=== PATIENT | female | born 1930 | race Caucasian/White ===

== ENCOUNTER 2016-07-01 08:52 | Outpatient (CLI) | payer OTHER ==
[2015-10-30 17:08] VITALS: BMI 30.6
[2016-07-01 09:06] LABS: BILIRUBIN,URINE Negative (NEGATIVE); KETONES,URINE Negative (NEGATIVE); LEUKOCYTE ESTERASE ,URINE Negative (NEGATIVE); NITRITE,URINE Negative (NEGATIVE); PH,URINE 5.5 (5-9); PROTEIN,URINE Negative (NEGATIVE); URINE, BLOOD Negative (NEGATIVE)
[2016-07-01 09:08] LABS: ADD URINE MICROSCOPIC NO
== END 2016-07-01 08:53 | disposition home or self-care (01) ==
LOC: NONPT 08:52
PROVIDERS: ATTEND Internal Medicine
DX: R41.0 Disorientation, unspecified (principal); R30.0 Dysuria
CPT/HCPCS: 81001

== ENCOUNTER 2017-01-21 14:09 | Outpatient (CLI) ==
[2015-10-30 17:08] VITALS: BMI 30.6
[2017-01-21 14:21] LABS: BILIRUBIN,URINE Negative (NEGATIVE); KETONES,URINE Negative (NEGATIVE); LEUKOCYTE ESTERASE ,URINE 3+ (NEGATIVE); NITRITE,URINE Negative (NEGATIVE); PH,URINE 5.5 (5-9); PROTEIN,URINE 1+ (NEGATIVE); URINE, BLOOD Trace-intact (NEGATIVE)
[2017-01-21 14:22] LABS: ADD URINE MICROSCOPIC YES
[2017-01-21 14:24] LABS: BACTERIA,URINE 3+ (NOT PRESENT)
== END 2017-01-21 14:10 | disposition home or self-care (01) ==
LOC: LAB 14:09 → NONPT 14:10
PROVIDERS: ATTEND Internal Medicine
DX: R41.0 Disorientation, unspecified (principal)
CPT/HCPCS: 81001; 87086

== ENCOUNTER 2017-01-31 09:13 | Outpatient (CLI) | payer OTHER ==
[2015-10-30 17:08] VITALS: BMI 30.6
[2017-01-31 09:49] LABS: BILIRUBIN,URINE Negative (NEGATIVE); KETONES,URINE Negative (NEGATIVE); LEUKOCYTE ESTERASE ,URINE 3+ (NEGATIVE); NITRITE,URINE Negative (NEGATIVE); PROTEIN,URINE Negative (NEGATIVE); URINE, BLOOD Trace-intact (NEGATIVE)
[2017-01-31 09:52] LABS: ADD URINE MICROSCOPIC YES
[2017-01-31 09:53] LABS: BACTERIA,URINE 3+ (NOT PRESENT)
== END 2017-01-31 09:14 | disposition home or self-care (01) ==
LOC: NONPT 09:13
PROVIDERS: ATTEND Internal Medicine
DX: R41.82 Altered mental status, unspecified (principal)
CPT/HCPCS: 81001; 87086

== ENCOUNTER 2017-02-14 16:16 | Inpatient (IN) | payer OTHER ==
--- NOTE | 2017-02-14 16:46 | ED.PDOC ---
General Stated Complaint: Patient told her daughter this AM she wasn't feeling well. Later in day, she became quite confused and slow to respond. Patient does respond appropriately if slowly to simple questions. Not oriented. Denies any pain. Denies SOB. Denies nausea, vomiting, or diarrhea. Denies fever or chills. Time Seen by Physician: 16:40 Mode of Arrival: Ambulance Information Source: Family, Assisted, EMT Exam Limitations: No limitations Nursing and Triage Documentation Reviewed and Agree: Yes <ERUM VINCENT - Last Filed: 02/14/17 19:01> <JANAK ORO - Last Filed: 02/14/17 20:19> ED Provider: Dr. JANAK ORO Chief Complaint: Shortness of Air Primary Care Provider: RANI WORTHY Respiratory Complaint Exam - Shortness of Air Complaint/Exam Onset/Duration: this AM Symptoms Are: Resolved Timing: Intermittent Initial Severity: Moderate Current Severity: None Character: Reports: Dyspnea at rest Aggravating: Reports: None Alleviating: Reports: None History of Healthcare-Acquired Pneumonia: Lives at half-way Pulmonary Embolism Risk Factors: Reports: None, Smoking Cardiac Risk Factors: Reports: Prior [place], CAD, Smoking, Hypertension Pseudomonas Risk Factors: Reports: None, Chronic Lung Disease Tuberculosis Risk Factors: Reports: None, Smoking Home Oxygen Use: No Recent Stress Test: No Recent Echo/LV Function: No Respiratory Distress: Mild Stridor Present: No Tracheal Deviation: No Subcutaneous Emphysema: No Accessory Muscle Use: No Retractions: Not Present Diminished Breath Sounds: No Prolonged Expiratory Phase: No Unable to Speak Full Sentences: No Fatigue: No Leg Swelling: No Ender's Sign Present: No Grunting Respirations: No Kussmaul Respirations: No Differential Diagnoses: CHF, COPD Exacerbation, Unstable Angina, Pneumonia, Bronchitis, Other (UTI, diverticulitis) Quality Indicators For Pneumonia/CAP: SpO2 assessed, Vital signs, Mental status assessed <ERUM VINCENT - Last Filed: 02/14/17 19:01> Review of Systems - Review Of Systems Constitutional: Reports: Malaise, Weakness Eyes: Reports: No symptoms Ears, Nose, Mouth, Throat: Reports: No symptoms Respiratory: Reports: No symptoms Cardiac: Reports: No symptoms GI: Reports: No symptoms : Reports: No symptoms Musculoskeletal: Reports: No symptoms Skin: Reports: No symptoms Neurological: Reports: Cognitive dysfunction, Weakness All Other Systems: Reviewed and Negative <MELISAERUM - Last Filed: 02/14/17 19:01> - Review Of Systems Constitutional: Reports: Weakness Eyes: Reports: No symptoms Ears, Nose, Mouth, Throat: Reports: No symptoms Respiratory: Reports: Cough Cardiac: Reports: No symptoms GI: Reports: No symptoms : Reports: No symptoms Musculoskeletal: Reports: No symptoms Skin: Reports: No symptoms Neurological: Reports: Cognitive dysfunction, Weakness Endocrine: Reports: No symptoms Hematologic/Lymphatic: Reports: No symptoms All Other Systems: Reviewed and Negative <SHORTYJANAK - Last Filed: 02/14/17 20:19> Past Medical History - Past Medical History Endocrine: Reports: DM 2, Dyslipidemia Cardiovascular: Reports: CAD, [place], Hypertension, A-Fib Respiratory: Reports: COPD Hematological: Reports: Anemia Gastrointestinal: Reports: GERD Genitourinary: Reports: CKD Neuro/Psych: Reports: Dementia Musculoskeletal: Reports: Arthritis Cancer: Reports: Other Last Menstrual Period: NONE - Surgical History General Surgical History: Reports: Cholecystectomy - Family History Family History: Reports: Unknown - Social History Smoking Status: Former smoker Hx Substance Use: No Alcohol Screening: None Lives: In Assisted - Immunizations Tetanus Shot up to Date: Yes Influenza Vaccine within 12 Months: Yes Pneumococcal Vaccine up to Date: Yes <VINCENTERUM - Last Filed: 02/14/17 19:01> - Past Medical History Previously Healthy: No Endocrine: Reports: Unknown Cardiovascular: Reports: Unknown Respiratory: Reports: Unknown Hematological: Reports: Unknown Gastrointestinal: Reports: Unknown Genitourinary: Reports: Unknown Neuro/Psych: Reports: Unknown Musculoskeletal: Reports: Unknown Cancer: Reports: Unknown - Surgical History General Surgical History: Reports: Unknown - Family History Family History: Reports: Unknown - Social History Lives: In Assisted <JANAK ORO - Last Filed: 02/14/17 20:19> Physical Exam - Physical Exam Appearance: Well-appearing (but sleepy and slow to respond to questions and commands), No pain distress, Well-nourished Ill-appearing: None Pain Distress: None Eyes: RICKEY, EOMI, Conjunctiva clear ENT: Nose normal, Oropharynx normal, TMs [place] (TMs martinez and dull) Neck: Supple Respiratory: Airway patent, Breath sounds clear, Breath sounds equal, Breath sounds diminished (in bases bilaterally) Cardiovascular: RRR, Pulses normal, No rub, No murmur GI/: Soft, Nontender (patient denies hematemesis but emesis on shirt is heme- positive), No masses, Bowel sounds normal, No Organomegaly Musculoskeletal: Normal strength, ROM intact, No edema, No calf tenderness Skin: Warm, Dry, Normal color Neurological: Sensation intact, Motor intact, Reflexes intact, Cranial nerves intact, Alert, Disoriented (doesn't answer questions), Alert to verbal Psychiatric: Affect appropriate (drowsy but arouses to voice), Mood appropriate <ERUM VINCENT - Last Filed: 02/14/17 19:01> - Physical Exam Appearance: Ill-appearing Eyes: RICKEY ENT: Ears normal, Nose normal, Oropharynx normal Neck: Supple Respiratory: Airway patent, Breath sounds clear, Breath sounds equal, Respirations nonlabored Cardiovascular: RRR, Pulses normal, No rub, No murmur GI/: Soft, Nontender, No masses, Bowel sounds normal, No Organomegaly Musculoskeletal: Normal strength, ROM intact, No edema, No calf tenderness Skin: Warm, Dry, Normal color Neurological: Disoriented Psychiatric: Affect appropriate, Mood appropriate <JANAK ORO - Last Filed: 02/14/17 20:19> Interpretation - Radiology Interpretation Radiology Interpretation By: ED Physician Radiology Results: No acute changes Exam Interpreted: Portable CXR - EKG Interpretation Time of EKG #1: 17:15 Rate: Pratik (HR 55) Rhythm: Other (undetermined regular bradycardia) Ectopy: None [place]: NL ST Segment: Normal Interpretation: Low voltage QRS, bradycardic supraventricular rhythm <ERUM VINCENT - Last Filed: 02/14/17 19:01> - Radiology Interpretation Radiology Interpretation By: Radiologist Exam Interpreted: CT Scan <JANAK ORO - Last Filed: 02/14/17 20:19> Physician Notification - Case Discussed Physician Notified: Dr. Kulkarni Time of Notification: 19:01 <ERUM VINCENT - Last Filed: 02/14/17 19:01> - Case Discussed Time of Notification: 20:18 <JANAK ORO - Last Filed: 02/14/17 20:19> Critical Care Note - Critical Care Note Total Time (mins): 0 <ERUM VINCENT - Last Filed: 02/14/17 19:01> Course - Course Hematology/Chemistry: 02/14/17 17:20 02/14/17 17:20 <ERUM VINCENT - Last Filed: 02/14/17 19:01> - Course Hematology/Chemistry: 02/14/17 17:20 02/14/17 17:20 <JANAK ORO - Last Filed: 02/14/17 20:19> - Course Orders, Labs, Meds: Lab Review 02/14/17 02/14/17 02/14/17 17:20 17:20 17:20 WBC 6.46 RBC 3.25 L Hgb 10.3 L Hct 31.2 L MCV 96.0 MCH 31.7 H MCHC 33.0 RDW Coeff of Zeeshan 14.2 Plt Count 152 Immature Gran % (Auto) 0.8 Neut % (Auto) 75.2 Lymph % (Auto) 11.5 [place] % (Auto) 11.5 H Eos % (Auto) 0.8 Baso % (Auto) 0.2 Immature Gran # (Auto) 0.1 Neut # 4.9 Lymph # 0.7 [place] # 0.7 Eos # 0.1 Baso # 0.0 Sodium 136 Potassium 4.8 Chloride 106 Carbon Dioxide 18 L Anion Gap 16.8 BUN 58 H Creatinine 2.16 H Estimated GFR (MDRD) 22.00 BUN/Creatinine Ratio 26.85 Glucose 185 H Calcium 9.3 Total Bilirubin 0.41 AST 20 ALT 15 Alkaline Phosphatase 74 Total Creatine Kinase 33 Troponin I 0.0300 B-Natriuretic Peptide 561 H Total Protein 6.5 Albumin 3.0 L Globulin 3.5 Albumin/Globulin Ratio 0.86 Urine Color Urine Clarity Urine pH Ur Specific [place] Urine Protein Urine Glucose (UA) Urine Ketones Urine Blood Urine Nitrite Urine Bilirubin Urine Urobilinogen Ur Leukocyte Esterase Urine Microscopic RBC Urine Microscopic WBC Ur Squamous Epith Cells Urine Bacteria Digoxin 02/14/17 02/14/17 17:20 19:39 WBC RBC Hgb Hct MCV MCH MCHC RDW Coeff of Zeeshan Plt Count Immature Gran % (Auto) Neut % (Auto) Lymph % (Auto) [place] % (Auto) Eos % (Auto) Baso % (Auto) Immature Gran # (Auto) Neut # Lymph # [place] # Eos # Baso # Sodium Potassium Chloride Carbon Dioxide Anion Gap BUN Creatinine Estimated GFR (MDRD) BUN/Creatinine Ratio Glucose Calcium Total Bilirubin AST ALT Alkaline Phosphatase Total Creatine Kinase Troponin I B-Natriuretic Peptide Total Protein Albumin Globulin Albumin/Globulin Ratio Urine Color Yellow Urine Clarity Hazy Urine pH 5.0 Ur Specific [place] 1.010 Urine Protein Negative Urine Glucose (UA) Negative Urine Ketones Negative Urine Blood 1+ Urine Nitrite Negative Urine Bilirubin Negative Urine Urobilinogen 0.2 Ur Leukocyte Esterase 2+ Urine Microscopic RBC 0-2 Urine Microscopic WBC 5-10 Ur Squamous Epith Cells Not present Urine Bacteria 1+ Digoxin 0.91 L Orders Category Date Time Status EKG-(ED ONLY) Stat CARDIO 02/14/17 16:49 Completed Catheter [ED CATHETER INSERTION AND CARE] .ONCE EMERGENCY 02/14/17 19:03 Active BNP [B-TYPE NATRIURETIC PEPTIDE] Stat LAB 02/14/17 17:20 Completed CBC W/ AUTO DIFF Stat LAB 02/14/17 17:20 Completed CK [CREATINE KINASE] Stat LAB 02/14/17 17:20 Completed COMPREHENSIVE METABOLIC PANEL Stat LAB 02/14/17 17:20 Completed DIGOXIN Stat LAB 02/14/17 17:20 Completed TROPONIN I Stat LAB 02/14/17 17:20 Completed URINALYSIS C & S IF INDICATED Stat LAB 02/14/17 19:39 Completed URINE CULTURE Stat LAB 02/14/17 19:45 Received Lidocaine HCl [Uro-Jet] MEDS 02/14/17 19:03 Discontinued 10 ml MUCOUSMEMB ONCE STA Sodium Chloride 0.9% [Sodium Chloride] 500 ml MEDS 02/14/17 18:33 Discontinued IV BOLUS CHEST, 1V AP ONLY Stat RADS 02/14/17 16:[address] HEAD W/O CONTRAST Stat RADS 02/14/17 19:38 Completed Medications Discontinued Medications Generic Name Dose Route Start Last Admin Trade Name Freq PRN Reason Stop Dose Admin Sodium Chloride 500 mls @ 500 mls/hr 02/14/17 18:33 02/14/17 19:41 Sodium Chloride IV 02/14/17 19:32 500 mls/hr BOLUS STA Administration Lidocaine HCl 10 ml 02/14/17 19:03 02/14/17 19:40 Uro-Jet MUCOUSMEMB 02/14/17 19:04 Not Given ONCE STA Vital Signs: Temp Pulse Resp BP Pulse Ox 02/14/17 16:17 99.4 F 52 L 20 144/99 H 100 Departure <TOMÁS VINCENTNATHAN - Last Filed: 02/14/17 19:01> - Departure Time of Disposition: 20:18 Pt referred to PMD for follow-up: Yes Disposition Discussed With: Patient, Family <JANAK ORO - Last Filed: 02/14/17 20:19> - Departure Disposition: ADMITTED INPATIENT Discharge Problem: Dehydration Mental status change Qualifiers: Altered mental status type: transient alteration of awareness Qualified Code(s) : R40.4 - Transient alteration of awareness Instructions: Altered Mental Status (ED) Condition: Stable Allergies/Adverse Reactions: Allergies Penicillins Adverse Reaction (Unknown, Verified 02/14/17 16:44) Rash adhesive tape Adverse Reaction (Verified 02/14/17 16:44) iodine Adverse Reaction (Verified 02/14/17 16:44) Iodine and Iodide Containing Produc Adverse Reaction (Verified 02/14/17 16:44) Home Medications: Ambulatory Orders Furosemide [Furosemide] 20 mg PO DAILY 07/22/13 Sucralfate [Carafate] 1 gm PO BID 07/22/13 Donepezil HCl 10 mg PO BEDTIME 10/26/14 Dabigatran Etexilate Mesylate [Pradaxa] 150 mg PO Q12HR 08/30/15 Digoxin [Lanoxin] 125 mcg PO DAILY 08/30/15 Linagliptin [Tradjenta] 5 mg PO DAILY 08/30/15 Losartan Potassium 50 mg PO DAILY 08/30/15 Pantoprazole Sodium 40 mg PO DAILY 08/30/15 Rosuvastatin Calcium [Crestor] 10 mg PO DAILY 08/30/15 Denosumab [Prolia] 60 mg SQ Q6M 10/30/15 Fenofibrate Nanocrystallized [Fenofibrate] 145 mg PO DAILY 10/30/15 Tramadol HCl [Ultram] 50 mg PO Q12H PRN 10/30/15 Allopurinol 100 mg PO DAILY #30 tablet 11/05/15 Calcium Carbonate/Vitamin D3 [Calcium 500 + D Tablet] 2 each PO DAILY #60 tablet 11/05/15 Acetaminophen [Tylenol] 325 mg PO Q6H PRN 02/14/17 Alprazolam 0.25 mg PO BID 02/14/17 Bisoprolol Fumarate [Zebeta] 2.5 mg PO DAILY 02/14/17 Colesevelam HCl [Welchol] 625 mg PO BID 02/14/17 Escitalopram Oxalate [Lexapro] 15 mg PO DAILY 02/14/17 Ferrous Sulfate [Iron] 325 mg PO BID 02/14/17 Magnesium Hydroxide [Milk of Magnesia] 30 ml PO BID PRN 02/14/17 Nystatin [Nystop Powder] 1 applic TP TID 02/14/17 Tolterodine Tartrate [Detrol LA] 4 mg PO DAILY 02/14/17
[2017-02-14 17:38] LABS: BASOPHILS % (AUTO) 0.2 % (0.0-3.0); EOSINOPHILS # (AUTO) 0.1 K/ul (0.0-0.7); EOSINOPHILS % (AUTO) 0.8 % (0.0-7.0); HEMATOCRIT 31.2 % (37.0-47.0); HEMOGLOBIN 10.3 g/dl (12.0-16.0); IMMATURE GRANULOCYTE % (AUTO) 0.8 % (0.0-5.0); LYMPHOCYTES # (AUTO) 0.7 K/uL (0.60-3.4); LYMPHOCYTES % (AUTO) 11.5 (10.0-50.0); MEAN CORPUSCULAR HEMOGLOBIN 31.7 pg (27.0-31.0); MONOCYTES # (AUTO) 0.7 K/uL (0.4-2.0); MONOCYTES % (AUTO) 11.5 (0-10); NEUTROPHILS # (AUTO) 4.9 K/ul (2.0-6.9); NEUTROPHILS % (AUTO) 75.2; PLATELET COUNT 152 10^3/uL (140-440); RED BLOOD COUNT 3.25 10^6/ul (4.20-5.40); WHITE BLOOD COUNT 6.46 K/ul (4.6-10.2)
[2017-02-14 18:06] LABS: ALBUMIN/GLOBULIN RATIO 0.86; ANION GAP 16.8; BILIRUBIN,TOTAL 0.41 mg/dL (0.00-1.20); BUN/CREATININE RATIO 26.85; CALCIUM 9.3 mg/dL (8.2-10.2); CREATININE 2.16 mg/dL (0.60-1.30); POTASSIUM 4.8 mmol/L (3.5-5.10); TOTAL PROTEIN 6.5 g/dL (5.8-8.1); TROPONIN I 0.03 ng/ml (0.0000-0.4000)
[2017-02-14] MEDS ORDERED: SODIUM CHLORIDE 1,000 ML IV STA (18:32)
[2017-02-14] MEDS ORDERED: SODIUM CHLORIDE 500 ML IV STA (18:33)
[2017-02-14] MEDS ORDERED: URO-JET MUCOUSMEMB STA (19:03)
[2017-02-14 19:43] LABS: BILIRUBIN,URINE Negative (NEGATIVE); KETONES,URINE Negative (NEGATIVE); LEUKOCYTE ESTERASE ,URINE 2+ (NEGATIVE); NITRITE,URINE Negative (NEGATIVE); PROTEIN,URINE Negative (NEGATIVE); URINE, BLOOD 1+ (NEGATIVE)
[2017-02-14 19:44] LABS: ADD URINE MICROSCOPIC YES
[2017-02-14 19:45] LABS: BACTERIA,URINE 1+ (NOT PRESENT)
--- NOTE | 2017-02-14 20:05 | CT ---
EXAM: CT scan brain without contrast HISTORY: Altered mental status COMPARISON: CT scan brain 08/30/2015 FINDINGS: Contiguous axial images obtained from skull base to the convexities without contrast utili zing 5-mm collimation. Sagittal and coronal reconstructions were imaged and reviewed. The ventricles and CSF spaces are prominent compatible with age appropriate atrophy. There is moderate periventric ular hypodensity noted compatible with chronic microvascular disease. Mineralization is seen within the bilateral basal ganglion. Atherosclerotic changes are seen involving the bilateral vertebral and cavernous internal carotid arteries. The visualized paranasal sinuses and mastoid air cells are sejal ar. IMPRESSION: Age appropriate atrophy with chronic microvascular disease. ASVD.
[2017-02-14] MEDS ORDERED: ULTRAM PO PRN (20:23)
[2017-02-14] MEDS ORDERED: MILK OF MAGNESIA PO PRN (20:23)
[2017-02-14] MEDS ORDERED: CARAFATE PO SCH (21:00)
[2017-02-14] MEDS ORDERED: XANAX PO SCH (21:00)
[2017-02-14] MEDS ORDERED: NON-FORMULARY MEDICATION (Ferrous Sulfate [Iron] 325 MG) PO SCH ×22 (21:00)
[2017-02-14] MEDS ORDERED: PRADAXA PO SCH (21:00)
[2017-02-14] MEDS ORDERED: ARICEPT PO SCH (21:00)
[2017-02-14] MEDS ORDERED: WELCHOL PO SCH (21:00)
[2017-02-14 21:08] LABS: ABG BASE EXCESS -2 (-2.0-2.0); ABG HCO3 23.6 (22.0-26.0); ABG PCO2 40.3 mmHg (35-45); ABG PH 7.375 (7.35-7.45); ABG TCO2 25 (22.0-28.0)
[2017-02-14 21:27] VITALS: BMI 29.5
[2017-02-14] MEDS: SODIUM CHLORIDE 1,000 ML IV SCH (22:48)
[2017-02-14] MEDS: NYSTOP POWDER TP SCH (22:49)
[2017-02-15 05:41] LABS: BASOPHILS % (AUTO) 0.2 % (0.0-3.0); HEMATOCRIT 28.7 % (37.0-47.0); HEMOGLOBIN 9.6 g/dl (12.0-16.0); IMMATURE GRANULOCYTE % (AUTO) 0.2 % (0.0-5.0); LYMPHOCYTES # (AUTO) 0.6 K/uL (0.60-3.4); LYMPHOCYTES % (AUTO) 13.7 (10.0-50.0); MEAN CORPUSCULAR HEMOGLOBIN 31.4 pg (27.0-31.0); MEAN CORPUSCULAR HGB CONC 33.4 (31.8-35.4); MEAN CORPUSCULAR VOLUME 93.8 fl (81.0-99.0); MONOCYTES # (AUTO) 0.6 K/uL (0.4-2.0); NEUTROPHILS # (AUTO) 2.9 K/ul (2.0-6.9); NEUTROPHILS % (AUTO) 70.9; PLATELET COUNT 134 10^3/uL (140-440); RED BLOOD COUNT 3.06 10^6/ul (4.20-5.40); WHITE BLOOD COUNT 4.15 K/ul (4.6-10.2)
[2017-02-15 05:57] LABS: ALBUMIN 2.7 g/dL (3.4-5.0); ALBUMIN/GLOBULIN RATIO 0.84; BILIRUBIN,TOTAL 0.38 mg/dL (0.00-1.20); BUN/CREATININE RATIO 28.72; CREATININE 1.81 mg/dL (0.60-1.30); TOTAL PROTEIN 5.9 g/dL (5.8-8.1)
[2017-02-15] MEDS ORDERED: PROTONIX PO SCH ×2 (06:30→09:00)
[2017-02-15] MEDS ORDERED: CARAFATE PO SCH (06:30)
[2017-02-15] MEDS ORDERED: LASIX TAB PO SCH ×2 (06:30→09:00)
--- NOTE | 2017-02-15 07:24 | DI ---
EXAM: CHEST FRONTAL VIEW HISTORY: Confusion, shortness of breath. COMPARISON: 10/29/2014 FINDINGS: Heart size upper limit normal, stable. There is mild to moderate aortic atherosclerosis s uggested. Chronic-appearing lung changes similar to that previously seen. No acute infiltrates are s een. No vascular congestion. There is no consolidation, visible pleural fluid or pneumothorax. Bone s reveal no acute fracture. IMPRESSION: No acute cardiopulmonary process.
[2017-02-15] MEDS ORDERED: LOVENOX SUBCUT SCH (09:00)
[2017-02-15] MEDS ORDERED: WELCHOL PO SCH (09:00)
[2017-02-15] MEDS ORDERED: LEXAPRO PO SCH ×2 (09:00→09:15)
[2017-02-15] MEDS ORDERED: ZYLOPRIM PO SCH ×2 (09:00)
[2017-02-15] MEDS ORDERED: CALCIUM CARBONATE PO SCH (09:00)
[2017-02-15] MEDS ORDERED: NON-FORMULARY MEDICATION (Tolterodine Tartrate 4 MG) PO SCH (09:00)
[2017-02-15] MEDS ORDERED: TRADJENTA PO SCH ×2 (09:00)
[2017-02-15] MEDS ORDERED: ULTRAM PO PRN ×2 (09:00→10:30)
[2017-02-15] MEDS ORDERED: LANOXIN PO SCH ×2 (09:00)
[2017-02-15] MEDS ORDERED: PRADAXA PO SCH ×2 (09:00)
[2017-02-15] MEDS ORDERED: COZAAR PO SCH ×4 (09:00→09:45)
[2017-02-15] MEDS ORDERED: VITAMIN D3 E PO SCH (09:00)
[2017-02-15] MEDS ORDERED: CALCIUM 500 + VIT D 200 MG TABLET PO SCH (09:00)
[2017-02-15] MEDS ORDERED: ZEBETA PO SCH ×2 (09:00)
[2017-02-15] MEDS ORDERED: NON-FORMULARY MEDICATION (Fenofibrate Nanocrystallized [Fenofibrate] 145 MG) PO SCH ×22 (09:00)
[2017-02-15] MEDS ORDERED: TRIGLIDE PO SCH (09:00)
[2017-02-15] MEDS ORDERED: CRESTOR PO SCH ×2 (09:00→09:15)
[2017-02-15] MEDS ORDERED: FERROUS SULFATE PO SCH (09:00)
[2017-02-15] MEDS ORDERED: [UNRECOGNIZED DRUG - OTHER] PO SCH (09:00)
[2017-02-15] MEDS ORDERED: NON-FORMULARY MEDICATION (Escitalopram Oxalate [Lexapro] 5 MG) PO SCH (09:15)
[2017-02-15] MEDS: LEVAQUIN 250 MG in PREMIX 50 ML D5W 1 BAG IV SCH (09:45)
[2017-02-15] MEDS: CALCIUM 500 + VIT D 200 MG TABLET PO SCH (09:45)
[2017-02-15] MEDS: FERROUS SULFATE PO SCH ×2 (09:46→21:04)
[2017-02-15] MEDS: NYSTOP POWDER TP SCH ×3 (09:46→21:07)
[2017-02-15] MEDS: XANAX PO SCH ×2 (09:58→21:05)
--- NOTE | 2017-02-15 10:53 | HP ---
DATE OF SERVICE: 02/15/17 HISTORY OF PRESENT ILLNESS: This 86 year old WHITE/ F was hospitalized 02/14/17. The patient is admitted with change in mental status. The patient was seen and examined by ER attending. The patient has abnormal creatinine and BUN raising the possibility of renal azotemia and dehydration. Oral intake has been poor lately. UA was abnormal. The patient is unable to give full history. PAST MEDICAL HISTORY: 1. Chronic kidney disease 2. Hypertension 3. Peripheral arterial disease followed by Dr. Lazo 4. Chronic lung disease 5. Gastroesophageal reflux disease 6. Hernia 7. Hyperlipidemia 8. Osteoarthritis 9. Anemia 10.Atrial fibrillation 11.Dementia 12.Diabetes mellitus 13.Obesity PAST SURGICAL HISTORY: None listed. REVIEW OF SYSTEMS: CONSTITUTIONAL: Drowsy. Confused. Weakness. No night sweats. No fever or chills. HEENT: Eyes: No visual changes. No eye pain. No eye discharge. ENT: No runny nose. No epistaxis. No sinus pain. No sore throat. No odynophagia. No ear pain. No congestion. RESPIRATORY: No cough, no congestion. No hemoptysis. No shortness of breath. CARDIOVASCULAR: No angina symptoms. No CHF symptoms. No atypical chest pain for CAD. No palpitations. No orthopnea. GASTROINTESTINAL: No abdominal pain. No nausea or vomiting. No diarrhea or constipation. No hematemesis. No hematochezia. GENITOURINARY: No urgency. No frequency. No dysuria. No hematuria. No obstructive symptoms. No discharge. No pain. No significant abnormal bleeding. MUSCULOSKELETAL: No musculoskeletal pain. No joint swelling. No arthritis. NEUROLOGICAL: No headache. No neck pain. No syncope. No seizures. No dizziness. PSYCHIATRIC: Not anxious. No depression. No suicidal thoughts. No homicidal thoughts. SKIN: No rash. No lesions. No wounds. ENDOCRINE: No unexplained weight loss. No weight gain. HEMATOLOGIC/LYMPHATIC: No anemia. No purpura. No petechiae. No prolonged or excessive bleeding. No palpable lymph nodes. PERSONAL/FAMILY/SOCIAL HISTORY: The patient is . Former smoker, quit several years ago. No alcohol use. The patient lives with daughter, Ellen. Family History: Father at unknown age; mother at unknown age. MEDICATIONS: (Home) 1. Carafate 1 gm p.o. b.i.d. 2. Furosemide 20 mg p.o. daily 3. Donepezil 10 mg p.o. bedtime 4. Pantoprazole 40 mg p.o. daily 5. Tradjenta 5 mg p.o. daily 6. Pradaxa 150 mg p.o. q.12hr 7. Digoxin 125 mcg p.o. daily 8. Crestor 10 mg p.o. daily 9. Losartan 50 mg p.o. daily 10. Ultram 50 mg p.o. q.12h p.r.n. 11. Fenofibrate 145 mg p.o. daily 12. Prolia 60 mg SQ q.6m 13. Allopurinol 100 mg p.o. daily 14. Calcium Carbonate/Vitamin D3 two each p.o. daily 15. Bisoprolol (Zebeta) 2.5 mg p.o. daily 16. Tylenol 325 mg p.o. q.6h p.r.n. 17. Nystatin 1 application TP t.i.d. p.r.n. 18. Milk of Magnesia 30 mL p.o. b.i.d p.r.n. 19. Ferrous Sulfate 325 mg p.o. b.i.d. 20. Lexapro 15 mg p.o. daily 21. Detrol [place] 4 mg p.o. daily 22. Welchol 625 mg p.o. b.i.d. 23. Alprazolam 0.25 mg p.o. b.i.d. 24. Lexapro 5 mg p.o. daily ALLERGIES: IODINE, PENICILLIN, ADHESIVE TAPE PHYSICAL EXAMINATION: GENERAL: The patient is drowsy, confused, lying in bed, doesn't seem in distress. VITAL SIGNS: Temperature 97.4 F, Pulse 51, Respiratory Rate 16, BP 106/62, Pulse Ox 99% HEENT: Head normocephalic, atraumatic. Eyes: Extraocular muscles are intact. Pupils are equal, round and reactive to light and accommodation. Ears: No lesions. Nose appeared normal. Throat: No exudate or erythema. NECK: Supple. No JVD, no carotid bruit. No lymphadenopathy or thyromegaly. LUNGS: Decreased breath sounds. Clear to auscultation. Percussion note normal. Chest symmetrical. HEART: S1, S2, no S3. No murmurs. No cyanosis or clubbing. No ascites. ABDOMEN: Soft. Nontender. Bowel sounds active. No CVA tenderness. No mass felt. EXTREMITIES: No edema. Pulses: Dorsalis pedis and posterior tibial pulses +1 bilaterally. Full range of motion of all extremities, equal. NEUROLOGIC: No focal deficit. Cranial nerves II through XII are grossly intact. No headache, no double vision or headache. SKIN: Not dry. Intact. Turgor - normal. LYMPHATIC: No palpable lymph nodes/no lymphedema. MUSCULOSKELETAL: Normal joints with no swelling. Muscle tone is normal. LAB REVIEW: 02/15/17 05:05: Sodium 140, Potassium 4.0, Chloride 109 H, Carbon Dioxide 22 L, Anion Gap 13.0, BUN 52 H, Creatinine 1.81 H, Estimated GFR (MDRD) 26.00, BUN/ Creatinine Ratio 28.72, Glucose 178 H, Calcium 9.0, Total Bilirubin 0.38, AST 16 , ALT 13, Alkaline Phosphatase 60, Total Protein 5.9, Albumin 2.7 L, Globulin 3.2, Albumin/Globulin Ratio 0.84 02/15/17 05:05: WBC 4.15 L, RBC 3.06 L, Hgb 9.6 L, Hct 28.7 L, MCV 93.8, MCH 31.4 H, MCHC 33.4, RDW Coeff of Zeeshan 14.4, Plt Count 134 L, Immature Gran % (Auto ) 0.2, Neut % (Auto) 70.9, Lymph % (Auto) 13.7, [place] % (Auto) 14.0 H, Eos % ( Auto) 1.0, Baso % (Auto) 0.2, Immature Gran # (Auto) 0.0, Neut # 2.9, Lymph # 0.6, [place] # 0.6, Eos # 0.0, Baso # 0.0 ASSESSMENT: 1. Renal azotemia 2. Dementia, worsening 3 Dehydration 4. Anemia 5. Depression 6. Atrial fibrillation 7. Hypertension PLAN: 1. Continue IV antibiotics 2. IV fluids 3. Daily CBC and CMP 4. Telemetry 5. Daughter is in the room with the patient; the patient is DNR 6. D/C Tradjenta 7. D/C Detrol LA 8. D/C Lanoxin Plan and coordination of the patient's care discussed in the presence of Special Needs Librarian and nurse. CONDITION: STABLE SCRIBED BY: LACEY VIVAR Filter Helper scribed while in presence of service performed by Dr. RANI WORTHY on 02/15/17 ([id number]) TIME SPENT: More than 70 minutes. WILLIAM
[2017-02-15] MEDS: CARAFATE PO SCH (17:28)
[2017-02-15] MEDS: SODIUM CHLORIDE 1,000 ML IV SCH (17:46)
[2017-02-15] MEDS: ARICEPT PO SCH (21:05)
[2017-02-15] MEDS: WELCHOL PO SCH (21:05)
[2017-02-15] MEDS: PRADAXA PO SCH (21:07)
[2017-02-16 05:15] LABS: EOSINOPHILS # (AUTO) 0.1 K/ul (0.0-0.7); EOSINOPHILS % (AUTO) 2.9 % (0.0-7.0); HEMATOCRIT 27.5 % (37.0-47.0); HEMOGLOBIN 9.2 g/dl (12.0-16.0); IMMATURE GRANULOCYTE % (AUTO) 0.8 % (0.0-5.0); LYMPHOCYTES # (AUTO) 0.8 K/uL (0.60-3.4); LYMPHOCYTES % (AUTO) 21.5 (10.0-50.0); MEAN CORPUSCULAR HEMOGLOBIN 31.1 pg (27.0-31.0); MEAN CORPUSCULAR HGB CONC 33.5 (31.8-35.4); MEAN CORPUSCULAR VOLUME 92.9 fl (81.0-99.0); MONOCYTES # (AUTO) 0.6 K/uL (0.4-2.0); MONOCYTES % (AUTO) 16.4 (0-10); NEUTROPHILS # (AUTO) 2.2 K/ul (2.0-6.9); NEUTROPHILS % (AUTO) 58.4; PLATELET COUNT 126 10^3/uL (140-440); RED BLOOD COUNT 2.96 10^6/ul (4.20-5.40); WHITE BLOOD COUNT 3.77 K/ul (4.6-10.2)
[2017-02-16] MEDS: LASIX TAB PO SCH (05:36)
[2017-02-16] MEDS: CARAFATE PO SCH ×2 (05:36→17:50)
[2017-02-16] MEDS: PROTONIX PO SCH (05:36)
[2017-02-16 05:46] LABS: ALBUMIN 2.4 g/dL (3.4-5.0); ALBUMIN/GLOBULIN RATIO 0.8; ANION GAP 10.6; BILIRUBIN,TOTAL 0.34 mg/dL (0.00-1.20); BUN/CREATININE RATIO 25.9; CALCIUM 8.9 mg/dL (8.2-10.2); CREATININE 1.66 mg/dL (0.60-1.30); POTASSIUM 3.6 mmol/L (3.5-5.10); TOTAL PROTEIN 5.4 g/dL (5.8-8.1)
[2017-02-16] MEDS: LEXAPRO PO SCH (08:35)
[2017-02-16] MEDS: TRIGLIDE PO SCH (08:36)
[2017-02-16] MEDS: CRESTOR PO SCH (08:37)
[2017-02-16] MEDS: CALCIUM 500 + VIT D 200 MG TABLET PO SCH (08:37)
[2017-02-16] MEDS: NYSTOP POWDER TP SCH ×3 (08:37→20:56)
[2017-02-16] MEDS: FERROUS SULFATE PO SCH ×2 (08:37→20:57)
[2017-02-16] MEDS: XANAX PO SCH ×2 (08:37→20:57)
[2017-02-16] MEDS: ZYLOPRIM PO SCH (08:37)
[2017-02-16] MEDS: LEVAQUIN 250 MG in PREMIX 50 ML D5W 1 BAG IV SCH (08:37)
[2017-02-16] MEDS: PRADAXA PO SCH ×2 (08:51→20:57)
[2017-02-16] MEDS: WELCHOL PO SCH ×2 (08:51→20:56)
[2017-02-16] MEDS ORDERED: ZEBETA PO SCH (09:00)
--- NOTE | 2017-02-16 10:50 | PCM.PROG ---
Attending Provider: ATTENDING PROVIDER: Dr. RANI WORTHY This patient is seen with Jovanna Pleitez, Nurse Practitioner. DATE OF SERVICE: 02/16/17 SUBJECTIVE: This 86 year old WHITE/ F was hospitalized 02/14/17. The patient is lying in bed resting comfortably. No fever. She is eating well. REVIEW OF SYSTEMS: CONSTITUTIONAL: Weakness. No night sweats. No fever or chills. HEENT: Eyes: No visual changes. No eye pain. No eye discharge. ENT: No runny nose. No epistaxis. No sinus pain. No odynophagia. No congestion. RESPIRATORY: No cough, no congestion. No hemoptysis. No shortness of breath. CARDIOVASCULAR: No angina symptoms. No CHF symptoms. No atypical chest pain for CAD. No palpitations. No orthopnea.. GASTROINTESTINAL: No abdominal pain. No nausea or vomiting. No diarrhea or constipation. No hematemesis. No hematochezia. GENITOURINARY: No urgency. No frequency. No dysuria. No hematuria. No obstructive symptoms. No discharge. No pain. No significant abnormal bleeding. MUSCULOSKELETAL: No musculoskeletal pain; no joint swelling. NEUROLOGICAL: Awake with bouts of confusion. No headache. No neck pain. No syncope. No seizures. No dizziness. PSYCHIATRIC: Not anxious. No depression. No suicidal thoughts. No homicidal thoughts. SKIN: No rash. No lesions. No wounds. ENDOCRINE: No unexplained weight loss. No weight gain. HEMATOLOGIC/LYMPHATIC: No anemia. No purpura. No petechiae. No prolonged or excessive bleeding. No palpable lymph nodes. PHYSICAL EXAMINATION: GENERAL: The patient is awake with bouts of confusion lying in bed in no distress. VITAL SIGNS: Temperature 97.6 F, Pulse 48, Respiratory Rate 16, BP 142/58, Pulse Ox 96% HEENT: Head normocephalic, atraumatic. Eyes: Extraocular muscles are intact. Pupils are equal, round and reactive to light and accommodation. Ears: No lesions. Nose appeared normal. Throat: No exudate or erythema. NECK: Supple. No JVD, no carotid bruit. No lymphadenopathy or thyromegaly. LUNGS: Diminished breath sounds bilaterally, equal and clear to auscultation. Percussion note normal. Chest symmetrical. HEART: Regular rate and rhythm. S1, S2, no S3. No murmurs. No cyanosis or clubbing. No ascites. Pulses: Dorsalis pedis and posterior tibial pulses +1 to +2 both sides. ABDOMEN: Soft. Non-tender. Bowel sounds active. No CVA tenderness. No mass felt. EXTREMITIES: No edema. Full range of motion of all extremities, equal. NEUROLOGIC: No focal deficit. Cranial nerves II through XII are grossly intact. No headache, no double vision or headache. SKIN: Not dry. Intact. Turgor-normal. LYMPHATIC: No palpable lymph nodes/no lymphedema. MUSCULOSKELETAL: Normal joints with no swelling. Muscle tone is normal. LAB REVIEW: 02/16/17 04:00 02/16/17 04:00 02/16/17 04:00: Sodium 137, Potassium 3.6, Chloride 109 H, Carbon Dioxide 21 L, Anion Gap 10.6, BUN 43 H, Creatinine 1.66 H, Estimated GFR (MDRD) 29.00, BUN/ Creatinine Ratio 25.90, Glucose 151 H, Calcium 8.9, Total Bilirubin 0.34, AST 18 , ALT 14, Alkaline Phosphatase 60, Total Protein 5.4 L, Albumin 2.4 L, Globulin 3.0, Albumin/Globulin Ratio 0.80 02/16/17 04:00: WBC 3.77 L, RBC 2.96 L, Hgb 9.2 L, Hct 27.5 L, MCV 92.9, MCH 31.1 H, MCHC 33.5, RDW Coeff of Zeeshan 14.3, Plt Count 126 L, Immature Gran % (Auto ) 0.8, Neut % (Auto) 58.4, Lymph % (Auto) 21.5, [place] % (Auto) 16.4 H, Eos % ( Auto) 2.9, Baso % (Auto) 0.0, Immature Gran # (Auto) 0.0, Neut # 2.2, Lymph # 0.8, [place] # 0.6, Eos # 0.1, Baso # 0.0 ASSESSMENT: 1. UTI, E. coli sensitive to Levaquin 2. Renal azotemia 3. Dementia, worsening 4. Dehydration 5. Anemia 6. Depression 7. Atrial fibrillation 8. Hypertension PLAN: 1. D/C Lovenox 2. Continue Pradaxa 3. Continue IV Levaquin Plan and coordination of the patient's care discussed in the presence of Rating Specialist and nurse. CONDITION: Stable SCRIBED BY: LACEY VIVAR, Molecular Biologist scribed while in presence of service performed by Dr. Worthy/Jovanna Pleitez APRN on 02/16/17 ([id number])
[2017-02-16] MEDS: COZAAR PO SCH (12:35)
[2017-02-16] MEDS: SODIUM CHLORIDE 1,000 ML IV SCH (14:46)
[2017-02-16] MEDS: ARICEPT PO SCH (20:56)
[2017-02-17 05:35] LABS: BASOPHILS % (AUTO) 0.2 % (0.0-3.0); EOSINOPHILS # (AUTO) 0.2 K/ul (0.0-0.7); EOSINOPHILS % (AUTO) 3.3 % (0.0-7.0); HEMOGLOBIN 9.7 g/dl (12.0-16.0); IMMATURE GRANULOCYTE % (AUTO) 0.4 % (0.0-5.0); LYMPHOCYTES # (AUTO) 0.8 K/uL (0.60-3.4); LYMPHOCYTES % (AUTO) 18.3 (10.0-50.0); MEAN CORPUSCULAR HEMOGLOBIN 31.3 pg (27.0-31.0); MEAN CORPUSCULAR HGB CONC 33.4 (31.8-35.4); MEAN CORPUSCULAR VOLUME 93.5 fl (81.0-99.0); MONOCYTES # (AUTO) 0.7 K/uL (0.4-2.0); MONOCYTES % (AUTO) 14.6 (0-10); NEUTROPHILS # (AUTO) 2.9 K/ul (2.0-6.9); NEUTROPHILS % (AUTO) 63.2; PLATELET COUNT 135 10^3/uL (140-440); WHITE BLOOD COUNT 4.59 K/ul (4.6-10.2)
[2017-02-17] MEDS: LASIX TAB PO SCH (05:45)
[2017-02-17] MEDS: CARAFATE PO SCH ×2 (05:45→16:44)
[2017-02-17] MEDS: PROTONIX PO SCH (05:46)
[2017-02-17 05:55] LABS: ALBUMIN 2.5 g/dL (3.4-5.0); ALBUMIN/GLOBULIN RATIO 0.83; ANION GAP 10.5; BILIRUBIN,TOTAL 0.31 mg/dL (0.00-1.20); BUN/CREATININE RATIO 23.31; CREATININE 1.63 mg/dL (0.60-1.30); POTASSIUM 3.5 mmol/L (3.5-5.10); TOTAL PROTEIN 5.5 g/dL (5.8-8.1)
[2017-02-17] MEDS: LEXAPRO PO SCH (08:57)
[2017-02-17] MEDS: ZYLOPRIM PO SCH (08:57)
[2017-02-17] MEDS: LEVAQUIN 250 MG in PREMIX 50 ML D5W 1 BAG IV SCH (08:57)
[2017-02-17] MEDS: COZAAR PO SCH (08:57)
[2017-02-17] MEDS: XANAX PO SCH ×2 (08:58→20:41)
[2017-02-17] MEDS: NYSTOP POWDER TP SCH ×3 (08:58→20:41)
[2017-02-17] MEDS: TRIGLIDE PO SCH (08:58)
[2017-02-17] MEDS: WELCHOL PO SCH ×2 (08:58→20:41)
[2017-02-17] MEDS: CALCIUM 500 + VIT D 200 MG TABLET PO SCH (08:58)
[2017-02-17] MEDS: FERROUS SULFATE PO SCH ×2 (08:58→20:41)
[2017-02-17] MEDS: CRESTOR PO SCH (08:58)
[2017-02-17] MEDS: PRADAXA PO SCH ×2 (08:58→20:41)
[2017-02-17] MEDS: SODIUM CHLORIDE 1,000 ML IV SCH (09:01)
--- NOTE | 2017-02-17 09:31 | PCM.PROG ---
Attending Provider: ATTENDING PROVIDER: Dr. RANI WORTHY This patient is seen with Jovanna Pleitez, Nurse Practitioner. DATE OF SERVICE: 02/17/17 SUBJECTIVE: This 86 year old WHITE/ F was hospitalized 02/14/17. The patient is alert and laying in bed, Bradycardia has improved from yesterday. REVIEW OF SYSTEMS: CONSTITUTIONAL: No night sweats. No fatigue, malaise, lethargy. No fever or chills. Weakness. HEENT: Eyes: No visual changes. No eye pain. No eye discharge. ENT: No runny nose. No epistaxis. No sinus pain. No odynophagia. No congestion. RESPIRATORY: No cough, no congestion. No hemoptysis. No shortness of breath. CARDIOVASCULAR: No angina symptoms. No CHF symptoms. No atypical chest pain for CAD. No palpitations. No orthopnea.. GASTROINTESTINAL: No abdominal pain. No nausea or vomiting. No diarrhea or constipation. No hematemesis. No hematochezia. GENITOURINARY: No urgency. No frequency. No dysuria. No hematuria. No obstructive symptoms. No discharge. No pain. No significant abnormal bleeding. MUSCULOSKELETAL: No musculoskeletal pain; no joint swelling. NEUROLOGICAL: Awake, alert, oriented person. No headache. No neck pain. No syncope. No seizures. No dizziness. Confusion, improved. PSYCHIATRIC: Not anxious. No depression. No suicidal thoughts. No homicidal thoughts. SKIN: No rash. No lesions. No wounds. ENDOCRINE: No unexplained weight loss. No weight gain. HEMATOLOGIC/LYMPHATIC: No anemia. No purpura. No petechiae. No prolonged or excessive bleeding. No palpable lymph nodes. PHYSICAL EXAMINATION: GENERAL: The patient is awake, alert and oriented to person. VITAL SIGNS: Temperature 96.9 F, Pulse 55, Respiratory Rate 20, BP 149/63, Pulse Ox 98% HEENT: Head normocephalic, atraumatic. Eyes: Extraocular muscles are intact. Pupils are equal, round and reactive to light and accommodation. Ears: No lesions. Nose appeared normal. Throat: No exudate or erythema. NECK: Supple. No JVD, no carotid bruit. No lymphadenopathy or thyromegaly. LUNGS: Diminished breath sounds, equal and clear to auscultation. Percussion note normal. Chest symmetrical. HEART: S1, S2, no S3. No murmurs. Heart rate is irregular consistent with atrial fibrillation. No cyanosis or clubbing. No ascites. Pulses: Dorsalis pedis and posterior tibial pulses +1 to +2 both sides. ABDOMEN: Soft. Non-tender. Bowel sounds active. No CVA tenderness. No mass felt. EXTREMITIES: No edema. Full range of motion of all extremities, equal. NEUROLOGIC: No focal deficit. Cranial nerves II through XII are grossly intact. No headache, no double vision or headache. SKIN: Not dry. Intact. Turgor-normal. LYMPHATIC: No palpable lymph nodes/no lymphedema. MUSCULOSKELETAL: Normal joints with no swelling. Muscle tone is normal. LAB REVIEW: 02/17/17 05:03 02/17/17 05:03 02/17/17 05:03: Sodium 138, Potassium 3.5, Chloride 108 H, Carbon Dioxide 23, Anion Gap 10.5, BUN 38 H, Creatinine 1.63 H, Estimated GFR (MDRD) 30.00, BUN/ Creatinine Ratio 23.31, Glucose 138 H, Calcium 9.0, Total Bilirubin 0.31, AST 21 , ALT 14, Alkaline Phosphatase 62, Total Protein 5.5 L, Albumin 2.5 L, Globulin 3.0, Albumin/Globulin Ratio 0.83 02/17/17 05:03: WBC 4.59 L, RBC 3.10 L, Hgb 9.7 L, Hct 29.0 L, MCV 93.5, MCH 31.3 H, MCHC 33.4, RDW Coeff of Zeeshan 14.3, Plt Count 135 L, Immature Gran % (Auto ) 0.4, Neut % (Auto) 63.2, Lymph % (Auto) 18.3, [place] % (Auto) 14.6 H, Eos % ( Auto) 3.3, Baso % (Auto) 0.2, Immature Gran # (Auto) 0.0, Neut # 2.9, Lymph # 0.8, [place] # 0.7, Eos # 0.2, Baso # 0.0 ASSESSMENT: Please see below. 1. Urinary tract infection 2. Dehydration, improved 3. Confusion improving 4. Bradycardia, improving PLAN: 1. Continue routine telemetry 2. Continue IV Levaquin 3. Continue IV fluids. Plan and coordination of the patient's care discussed in the presence of Aquatic Laborer and nurse. SCRIBED BY: GERARDO ADAN, Medicaid Service Coordinator scribed while in presence of service performed by Dr. Worthy/Jovanna Pleitez APRN on 02/17/17 ([id number])
[2017-02-17] MEDS ORDERED: TYLENOL PO STA (11:29)
[2017-02-17] MEDS: ARICEPT PO SCH (20:41)
[2017-02-17] MEDS: CALMOSEPTINE OINTMENT TP SCH (22:38)
[2017-02-18] MEDS: SODIUM CHLORIDE 1,000 ML IV SCH (05:11)
[2017-02-18] MEDS: CARAFATE PO SCH ×2 (05:40→16:38)
[2017-02-18] MEDS: PROTONIX PO SCH (05:40)
[2017-02-18] MEDS: LASIX TAB PO SCH (05:40)
[2017-02-18 06:20] LABS: BASOPHILS % (AUTO) 0.2 % (0.0-3.0); EOSINOPHILS # (AUTO) 0.1 K/ul (0.0-0.7); HEMATOCRIT 27.8 % (37.0-47.0); HEMOGLOBIN 9.3 g/dl (12.0-16.0); IMMATURE GRANULOCYTE % (AUTO) 0.9 % (0.0-5.0); LYMPHOCYTES # (AUTO) 0.9 K/uL (0.60-3.4); LYMPHOCYTES % (AUTO) 20.4 (10.0-50.0); MEAN CORPUSCULAR HGB CONC 33.5 (31.8-35.4); MEAN CORPUSCULAR VOLUME 92.7 fl (81.0-99.0); MONOCYTES # (AUTO) 0.5 K/uL (0.4-2.0); MONOCYTES % (AUTO) 11.2 (0-10); NEUTROPHILS # (AUTO) 2.8 K/ul (2.0-6.9); NEUTROPHILS % (AUTO) 64.3; PLATELET COUNT 131 10^3/uL (140-440); WHITE BLOOD COUNT 4.36 K/ul (4.6-10.2)
[2017-02-18 06:35] LABS: ALBUMIN 2.5 g/dL (3.4-5.0); ALBUMIN/GLOBULIN RATIO 0.83; ANION GAP 11.8; BILIRUBIN,TOTAL 0.29 mg/dL (0.00-1.20); BUN/CREATININE RATIO 21.73; CALCIUM 8.7 mg/dL (8.2-10.2); CREATININE 1.61 mg/dL (0.60-1.30); POTASSIUM 3.8 mmol/L (3.5-5.10); TOTAL PROTEIN 5.5 g/dL (5.8-8.1)
[2017-02-18] MEDS: TRIGLIDE PO SCH (08:56)
[2017-02-18] MEDS: WELCHOL PO SCH ×2 (08:56→21:30)
[2017-02-18] MEDS: FERROUS SULFATE PO SCH ×2 (08:57→21:31)
[2017-02-18] MEDS: CALCIUM 500 + VIT D 200 MG TABLET PO SCH (08:57)
[2017-02-18] MEDS: CRESTOR PO SCH (08:57)
[2017-02-18] MEDS: COZAAR PO SCH (08:58)
[2017-02-18] MEDS: PRADAXA PO SCH ×2 (08:58→21:30)
[2017-02-18] MEDS: XANAX PO SCH ×2 (09:02→21:30)
[2017-02-18] MEDS: CALMOSEPTINE OINTMENT TP SCH ×2 (09:03→21:32)
[2017-02-18] MEDS: ZYLOPRIM PO SCH (09:04)
[2017-02-18] MEDS: NYSTOP POWDER TP SCH ×3 (09:10→21:31)
[2017-02-18] MEDS: LEVAQUIN 250 MG in PREMIX 50 ML D5W 1 BAG IV SCH (09:12)
[2017-02-18] MEDS: LEXAPRO PO SCH (09:13)
[2017-02-18] MEDS: ARICEPT PO SCH (21:31)
[2017-02-19] MEDS: SODIUM CHLORIDE 1,000 ML IV SCH ×2 (00:40→19:47)
[2017-02-19 05:34] LABS: BASOPHILS % (AUTO) 0.2 % (0.0-3.0); EOSINOPHILS # (AUTO) 0.2 K/ul (0.0-0.7); EOSINOPHILS % (AUTO) 3.7 % (0.0-7.0); HEMATOCRIT 28.6 % (37.0-47.0); HEMOGLOBIN 9.6 g/dl (12.0-16.0); IMMATURE GRANULOCYTE % (AUTO) 1.3 % (0.0-5.0); LYMPHOCYTES % (AUTO) 21.8 (10.0-50.0); MEAN CORPUSCULAR HEMOGLOBIN 31.2 pg (27.0-31.0); MEAN CORPUSCULAR HGB CONC 33.6 (31.8-35.4); MEAN CORPUSCULAR VOLUME 92.9 fl (81.0-99.0); MONOCYTES # (AUTO) 0.6 K/uL (0.4-2.0); MONOCYTES % (AUTO) 11.9 (0-10); NEUTROPHILS # (AUTO) 2.8 K/ul (2.0-6.9); NEUTROPHILS % (AUTO) 61.1; PLATELET COUNT 140 10^3/uL (140-440); RED BLOOD COUNT 3.08 10^6/ul (4.20-5.40); WHITE BLOOD COUNT 4.64 K/ul (4.6-10.2)
[2017-02-19 05:53] LABS: ALBUMIN 2.5 g/dL (3.4-5.0); ALBUMIN/GLOBULIN RATIO 0.81; ANION GAP 11.8; BILIRUBIN,TOTAL 0.3 mg/dL (0.00-1.20); BUN/CREATININE RATIO 21.16; CALCIUM 8.8 mg/dL (8.2-10.2); CREATININE 1.37 mg/dL (0.60-1.30); POTASSIUM 3.8 mmol/L (3.5-5.10); TOTAL PROTEIN 5.6 g/dL (5.8-8.1)
[2017-02-19] MEDS: CARAFATE PO SCH ×2 (06:05→16:53)
[2017-02-19] MEDS: LASIX TAB PO SCH (06:06)
[2017-02-19] MEDS: PROTONIX PO SCH (06:06)
[2017-02-19] MEDS: CALCIUM 500 + VIT D 200 MG TABLET PO SCH (08:12)
[2017-02-19] MEDS: LEVAQUIN 250 MG in PREMIX 50 ML D5W 1 BAG IV SCH (08:12)
[2017-02-19] MEDS: PRADAXA PO SCH ×2 (08:12→20:14)
[2017-02-19] MEDS: FERROUS SULFATE PO SCH ×2 (08:12→20:14)
[2017-02-19] MEDS: WELCHOL PO SCH ×2 (08:12→20:14)
[2017-02-19] MEDS: XANAX PO SCH ×2 (08:13→20:14)
[2017-02-19] MEDS: COZAAR PO SCH (08:13)
[2017-02-19] MEDS: CRESTOR PO SCH (08:13)
[2017-02-19] MEDS: ZYLOPRIM PO SCH (08:13)
[2017-02-19] MEDS: NYSTOP POWDER TP SCH ×3 (08:13→20:14)
[2017-02-19] MEDS: LEXAPRO PO SCH (08:13)
[2017-02-19] MEDS: TRIGLIDE PO SCH (08:13)
[2017-02-19] MEDS: CALMOSEPTINE OINTMENT TP SCH ×2 (08:14→20:14)
[2017-02-19] MEDS: ARICEPT PO SCH (20:14)
[2017-02-20 05:30] LABS: BASOPHILS % (AUTO) 0.2 % (0.0-3.0); EOSINOPHILS # (AUTO) 0.2 K/ul (0.0-0.7); EOSINOPHILS % (AUTO) 3.1 % (0.0-7.0); HEMATOCRIT 28.8 % (37.0-47.0); HEMOGLOBIN 9.7 g/dl (12.0-16.0); IMMATURE GRANULOCYTE % (AUTO) 1.3 % (0.0-5.0); LYMPHOCYTES # (AUTO) 1.1 K/uL (0.60-3.4); LYMPHOCYTES % (AUTO) 19.5 (10.0-50.0); MEAN CORPUSCULAR HEMOGLOBIN 31.3 pg (27.0-31.0); MEAN CORPUSCULAR HGB CONC 33.7 (31.8-35.4); MEAN CORPUSCULAR VOLUME 92.9 fl (81.0-99.0); MONOCYTES # (AUTO) 0.5 K/uL (0.4-2.0); MONOCYTES % (AUTO) 9.1 (0-10); NEUTROPHILS # (AUTO) 3.7 K/ul (2.0-6.9); NEUTROPHILS % (AUTO) 66.8; PLATELET COUNT 153 10^3/uL (140-440); WHITE BLOOD COUNT 5.48 K/ul (4.6-10.2)
[2017-02-20 05:58] LABS: ALBUMIN 2.5 g/dL (3.4-5.0); ALBUMIN/GLOBULIN RATIO 0.78; ANION GAP 12.7; BILIRUBIN,TOTAL 0.27 mg/dL (0.00-1.20); BUN/CREATININE RATIO 20.94; CALCIUM 8.6 mg/dL (8.2-10.2); CREATININE 1.48 mg/dL (0.60-1.30); POTASSIUM 3.7 mmol/L (3.5-5.10); TOTAL PROTEIN 5.7 g/dL (5.8-8.1)
[2017-02-20] MEDS: PROTONIX PO SCH (06:23)
[2017-02-20] MEDS: LASIX TAB PO SCH (06:23)
[2017-02-20] MEDS: CARAFATE PO SCH (06:24)
[2017-02-20] MEDS ORDERED: LEVAQUIN PO SCH (06:30)
[2017-02-20] MEDS: CALCIUM 500 + VIT D 200 MG TABLET PO SCH (09:46)
[2017-02-20] MEDS: COZAAR PO SCH (09:47)
[2017-02-20] MEDS: CALMOSEPTINE OINTMENT TP SCH (09:47)
[2017-02-20] MEDS: FERROUS SULFATE PO SCH (09:48)
[2017-02-20] MEDS: CRESTOR PO SCH (09:48)
[2017-02-20] MEDS: LEXAPRO PO SCH (09:49)
[2017-02-20] MEDS: PRADAXA PO SCH (09:51)
[2017-02-20] MEDS: NYSTOP POWDER TP SCH (09:51)
[2017-02-20] MEDS: XANAX PO SCH (09:52)
[2017-02-20] MEDS: TRIGLIDE PO SCH (09:52)
[2017-02-20] MEDS: WELCHOL PO SCH (09:52)
[2017-02-20] MEDS: ZYLOPRIM PO SCH (09:53)
--- NOTE | 2017-02-20 11:42 | PCM.PROG ---
Attending Provider: ATTENDING PROVIDER: Dr. RANI WORTHY This patient is seen with Jovanna Pleitez, Nurse Practitioner. DATE OF SERVICE: 02/20/17 SUBJECTIVE: This 86 year old WHITE/ F was hospitalized 02/14/17. The patient is alert, lying in bed. She has been eating 75 to 100%. No fever. She is on 7th day of Levaquin. REVIEW OF SYSTEMS: CONSTITUTIONAL: No night sweats. No fatigue, malaise, lethargy. No fever or chills. HEENT: Eyes: No visual changes. No eye pain. No eye discharge. ENT: No runny nose. No epistaxis. No sinus pain. No odynophagia. No congestion. RESPIRATORY: No cough, no congestion. No hemoptysis. No shortness of breath. CARDIOVASCULAR: No angina symptoms. No CHF symptoms. No atypical chest pain for CAD. No palpitations. No orthopnea.. GASTROINTESTINAL: No abdominal pain. No nausea or vomiting. No diarrhea or constipation. No hematemesis. No hematochezia. GENITOURINARY: No urgency. No frequency. No dysuria. No hematuria. No obstructive symptoms. No discharge. No pain. No significant abnormal bleeding. MUSCULOSKELETAL: No musculoskeletal pain; no joint swelling. NEUROLOGICAL: Awake with confusion which is normal for her. No headache. No neck pain. No syncope. No seizures. No dizziness. PSYCHIATRIC: Not anxious. No depression. No suicidal thoughts. No homicidal thoughts. SKIN: No rash. No lesions. No wounds. ENDOCRINE: No unexplained weight loss. No weight gain. HEMATOLOGIC/LYMPHATIC: No anemia. No purpura. No petechiae. No prolonged or excessive bleeding. No palpable lymph nodes. PHYSICAL EXAMINATION: GENERAL: The patient is awake but confused lying in bed in no distress. VITAL SIGNS: Temperature 97.0 F, Pulse 58, Respiratory Rate 16, BP 145/65, Pulse Ox 98% HEENT: Head normocephalic, atraumatic. Eyes: Extraocular muscles are intact. Pupils are equal, round and reactive to light and accommodation. Ears: No lesions. Nose appeared normal. Throat: No exudate or erythema. NECK: Supple. No JVD, no carotid bruit. No lymphadenopathy or thyromegaly. LUNGS: Diminished breath sounds bilaterally. Clear to auscultation. Percussion note normal. Chest symmetrical. HEART: Irregular heart rate. S1, S2, no S3. No murmurs. No cyanosis or clubbing. No ascites. Pulses: Dorsalis pedis and posterior tibial pulses +1 to +2 both sides. ABDOMEN: Soft. Non-tender. Bowel sounds active. No CVA tenderness. No mass felt. EXTREMITIES: No edema. Full range of motion of all extremities, equal. NEUROLOGIC: No focal deficit. Cranial nerves II through XII are grossly intact. No headache, no double vision or headache. SKIN: Not dry. Intact. Turgor-normal. LYMPHATIC: No palpable lymph nodes/no lymphedema. MUSCULOSKELETAL: Normal joints with no swelling. Muscle tone is normal. LAB REVIEW: 02/20/17 05:13 02/20/17 05:13 02/20/17 05:13: Sodium 140, Potassium 3.7, Chloride 109 H, Carbon Dioxide 22 L, Anion Gap 12.7, BUN 31 H, Creatinine 1.48 H, Estimated GFR (MDRD) 33.00, BUN/ Creatinine Ratio 20.94, Glucose 159 H, Calcium 8.6, Total Bilirubin 0.27, AST 15 , ALT 12, Alkaline Phosphatase 60, Total Protein 5.7 L, Albumin 2.5 L, Globulin 3.2, Albumin/Globulin Ratio 0.78 02/20/17 05:13: WBC 5.48, RBC 3.10 L, Hgb 9.7 L, Hct 28.8 L, MCV 92.9, MCH 31.3 H, MCHC 33.7, RDW Coeff of Zeeshan 14.2, Plt Count 153, Immature Gran % (Auto) 1.3, Neut % (Auto) 66.8, Lymph % (Auto) 19.5, [place] % (Auto) 9.1, Eos % (Auto) 3.1, Baso % (Auto) 0.2, Immature Gran # (Auto) 0.1, Neut # 3.7, Lymph # 1.1, [place] # 0.5, Eos # 0.2, Baso # 0.0 ASSESSMENT: 1. Urinary tract infection 2. Dehydration, resolved 3. Confusion consistent with dementia PLAN: 1. D/C to [place] 2. Daily blood pressure 3. CBC, CMP in one week Plan and coordination of the patient's care discussed in the presence of Band Sawing Machine Operator and nurse. CONDITION: Stable SCRIBED BY: LACEY VIVAR, Pre School Teacher scribed while in presence of service performed by Dr. Worthy/Jovanna Pleitez APRN on 02/20/17 ([id number])
--- NOTE | 2017-02-20 11:55 | CM.DICTOOL ---
ADMISSION: 02/14/17 20:40 DISCHARGE: 02/20/17 DATE OF SERVICE: 02/20/17 FINAL DIAGNOSIS RENAL AZOTEMIA UTI, E-COLI DEHYDRATION MENTAL STATUS CHANGES CHRONIC KIDNEY DISEASE, STAGE 3B A-FIB (PRADAXA), (LANOXIN DISCONTINUED) DM, TYPE 2 PERIPHERAL ARTERIAL DISEASE (DR BUSTOS) CAD AND HISTORY OF MS, 1997 CHF HYPERTENSION DYSLIPIDEMIA ANEMIA CHRONIC LUNG DISEASE OBESITY (BMI 29) GERD HIATAL HERNIA DIVERTICULITIS PAST HISTORY OVERACTIVE BLADDER CONSTIPATION SCOLIOSIS MULTI-LEVEL DEGENERATIVE DISC DISEASE (BACK PAIN) OSTEOARTHRITIS GOUTY ARHTRITIS DEMENTIA/ANXIETY LAST VITALS Temp Pulse Resp BP Pulse Ox 97.0 F L 58 L 16 145/65 H 98 02/20/17 06:00 02/20/17 06:00 02/20/17 06:00 02/20/17 06:00 02/20/17 06:00 ACTIVE MEDICATIONS Acetaminophen (Tylenol) 325 mg PO Q6H PRN Allopurinol (Zyloprim) 100 mg PO DAILY [facility] Last Admin: 02/19/17 08:13 Dose: 100 mg Alprazolam (Xanax) 0.25 mg PO BID [facility] Last Admin: 02/19/17 20:14 Dose: 0.25 mg Calamine/Phenol (Calmoseptine Ointment) 1 applic TP BID [facility] ([facility]) Last Admin: 02/19/17 20:14 Dose: 1 applic Calcium/Vitamin D (Calcium 500 + Vit D 200 Mg Tablet) 2 each PO DAILY [facility] Last Admin: 02/19/17 08:12 Dose: 2 each Colesevelam HCl (Welchol) 625 mg PO BID [facility] Last Admin: 02/19/17 20:14 Dose: 625 mg Dabigatran (Pradaxa) 150 mg PO Q12HR [facility] Last Admin: 02/19/17 20:14 Dose: 150 mg Denosumab (Prolia) 60 mg SQ Q 6 MONTHS Donepezil HCl (Aricept) 10 mg PO BEDTIME [facility] Last Admin: 02/19/17 20:14 Dose: 10 mg Escitalopram Oxalate (Lexapro) 15 mg PO DAILY [facility] Last Admin: 02/19/17 08:13 Dose: 15 mg Escitalopram Oxalate (Lexapro) 5 mg PO DAILY [facility] Fenofibrate (Triglide) 160 mg PO DAILY [facility] Last Admin: 02/19/17 08:13 Dose: 160 mg Ferrous Sulfate (Ferrous Sulfate) 324 mg PO BID [facility] Last Admin: 02/19/17 20:14 Dose: 324 mg Furosemide (Lasix Tab) 20 mg PO QDAC [facility] Last Admin: 02/20/17 06:23 Dose: 20 mg Linagliptin (Tradjenta) 5 mg PO DAILY Losartan Potassium 50 mg PO DAILY [facility] Last Admin: 02/19/17 08:13 Dose: 50 mg Magnesium Hydroxide (Milk Of Magnesia) 30 ml PO BID PRN PRN Reason: Constipation Nystatin (Nystop Powder) 1 applic TP TID [facility] Last Admin: 02/19/17 20:14 Dose: 1 applic Pantoprazole Sodium (Protonix) 40 mg PO QDAC [facility] Last Admin: 02/20/17 06:23 Dose: 40 mg Rosuvastatin Calcium (Crestor) 10 mg PO DAILY [facility] Last Admin: 02/19/17 08:13 Dose: 10 mg Sucralfate (Carafate) 1 gm PO BIDAC [facility] Last Admin: 02/20/17 06:24 Dose: 1 gm Tolterodine Tartrate (Detrol LA) 4 mg PO DAILY Tramadol HCl (Ultram) 50 mg PO Q12H PRN PRN Reason: MODERATE PAIN ALLERGIES Penicillins Adverse Reaction (Unknown, Verified 02/14/17 16:44) Rash adhesive tape Adverse Reaction (Verified 02/14/17 16:44) iodine Adverse Reaction (Verified 02/14/17 16:44) Iodine and Iodide Containing Produc Adverse Reaction (Verified 02/14/17 16:44) NEW PRESCRIPTIONS: PLEASE NOTE THE LANOXIN AND ZEBETA HAVE BEEN DISCONTINUED CALAMINE/PHENOL (CALMOSEPTINE OINTMENT) 1 APPLICATION TOPICALLY TO BUTTOCKS Q8 HOURS AND PRN SMOKING: NONSMOKER LAB REVIEW: 02/20/17 05:13 02/20/17 05:13 02/20/17 05:13: Sodium 140, Potassium 3.7, Chloride 109 H, Carbon Dioxide 22 L, Anion Gap 12.7, BUN 31 H, Creatinine 1.48 H, Estimated GFR (MDRD) 33.00, BUN/ Creatinine Ratio 20.94, Glucose 159 H, Calcium 8.6, Total Bilirubin 0.27, AST 15 , ALT 12, Alkaline Phosphatase 60, Total Protein 5.7 L, Albumin 2.5 L, Globulin 3.2, Albumin/Globulin Ratio 0.78 02/20/17 05:13: WBC 5.48, RBC 3.10 L, Hgb 9.7 L, Hct 28.8 L, MCV 92.9, MCH 31.3 H, MCHC 33.7, RDW Coeff of Zeeshan 14.2, Plt Count 153, Immature Gran % (Auto) 1.3, Neut % (Auto) 66.8, Lymph % (Auto) 19.5, [place] % (Auto) 9.1, Eos % (Auto) 3.1, Baso % (Auto) 0.2, Immature Gran # (Auto) 0.1, Neut # 3.7, Lymph # 1.1, [place] # 0.5, Eos # 0.2, Baso # 0.0 PLAN: DISCHARGE BACK TO [facility] TODAY DR. WORTHY/DUONG BURGESS APRN, WILL FOLLOW THE PATIENT DURING CARE HOME ROUNDS IN APPROX ONE WEEK RESUME CARE HOME MEDICATIONS PLEASE NOTE THE LANOXIN AND ZEBETA HAVE BEEN DISCONTINUED NEW MEDICATIONS CALAMINE/PHENOL (CALMOSEPTINE OINTMENT) 1 APPLICATION TOPICALLY TO BUTTOCKS Q8 HOURS AND PRN LABS: CBC WITH DIFF AND CMP IN ONE WEEK, THEN Q 3 MONTHS LIPIDS Q 6 MONTHS ACCU-CHECKS Q AM, CALL MD IF GREATER THAN 400 V/S: DAILY (MEDICATION CHANGES) ACTIVITY: MAY PARTICIPATE IN CARE HOME ACTIVITY PROGRAM TOLERATED PT/OT PLEASE EVALUATE AND TREAT INDICATED DIET: CONSISTENT CARBS, ISAIAH, REGULAR TEXTURE AND REGULAR CONSISTENCY PATHOLOGIST PLEASE CONSULT TO PROVIDE FOR OPTIMAL NUTRITIONAL NEEDS OF THIS PATIENT SUMMARY: THE PATIENT IS CURRENTLY A RESIDENT AT [facility]. SHE WILL RETURN THERE AT DISCHARGE. SHE IS DEPENDENT FOR ADL'S AND DOES NOT WALK. HER SKIN IS INTERRUPTED BY A STAGE I DECUBITUS ULCER TO THE LEFT BUTTOCKS MEASURING 1 CM X1 CM PRESENT ON ADMISSION. WE WILL FOLLOW HER AT THE CARE HOME IN APPROXIMATELY ONE WEEK. CURRENT CODE STATUS: DO NOT RESUSCITATE DUONG BURGESS APRN RANI WORTHY M.D.
[2017-02-20 12:27] VITALS: BP 157/72; TEMP 98.1
--- NOTE | 2017-02-22 11:36 | PN ---
02/14/17: Level 5 02/15/17: Intermediate 02/16/17: Intermediate 02/17/17: Intermediate 02/18/17: Intermediate 02/19/17: Intermediate 02/20/17: D as in discharge MTDD
--- NOTE | 2017-02-22 11:43 | PN ---
DATE OF SERVICE: 02/20/17 SUBJECTIVE: 86 year old white female hospitalized with change in the mental status and dehydration. The patient had urinary tract infection and the patient also had renal azotemia. Her creatinine is 1.3, BUN 29. Kidney infection seems to be improving. Blood pressure today was 145/65. The patient's oral condition improved. She is more alert but confused. PHYSICAL EXAMINATION: HEENT: Head normocephalic, atraumatic. Eyes: Extraocular muscles are intact. Pupils are equal, round and reactive to light and accommodation. Ears: No lesions. Nose appeared normal. Throat: No exudate or erythema. NECK: Supple. No JVD, no carotid bruit. No lymphadenopathy or thyromegaly. LUNGS: Clear to auscultation. Percussion note normal. Chest symmetrical. HEART: S1, S2, no S3. No murmurs. No cyanosis or clubbing. No ascites. Pulses: Dorsalis pedis and posterior tibial pulses +1 to +2 both sides. ABDOMEN: Soft. Nontender. Bowel sounds active. No CVA tenderness. No mass felt. EXTREMITIES: No edema. Full range of motion of all extremities, equal. NEUROLOGIC: No focal deficit. Cranial nerves II through XII are grossly intact. No headache, no double vision or headache. SKIN: Not dry. Intact. Turgor - normal. LYMPHATIC: No palpable lymph nodes/no lymphedema. MUSCULOSKELETAL: Normal joints with no swelling. Muscle tone is normal. CONDITION: STABLE enough to be discharged The patient was seen and examined with Nurse Practitioner and Human Resources Department Supervisor. TIME SPENT: More than 30 minutes. Plan and coordination of the patient's care discussed in the presence of nurse. WILLIAM
--- NOTE | 2017-02-22 15:41 | PN ---
DATE OF SERVICE: 02/19/17 SUBJECTIVE: 86 year old white female hospitalized with change in the mental status, dehydration. The patient has renal azotemia and now the creatinine is 1.3, BUN 29. The patient has a UTI. Levaquin IV will be discontinued and we will put the patient on Levaquin PO 250mg PO daily. The patient has good appetite and she is alert today. She tried to remember my name but couldn't but I haven't seen her for a while. After I introduced myself she repeated my name and said "Yes" I have been her doctor for long time. REVIEW OF SYSTEMS: CONSTITUTIONAL: No night sweats. No fatigue, malaise, lethargy. No fever or chills. HEENT: Eyes: No visual changes. No eye pain. No eye discharge. ENT: No runny nose. No epistaxis. No sinus pain. No sore throat. No odynophagia. No congestion. RESPIRATORY: No cough, no congestion. No hemoptysis. No shortness of breath. CARDIOVASCULAR: No angina symptoms. No CHF symptoms. No atypical chest pain for CAD. No palpitations. No orthopnea. No PND. GASTROINTESTINAL: No abdominal pain. No nausea or vomiting. No diarrhea or constipation. No hematemesis. No hematochezia. Appetite has improved. GENITOURINARY: No urgency. No frequency. No dysuria. No hematuria. No obstructive symptoms. No discharge. No pain. No significant abnormal bleeding. MUSCULOSKELETAL: No musculoskeletal pain; no joint swelling. NEUROLOGICAL: No headache. No neck pain. No syncope. No seizures. No dizziness. PSYCHIATRIC: Not anxious. No depression. No suicidal thoughts. No homicidal thoughts. SKIN: No rash. No lesions. No wounds. ENDOCRINE: No unexplained weight loss. No weight gain. HEMATOLOGIC/LYMPHATIC: No anemia. No purpura. No petechiae. No prolonged or excessive bleeding. No palpable lymph nodes. PHYSICAL EXAMINATION: VITAL SIGNS: Temperature 97, pulse 60, respiratory rate 15, blood pressure 120/ 60 and pulse ox 97%. HEENT: Head normocephalic, atraumatic. Eyes: Extraocular muscles are intact. Pupils are equal, round and reactive to light and accommodation. Ears: No lesions. Nose appeared normal. Throat: No exudate or erythema. NECK: Supple. No JVD, no carotid bruit. No lymphadenopathy or thyromegaly. LUNGS: Decreased breath sounds but clear to auscultation. Percussion note normal. Chest symmetrical. HEART: S1, S2, no S3. No murmurs. No cyanosis or clubbing. No ascites. Pulses: Dorsalis pedis and posterior tibial pulses +1 to +2 both sides. ABDOMEN: Soft. Nontender. Bowel sounds active. No CVA tenderness. No mass felt. EXTREMITIES: No edema. Full range of motion of all extremities, equal. NEUROLOGIC: No focal deficit. Cranial nerves II through XII are grossly intact. No headache, no double vision or headache. SKIN: Not dry. Intact. Turgor - normal. LYMPHATIC: No palpable lymph nodes/no lymphedema. MUSCULOSKELETAL: Normal joints with no swelling. Muscle tone is normal. LABS: Hgb 9.6, hct 28, WBC 4,600 normal differential, creatinine 1.3, BUN 29, potassium 3.8, BNP 561. ASSESSMENT: 1. UTI 2. Dementia 3. Dehydration 4. Chronic kidney disease 5. Anemia, chronic PLAN: 1. As above continue Levaquin PO 2. Discontinue IV 3. Up and about 4. Blood pressure Normal. CONDITION: Stable TIME SPENT: More than 30 minutes. Plan and coordination of the patient's care discussed in the presence of nurse. WILLIAM
--- NOTE | 2017-02-22 15:51 | PN ---
DATE OF SERVICE: 02/17/17 SUBJECTIVE: The patient was seen and examined with Nurse Practitioner. 86 year old white female hospitalized with mental status changes and dehydration. The patient is diagnosed now to have UTI and that maybe the cause for her change in the mental status. The patient is still confused but more alert. She does know name of the person. Kidney functions having improved some. REVIEW OF SYSTEMS: CONSTITUTIONAL: No night sweats. No fatigue, malaise, lethargy. No fever or chills. HEENT: Eyes: No visual changes. No eye pain. No eye discharge. ENT: No runny nose. No epistaxis. No sinus pain. No sore throat. No odynophagia. No congestion. RESPIRATORY: No cough, no congestion. No hemoptysis. No shortness of breath. CARDIOVASCULAR: No angina symptoms. No CHF symptoms. No atypical chest pain for CAD. No palpitations. No orthopnea. GASTROINTESTINAL: No abdominal pain. No nausea or vomiting. No diarrhea or constipation. No hematemesis. No hematochezia. Appetite has improved. GENITOURINARY: No urgency. No frequency. No dysuria. No hematuria. No obstructive symptoms. No discharge. No pain. No significant abnormal bleeding. MUSCULOSKELETAL: No musculoskeletal pain; no joint swelling. NEUROLOGICAL: No headache. No neck pain. No syncope. No seizures. No dizziness. Confusion but more alert. PSYCHIATRIC: Not anxious. No depression. No suicidal thoughts. No homicidal thoughts. SKIN: No rash. No lesions. No wounds. ENDOCRINE: No unexplained weight loss. No weight gain. HEMATOLOGIC/LYMPHATIC: No anemia. No purpura. No petechiae. No prolonged or excessive bleeding. No palpable lymph nodes. PHYSICAL EXAMINATION: HEENT: Head normocephalic, atraumatic. Eyes: Extraocular muscles are intact. Pupils are equal, round and reactive to light and accommodation. Ears: No lesions. Nose appeared normal. Throat: No exudate or erythema. NECK: Supple. No JVD, no carotid bruit. No lymphadenopathy or thyromegaly. LUNGS: Clear to auscultation. Percussion note normal. Chest symmetrical. HEART: S1, S2, no S3. No murmurs. No cyanosis or clubbing. No ascites. Pulses: Dorsalis pedis and posterior tibial pulses +1 to +2 both sides. ABDOMEN: Soft. Nontender. Bowel sounds active. No CVA tenderness. No mass felt. EXTREMITIES: No edema. Full range of motion of all extremities, equal. NEUROLOGIC: No focal deficit. Cranial nerves II through XII are grossly intact. No headache, no double vision or headache. SKIN: Not dry. Intact. Turgor - normal. LYMPHATIC: No palpable lymph nodes/no lymphedema. MUSCULOSKELETAL: Normal joints with no swelling. Muscle tone is normal. ASSESSMENT: 1. Confusion and change in the mental status 2. Dehydration 3. UTI 4. Bradyarrhythmias PLAN: 1. The patients pulse has improved to 55 and she was put on Zebeta 2.5 and I will discontinue Zebeta. The blood pressure may go up and we may decided try some other group like Calcium Channel velasquez CONDITION: Stable. The patient was seen and examined with Nurse Practitioner. The patient has already been started on the Hydrochlorothiazide and placed on Zebeta. TIME SPENT: More than 30 minutes. Plan and coordination of the patient's care discussed in the presence of nurse. WILLIAM
--- NOTE | 2017-02-23 07:19 | PN ---
DATE OF SERVICE: 02/18/17 SUBJECTIVE: 86 year old white female hospitalized with change in the mental status, dehydration and the patient had renal azotemia which is improving. Her kidney functions are slowly getting better and her hydration status is better. She is still confused but alert. The appetite is improving. REVIEW OF SYSTEMS: CONSTITUTIONAL: No night sweats. No fatigue, malaise, lethargy. No fever or chills. HEENT: Eyes: No visual changes. No eye pain. No eye discharge. ENT: No runny nose. No epistaxis. No sinus pain. No sore throat. No odynophagia. No congestion. RESPIRATORY: No cough, no congestion. No hemoptysis. No shortness of breath. CARDIOVASCULAR: No angina symptoms. No CHF symptoms. No atypical chest pain for CAD. No palpitations. No orthopnea. No PND. GASTROINTESTINAL: No abdominal pain. No nausea or vomiting. No diarrhea or constipation. No hematemesis. No hematochezia. Appetite is getting better. GENITOURINARY: No urgency. No frequency. No dysuria. No hematuria. No obstructive symptoms. No discharge. No pain. No significant abnormal bleeding. MUSCULOSKELETAL: No musculoskeletal pain; no joint swelling. NEUROLOGICAL: No headache. No neck pain. No syncope. No seizures. No dizziness. Confused. PSYCHIATRIC: Not anxious. No depression. No suicidal thoughts. No homicidal thoughts. SKIN: No rash. No lesions. No wounds. ENDOCRINE: No unexplained weight loss. No weight gain. HEMATOLOGIC/LYMPHATIC: No anemia. No purpura. No petechiae. No prolonged or excessive bleeding. No palpable lymph nodes. PHYSICAL EXAMINATION: VITAL SIGNS: Temperature 98, pulse 63, respiratory rate 18, blood pressure 160/ 72 and pulse ox 96%. HEENT: Head normocephalic, atraumatic. Eyes: Extraocular muscles are intact. Pupils are equal, round and reactive to light and accommodation. Ears: No lesions. Nose appeared normal. Throat: No exudate or erythema. NECK: Supple. No JVD, no carotid bruit. No lymphadenopathy or thyromegaly. LUNGS: Decreased breath sounds but clear to auscultation. Percussion note normal. Chest symmetrical. HEART: S1, S2, no S3. No murmurs. No cyanosis or clubbing. No ascites. Pulses: Dorsalis pedis and posterior tibial pulses +1 to +2 both sides. ABDOMEN: Soft. Nontender. Bowel sounds active. No CVA tenderness. No mass felt. EXTREMITIES: Trace to 1+ pitting edema. Full range of motion of all extremities, equal. NEUROLOGIC: No focal deficit. Cranial nerves II through XII are grossly intact. No headache, no double vision or headache. SKIN: Not dry. Intact. Turgor - normal. LYMPHATIC: No palpable lymph nodes/no lymphedema. MUSCULOSKELETAL: Normal joints with no swelling. Muscle tone is normal. PLAN: 1. Elevate the legs 2. Continue antibiotics for UTI 3. Continue Cozaar 5. Nystatin powder 6. Protonix CONDITION: Stable. TIME SPENT: More than 30 minutes. Plan and coordination of the patient's care discussed in the presence of nurse. WILLIAM
--- NOTE | 2017-02-23 07:25 | PN ---
DATE OF SERVICE: 02/17/17 SUBJECTIVE: 86 year old white female hospitalized with change in the mental status, dehydration. The patient's creatinine and BUN has improved some. Hydration status has improved some. The patient has UTI and she is being treated with IV antibiotics. The patient is obviously better because of the pulse being 55. PHYSICAL EXAMINATION: HEENT: Head normocephalic, atraumatic. Eyes: Extraocular muscles are intact. Pupils are equal, round and reactive to light and accommodation. Ears: No lesions. Nose appeared normal. Throat: No exudate or erythema. NECK: Supple. No JVD, no carotid bruit. No lymphadenopathy or thyromegaly. LUNGS: Decreased breath sounds. Percussion note normal. Chest symmetrical. HEART: S1, S2, no S3. No murmurs. No cyanosis or clubbing. No ascites. Pulses: Dorsalis pedis and posterior tibial pulses +1 to +2 both sides. ABDOMEN: Soft. Nontender. Bowel sounds active. No CVA tenderness. No mass felt. EXTREMITIES: No edema. Full range of motion of all extremities, equal. NEUROLOGIC: No focal deficit. Cranial nerves II through XII are grossly intact. No headache, no double vision or headache. SKIN: Not dry. Intact. Turgor - better. LYMPHATIC: No palpable lymph nodes/no lymphedema. MUSCULOSKELETAL: Normal joints with no swelling. Muscle tone is normal. The patient was seen and examined with Nurse Practitioner and [employer]. TIME SPENT: More than 30 minutes. Plan and coordination of the patient's care discussed in the presence of nurse. WILLIAM
--- NOTE | 2017-03-03 13:39 | DS ---
DATE OF SERVICE: 02/20/17 FINAL DIAGNOSIS: 1. RENAL AZOTEMIA 2. UTI, E-COLI 3. DEHYDRATION 4. MENTAL STATUS CHANGES 5. CHRONIC KIDNEY DISEASE, STAGE 3B 6. ATRIAL FIBRILLATION (PRADAXA), (LANOXIN DISCONTINUED) 7. DIABETES MELLITUS TYPE 2 8. PERIPHERAL ARTERIAL DISEASE (DR. BUSTOS) 9. CAD AND HISTORY OF SD, 1997 10. CHF 11. HYPERTENSION 12. DYSLIPIDEMIA 13. ANEMIA 14. CHRONIC LUNG DISEASE 15. OBESITY (BMI 29) 16. GERD 17. HIATAL HERNIA 18. DIVERTICULITIS PAST HISTORY 19. OVERACTIVE BLADDER 20. CONSTIPATION 21. SCOLIOSIS 22. MULTI-LEVEL DEGENERATIVE DISC DISEASE (BACK PAIN) 23. OSTEOARTHRITIS 24. GOUTY ARTHRITIS 25. DEMENTIA/ANXIETY DISCHARGE INSTRUCTIONS: 1. Followup appointment: Dr. Dai/Doc Pleitez APRN, will follow the patient during alf rounds in approximately one week. 2. CBC with differential and CMP in one week, then q.3months 3. Lipids q.6months 4. Accu-Checks q.a.m. call M.D. if greater than 400. 5. V/S daily (Medication changes) MEDICATIONS AT DISCHARGE: Acetaminophen (Tylenol) 325 mg p.o. q.6h p.r.n. Allopurinol (Zyloprim) 100 mg p.o. daily ANNALISA Alprazolam (Xanax) 0.25 mg p.o. b.i.d. ANNALISA Calamine/Phenol (Calmoseptine Ointment) one application TP b.i.d. ANNALISA Calcium/Vitamin D (Calcium 500 + Vitamin D 200 mg two each p.o. daily ANNALISA Colesevelam (Welchol) 625 mg p.o. b.i.d. ANNALISA Dabigatran (Pradaxa) 150 mg p.o. q.12hr ANNALISA Denosumab (Prolia) 60 mg SQ q.6months Donepezil (Aricept) 10 mg p.o. bedtime ANNALISA Escitalopram (Lexapro) 15 mg p.o. daily ANNALISA Escitalopram (Lexapro) 5 mg p.o. daily ANNALISA Fenofibrate (Triglide) 160 mg p.o. daily [facility] Ferrous Sulfate 324 mg p.o. b.i.d. ANNALISA Furosemide (Lasix) 20 mg p.o. q.day Linagliptin (Tradjenta) 5 mg p.o. daily Losartan Potassium 50 mg p.o. daily ANNALISA Magnesium Hydroxide (MOM) 30 mL p.o. b.i.d. p.r.n. Nystatin one application TP t.i.d. ANNALISA Pantoprazole (Protonix) 40 mg p.o. q.d a.c. ANNALISA Rosuvastatin Calcium (Crestor) 10 mg p.o. daily ANNALISA Sucralfate (Carafate) 1 gm p.o. b.i.d. a.c. ANNALISA Tolterodine (Detrol LA) 4 mg p.o. daily Tramadol (Ultram) 50 mg p.o. q.12h p.r.n. NEW PRESCRIPTIONS: Please note the Lanoxin and Zebeta have been discontinued. Calamine/Phenol (Calmoseptine Ointment) one application topically to buttocks q.8hr and p.r.n. DIET INSTRUCTIONS: Consistent carbs, ISAIAH, regular texture and regular consistency. Client Services Director please evaluate and treat as indicated. ACTIVITY: May participate in alf activity program as tolerated. PT/OT please evaluate and treat as indicated. SMOKING: Nonsmoker HOSPITAL COURSE: This is an 86-year-old female who is a resident of [facility]. She was brought in with acute mental status change, decreased urine output and poor appetite She had low grade fever at the alf; however, none here. She was subsequently admitted and put on IV Levaquin 250 mg daily. Her UA was abnormal which later grew E. coli and was sensitive to the Levaquin. She has since been on IV Levaquin for 6 days. Today, she received 250 mg of p.o. Levaquin which will be her 7th day to complete a 7 day course. Upon admission her kidney function was slightly elevated due to some dehydration and she was acutely confused. She does have a long-term history of dementia with some bouts of confusion. After IV rehydration at 80 cc/hr, her acute confusion resolved within 24 hours after being admitted. She did not have any fever while she was admitted. She has been eating 75 to 100% of her meals for the past 2 days. Her labs have been steady. She does have chronic kidney disease and subsequently anemia. Today, on day of discharge, hemoglobin 9.7, hematocrit 28.8 and these are both normal values for her. Platelets 143, BUN 31, creatinine 1.48, sodium 140, potassium 3.7. Again, this is all pretty steady for her. Vital signs have been stable. She has been on telemetry since she has been admitted which has shown atrial fibrillation which is not a new finding for her. She currently takes Pradaxa. Because of this, her rate has been controlled. She did have some periods of bradycardia during her hospital stay with the lowest heart rate being down to 39. She had previously been on Zebeta 5 mg daily which we stopped and the bradycardia has since resolved; however, she was asymptomatic with this bradycardia but was up and about and had been lying in the bed. Again, since discontinuing the Zebeta after the second day from admission she has had a normal heart rate. We will discharge her back to the alf today, continue all of her medications with exception of Zebeta. She will not go to [facility] with any antibiotics so she has completed a 7 day course. Will repeat CBC and CMP in one week and we will followup with her closely at [facility]. TIME SPENT: More than 60 minutes. WILLIAM
== END 2017-02-20 13:25 | DRG 948 ==
LOC: ED 16:16 → MEDSURG B 20:37 → OBSVTOIN 20:40
PROVIDERS: ADMIT Internal Medicine; ATTEND Internal Medicine
DX: R79.89 Other specified abnormal findings of blood chemistry (principal); N39.0 Urinary tract infection, site not specified; R40.4 Transient alteration of awareness; R06.02 Shortness of breath; E86.0 Dehydration; F03.90 Unspecified dementia, unspecified severity, without behavioral disturbance, psychotic disturbance, mood disturbance, and anxiety; B96.20 Unspecified Escherichia coli [E. coli] as the cause of diseases classified elsewhere; I12.9 Hypertensive chronic kidney disease with stage 1 through stage 4 chronic kidney disease, or unspecified chronic kidney disease; E11.22 Type 2 diabetes mellitus with diabetic chronic kidney disease; N18.3 Chronic kidney disease, stage 3 (moderate); I48.91 Unspecified atrial fibrillation; I73.9 Peripheral vascular disease, unspecified; I25.10 Atherosclerotic heart disease of native coronary artery without angina pectoris; I25.2 Old myocardial infarction; I50.9 Heart failure, unspecified; I10 Essential (primary) hypertension; E78.5 Hyperlipidemia, unspecified; J44.9 Chronic obstructive pulmonary disease, unspecified; D50.0 Iron deficiency anemia secondary to blood loss (chronic); K21.9 Gastro-esophageal reflux disease without esophagitis; K44.9 Diaphragmatic hernia without obstruction or gangrene; K59.00 Constipation, unspecified; F41.9 Anxiety disorder, unspecified; R00.1 Bradycardia, unspecified; E66.9 Obesity, unspecified; R53.1 Weakness; Z79.01 Long term (current) use of anticoagulants; Z79.84 Long term (current) use of oral hypoglycemic drugs; Z16.11 Resistance to penicillins; Z68.29 Body mass index [BMI] 29.0-29.9, adult
CPT/HCPCS: 36415; 80053; 80162; 81001; 82550; 82803; 83880; 84484; 85025; 87081; 87086; 87186; 93005; 93010; 96360; 99284

== ENCOUNTER 2017-07-05 22:49 | Inpatient (IN) | payer OTHER ==
--- NOTE | 2017-07-05 23:44 | CT ---
EXAM: CT of the chest without contrast. HISTORY: Cough and fever. PROCEDURE: Contiguous axial CT images of the chest without contrast with coronal and sagittal reform ats. FINDINGS: The heart is within normal limits in size. The thoracic aorta is within normal limits in d iameter. There are calcified mediastinal and hilar lymph nodes and calcified granulomas in the lungs. There are bibasilar infiltrates and minimal consolidation consistent with pneumonia. There is right apical scarring. There are degenerative changes in the spine. There is a small hiatal hernia. Impression: Bibasilar infiltrates and consolidation consistent with pneumonia. Small hiatal hernia.
--- NOTE | 2017-07-06 01:29 | ED.PDOC ---
General ED Provider: Dr. JANAK LYNN-ER Chief Complaint: Fever Stated Complaint: she tested pos for flu but she is coughing up blood Time Seen by Physician: 22:55 Mode of Arrival: Ambulance Information Source: Patient, Family, Long Term, EMT Exam Limitations: No limitations Primary Care Provider: RANI NELSON Referred to ED by: PCP Nursing and Triage Documentation Reviewed and Agree: Yes Reviewed sepsis parameters & appropriate labs ordered?: Yes System Inflammatory Response Syndrome: Not Applicable Sepsis Protocol: For patient's 13 years and over: Temp is 96.8 and below OR 101 and greater Pulse >90 BPM Resp >20/minute Acutely Altered Mental Status Are patient's symptoms suggestive of a new infection, such as: -Pneumonia -Skin, Soft Tissue -Endocarditis -UTI -Bone, Joint Infection -Implantable Device -Acute Abdominal Infection -Wound Infection -Meningitis -Blood Stream Catheter Infection -Unknown Respiratory Complaint Exam - Respiratory Complaint/Exam Onset/Duration: 24 hrs Symptoms Are: Still present Timing: Constant Initial Severity: Mild Current Severity: Moderate Location: Chest Character: Reports: Productive cough Aggravating: Reports: URI Associated Signs and Symptoms: Reports: Fever, Hemoptysis, URI, Decreased oral intake. Denies: Rapid breathing, Dyspnea, Chills, Chest pain, Pleuritic chest pain, Wheezing, Dizziness, Calf pain, Calf swelling, Edema, Nasal congestion, Hoarseness, Sinus discomfort, Vomiting, Sore throat, Weight loss, Increased thirst, Increased appetite, Increased urination History of Healthcare-Acquired Pneumonia: No Related Surgical History: Reports: None Status Asthmaticus Risk Factors: Reports: None Home Oxygen Use: No Recent Stress Test: No Recent Echo/LV Function: No Current Antibiotic Use: No Current Asthma Medication Use: No Respiratory Distress: None Inadequate Respiratory Effort: No Dysphagia Present: No Stridor Present: No JVD Present: No Accessory Muscle Use: No Retractions: Not Present Diminished Breath Sounds: No Sinus Tenderness: None Grunting Respirations: No Kussmaul Respirations: No Differential Diagnoses: Pneumonia, Influenza Non-Traumatic Chest Pain Syncope: EKG Performed Review of Systems - Review Of Systems Constitutional: Reports: Chills, Fever, Weakness Eyes: Reports: No symptoms Ears, Nose, Mouth, Throat: Reports: No symptoms Respiratory: Reports: Cough, Short of air Cardiac: Reports: No symptoms GI: Reports: No symptoms : Reports: No symptoms Musculoskeletal: Reports: No symptoms Skin: Reports: No symptoms Neurological: Reports: No symptoms Endocrine: Reports: No symptoms Hematologic/Lymphatic: Reports: No symptoms All Other Systems: Reviewed and Negative Past Medical History - Past Medical History Previously Healthy: No Endocrine: Reports: Unknown Cardiovascular: Reports: Unknown Respiratory: Reports: Unknown Hematological: Reports: Unknown Gastrointestinal: Reports: Unknown Genitourinary: Reports: Unknown Neuro/Psych: Reports: Unknown Musculoskeletal: Reports: Unknown Cancer: Reports: Unknown Last Menstrual Period: UNKNOWN - Surgical History General Surgical History: Reports: Unknown - Family History Family History: Reports: Unknown - Social History Smoking Status: Former smoker Hx Substance Use: No Alcohol Screening: None - Immunizations Tetanus Shot up to Date: (UNKNOWN) Influenza Vaccine within 12 Months: Yes Pneumococcal Vaccine up to Date: Yes Physical Exam - Physical Exam Appearance: Well-appearing, No pain distress, Well-nourished Eyes: RICKEY, EOMI, Conjunctiva clear ENT: Ears normal, Nose normal, Oropharynx normal Neck: Supple Respiratory: Crackles, Rhonchi Cardiovascular: RRR GI/: Soft, Nontender, No masses, Bowel sounds normal, No Organomegaly Musculoskeletal: Normal strength, ROM intact, No edema, No calf tenderness Skin: Warm Neurological: Sensation intact, Motor intact, Reflexes intact, Cranial nerves intact, Alert, Oriented Psychiatric: Affect appropriate, Mood appropriate Interpretation - Radiology Interpretation Radiology Interpretation By: Radiologist Radiology Results: Positive - EKG Interpretation Time of EKG #1: 01:30 Rhythm: Other Ectopy: None [place]: NL ST Segment: Normal Interpretation: ?afib Physician Notification - Case Discussed Physician Notified: dr nelson Time of Notification: 01:30 Critical Care Note - Critical Care Note Total Time (mins): 0 Course - Course Hematology/Chemistry: 07/05/17 23:55 07/05/17 23:55 Orders, Labs, Meds: Lab Review 07/05/17 07/05/17 07/05/17 22:59 23:50 23:50 WBC RBC Hgb Hct MCV MCH MCHC RDW Coeff of Zeeshan Plt Count Immature Gran % (Auto) Neut % (Auto) Lymph % (Auto) [place] % (Auto) Eos % (Auto) Baso % (Auto) Immature Gran # (Auto) Neut # Lymph # [place] # Eos # Baso # Puncture Site Rr O2 Saturation 92.0 L ABG pH 7.481 H ABG pCO2 30.6 L ABG pO2 59.0 L* ABG HCO3 22.8 ABG Total CO2 24 ABG Base Excess -1 Trent Test + FiO2 % 21.0 Sodium Potassium Chloride Carbon Dioxide Anion Gap BUN Creatinine Estimated GFR (MDRD) BUN/Creatinine Ratio Glucose Lactic Acid Calcium Total Bilirubin AST ALT Alkaline Phosphatase Total Protein Albumin Globulin Albumin/Globulin Ratio Procalcitonin Urine Color Yellow Urine Clarity Clear Urine pH 5.5 Ur Specific [place] 1.010 Urine Protein 1+ Urine Glucose (UA) Negative Urine Ketones Negative Urine Blood Negative Urine Nitrite Negative Urine Bilirubin Negative Urine Urobilinogen 0.2 Ur Leukocyte Esterase Negative Urine Microscopic RBC 2-5 Ur Squamous Epith Cells 2-5 Urine Bacteria Trace Urine Mucus Trace Urine Yeast Trace Influenza A (Rapid) Negative by naat Influenza B (Rapid) Positive by naat H 07/05/17 07/05/17 07/05/17 23:55 23:55 23:55 WBC 5.84 RBC 3.50 L Hgb 11.2 L Hct 32.5 L MCV 92.9 MCH 32.0 H MCHC 34.5 RDW Coeff of Zeeshan 14.4 Plt Count 165 Immature Gran % (Auto) 0.5 Neut % (Auto) 71.9 Lymph % (Auto) 15.6 [place] % (Auto) 11.5 H Eos % (Auto) 0.5 Baso % (Auto) 0.0 Immature Gran # (Auto) 0.0 Neut # 4.2 Lymph # 0.9 [place] # 0.7 Eos # 0.0 Baso # 0.0 Puncture Site O2 Saturation ABG pH ABG pCO2 ABG pO2 ABG HCO3 ABG Total CO2 ABG Base Excess Trent Test FiO2 % Sodium 136 Potassium 3.7 Chloride 101 Carbon Dioxide 24 Anion Gap 14.7 BUN 59 H Creatinine 1.99 H Estimated GFR (MDRD) 24.00 BUN/Creatinine Ratio 29.64 Glucose 131 H Lactic Acid 7.8 Calcium 8.8 Total Bilirubin 0.4 AST 25 ALT 12 Alkaline Phosphatase 49 L Total Protein 6.7 Albumin 3.1 L Globulin 3.6 Albumin/Globulin Ratio 0.86 Procalcitonin Urine Color Urine Clarity Urine pH Ur Specific [place] Urine Protein Urine Glucose (UA) Urine Ketones Urine Blood Urine Nitrite Urine Bilirubin Urine Urobilinogen Ur Leukocyte Esterase Urine Microscopic RBC Ur Squamous Epith Cells Urine Bacteria Urine Mucus Urine Yeast Influenza A (Rapid) Influenza B (Rapid) 07/05/17 23:55 WBC RBC Hgb Hct MCV MCH MCHC RDW Coeff of Zeeshan Plt Count Immature Gran % (Auto) Neut % (Auto) Lymph % (Auto) [place] % (Auto) Eos % (Auto) Baso % (Auto) Immature Gran # (Auto) Neut # Lymph # [place] # Eos # Baso # Puncture Site O2 Saturation ABG pH ABG pCO2 ABG pO2 ABG HCO3 ABG Total CO2 ABG Base Excess Trent Test FiO2 % Sodium Potassium Chloride Carbon Dioxide Anion Gap BUN Creatinine Estimated GFR (MDRD) BUN/Creatinine Ratio Glucose Lactic Acid Calcium Total Bilirubin AST ALT Alkaline Phosphatase Total Protein Albumin Globulin Albumin/Globulin Ratio Procalcitonin 0.21 Urine Color Urine Clarity Urine pH Ur Specific [place] Urine Protein Urine Glucose (UA) Urine Ketones Urine Blood Urine Nitrite Urine Bilirubin Urine Urobilinogen Ur Leukocyte Esterase Urine Microscopic RBC Ur Squamous Epith Cells Urine Bacteria Urine Mucus Urine Yeast Influenza A (Rapid) Influenza B (Rapid) Orders Category Date Time Status ABG DRAW REQUEST Stat CARDIO 07/05/17 22:59 Completed EKG-(ED ONLY) Stat CARDIO 07/05/17 22:59 Completed ABG Stat LAB 07/05/17 22:59 Completed BLOOD CULTURE (ED ONLY) Stat LAB 07/05/17 23:55 Received CBC W/ AUTO DIFF Stat LAB 07/05/17 23:55 Completed COMPREHENSIVE METABOLIC PANEL Stat LAB 07/05/17 23:55 Completed FLU A/B MOLECULAR Stat LAB 07/05/17 23:50 Completed LACTIC ACID Stat LAB 07/05/17 23:55 Completed MOLECULAR GROUP A STREP Stat LAB 07/05/17 23:50 Completed PROCALCITONIN Stat LAB 07/05/17 23:55 Completed URINALYSIS C & S IF INDICATED Stat LAB 07/05/17 23:[address] CHEST W/O CONTRAST Stat RADS 07/05/17 23:00 Completed Vital Signs: Temp Pulse Resp BP Pulse Ox 07/05/17 22:50 98.1 F 75 24 114/60 96 Departure - Departure Time of Disposition: :31 Disposition: ADMITTED INPATIENT Discharge Problem: Influenza B Pneumonia Qualifiers: Pneumonia type: due to unspecified organism Laterality: bilateral Lung location : unspecified part of lung Qualified Code(s): J18.9 - Pneumonia, unspecified organism Instructions: Viral Pneumonia (ED) Condition: Stable Pt referred to PMD for follow-up: Yes IPMP verified?: No Allergies/Adverse Reactions: Allergies Penicillins Adverse Reaction (Unknown, Verified 07/05/17 23:17) Rash adhesive tape Adverse Reaction (Verified 07/05/17 23:17) iodine Adverse Reaction (Verified 07/05/17 23:17) Iodine and Iodide Containing Produc Adverse Reaction (Verified 07/05/17 23:17) Home Medications: Ambulatory Orders Furosemide [Furosemide] 20 mg PO DAILY 07/22/13 Dabigatran Etexilate Mesylate [Pradaxa] 75 mg PO Q12HR 08/30/15 Linagliptin [Tradjenta] 5 mg PO DAILY 08/30/15 Losartan Potassium 50 mg PO DAILY 08/30/15 Pantoprazole Sodium 40 mg PO DAILY 08/30/15 Tramadol HCl [Ultram] 50 mg PO Q12H PRN 10/30/15 Allopurinol 100 mg PO DAILY #30 tablet 11/05/15 Acetaminophen [Tylenol] 2 tab PO Q6H PRN 02/14/17 Alprazolam 0.25 mg PO BID 02/14/17 Escitalopram Oxalate [Lexapro] 10 mg PO DAILY 02/14/17 Ferrous Sulfate [Iron] 325 mg PO BID 02/14/17 Magnesium Hydroxide [Milk of Magnesia] 30 ml PO Q24H PRN 02/14/17 Tolterodine Tartrate [Detrol LA] 4 mg PO BEDTIME 02/14/17 Escitalopram Oxalate [Lexapro] 5 mg PO DAILY 02/15/17 Calcium Carbonate/Vitamin D3 [Calcium 500 + D Tablet] 1 each PO DAILY 07/05/17 Donepezil HCl [Aricept] 10 mg PO BEDTIME 07/05/17 Fenofibrate 160 mg PO BEDTIME 07/05/17 Lancets [Accu-Chek] 1 each MC DAILY 07/05/17 Whey Protein/Arginine/C/E/Zinc [Arginaid Extra Liquid] 237 ml PO BID 07/05/17 Disposition Discussed With: Patient, Family
[2017-07-06] MEDS ORDERED: TYLENOL PO PRN (01:32)
[2017-07-06] MEDS ORDERED: MILK OF MAGNESIA PO PRN (01:36)
[2017-07-06] MEDS ORDERED: VANCOMYCIN ONE (01:45)
[2017-07-06] MEDS ORDERED: LEVAQUIN 250 MG in PREMIX 50 ML D5W 1 BAG IV SCH (02:00)
[2017-07-06] MEDS ORDERED: VANCOMYCIN 1,000 MG in SODIUM CHLORIDE 200 ML IV SCH (02:00)
[2017-07-06] MEDS: SODIUM CHLORIDE 1,000 ML IV SCH ×2 (02:05→22:50)
[2017-07-06 02:49] VITALS: BMI 32.5
[2017-07-06] MEDS ORDERED: LEVAQUIN 50 ML IV ONE (05:01)
[2017-07-06] MEDS ORDERED: NON-FORMULARY MEDICATION (Escitalopram Oxalate [Lexapro] 5 MG) PO SCH (09:00)
[2017-07-06] MEDS ORDERED: NON-FORMULARY MEDICATION (Calcium Carbonate/Vitamin D3 [Calcium 500-Vit D3 400 Tablet] 1 E PO SCH (09:00)
[2017-07-06] MEDS ORDERED: K-DUR PO SCH (09:00)
[2017-07-06] MEDS ORDERED: LEXAPRO PO SCH (09:00)
[2017-07-06] MEDS ORDERED: XOPENEX 0.63 MG NEB SCH ×2 (09:00→14:00)
[2017-07-06] MEDS ORDERED: XANAX PO SCH (09:00)
[2017-07-06] MEDS ORDERED: NON-FORMULARY MEDICATION (Ferrous Sulfate [Iron] 325 MG) PO SCH (09:00)
[2017-07-06] MEDS ORDERED: COZAAR PO SCH (09:00)
--- NOTE | 2017-07-06 09:19 | PCM.PROG ---
Attending Provider: ATTENDING PROVIDER: Dr. RANI WORTHY This patient is seen with Jovanna Pleitez, Nurse Practitioner. DATE OF SERVICE: 07/06/17 SUBJECTIVE: This 86 year old WHITE/ F was hospitalized 07/06/17. The patient is sitting in the chair, alert. She is still coughing. REVIEW OF SYSTEMS: CONSTITUTIONAL: No fever since last night. No night sweats. No fatigue, malaise , lethargy. HEENT: Eyes: No visual changes. No eye pain. No eye discharge. ENT: No runny nose. No epistaxis. No sinus pain. No odynophagia. No congestion. RESPIRATORY: Positive for cough and shortness of breath. No congestion. No hemoptysis. No shortness of breath. CARDIOVASCULAR: No angina symptoms. No CHF symptoms. No atypical chest pain for CAD. No palpitations. No orthopnea.. GASTROINTESTINAL: No abdominal pain. No nausea or vomiting. No diarrhea or constipation. No hematemesis. No hematochezia. GENITOURINARY: No urgency. No frequency. No dysuria. No hematuria. No obstructive symptoms. No discharge. No pain. No significant abnormal bleeding. MUSCULOSKELETAL: No musculoskeletal pain; no joint swelling. NEUROLOGICAL: Awake, alert, bouts of confusion. No headache. No neck pain. No syncope. No seizures. No dizziness. PSYCHIATRIC: Not anxious. No depression. No suicidal thoughts. No homicidal thoughts. SKIN: No rash. No lesions. No wounds. ENDOCRINE: No unexplained weight loss. No weight gain. HEMATOLOGIC/LYMPHATIC: No anemia. No purpura. No petechiae. No prolonged or excessive bleeding. No palpable lymph nodes. PHYSICAL EXAMINATION: GENERAL: The patient is awake, alert and oriented, sitting in chair in no distress. VITAL SIGNS: Temperature 97.8 F, Pulse 77, Respiratory Rate 16, BP 126/68, Pulse Ox 96% HEENT: Head normocephalic, atraumatic. Eyes: Extraocular muscles are intact. Pupils are equal, round and reactive to light and accommodation. Ears: No lesions. Nose appeared normal. Throat: No exudate or erythema. NECK: Supple. No JVD, no carotid bruit. No lymphadenopathy or thyromegaly. LUNGS: Diminished breath sounds with rhonchi bilaterally. Percussion note normal. Chest symmetrical. HEART: S1, S2, no S3. Irregular heart rate. No cyanosis or clubbing. No ascites. Pulses: Dorsalis pedis and posterior tibial pulses +1 to +2 both sides. ABDOMEN: Soft. Non-tender. Bowel sounds active. No CVA tenderness. No mass felt. EXTREMITIES: No leg edema. Full range of motion of all extremities, equal. NEUROLOGIC: No focal deficit. Cranial nerves II through XII are grossly intact. No headache, no double vision or headache. SKIN: Not dry. Intact. Turgor-normal. LYMPHATIC: No palpable lymph nodes/no lymphedema. MUSCULOSKELETAL: Normal joints with no swelling. Muscle tone is normal. LAB REVIEW: 07/06/17 04:30 07/06/17 04:30 07/06/17 04:30: Sodium 137, Potassium 3.3 L, Chloride 104, Carbon Dioxide 23, Anion Gap 13.3, BUN 55 H, Creatinine 1.88 H, Estimated GFR (MDRD) 25.00, BUN/ Creatinine Ratio 29.25, Glucose 127 H, Calcium 8.6, Total Bilirubin 0.4, AST 24 , ALT 12, Alkaline Phosphatase 44 L, Total Protein 6.1, Albumin 2.8 L, Globulin 3.3, Albumin/Globulin Ratio 0.85 07/06/17 04:30: WBC 4.38 L, RBC 3.31 L, Hgb 10.5 L, Hct 30.8 L, MCV 93.1, MCH 31.7 H, MCHC 34.1, RDW Coeff of Zeeshan 14.4, Plt Count 145, Immature Gran % (Auto) 0.2, Neut % (Auto) 67.7, Lymph % (Auto) 18.9, [place] % (Auto) 11.9 H, Eos % (Auto ) 1.1, Baso % (Auto) 0.2, Immature Gran # (Auto) 0.0, Neut # 3.0, Lymph # 0.8, [place] # 0.5, Eos # 0.1, Baso # 0.0 ASSESSMENT: 1. Influenza B 2. Bibasilar pneumonia 3. Dehydration 4. Acute on chronic renal failure 5. COPD 6. Atrial fibrillation 7. Hypokalemia PLAN: 1. Vancomycin 500 mg q.12 - check with pharmacy 2. Tamiflu, check with pharmacy to dose 3. Solu-Cortef 100 mg q.8 IV 4. Stop Detrol LA 5. Xopenex q.6 ANNALISA 6. Potassium 20 mg daily 7. UA if not done Plan and coordination of the patient's care discussed in the presence of Optical Engineering Manager and nurse. CONDITION: Stable SCRIBED BY: LACEY VIVAR Dog Behaviorist scribed while in presence of service performed by Dr. Worthy/Jovanna Pleitez APRN on 07/06/17 ([id number])
[2017-07-06] MEDS: SOLU-CORTEF 100 MG IVP SCH ×3 (09:36→20:18)
[2017-07-06] MEDS: CALCIUM 500 + VIT D 200 MG TABLET PO SCH (09:54)
[2017-07-06] MEDS: FERROUS SULFATE PO SCH ×2 (09:55→20:19)
[2017-07-06] MEDS: COZAAR PO SCH (09:55)
[2017-07-06] MEDS: LASIX TAB PO SCH (09:56)
[2017-07-06] MEDS: LEXAPRO PO SCH (09:56)
[2017-07-06] MEDS: K-DUR PO SCH (09:56)
[2017-07-06] MEDS: PROTONIX PO SCH (09:58)
[2017-07-06] MEDS: TAMIFLU PO SCH (09:58)
[2017-07-06] MEDS: TRADJENTA PO SCH (09:59)
[2017-07-06] MEDS: ZYLOPRIM PO SCH (09:59)
[2017-07-06] MEDS: XANAX PO SCH ×2 (10:01→20:18)
[2017-07-06] MEDS: PRADAXA PO SCH ×2 (10:01→20:18)
[2017-07-06] MEDS: XOPENEX 0.63 MG NEB SCH ×3 (11:16→23:05)
[2017-07-06] MEDS: HUMULIN R SUBCUT PRN ×3 (11:21→20:19)
[2017-07-06] MEDS: ULTRAM PO PRN (14:34)
--- NOTE | 2017-07-06 15:51 | PN ---
DATE OF SERVICE: 07/06/17 SUBJECTIVE: The patient was hospitalized from the detention with Influenza B positive. REVIEW OF SYSTEMS: CONSTITUTIONAL: No night sweats. No fatigue, malaise, lethargy. No fever or chills. Weakness. HEENT: Eyes: No visual changes. No eye pain. No eye discharge. ENT: No runny nose. No epistaxis. No sinus pain. No sore throat. No odynophagia. No congestion. RESPIRATORY: Cough, Congestion. No hemoptysis. No shortness of breath. CARDIOVASCULAR: No angina symptoms. No CHF symptoms. No atypical chest pain for CAD. No palpitations. No orthopnea. GASTROINTESTINAL: No abdominal pain. No nausea or vomiting. No diarrhea or constipation. No hematemesis. No hematochezia. GENITOURINARY: No urgency. No frequency. No dysuria. No hematuria. No obstructive symptoms. No discharge. No pain. No significant abnormal bleeding. MUSCULOSKELETAL: No musculoskeletal pain; no joint swelling. NEUROLOGICAL: No headache. No neck pain. No syncope. No seizures. No dizziness. PSYCHIATRIC: Not anxious. No depression. No suicidal thoughts. No homicidal thoughts. SKIN: No rash. No lesions. No wounds. ENDOCRINE: No unexplained weight loss. No weight gain. HEMATOLOGIC/LYMPHATIC: No anemia. No purpura. No petechiae. No prolonged or excessive bleeding. No palpable lymph nodes. PHYSICAL EXAMINATION: GENERAL: The patient is alert and oriented to person. HEENT: Head normocephalic, atraumatic. Eyes: Extraocular muscles are intact. Pupils are equal, round and reactive to light and accommodation. Ears: No lesions. Nose appeared normal. Throat: No exudate or erythema. NECK: Supple. No JVD, no carotid bruit. No lymphadenopathy or thyromegaly. LUNGS: Decreased breath sounds with mild wheeze. Percussion note normal. Chest symmetrical. HEART: S1, S2, no S3. No murmurs. No cyanosis or clubbing. No ascites. Pulses: Dorsalis pedis and posterior tibial pulses +1 to +2 both sides. ABDOMEN: Soft. Nontender. Bowel sounds active. No CVA tenderness. No mass felt. EXTREMITIES: No edema. Full range of motion of all extremities, equal. NEUROLOGIC: No focal deficit. Cranial nerves II through XII are grossly intact. No headache, no double vision or headache. SKIN: Not dry. Intact. Turgor - normal. LYMPHATIC: No palpable lymph nodes/no lymphedema. MUSCULOSKELETAL: Normal joints with no swelling. Muscle tone is normal. ASSESSMENT: 1. Dehydration 2. Influenza B positive 3. CHF controlled CONDITION: Stable The patient was seen and examined with Nurse Practitioner. TIME SPENT: More than 30 minutes. Plan and coordination of the patient's care discussed in the presence of nurse. WILLIAM
[2017-07-06] MEDS: ARICEPT PO SCH (20:19)
[2017-07-06] MEDS ORDERED: TRIGLIDE PO SCH (21:00)
[2017-07-06] MEDS ORDERED: DETROL LA PO SCH (21:00)
[2017-07-06] MEDS ORDERED: NON-FORMULARY MEDICATION (Tolterodine Tartrate 4 MG) PO SCH (21:00)
[2017-07-07] MEDS: XOPENEX 0.63 MG NEB SCH ×4 (05:30→23:06)
[2017-07-07] MEDS: HUMULIN R SUBCUT PRN ×4 (05:42→20:29)
[2017-07-07] MEDS: SOLU-CORTEF 100 MG IVP SCH ×2 (05:42→18:05)
[2017-07-07] MEDS: LASIX TAB PO SCH (05:42)
[2017-07-07] MEDS: PROTONIX PO SCH (05:43)
[2017-07-07] MEDS: LEVAQUIN 250 MG in PREMIX 50 ML D5W 1 BAG IV SCH (08:58)
[2017-07-07] MEDS: FERROUS SULFATE PO SCH ×2 (09:00→20:30)
[2017-07-07] MEDS: TAMIFLU PO SCH (09:00)
[2017-07-07] MEDS: LEXAPRO PO SCH (09:01)
[2017-07-07] MEDS: ZYLOPRIM PO SCH (09:03)
[2017-07-07] MEDS: PRADAXA PO SCH ×2 (09:03→20:30)
[2017-07-07] MEDS: K-DUR PO SCH (09:03)
[2017-07-07] MEDS: TRADJENTA PO SCH (09:04)
[2017-07-07] MEDS: COZAAR PO SCH (09:04)
[2017-07-07] MEDS: CALCIUM 500 + VIT D 200 MG TABLET PO SCH (09:05)
[2017-07-07] MEDS: XANAX PO SCH ×2 (09:13→20:30)
--- NOTE | 2017-07-07 09:18 | PCM.PROG ---
Attending Provider: ATTENDING PROVIDER: Dr. RANI WORTHY This patient is seen with Jovanna Pleitez, Nurse Practitioner. DATE OF SERVICE: 07/07/17 SUBJECTIVE: This 86 year old WHITE/ F was hospitalized 07/06/17. The patient is sitting up in bed, is alert. Cough and wheeze much better than yesterday. Labs improved. She ate 75 to 100% of her meals yesterday. REVIEW OF SYSTEMS: CONSTITUTIONAL: Weakness. No night sweats. No malaise, lethargy. No fever or chills. HEENT: Eyes: No visual changes. No eye pain. No eye discharge. ENT: No runny nose. No epistaxis. No sinus pain. No odynophagia. No congestion. RESPIRATORY: Cough. No congestion. No hemoptysis. No shortness of breath. CARDIOVASCULAR: No angina symptoms. No CHF symptoms. No atypical chest pain for CAD. No palpitations. No orthopnea.. GASTROINTESTINAL: No abdominal pain. No nausea or vomiting. No diarrhea or constipation. No hematemesis. No hematochezia. GENITOURINARY: No urgency. No frequency. No dysuria. No hematuria. No obstructive symptoms. No discharge. No pain. No significant abnormal bleeding. MUSCULOSKELETAL: No musculoskeletal pain; no joint swelling. NEUROLOGICAL: Awake, alert, bouts of confusion. No headache. No neck pain. No syncope. No seizures. No dizziness. PSYCHIATRIC: Not anxious. No depression. No suicidal thoughts. No homicidal thoughts. SKIN: No rash. No lesions. No wounds. ENDOCRINE: No unexplained weight loss. No weight gain. HEMATOLOGIC/LYMPHATIC: No anemia. No purpura. No petechiae. No prolonged or excessive bleeding. No palpable lymph nodes. PHYSICAL EXAMINATION: GENERAL: The patient is awake, alert with bouts of contusion, lying in bed in no distress. VITAL SIGNS: Temperature 97.5 F, Pulse 62, Respiratory Rate 16, BP 125/72, Pulse Ox 97% HEENT: Head normocephalic, atraumatic. Eyes: Extraocular muscles are intact. Pupils are equal, round and reactive to light and accommodation. Ears: No lesions. Nose appeared normal. Throat: No exudate or erythema. NECK: Supple. No JVD, no carotid bruit. No lymphadenopathy or thyromegaly. LUNGS: Diminished breath sounds bilaterally. Clear to auscultation. Percussion note normal. Chest symmetrical. HEART: Irregular heart rate. S1, S2, no S3. No murmurs. No cyanosis or clubbing. No ascites. Pulses: Dorsalis pedis and posterior tibial pulses +1 to +2 both sides. ABDOMEN: Soft. Non-tender. Bowel sounds active. No CVA tenderness. No mass felt. EXTREMITIES: No edema. Full range of motion of all extremities, equal. NEUROLOGIC: No focal deficit. Cranial nerves II through XII are grossly intact. No headache, no double vision or headache. SKIN: Not dry. Intact. Turgor-normal. LYMPHATIC: No palpable lymph nodes/no lymphedema. MUSCULOSKELETAL: Normal joints with no swelling. Muscle tone is normal. LAB REVIEW: 07/07/17 04:30 07/07/17 04:30 07/07/17 04:30: Sodium 136, Potassium 3.7, Chloride 104, Carbon Dioxide 21 L, Anion Gap 14.7, BUN 48 H, Creatinine 1.82 H, Estimated GFR (MDRD) 26.00, BUN/ Creatinine Ratio 26.37, Glucose 265 H D, Calcium 8.8, Total Bilirubin < 0.3, AST 20, ALT 13, Alkaline Phosphatase 49 L, Total Protein 6.2, Albumin 2.8 L, Globulin 3.4, Albumin/Globulin Ratio 0.82 07/07/17 04:30: WBC 2.68 L, RBC 3.24 L, Hgb 10.3 L, Hct 29.8 L, MCV 92.0, MCH 31.8 H, MCHC 34.6, RDW Coeff of Zeeshan 14.0, Plt Count 138 L, Immature Gran % (Auto ) 0.7, Neut % (Auto) 80.3, Lymph % (Auto) 10.4, [place] % (Auto) 8.6, Eos % (Auto) 0.0, Baso % (Auto) 0.0, Immature Gran # (Auto) 0.0, Neut # 2.2, Lymph # 0.3 L, [place] # 0.2 L, Eos # 0.0, Baso # 0.0 ASSESSMENT: 1. Influenza B 2. Bibasilar pneumonia 3. Dehydration 4. Acute on chronic renal failure 5. COPD 6. Atrial fibrillation 7. Hypokalemia PLAN: 1. D/C fluids after this bag 2. Decrease Solu-Cortef q.12hr Plan and coordination of the patient's care discussed in the presence of Senior Premium Auditor and nurse. CONDITION: Stable SCRIBED BY: Desiree ESPINAList scribed while in presence of service performed by Dr. Worthy/Jovanna Pleitez APRN on 07/07/17 ([id number])
[2017-07-07] MEDS: VANCOMYCIN 500 MG in SODIUM CHLORIDE 100 ML IV SCH (10:06)
[2017-07-07] MEDS: ULTRAM PO PRN (14:03)
[2017-07-07] MEDS: ARICEPT PO SCH (20:30)
[2017-07-07] MEDS: SODIUM CHLORIDE 1,000 ML IV SCH (20:30)
[2017-07-08] MEDS: XOPENEX 0.63 MG NEB SCH ×4 (05:13→23:43)
[2017-07-08] MEDS: LASIX TAB PO SCH (05:34)
[2017-07-08] MEDS: PROTONIX PO SCH (05:34)
[2017-07-08] MEDS: HUMULIN R SUBCUT PRN ×4 (06:04→21:00)
[2017-07-08] MEDS: K-DUR PO SCH (08:10)
[2017-07-08] MEDS: TRADJENTA PO SCH (09:55)
[2017-07-08] MEDS: LEXAPRO PO SCH (09:55)
[2017-07-08] MEDS: TAMIFLU PO SCH (09:55)
[2017-07-08] MEDS: COZAAR PO SCH (09:57)
[2017-07-08] MEDS: CALCIUM 500 + VIT D 200 MG TABLET PO SCH (09:57)
[2017-07-08] MEDS: FERROUS SULFATE PO SCH ×2 (09:57→21:01)
[2017-07-08] MEDS: ZYLOPRIM PO SCH (09:58)
[2017-07-08] MEDS: LEVAQUIN 250 MG in PREMIX 50 ML D5W 1 BAG IV SCH (09:59)
[2017-07-08] MEDS: PRADAXA PO SCH ×2 (10:00→20:59)
[2017-07-08] MEDS: XANAX PO SCH ×2 (10:00→21:00)
[2017-07-08] MEDS: SOLU-CORTEF 100 MG IVP SCH ×2 (10:25→20:59)
[2017-07-08] MEDS: VANCOMYCIN 500 MG in SODIUM CHLORIDE 100 ML IV SCH (11:01)
[2017-07-08] MEDS: ARICEPT PO SCH (21:00)
[2017-07-09] MEDS: XOPENEX 0.63 MG NEB SCH ×4 (04:53→22:24)
[2017-07-09] MEDS: LASIX TAB PO SCH (05:49)
[2017-07-09] MEDS: HUMULIN R SUBCUT PRN ×4 (05:49→20:47)
[2017-07-09] MEDS: PROTONIX PO SCH (05:49)
[2017-07-09] MEDS: VANCOMYCIN 500 MG in SODIUM CHLORIDE 100 ML IV SCH (09:58)
[2017-07-09] MEDS: CALCIUM 500 + VIT D 200 MG TABLET PO SCH (10:09)
[2017-07-09] MEDS: TAMIFLU PO SCH (10:10)
[2017-07-09] MEDS: TRADJENTA PO SCH (10:10)
[2017-07-09] MEDS: FERROUS SULFATE PO SCH ×2 (10:10→20:46)
[2017-07-09] MEDS: ZYLOPRIM PO SCH (10:11)
[2017-07-09] MEDS: LEXAPRO PO SCH (10:11)
[2017-07-09] MEDS: K-DUR PO SCH (10:11)
[2017-07-09] MEDS: XANAX PO SCH ×2 (10:11→20:46)
[2017-07-09] MEDS: PRADAXA PO SCH ×2 (10:12→20:46)
[2017-07-09] MEDS: COZAAR PO SCH (10:12)
[2017-07-09] MEDS: SOLU-CORTEF 100 MG IVP SCH ×2 (10:16→20:46)
[2017-07-09] MEDS: LEVAQUIN 250 MG in PREMIX 50 ML D5W 1 BAG IV SCH (11:52)
[2017-07-09] MEDS: ARICEPT PO SCH (20:46)
[2017-07-10] MEDS: XOPENEX 0.63 MG NEB SCH ×2 (04:34→11:19)
[2017-07-10] MEDS: PROTONIX PO SCH (05:58)
[2017-07-10] MEDS: HUMULIN R SUBCUT PRN ×3 (05:58→17:44)
[2017-07-10] MEDS: LASIX TAB PO SCH (05:58)
[2017-07-10] MEDS: CALCIUM 500 + VIT D 200 MG TABLET PO SCH (08:55)
[2017-07-10] MEDS: FERROUS SULFATE PO SCH (08:56)
[2017-07-10] MEDS: COZAAR PO SCH (08:56)
[2017-07-10] MEDS: LEXAPRO PO SCH (08:57)
[2017-07-10] MEDS: K-DUR PO SCH (08:57)
[2017-07-10] MEDS: PRADAXA PO SCH (08:58)
[2017-07-10] MEDS: TRADJENTA PO SCH (08:59)
[2017-07-10] MEDS: TAMIFLU PO SCH (08:59)
[2017-07-10] MEDS: LEVAQUIN 250 MG in PREMIX 50 ML D5W 1 BAG IV SCH (09:00)
[2017-07-10] MEDS: XANAX PO SCH (09:00)
[2017-07-10] MEDS: ZYLOPRIM PO SCH (09:00)
--- NOTE | 2017-07-10 10:29 | PCM.PROG ---
Attending Provider: ATTENDING PROVIDER: Dr. RANI WORTHY This patient is seen with Jovanna Pleitez, Nurse Practitioner. DATE OF SERVICE: 07/10/17 SUBJECTIVE: This 86 year old WHITE/ F was hospitalized 07/06/17. The patient is lying in bed, alert. She has been getting up in the chair. eating well REVIEW OF SYSTEMS: CONSTITUTIONAL: Weakness. No night sweats. No fever or chills. HEENT: Eyes: No visual changes. No eye pain. No eye discharge. ENT: No runny nose. No epistaxis. No sinus pain. No odynophagia. No congestion. RESPIRATORY: No cough, no congestion. No hemoptysis. No shortness of breath. CARDIOVASCULAR: No angina symptoms. No CHF symptoms. No atypical chest pain for CAD. No palpitations. No orthopnea.. GASTROINTESTINAL: No abdominal pain. No nausea or vomiting. No diarrhea or constipation. No hematemesis. No hematochezia. GENITOURINARY: No urgency. No frequency. No dysuria. No hematuria. No obstructive symptoms. No discharge. No pain. No significant abnormal bleeding. MUSCULOSKELETAL: No musculoskeletal pain; no joint swelling. NEUROLOGICAL: Awake, alert, confused. No headache. No neck pain. No syncope. No seizures. No dizziness. PSYCHIATRIC: Not anxious. No depression. No suicidal thoughts. No homicidal thoughts. SKIN: No rash. No lesions. No wounds. ENDOCRINE: No unexplained weight loss. No weight gain. HEMATOLOGIC/LYMPHATIC: No anemia. No purpura. No petechiae. No prolonged or excessive bleeding. No palpable lymph nodes. PHYSICAL EXAMINATION: GENERAL: The patient is awake, alert with some confusion lying in bed in no distress. VITAL SIGNS: Temperature 96.5 F, Pulse 104, Respiratory Rate 19, BP 129/85, Pulse Ox 99% HEENT: Head normocephalic, atraumatic. Eyes: Extraocular muscles are intact. Pupils are equal, round and reactive to light and accommodation. Ears: No lesions. Nose appeared normal. Throat: No exudate or erythema. NECK: Supple. No JVD, no carotid bruit. No lymphadenopathy or thyromegaly. LUNGS: Diminished breath sounds bilaterally. Clear to auscultation. Percussion note normal. Chest symmetrical. HEART: Irregular heart rate. S1, S2, no S3. No murmurs. No cyanosis or clubbing. No ascites. Pulses: Dorsalis pedis and posterior tibial pulses +1 to +2 both sides. ABDOMEN: Soft. Non-tender. Bowel sounds active. No CVA tenderness. No mass felt. EXTREMITIES: No edema. Full range of motion of all extremities, equal. NEUROLOGIC: No focal deficit. Cranial nerves II through XII are grossly intact. No headache, no double vision or headache. SKIN: Not dry. Intact. Turgor-normal. LYMPHATIC: No palpable lymph nodes/no lymphedema. MUSCULOSKELETAL: Normal joints with no swelling. Muscle tone is normal. LAB REVIEW: 07/10/17 04:15 07/10/17 04:15 07/10/17 04:15: Sodium 139, Potassium 3.9, Chloride 103, Carbon Dioxide 25, Anion Gap 14.9, BUN 44 H, Creatinine 1.47 H, Estimated GFR (MDRD) 34.00, BUN/ Creatinine Ratio 29.93, Glucose 207 H, Calcium 9.0, Total Bilirubin 0.4, AST 21 , ALT 18, Alkaline Phosphatase 55, Total Protein 6.3, Albumin 2.8 L, Globulin 3.5, Albumin/Globulin Ratio 0.80 07/10/17 04:15: WBC 5.46, RBC 3.33 L, Hgb 10.6 L, Hct 30.9 L, MCV 92.8, MCH 31.8 H, MCHC 34.3, RDW Coeff of Zeeshan 13.6, Plt Count 143, Immature Gran % (Auto) 2.4, Neut % (Auto) 80.2, Lymph % (Auto) 9.7 L, [place] % (Auto) 7.5, Eos % (Auto) 0.0, Baso % (Auto) 0.2, Immature Gran # (Auto) 0.1, Neut # 4.4, Lymph # 0.5 L, [place] # 0.4, Eos # 0.0, Baso # 0.0 ASSESSMENT: 1. Influenza B 2. Bibasilar pneumonia 3. Dehydration, resolved 4. Acute on chronic renal failure, improving 5. COPD 6. Atrial fibrillation 7. Hypokalemia, resolved PLAN: 1. D/C Vancomycin 2. Levaquin 250 times 5 more days 3. Prednisone 20 mg for 5 days 4. Repeat chest x-ray 5. Anticipate discharge if chest x-ray is okay Plan and coordination of the patient's care discussed in the presence of Bean Picker and nurse. CONDITION: Stable SCRIBED BY: LACEY VIVAR Paper Control Clerk scribed while in presence of service performed by Dr. Wotrhy/Jovanna Pleitez APRN on 07/10/17 ([id number])
[2017-07-10] MEDS: SOLU-CORTEF 100 MG IVP SCH (10:35)
--- NOTE | 2017-07-10 14:04 | HP ---
DATE OF SERVICE: 07/06/17 HISTORY OF PRESENT ILLNESS: This is an 86-year-old white female who is a current resident of [facility]. She presented to the emergency room by ambulance. She tested positive for flu. At the facility was experiencing fever, weakness and cough. PAST MEDICAL HISTORY: Atrial fibrillation Leg edema Diabetes mellitus Type 2 Hypertension GERD Osteoarthritis Recurrent urinary tract infections Dementia Anxiety Depression Anemia Dyslipidemia COPD PAST SURGICAL HISTORY: None listed REVIEW OF SYSTEMS: CONSTITUTIONAL: Positive for fever, fatigue, weakness. No night sweats. No malaise, lethargy. No chills. HEENT: Eyes: No visual changes. No eye pain. No eye discharge. ENT: No runny nose. No epistaxis. No sinus pain. No sore throat. No odynophagia. No ear pain. No congestion. RESPIRATORY: Positive for cough. Positive for shortness of breath. No congestion. No hemoptysis. CARDIOVASCULAR: No angina symptoms. No CHF symptoms. No atypical chest pain for CAD. No palpitations. No orthopnea. GASTROINTESTINAL: No abdominal pain. No nausea or vomiting. No diarrhea or constipation. No hematemesis. No hematochezia. GENITOURINARY: No urgency. No frequency. No dysuria. No hematuria. No obstructive symptoms. No discharge. No pain. No significant abnormal bleeding. MUSCULOSKELETAL: No musculoskeletal pain. No joint swelling. No arthritis. NEUROLOGICAL: No headache. No neck pain. No syncope. No seizures. No dizziness. PSYCHIATRIC: Not anxious. No depression. No suicidal thoughts. No homicidal thoughts. SKIN: No rash. No lesions. No wounds. ENDOCRINE: No unexplained weight loss. No weight gain. HEMATOLOGIC/LYMPHATIC: No anemia. No purpura. No petechiae. No prolonged or excessive bleeding. No palpable lymph nodes. PERSONAL/FAMILY/SOCIAL HISTORY: The patient is a former smoker. No alcohol or illicit drug use. Currently resides at [facility]. MEDICATIONS: (HOME) Furosemide 20 mg p.o. daily Pantoprazole 40 mg p.o. daily Tradjenta 5 mg p.o. daily Pradaxa 75 mg p.o. q.12hr Losartan 50 mg p.o. daily Ultram 50 mg p.o. q.12h p.r.n. Allopurinol 100 mg p.o. daily Tylenol 325 mg two tab p.o. q.6h p.r.n. Milk of Magnesia 30 mL p.o. q.24h p.r.n. Iron 325 mg p.o. b.i.d. Lexapro 10 mg p.o. daily Detrol LA 4 mg p.o. bedtime Alprazolam 0.25 mg p.o. b.i.d. Lexapro 5 mg p.o. daily Aricept 10 mg p.o. bedtime Whey Protein/Arginine/C/E/Zinc 237 mL p.o. b.i.d. Fenofibrate 160 mg p.o. bedtime Lancets (Accu-Chek) one each MC daily Calcium Carbonate/Vitamin D3 one each p.o. daily ALLERGIES: PENICILLINS, ADHESIVE, IODINE PHYSICAL EXAMINATION: VITAL SIGNS: Temperature 98.1, heart rate 75, respirations 24, BP 114/60, pulse ox 96%. HEENT: Head normocephalic, atraumatic. Eyes: Extraocular muscles are intact. Pupils are equal, round and reactive to light and accommodation. Ears: No lesions. Nose appeared normal. Throat: No exudate or erythema. NECK: Supple. No JVD, no carotid bruit. No lymphadenopathy or thyromegaly. LUNGS: Diminished breath sounds bilaterally with bilateral rhonchi. Clear to auscultation. Percussion note normal. Chest symmetrical. HEART: S1, S2, no S3. No murmurs. No cyanosis or clubbing. No ascites. Pulses: Dorsalis pedis and posterior tibial pulses +1 to +2 both sides. ABDOMEN: Soft. Nontender. Bowel sounds active. No CVA tenderness. No mass felt. EXTREMITIES: No edema. Full range of motion of all extremities, equal. NEUROLOGIC: The patient is alert and oriented to person however not place or time due to dementia. No focal deficit. Cranial nerves II through XII are grossly intact. No headache, no double vision or headache. SKIN: Cool and clammy. Intact. Turgor - normal. LYMPHATIC: No palpable lymph nodes/no lymphedema. MUSCULOSKELETAL: Normal joints with no swelling. Muscle tone is normal. LABS/X-RAYS: Chest x-ray reveals bibasilar infiltrates and consolidation consistent with pneumonia. ABGs on room air: pH 7.481, pc02 30.6, p02 59, base excess negative 1. Bicarb 22.8, TC02 24, 02 sat 92. Sodium 136, potassium 3.7, BUN 59, creatinine 1.99. AST 25, ALT 12, alkaline phosphatase 49, lactic acid 7.8, white count 5.84, hemoglobin 11.2, hematocrit 32.5, platelets 165. Rapid flu is positive for Flu B. Urine has +1 protein, negative leuks, negative nitrites, trace bacteria. ASSESSMENT: 1. INFLUENZA B 2. BILATERAL PNEUMONIA 3. ACUTE ON CHRONIC RENAL FAILURE 4. DEHYDRATION 5. ATRIAL FIBRILLATION PLAN: 1. Admit to the floor 2. Routine telemetry orders 3. CBC/CMP daily 4. Continue home medications including Pradaxa, start on Tamiflu at adjusted renal dose b.i.d., Vancomycin 500 mg IV q.12hr, Levaquin 250 mg IV daily, Solu- Cortef 100 mg IV q.8hr, Xopenex neb treatments q.6hr scheduled. 5. 02 as needed 6. IV fluids D5 1/2 NS at 75 cc/hr 7. Regular diet 8. Sliding scale for insulin 9. Will follow closely TIME SPENT: More than 70 minutes. MTDD
--- NOTE | 2017-07-10 15:01 | DI ---
EXAM: CHEST FRONTAL AND LATERAL VIEWS HISTORY: Basilar infiltrates. COMPARISON: 02/14/2017 FINDINGS: Prominent heart size is stable. There is at least mild aortic atherosclerosis. Low lung volumes and patient position limits image quality. No definite consolidated pneumonia is identified. There is no vascular congestion, pleural fluid or pneumothorax. Arthropathy of the right shoulder. IMPRESSION: No definite consolidated pneumonia. Limited exam.
[2017-07-10 15:29] VITALS: BP 119/76; TEMP 98.2
--- NOTE | 2017-07-11 10:25 | PN ---
DATE OF SERVICE: 07/08/17 SUBJECTIVE: 86 year old white female hospitalized with pneumonia and flu type of symptoms. The patient has improved a lot. For the first time she says that she is feeling a lot better. The daughter is in the room. REVIEW OF SYSTEMS: CONSTITUTIONAL: No night sweats. No fatigue, malaise, lethargy. No fever or chills. HEENT: Eyes: No visual changes. No eye pain. No eye discharge. ENT: No runny nose. No epistaxis. No sinus pain. No sore throat. No odynophagia. No congestion. RESPIRATORY: Mild cough, no congestion. No hemoptysis. No shortness of breath. CARDIOVASCULAR: No angina symptoms. No CHF symptoms. No atypical chest pain for CAD. No palpitations. No orthopnea. No PND. GASTROINTESTINAL: No abdominal pain. No nausea or vomiting. No diarrhea or constipation. No hematemesis. No hematochezia. Appetite improving. GENITOURINARY: No urgency. No frequency. No dysuria. No hematuria. No obstructive symptoms. No discharge. No pain. No significant abnormal bleeding. MUSCULOSKELETAL: No musculoskeletal pain; no joint swelling. NEUROLOGICAL: No headache. No neck pain. No syncope. No seizures. No dizziness. PSYCHIATRIC: Not anxious. No depression. No suicidal thoughts. No homicidal thoughts. SKIN: No rash. No lesions. No wounds. ENDOCRINE: No unexplained weight loss. No weight gain. HEMATOLOGIC/LYMPHATIC: No anemia. No purpura. No petechiae. No prolonged or excessive bleeding. No palpable lymph nodes. PHYSICAL EXAMINATION: GENERAL: The patient is oriented to time, place and person. VITAL SIGNS: Temperature 97, pulse 90, respiratory rate 16, blood pressure 125/ 70 and pulse ox 100%. HEENT: Head normocephalic, atraumatic. Eyes: Extraocular muscles are intact. Pupils are equal, round and reactive to light and accommodation. Ears: No lesions. Nose appeared normal. Throat: No exudate or erythema. NECK: Supple. No JVD, no carotid bruit. No lymphadenopathy or thyromegaly. LUNGS:Decreased breath sounds but clear to auscultation. Percussion note normal. Chest symmetrical. HEART: S1, S2, no S3. No murmurs. No cyanosis or clubbing. No ascites. Pulses: Dorsalis pedis and posterior tibial pulses +1 to +2 both sides. ABDOMEN: Soft. Nontender. Bowel sounds active. No CVA tenderness. No mass felt. EXTREMITIES: No edema. Full range of motion of all extremities, equal. NEUROLOGIC: No focal deficit. Cranial nerves II through XII are grossly intact. No headache, no double vision or headache. SKIN: Not dry. Intact. Turgor - normal. LYMPHATIC: No palpable lymph nodes/no lymphedema. MUSCULOSKELETAL: Normal joints with no swelling. Muscle tone is normal. LABS: Hgb 10.3, hct 29, WBC 4,200 normal differential, creatinine 1.8, BUN 48, potassium 3.7. ASSESSMENT: 1. Pneumonia 2. Flu symptoms 3. Atrial fibrillation 4. Hypertension 5. Depression 6. Dyslipidemia 7. Chronic kidney disease, stable. PLAN: 1. Continue Vancomycin, Levofloxacin, NEBS treatment and Steroids 2. The patient is already on Tamiflu, the patient has influenza positive 3. Will do echocardiogram to evaluate LV function CONDITION: Stabilizing. TIME SPENT: More than 30 minutes. Plan and coordination of the patient's care discussed in the presence of nurse. WILLIAM
--- NOTE | 2017-07-11 13:42 | PN ---
07/06/17: Level 5 07/07/17: Intermediate 07/08/17: Intermediate 07/09/17: Intermediate 07/10/17: D as in discharge MTDD
--- NOTE | 2017-07-12 14:51 | PN ---
DATE OF SERVICE: 07/10/17 SUBJECTIVE: The patient was admitted with acute bronchitis, chronic lung disease and pneumonia. The patient's condition has improved. PHYSICAL EXAMINATION: HEENT: Head normocephalic, atraumatic. Eyes: Extraocular muscles are intact. Pupils are equal, round and reactive to light and accommodation. Ears: No lesions. Nose appeared normal. Throat: No exudate or erythema. NECK: Supple. No JVD, no carotid bruit. No lymphadenopathy or thyromegaly. LUNGS: Decreased breath sounds but clear to auscultation. Percussion note normal. Chest symmetrical. Shortness of breath on exertion as usual. HEART: S1, S2, no S3. No murmurs. No cyanosis or clubbing. No ascites. Pulses: Dorsalis pedis and posterior tibial pulses +1 to +2 both sides. The patient has atrial fibrillation. ABDOMEN: Soft. Nontender. Bowel sounds active. No CVA tenderness. No mass felt. EXTREMITIES: No edema. Full range of motion of all extremities, equal. NEUROLOGIC: No focal deficit. Cranial nerves II through XII are grossly intact. No headache, no double vision or headache. SKIN: Not dry. Intact. Turgor - normal. LYMPHATIC: No palpable lymph nodes/no lymphedema. MUSCULOSKELETAL: Normal joints with no swelling. Muscle tone is normal. PLAN: 1. The patient's condition is stable. 2. To be discharged with antibiotics and steroids. 3. The patient didn't have echo done for past two years. We will check the echocardiogram to evaluate LV function before discharge. CONDITION: Stable. The patient was seen and examined with Nurse Practitioner. TIME SPENT: More than 30 minutes. Plan and coordination of the patient's care discussed in the presence of nurse. WILLIAM
--- NOTE | 2017-07-12 15:14 | PN ---
DATE OF SERVICE: 07/09/17 SUBJECTIVE: 86 year old white female hospitalized with pneumonia and influenza positive. The patient's condition has steadily improved. She is feeling better. Her appetite has improved. REVIEW OF SYSTEMS: CONSTITUTIONAL: No night sweats. No fatigue, malaise, lethargy. No fever or chills. Feeling better. HEENT: Eyes: No visual changes. No eye pain. No eye discharge. ENT: No runny nose. No epistaxis. No sinus pain. No sore throat. No odynophagia. No congestion. RESPIRATORY: No cough, no congestion. No hemoptysis. No shortness of breath. CARDIOVASCULAR: No angina symptoms. No CHF symptoms. No atypical chest pain for CAD. No palpitations. No orthopnea. GASTROINTESTINAL: No abdominal pain. No nausea or vomiting. No diarrhea or constipation. No hematemesis. No hematochezia. GENITOURINARY: No urgency. No frequency. No dysuria. No hematuria. No obstructive symptoms. No discharge. No pain. No significant abnormal bleeding. MUSCULOSKELETAL: No musculoskeletal pain; no joint swelling. NEUROLOGICAL: No headache. No neck pain. No syncope. No seizures. No dizziness. PSYCHIATRIC: Not anxious. No depression. No suicidal thoughts. No homicidal thoughts. SKIN: No rash. No lesions. No wounds. ENDOCRINE: No unexplained weight loss. No weight gain. HEMATOLOGIC/LYMPHATIC: No anemia. No purpura. No petechiae. No prolonged or excessive bleeding. No palpable lymph nodes. PHYSICAL EXAMINATION: GENERAL: The patient is oriented to time, place and person. VITAL SIGNS: Temperature 96.4, pulse 100, respiratory rate 16, blood pressure 138/87 and pulse ox 97%. HEENT: Head normocephalic, atraumatic. Eyes: Extraocular muscles are intact. Pupils are equal, round and reactive to light and accommodation. Ears: No lesions. Nose appeared normal. Throat: No exudate or erythema. NECK: Supple. No JVD, no carotid bruit. No lymphadenopathy or thyromegaly. LUNGS: Decreased breath sounds but clear to auscultation. Percussion note normal. Chest symmetrical. HEART: S1, S2, no S3. No murmurs. No cyanosis or clubbing. No ascites. Pulses: Dorsalis pedis and posterior tibial pulses +1 to +2 both sides. ABDOMEN: Soft. Nontender. Bowel sounds active. No CVA tenderness. No mass felt. EXTREMITIES: No edema. Full range of motion of all extremities, equal. NEUROLOGIC: No focal deficit. Cranial nerves II through XII are grossly intact. No headache, no double vision or headache. SKIN: Not dry. Intact. Turgor - normal. LYMPHATIC: No palpable lymph nodes/no lymphedema. MUSCULOSKELETAL: Normal joints with no swelling. Muscle tone is normal. LABS: Hgb 10.3, hct 30, WBC 4,900 normal differential, creatinine 1.4, BUN 45. ASSESSMENT: 1. Acute pneumonia, seems to be resolving 2. Influenza seems to be resolving 3. Chronic kidney disease 4. Atrial fibrillation 5. Hypertension 6. Depression 7. Dementia 8. Diabetes Mellitus PLAN: 1. Continue steroids and antibiotics 2. NEBS treatments CONDITION: Improving. TIME SPENT: More than 30 minutes. Plan and coordination of the patient's care discussed in the presence of nurse. WILLIAM
--- NOTE | 2017-07-13 10:48 | ECHO2D ---
Date of Exam: 07/10/2017 Ordering Physician: RANI WORTHY Room #: 122 Reason for Echo: SHORT OF BREATH M-Mode Normal Adult Results LV Dimensions Normal Adult Results AoV Opening excursions >1.6 >1.6 LVEDD-base- 3.5-5.8 5.2 Ao root dimensions 2.0-3.7 3.4 LVESD-base- 3.1-4.6 L. Atrium dimensions 1.9-3.8 5.7 Post. Wall thickness 0.8-1.1 1.3 IV septum (thickness) 0.7-1.2 1.3 Post. Wall excursion 0.72-1.3 NORMAL Septal motion NORMAL Systolic motion R. Ventricular cavity 1.5-2.0 NORMAL LVEF 60% 56% Paradoxical septal wall motion NORMAL 2-D : NORMAL LEFT VENTRICULAR CONTRACTILITY, NORMAL VALVES, NO EFFUSION, ENLARGED LEFT ATRIAL CAVITY, NO THROMBUS M-MODE: MV: NORMAL AV: NORMAL TV: NORMAL PV: CHAMBER SIZE: ENLARGED LEFT ATRIAL CAVITY WALL MOTION: NORMAL PERICARDIUM: NORMAL INTERPRETATION: 1. LEFT VENTRICULAR HYPERTROPHY WITH ENLARGED LEFT ATRIAL CAVITY 2. NORMAL LEFT VENTRICULAR HYPERTROPHY 3. NORMAL VALVES MTDD
--- NOTE | 2017-08-03 11:41 | DS ---
DATE OF SERVICE: 07/10/17 FINAL DIAGNOSIS: 1. Pneumonia 2. Influenza B 3. Acute on chronic renal failure 4. Hypokalemia 5. Dehydration 6. Chronic kidney disease, stage 3B 7. Atrial fibrillation(Pradaxa) 8. Diabetes Type 2 9. Peripheral arterial disease (Dr. Lazo) 10.Neuropathy 11.CVA, 1997 12.CAD and history of NE, 1997. 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 DISCHARGE INSTRUCTIONS: Discharge back to [facility] today. Dr. Dai/Jovanna Pleitez APRN will follow the patient during detention rounds in approximately one week. Resume the detention medications as per list provided by the nursing staff. Accu-checks QAM, phone physician for BS<40 or >400. MEDICATIONS AT DISCHARGE: Tylenol 650mg PO Q 4 hours PRN Zyloprim 100mg PO daily Xanax 0.25mg PO twice a day Calcium 500+Vitamin D200mg tablet one each PO daily Pradaxa 75mg PO Q 12 hours Aricept 10mg PO bedtime Lexapro 15mg PO daily Ferrous sulfate 324mg PO twice a day Lasix 20mg PO QDAC Solu-Cortef 100mg IVP Q 12hours (DC and NEW RX) Dextrose 50mls at 75mls/hr IV daily (DC and NEW RX) Humulin R 0 units SUBCUT PRN (DC) Xopenex 0.63 one vial NEB RT Q ^ HOURS (DC) Tradjenta 5mg PO daily Cozaar 50ng PO daily Milk of Magnesia 30ml PO Q 24 hours PRN Tamiflu 30mg PO daily (COMPLETED AND DC'D) Protonix 40mg PO QDAC K-Dur 20meq PO Daily (NEW AND RX) Saline flush IVF PRN (DC'D) Detrol LA 4mg PO bedtime Ultram 50mg PO Q 12 hours PRN Arginaid Extra Liquid 237ml PO twice a day ALLERGIES: Penicillins Adhesive tape Iodine Iodine and Iodide containing Product NEW PRESCRIPTIONS: Prednisone 20mg take one tablet by mouth with food daily for 5 days Levaquin 250mg take one tablet by mouth daily for 5 days K-Dur 20meq Take one tablet by mouth daily DIET INSTRUCTIONS: Consistent Carbohydrates, ISAIAH, Regular texture and regular consistency ACTIVITY: May participate in detention activity program as tolerated. PT/OT please evaluate and treat if needed. SMOKING: Former Smoker None now DISEASE SPECIFIC EDUCATION: New Medications PT/OT HOSPITAL COURSE: This is an 86 year old white female who is a resident of [facility]. She has a history of dementia. She is brought to the emergency room with low grade fever and increasing confusion with decreased appetite. She is found to be positive for Flu B. Chest x-ray revealed that she had bilateral bibasilar pneumonia. She was subsequently placed on Vancomycin and IV Levaquin. She was started on Xopenex NEB treatments Q 6 hours and also started on Solu- Cortef 100mg IV Q 8 hours. Over the course of several days her wheezing slowly improved and she doesn't have a history of underlining COPD. She also has atrial fibrillation for which she takes Pradaxa and chronic kidney disease. Initially her kidney function, BUN were more elevated from her base line then usual showing mild dehydration.She was started on IV fluids D5 1/2 normal saline at 75cc an hour. Her kidney function has slowly improved. Today at day of discharge BUN 44 and creatinine 1.47 which is normal for her. Her rate has been controlled with her atrial fibrillation. All of her home medications were continued. She was started on Tamiflu 30mg PO daily due to kidney function. After the first 24 hours she became afebrile. Over the course of past several day her appetite has improved. On Monday we decreased her steroids to 100mg IV Q 12 hours. Today on day of discharge her wheezing has resolved. She will be discharged back to the detention on Prednisone 20mg daily for the next 5 days along with Levaquin 250mg daily for the next 5 days. She has completed her course of Tamiflu. She has been sitting up in the chair over the weekend and eating her afternoon snack. She does not ambulate due to severe osteoarthritis or her feet so she ambulates by way of wheelchair. Repeat chest x-ray was done today which showed resolving pneumonia. Her condition has significantly improved since admission and we will discharge her back in stable condition to the detention. TIME SPENT: More than 60 minutes. WILLIAM
== END 2017-07-10 18:30 | DRG 194 ==
LOC: ED 22:49 → MEDSURG B 07-06 01:33
PROVIDERS: ADMIT Internal Medicine; ATTEND Internal Medicine
DX: J18.9 Pneumonia, unspecified organism (principal); R04.2 Hemoptysis; N17.9 Acute kidney failure, unspecified; J10.1 Influenza due to other identified influenza virus with other respiratory manifestations; R50.9 Fever, unspecified; R06.02 Shortness of breath; I48.91 Unspecified atrial fibrillation; I10 Essential (primary) hypertension; K21.9 Gastro-esophageal reflux disease without esophagitis; I51.7 Cardiomegaly; E87.6 Hypokalemia; E86.0 Dehydration; I12.9 Hypertensive chronic kidney disease with stage 1 through stage 4 chronic kidney disease, or unspecified chronic kidney disease; E11.22 Type 2 diabetes mellitus with diabetic chronic kidney disease; N18.3 Chronic kidney disease, stage 3 (moderate); J44.9 Chronic obstructive pulmonary disease, unspecified; I73.9 Peripheral vascular disease, unspecified; I25.10 Atherosclerotic heart disease of native coronary artery without angina pectoris; D64.9 Anemia, unspecified; F03.90 Unspecified dementia, unspecified severity, without behavioral disturbance, psychotic disturbance, mood disturbance, and anxiety; G62.9 Polyneuropathy, unspecified; E66.9 Obesity, unspecified; K44.9 Diaphragmatic hernia without obstruction or gangrene; N32.81 Overactive bladder; K59.00 Constipation, unspecified; M41.9 Scoliosis, unspecified; G89.29 Other chronic pain; M54.9 Dorsalgia, unspecified; M10.9 Gout, unspecified; F41.8 Other specified anxiety disorders; M19.072 Primary osteoarthritis, left ankle and foot; M19.071 Primary osteoarthritis, right ankle and foot; H54.3 Unqualified visual loss, both eyes; Z86.73 Personal history of transient ischemic attack (TIA), and cerebral infarction without residual deficits; I25.2 Old myocardial infarction; Z79.01 Long term (current) use of anticoagulants; Z79.84 Long term (current) use of oral hypoglycemic drugs; Z68.32 Body mass index [BMI] 32.0-32.9, adult; Z87.891 Personal history of nicotine dependence
CPT/HCPCS: 36415; 80053; 81001; 82803; 82962; 83605; 84145; 85007; 85025; 87040; 87081; 87502; 87651; 93005; 93010; 94640; 96365; 99223; 99232; 99239; 99284

== ENCOUNTER 2018-05-15 11:36 | Inpatient (IN) ==
--- NOTE | 2018-05-15 13:58 | DI ---
EXAM: CHEST FRONTAL VIEW HISTORY: Cough. COMPARISON: 07/10/2017 FINDINGS: Stable cardiomegaly. Moderate atherosclerotic disease. There is diffuse, chronic appeari ng interstitial accentuation. No acute infiltrates are seen. No vascular congestion. There is no c onsolidation, visible pleural fluid or pneumothorax. Bones reveal no acute fracture. IMPRESSION: Limited portable exam reveals no obvious consolidated pneumonia or acute infiltrate.
--- NOTE | 2018-05-15 14:13 | ED.PDOC ---
General ED Provider: Dr. ZANDRA LENTZ Chief Complaint: Extremity Pain/Injury Stated Complaint: RASH RIGHT FOOT Time Seen by Physician: 12:00 (SEEN WITH ENTIRE NURSING STAFF AND HARJIT) Mode of Arrival: Wheelchair Information Source: Patient, Family, Senior Living Exam Limitations: No limitations Primary Care Provider: RANI WORTHY Nursing and Triage Documentation Reviewed and Agree: Yes Does patient meet sepsis criteria?: No System Inflammatory Response Syndrome: Not Applicable Sepsis Protocol: For patient's 13 years and over: Temp is 96.8 and below OR 101 and greater Pulse >90 BPM Resp >20/minute Acutely Altered Mental Status Are patient's symptoms suggestive of a new infection, such as: -Pneumonia -Skin, Soft Tissue -Endocarditis -UTI -Bone, Joint Infection -Implantable Device -Acute Abdominal Infection -Wound Infection -Meningitis -Blood Stream Catheter Infection -Unknown Skin Complaint Exam - Skin Rash/Itching Complaint/Exam Onset/Duration: CHRONIC INTERMITTENT SEE PHOTOS Symptoms Are: Still present Initial Severity: Moderate Current Severity: Moderate Location: SEE PHOTO Potential Exposures: Reports: Unknown Aggravating: Reports: None Alleviating: Reports: None Associated Signs and Symptoms: Denies: Difficulty breathing, Fever, Chills Related History: Similar episode Skin Findings: Present: Maculae Differential Diagnoses: Other (CELLULITIS) Review of Systems - Review Of Systems Constitutional: Reports: Malaise, Weakness Eyes: Reports: No symptoms Ears, Nose, Mouth, Throat: Reports: No symptoms Respiratory: Reports: Cough Cardiac: Reports: No symptoms GI: Reports: No symptoms : Reports: No symptoms Musculoskeletal: Reports: No symptoms Skin: Reports: Rash (RIGHT FOOT SEE PHOTOS) Neurological: Reports: No symptoms Endocrine: Reports: No symptoms Hematologic/Lymphatic: Reports: No symptoms All Other Systems: Reviewed and Negative Past Medical History - Past Medical History Previously Healthy: No Endocrine: Reports: Unknown Cardiovascular: Reports: Unknown Respiratory: Reports: Unknown Hematological: Reports: Unknown Gastrointestinal: Reports: Unknown Genitourinary: Reports: Unknown Neuro/Psych: Reports: Unknown Musculoskeletal: Reports: Unknown Cancer: Reports: Unknown Last Menstrual Period: none - Surgical History General Surgical History: Reports: Unknown - Family History Family History: Reports: Unknown - Social History Smoking Status: Former smoker Hx Substance Use: No Alcohol Screening: None - Immunizations Influenza Vaccine within 12 Months: Yes Pneumococcal Vaccine up to Date: Yes Physical Exam - Physical Exam Appearance: Well-appearing, No pain distress, Well-nourished Eyes: RICKEY, EOMI, Conjunctiva clear ENT: Ears normal, Nose normal, Oropharynx normal Respiratory: Airway patent, Breath sounds clear, Breath sounds equal, Respirations nonlabored Cardiovascular: RRR, Pulses normal, No rub, No murmur GI/: Soft, Nontender, No masses, Bowel sounds normal, No Organomegaly Musculoskeletal: Normal strength, ROM intact, No edema, No calf tenderness Skin: Warm, Dry (RASH RIGHT FOOT SEE PHOTOS) Neurological: Sensation intact, Motor intact, Reflexes intact, Cranial nerves intact, Alert, Oriented Psychiatric: Affect appropriate, Mood appropriate Interpretation - Radiology Interpretation Radiology Interpretation By: Radiologist Radiology Results: No acute changes - Computer Science Professor Rhythm: Other (AFUB) Ectopy: PVCs - EKG Interpretation Rhythm: Other (AFIB WITH CONTROLLED RATE) Ectopy: PVCs [place]: NL ST Segment: Normal Procedures - IV/Art Line Insertion Location: LEFT NECK Type of Line: Peripheral IV Invasive Line/IV Catheter Gauge: 20 Number of Attempts: 1 Blood Return Positive: Yes Invasive Line/IV Flushes Without Difficulty: Yes (DONE UNDER ABSOLUTE STERILE TECHNIQUE ) Physician Notification - Case Discussed Physician Notified: PMD Time of Notification: 14:15 (SEEN PT IN THE ED STATED TO ADMITT) Critical Care Note - Critical Care Note Total Time (mins): 0 Course - Course Hematology/Chemistry: 05/15/18 12:32 05/15/18 12:32 Orders, Labs, Meds: Lab Review 05/15/18 05/15/18 05/15/18 12:32 12:32 12:32 WBC 5.98 RBC 3.60 L Hgb 11.2 L Hct 33.9 L MCV 94.2 MCH 31.1 H MCHC 33.0 RDW Coeff of Zeeshan 13.6 Plt Count 201 Immature Gran % (Auto) 0.5 Neut % (Auto) 68.0 Lymph % (Auto) 18.9 Millard % (Auto) 10.2 H Eos % (Auto) 2.2 Baso % (Auto) 0.2 Immature Gran # (Auto) 0.0 Neut # (Auto) 4.1 Lymph # (Auto) 1.1 Millard # (Auto) 0.6 Eos # (Auto) 0.1 Baso # (Auto) 0.0 PT 13.5 H INR 1.36 APTT 37.4 Puncture Site O2 Saturation ABG pH ABG pCO2 ABG pO2 ABG HCO3 ABG Total CO2 ABG Base Excess Trent Test FiO2 % Sodium 133.7 L Potassium 4.48 Chloride 101.7 Carbon Dioxide 24.0 Anion Gap 12.48 BUN 57.5 H Creatinine 2.19 H Estimated GFR (MDRD) 21.00 BUN/Creatinine Ratio 26.25 Glucose 204.1 H Lactic Acid Calcium 9.30 Total Bilirubin 0.30 AST 24.7 ALT 15.7 Alkaline Phosphatase 63.2 Total Creatine Kinase 65.7 Troponin I Total Protein 7.15 Albumin 3.97 Globulin 3.18 Albumin/Globulin Ratio 1.24 Procalcitonin 05/15/18 05/15/18 05/15/18 12:32 12:32 12:32 WBC RBC Hgb Hct MCV MCH MCHC RDW Coeff of Zeeshan Plt Count Immature Gran % (Auto) Neut % (Auto) Lymph % (Auto) Millard % (Auto) Eos % (Auto) Baso % (Auto) Immature Gran # (Auto) Neut # (Auto) Lymph # (Auto) Millard # (Auto) Eos # (Auto) Baso # (Auto) PT INR APTT Puncture Site O2 Saturation ABG pH ABG pCO2 ABG pO2 ABG HCO3 ABG Total CO2 ABG Base Excess Trent Test FiO2 % Sodium Potassium Chloride Carbon Dioxide Anion Gap BUN Creatinine Estimated GFR (MDRD) BUN/Creatinine Ratio Glucose Lactic Acid 0.83 Calcium Total Bilirubin AST ALT Alkaline Phosphatase Total Creatine Kinase Troponin I 0.012 Total Protein Albumin Globulin Albumin/Globulin Ratio Procalcitonin < 0.05 05/15/18 12:38 WBC RBC Hgb Hct MCV MCH MCHC RDW Coeff of Zeeshan Plt Count Immature Gran % (Auto) Neut % (Auto) Lymph % (Auto) Millard % (Auto) Eos % (Auto) Baso % (Auto) Immature Gran # (Auto) Neut # (Auto) Lymph # (Auto) Millard # (Auto) Eos # (Auto) Baso # (Auto) PT INR APTT Puncture Site R brachial O2 Saturation 98.0 ABG pH 7.452 H ABG pCO2 32.8 L ABG pO2 100.0 ABG HCO3 22.9 ABG Total CO2 24 ABG Base Excess -1 Trent Test + FiO2 % 21.0 Sodium Potassium Chloride Carbon Dioxide Anion Gap BUN Creatinine Estimated GFR (MDRD) BUN/Creatinine Ratio Glucose Lactic Acid Calcium Total Bilirubin AST ALT Alkaline Phosphatase Total Creatine Kinase Troponin I Total Protein Albumin Globulin Albumin/Globulin Ratio Procalcitonin Orders Category Date Time Status ABG DRAW REQUEST Stat CARDIO 05/15/18 12:38 Ordered EKG-(ED ONLY) Stat CARDIO 05/15/18 12:14 Ordered ABG Stat LAB 05/15/18 12:38 Completed BLOOD CULTURE (ED ONLY) Stat LAB 05/15/18 12:32 Received CBC W/ AUTO DIFF Stat LAB 05/15/18 12:32 Completed COMPREHENSIVE METABOLIC PANEL Stat LAB 05/15/18 12:32 Completed CREATINE KINASE Stat LAB 05/15/18 12:32 Completed LACTIC ACID Stat LAB 05/15/18 12:32 Completed PARTIAL THROMBOPLASTIN TIME Stat LAB 05/15/18 12:32 Completed PROCALCITONIN Stat LAB 05/15/18 12:32 Completed PT WITH INR Stat LAB 05/15/18 12:32 Completed TROPONIN I Stat LAB 05/15/18 12:32 Completed CHEST, 1V AP ONLY Stat RADS 05/15/18 12:15 Completed Vital Signs: Temp Pulse Resp BP Pulse Ox 05/15/18 11:36 98.7 F 77 20 146/89 H 92 L Departure - Departure Time of Disposition: 14:15 Disposition: HOME SELF-CARE Discharge Problem: Cellulitis of right foot Condition: Good Pt referred to PMD for follow-up: Yes IPMP verified?: No Allergies/Adverse Reactions: Allergies Penicillins Adverse Reaction (Unknown, Verified 05/15/18 11:41) Rash adhesive tape Adverse Reaction (Verified 05/15/18 11:41) iodine Adverse Reaction (Verified 05/15/18 11:41) Iodine and Iodide Containing Produc Adverse Reaction (Verified 05/15/18 11:41) Home Medications: Ambulatory Orders Furosemide 20 mg PO DAILY 07/22/13 Dabigatran Etexilate Mesylate [Pradaxa] 75 mg PO Q12HR 08/30/15 Losartan Potassium 50 mg PO DAILY 08/30/15 Pantoprazole Sodium 40 mg PO DAILY 08/30/15 Allopurinol 100 mg PO DAILY #30 tablet 11/05/15 Acetaminophen [Tylenol] 2 tab PO Q6H PRN 02/14/17 Alprazolam 0.25 mg PO DAILY 02/14/17 Escitalopram Oxalate [Lexapro] 10 mg PO DAILY 02/14/17 Ferrous Sulfate [Iron] 325 mg PO BID 02/14/17 Magnesium Hydroxide [Milk of Magnesia] 30 ml PO Q24H PRN 02/14/17 Escitalopram Oxalate [Lexapro] 5 mg PO DAILY 02/15/17 Donepezil HCl [Aricept] 10 mg PO BEDTIME 07/05/17 Fenofibrate 160 mg PO BEDTIME 07/05/17 Lancets [Accu-Chek] 1 each MC DAILY 07/05/17 Calcium Carbonate/Vitamin D3 [Calcium 600 + Vit D 400 Tablet] 1 each PO DAILY Hydrocortisone [Hydrocortisone 1% Cream] 1 applic TP Q8H PRN 05/15/18 Insulin Glargine,Hum.rec.anlog [Lantus] 15 unit SUBCUT BEDTIME 05/15/18 Insulin Regular, Human [Novolin R] See Protocol IJ ACHS 05/15/18 Loperamide HCl [Loperamide] 2 mg PO Q6H PRN 05/15/18 Nystatin [Nystatin Cream] 1 applic TP TID 05/15/18 Nystatin [Nystop Powder] 1 applic TP TID 05/15/18 Phenylephrine HCl/[place] Butter [Preparation H Suppository] 1 each RC Q6H PRN 06/02 Potassium Chloride [K-Dur] 10 meq PO DAILY 05/15/18
[2018-05-15] MEDS ORDERED: HUMULIN R SUBCUT STA ×2 (14:17→14:31)
[2018-05-15] MEDS ORDERED: MILK OF MAGNESIA PO PRN (14:27)
[2018-05-15] MEDS ORDERED: LASIX IVP STA (14:35)
[2018-05-15] MEDS ORDERED: ROCEPHIN 1 GM in SODIUM CHLORIDE 50 ML IV STA (14:36)
[2018-05-15] MEDS ORDERED: ROCEPHIN ONE (14:53)
[2018-05-15] MEDS ORDERED: NYSTOP POWDER TP SCH (15:00)
[2018-05-15 15:54] VITALS: BMI 35.3
[2018-05-15] MEDS: ROCEPHIN 1 GM in SODIUM CHLORIDE 50 ML IV SCH (15:56)
[2018-05-15] MEDS: SODIUM CHLORIDE 1,000 ML IV SCH (16:01)
[2018-05-15] MEDS ORDERED: NYSTOP POWDER TP PRN (16:29)
[2018-05-15] MEDS: NYSTATIN CREAM TP SCH (17:39)
[2018-05-15] MEDS ORDERED: FERROUS SULFATE ONE (20:21)
[2018-05-15] MEDS: PRADAXA PO SCH (20:26)
[2018-05-15] MEDS: ARICEPT PO SCH (20:26)
[2018-05-15] MEDS: TRIGLIDE PO SCH (20:26)
[2018-05-15] MEDS: TYLENOL PO PRN (20:36)
[2018-05-15] MEDS ORDERED: NON-FORMULARY MEDICATION (Ferrous Sulfate [Iron] 325 MG) PO SCH (21:00)
[2018-05-15] MEDS: LANTUS SUBCUT SCH (22:01)
[2018-05-16] MEDS: SODIUM CHLORIDE 1,000 ML IV SCH ×3 (03:56→23:19)
[2018-05-16] MEDS: HUMULIN R SUBCUT PRN ×3 (06:03→20:59)
[2018-05-16] MEDS ORDERED: LEXAPRO PO SCH (09:00)
[2018-05-16] MEDS ORDERED: COZAAR PO SCH (09:00)
[2018-05-16] MEDS ORDERED: NON-FORMULARY MEDICATION (Escitalopram Oxalate [Lexapro] 5 MG) PO SCH (09:00)
[2018-05-16] MEDS: ROCEPHIN 1 GM in SODIUM CHLORIDE 50 ML IV SCH (09:46)
[2018-05-16] MEDS: XANAX PO SCH ×2 (09:49)
[2018-05-16] MEDS: DIFLUCAN PO SCH (09:49)
[2018-05-16] MEDS: COZAAR PO SCH (09:49)
[2018-05-16] MEDS: PROTONIX PO SCH (09:50)
[2018-05-16] MEDS: LASIX TAB PO SCH (09:50)
[2018-05-16] MEDS: LEXAPRO PO SCH (09:50)
[2018-05-16] MEDS: PRADAXA PO SCH ×2 (09:51→20:55)
[2018-05-16] MEDS: K-DUR PO SCH (09:51)
[2018-05-16] MEDS: FERROUS SULFATE PO SCH ×2 (09:51→20:55)
[2018-05-16] MEDS: ZYLOPRIM PO SCH (09:51)
--- NOTE | 2018-05-16 09:55 | PCM.PROG ---
Attending Provider: ATTENDING PROVIDER: Dr. RANI WORTHY This patient is seen with Jovanna Pleitez, Nurse Practitioner. DATE OF SERVICE: 05/16/18 SUBJECTIVE: This 87 year old WHITE/ F was hospitalized 05/15/18. The patient is resting comfortably. The patient's foot redness has slightly improved from admission. She is scheduled for venous scan today. The patient has been treated for fugal infection of the foot for the past two weeks. REVIEW OF SYSTEMS: CONSTITUTIONAL: No night sweats. No fatigue, malaise, lethargy. No fever or chills. HEENT: Eyes: No visual changes. No eye pain. No eye discharge. ENT: No runny nose. No epistaxis. No sinus pain. No odynophagia. No congestion. RESPIRATORY: No cough, no congestion. No hemoptysis. No shortness of breath. CARDIOVASCULAR: No angina symptoms. No CHF symptoms. No atypical chest pain for CAD. No palpitations. No orthopnea.. GASTROINTESTINAL: No abdominal pain. No nausea or vomiting. No diarrhea or constipation. No hematemesis. No hematochezia. GENITOURINARY: No urgency. No frequency. No dysuria. No hematuria. No obstructive symptoms. No discharge. No pain. No significant abnormal bleeding. MUSCULOSKELETAL: No musculoskeletal pain; no joint swelling. NEUROLOGICAL: Awake, alert, oriented to time, place and person. No headache. No neck pain. No syncope. No seizures. No dizziness. PSYCHIATRIC: Not anxious. No depression. No suicidal thoughts. No homicidal thoughts. SKIN: No rash. No lesions. No wounds. Chronic leg edema, right foot redness. ENDOCRINE: No unexplained weight loss. No weight gain. HEMATOLOGIC/LYMPHATIC: No anemia. No purpura. No petechiae. No prolonged or excessive bleeding. No palpable lymph nodes. PHYSICAL EXAMINATION: GENERAL: The patient is awake, alert and oriented, lying/sitting in bed in no distress. VITAL SIGNS: Temperature 97.9 F, Pulse 74, Respiratory Rate 16, BP 122/68, Pulse Ox 95% HEENT: Head normocephalic, atraumatic. Eyes: Extraocular muscles are intact. Pupils are equal, round and reactive to light and accommodation. Ears: No lesions. Nose appeared normal. Throat: No exudate or erythema. NECK: Supple. No JVD, no carotid bruit. No lymphadenopathy or thyromegaly. LUNGS: Decreased breath sounds. Clear to auscultation. Percussion note normal. Chest symmetrical. HEART: Irregular heart rate. S1, S2, no S3. No murmurs. No cyanosis or clubbing. No ascites. Pulses: Dorsalis pedis and posterior tibial pulses +1 to +2 both sides. ABDOMEN: Soft. Non-tender. Bowel sounds active. No CVA tenderness. No mass felt. EXTREMITIES: Right foot +1 edema with superficial defined redness with white exudate and flaking. Full range of motion of all extremities, equal. NEUROLOGIC: No focal deficit. Cranial nerves II through XII are grossly intact. No headache, no double vision or headache. SKIN: Not dry. Intact. Turgor-normal. LYMPHATIC: No palpable lymph nodes/no lymphedema. MUSCULOSKELETAL: Normal joints with no swelling. Muscle tone is normal. LAB REVIEW: 05/16/18 04:00 05/16/18 04:00 05/16/18 04:00: WBC 4.74, RBC 3.37 L, Hgb 10.5 L, Hct 32.1 L, MCV 95.3, MCH 31.2 H, MCHC 32.7, RDW Coeff of Zeeshan 13.8, Plt Count 179, Immature Gran % (Auto) 0.2, Neut % (Auto) 62.3, Lymph % (Auto) 21.7, [place] % (Auto) 12.2 H, Eos % (Auto ) 3.4, Baso % (Auto) 0.2, Immature Gran # (Auto) 0.0, Neut # (Auto) 3.0, Lymph # (Auto) 1.0, [place] # (Auto) 0.6, Eos # (Auto) 0.2, Baso # (Auto) 0.0 05/16/18 04:00: Sodium 135.1, Potassium 4.22, Chloride 102.8, Carbon Dioxide 27.0, Anion Gap 9.52, BUN 53.7 H, Creatinine 2.01 H, Estimated GFR (MDRD) 23.00 , BUN/Creatinine Ratio 26.71, Glucose 151.5 H D, Calcium 9.05, Total Bilirubin 0.27, AST 22.7, ALT 15.2, Alkaline Phosphatase 59.6, Total Creatine Kinase 86.6 , Troponin I 0.016, Total Protein 6.64, Albumin 3.60, Globulin 3.04, Albumin/ Globulin Ratio 1.18 05/15/18 20:40: Total Creatine Kinase 73.2, Troponin I 0.015 05/15/18 12:38: Puncture Site R brachial, O2 Saturation 98.0, ABG pH 7.452 H, ABG pCO2 32.8 L, ABG pO2 100.0, ABG HCO3 22.9, ABG Total CO2 24, ABG Base Excess -1, Trent Test +, FiO2 % 21.0 05/15/18 12:32: Lactic Acid 0.83 05/15/18 12:32: Procalcitonin < 0.05 05/15/18 12:32: Troponin I 0.012 05/15/18 12:32: PT 13.5 H, INR 1.36, APTT 37.4 05/15/18 12:32: Sodium 133.7 L, Potassium 4.48, Chloride 101.7, Carbon Dioxide 24.0, Anion Gap 12.48, BUN 57.5 H, Creatinine 2.19 H, Estimated GFR (MDRD) 21.00 , BUN/Creatinine Ratio 26.25, Glucose 204.1 H, Calcium 9.30, Total Bilirubin 0.30, AST 24.7, ALT 15.7, Alkaline Phosphatase 63.2, Total Creatine Kinase 65.7 , Total Protein 7.15, Albumin 3.97, Globulin 3.18, Albumin/Globulin Ratio 1.24 05/15/18 12:32: WBC 5.98, RBC 3.60 L, Hgb 11.2 L, Hct 33.9 L, MCV 94.2, MCH 31.1 H, MCHC 33.0, RDW Coeff of Zeeshan 13.6, Plt Count 201, Immature Gran % (Auto) 0.5, Neut % (Auto) 68.0, Lymph % (Auto) 18.9, [place] % (Auto) 10.2 H, Eos % (Auto ) 2.2, Baso % (Auto) 0.2, Immature Gran # (Auto) 0.0, Neut # (Auto) 4.1, Lymph # (Auto) 1.1, [place] # (Auto) 0.6, Eos # (Auto) 0.1, Baso # (Auto) 0.0 ASSESSMENT: Please see below. 1. Right foot Cellulitis and argenis infection 2. Chronic leg edema 3. Acute on chronic renal failure 4. Atrial fibrillation on Pradaxa PLAN: 1. Decreased fluid to 50mcc an hour 2. Diflucan 150mg PO daily Plan and coordination of the patient's care discussed in the presence of Cyber Special Agent and nurse. SCRIBED BY: Radha POSADA scribed while in presence of service performed by Dr. Worthy/Jovanna Pleitez APRN on 05/16/18 ([id number])
--- NOTE | 2018-05-16 13:50 | US ---
EXAM: ULTRASOUND LOWER EXTREMITY VENOUS DOPPLER EXAM HISTORY: Red and swollen foot. FINDINGS: Right lower extremity venous Doppler exam. Real time capps-scale, Doppler spectral analysi s and color-flow Doppler imaging performed. The veins targeted for evaluation include the common fem oral, greater saphenous, profundus, femoral, popliteal, peroneal, anterior tibial and posterior tibia l. The peroneal veins were not seen. The evaluated veins demonstrated normal spontaneous flow and compr ession without evidence of thrombosis. IMPRESSION: Peroneal veins were not seen. No venous thrombosis identified within the areas evaluate d.
[2018-05-16] MEDS: NYSTATIN CREAM TP SCH ×2 (15:50→21:10)
[2018-05-16] MEDS: TRIGLIDE PO SCH (20:54)
[2018-05-16] MEDS: ARICEPT PO SCH (20:54)
[2018-05-16] MEDS: LANTUS SUBCUT SCH (21:01)
[2018-05-17] MEDS: LASIX TAB PO SCH (05:55)
[2018-05-17] MEDS: PROTONIX PO SCH (05:55)
[2018-05-17] MEDS ORDERED: DECADRON 4 MG/ML SDV IM STA (08:49)
[2018-05-17] MEDS: DIFLUCAN PO SCH (09:18)
[2018-05-17] MEDS: KENALOG 0.1% TP SCH ×2 (09:18→20:31)
[2018-05-17] MEDS: COZAAR PO SCH (09:19)
[2018-05-17] MEDS: FERROUS SULFATE PO SCH ×2 (09:19→20:22)
[2018-05-17] MEDS: ZYLOPRIM PO SCH (09:19)
[2018-05-17] MEDS: LEXAPRO PO SCH (09:19)
[2018-05-17] MEDS: PRADAXA PO SCH ×2 (09:19→20:22)
[2018-05-17] MEDS: XANAX PO SCH (09:19)
[2018-05-17] MEDS: K-DUR PO SCH (09:20)
[2018-05-17] MEDS: NYSTATIN CREAM TP SCH ×3 (09:27→20:31)
[2018-05-17] MEDS: ROCEPHIN 1 GM in SODIUM CHLORIDE 50 ML IV SCH (09:27)
--- NOTE | 2018-05-17 10:40 | PCM.PROG ---
Attending Provider: ATTENDING PROVIDER: Dr. RANI WORTHY This patient is seen with Jovanna Pleitez, Nurse Practitioner. DATE OF SERVICE: 05/17/18 SUBJECTIVE: This 87 year old WHITE/ F was hospitalized 05/15/18. The patient is resting comfortably. She is complaining of itchy rash that she has had for some time and has now scattered. Her foot looks significantly better. REVIEW OF SYSTEMS: CONSTITUTIONAL: No night sweats. No fatigue, malaise, lethargy. No fever or chills. HEENT: Eyes: No visual changes. No eye pain. No eye discharge. ENT: No runny nose. No epistaxis. No sinus pain. No odynophagia. No congestion. RESPIRATORY: No cough, no congestion. No hemoptysis. No shortness of breath. CARDIOVASCULAR: No angina symptoms. No CHF symptoms. No atypical chest pain for CAD. No palpitations. No orthopnea.. GASTROINTESTINAL: No abdominal pain. No nausea or vomiting. No diarrhea or constipation. No hematemesis. No hematochezia. GENITOURINARY: No urgency. No frequency. No dysuria. No hematuria. No obstructive symptoms. No discharge. No pain. No significant abnormal bleeding. MUSCULOSKELETAL: No musculoskeletal pain; no joint swelling. NEUROLOGICAL: Awake, alert, oriented to time, place and person. No headache. No neck pain. No syncope. No seizures. No dizziness. PSYCHIATRIC: Not anxious. No depression. No suicidal thoughts. No homicidal thoughts. SKIN: No rash. No lesions. No wounds. Rash right foot. ENDOCRINE: No unexplained weight loss. No weight gain. HEMATOLOGIC/LYMPHATIC: No anemia. No purpura. No petechiae. No prolonged or excessive bleeding. No palpable lymph nodes. PHYSICAL EXAMINATION: GENERAL: The patient is awake, alert and oriented, lying in bed in no distress. VITAL SIGNS: Temperature 98.1 F, Pulse 84, Respiratory Rate 18, BP 131/78, Pulse Ox 96% HEENT: Head normocephalic, atraumatic. Eyes: Extraocular muscles are intact. Pupils are equal, round and reactive to light and accommodation. Ears: No lesions. Nose appeared normal. Throat: No exudate or erythema. NECK: Supple. No JVD, no carotid bruit. No lymphadenopathy or thyromegaly. LUNGS: Clear to auscultation. Percussion note normal. Chest symmetrical. HEART: Irregular heart rate. S1, S2, no S3. No murmurs. No cyanosis or clubbing. No ascites. Pulses: Dorsalis pedis and posterior tibial pulses +1 to +2 both sides. ABDOMEN: Soft. Non-tender. Bowel sounds active. No CVA tenderness. No mass felt. EXTREMITIES: No edema. Full range of motion of all extremities, equal. Right foot improving redness and swelling. NEUROLOGIC: No focal deficit. Cranial nerves II through XII are grossly intact. No headache, no double vision or headache. SKIN: Not dry. Intact. Turgor-normal. Patches of dermatitis on arm, face and legs. LYMPHATIC: No palpable lymph nodes/no lymphedema. MUSCULOSKELETAL: Normal joints with no swelling. Muscle tone is normal. LAB REVIEW: 05/17/18 04:30 05/17/18 04:30 05/17/18 04:30: Sodium 137.3, Potassium 4.21, Chloride 104.5, Carbon Dioxide 26.5, Anion Gap 10.51, BUN 46.3 H, Creatinine 1.90 H, Estimated GFR (MDRD) 25.00 , BUN/Creatinine Ratio 24.36, Glucose 108.5 H, Calcium 8.96, Total Bilirubin 0.28, AST 23.0, ALT 14.4, Alkaline Phosphatase 59.3, Total Protein 6.44, Albumin 3.45 L, Globulin 2.99, Albumin/Globulin Ratio 1.15 05/17/18 04:30: WBC 5.63, RBC 3.28 L, Hgb 10.4 L, Hct 31.3 L, MCV 95.4, MCH 31.7 H, MCHC 33.2, RDW Coeff of Zeeshan 13.8, Plt Count 176, Immature Gran % (Auto) 0.4, Neut % (Auto) 67.8, Lymph % (Auto) 17.6, [place] % (Auto) 11.5 H, Eos % (Auto ) 2.5, Baso % (Auto) 0.2, Immature Gran # (Auto) 0.0, Neut # (Auto) 3.8, Lymph # (Auto) 1.0, [place] # (Auto) 0.7, Eos # (Auto) 0.1, Baso # (Auto) 0.0 ASSESSMENT: Please see below. 1. Right foot Cellulitis and argenis infection 2. Chronic leg edema 3. Acute on chronic renal failure 4. Atrial fibrillation on Pradaxa 5. Atopic dermatitis PLAN: 1. 1cc Decadron 2. Triamcinolone cream to areas of dermatitis Plan and coordination of the patient's care discussed in the presence of High Value Associate and nurse. SCRIBED BY: Radha POSADA scribed while in presence of service performed by Dr. Worthy/Jovanna Pleitez APRN on 05/17/18 ([id number])
--- NOTE | 2018-05-17 10:56 | HP ---
DATE OF SERVICE: 05/15/18 HISTORY OF PRESENT ILLNESS: This is an 87-year-old white female who is a resident of [facility] who was brought to the emergency room. She has been treated with Diflucan in the past. It seems that she has even more discoloration of her right foot. PAST MEDICAL HISTORY: Chronic leg edema Chronic kidney disease Atrial fibrillation on Pradaxa Hypertension GERD History of recurrent gout Anxiety Depression Dementia Anemia Diabetes mellitus type 2, insulin dependent History of hypokalemia PAST SURGICAL HISTORY: None listed REVIEW OF SYSTEMS: CONSTITUTIONAL: Positive for weakness. No night sweats. No fatigue, malaise, lethargy. No fever or chills. HEENT: Eyes: No visual changes. No eye pain. No eye discharge. ENT: No runny nose. No epistaxis. No sinus pain. No sore throat. No odynophagia. No ear pain. No congestion. RESPIRATORY: No cough, no congestion. No hemoptysis. No shortness of breath. CARDIOVASCULAR: No angina symptoms. No CHF symptoms. No atypical chest pain for CAD. No palpitations. No PND. No orthopnea. GASTROINTESTINAL: No abdominal pain. No nausea or vomiting. No diarrhea or constipation. No hematemesis. No hematochezia. GENITOURINARY: No urgency. No frequency. No dysuria. No hematuria. No obstructive symptoms. No discharge. No pain. No significant abnormal bleeding. MUSCULOSKELETAL: Positive for chronic leg edema. No musculoskeletal pain. No joint swelling. No arthritis. NEUROLOGICAL: No headache. No neck pain. No syncope. No seizures. No dizziness. PSYCHIATRIC: Not anxious. No depression. No suicidal thoughts. No homicidal thoughts. SKIN: Redness of the right foot. ENDOCRINE: No unexplained weight loss. No weight gain. HEMATOLOGIC/LYMPHATIC: No anemia. No purpura. No petechiae. No prolonged or excessive bleeding. No palpable lymph nodes. PERSONAL/FAMILY/SOCIAL HISTORY: She is a former smoker. . She is a current resident at [facility]. MEDICATIONS: Furosemide 20 mg p.o. daily Pantoprazole 40 mg p.o. daily Tradjenta 5 mg p.o. daily Pradaxa 75 mg p.o. q.12hr Losartan 50 mg p.o. daily Tramadol 50 mg p.o. q.12hr p.r.n. Allopurinol 100 mg p.o. daily Acetaminophen 325 mg two tab p.o. q.6h p.r.n. Milk of Magnesia 30 mL p.o. q.24h p.r.n. Iron 325 mg p.o. b.i.d. Lexapro 10 mg p.o. daily Tolterodine (Detrol LA) 4 mg p.o. bedtime Alprazolam 0.25 mg p.o. b.i.d. Lexapro 5 mg p.o. daily Donepezil (Aricept) 10 mg p.o. bedtime Arginaid Extra Liquid 237 mL p.o. b.i.d. Fenofibrate 160 mg p.o. bedtime Lancets one each MC daily Calcium Carbonate/Vitamin D3 one each p.o. daily ALLERGIES: PENICILLINS, ADHESIVE TAPE, IODINE AND IODIDE CONTAINING PRODUCTS PHYSICAL EXAMINATION: GENERAL: The patient is alert and oriented to person. VITAL SIGNS: Temperature 98.7, heart rate 77, respirations 20, BP 146/89, pulse ox 92%. HEENT: Head normocephalic, atraumatic. Eyes: Extraocular muscles are intact. Pupils are equal, round and reactive to light and accommodation. Ears: No lesions. Nose appeared normal. Throat: No exudate or erythema. NECK: Supple. No JVD, no carotid bruit. No lymphadenopathy or thyromegaly. LUNGS: Diminished breath sounds bilaterally. Clear to auscultation. Percussion note normal. Chest symmetrical. HEART: Irregular heart rate consistent with atrial fibrillation. S1, S2, no S3. No murmurs. No cyanosis or clubbing. No ascites. Pulses: Dorsalis pedis and posterior tibial pulses +1 to +2 bilaterally. ABDOMEN: Soft. Nontender. Bowel sounds active. No CVA tenderness. No mass felt. EXTREMITIES: No edema. Full range of motion of all extremities, equal. NEUROLOGIC: No focal deficit. Cranial nerves II through XII are grossly intact. No headache, no double vision or headache. SKIN: Redness with defined erythema on the right foot, flaking and white exudate. No red streaking. Turgor - normal. LYMPHATIC: No palpable lymph nodes/no lymphedema. MUSCULOSKELETAL: Normal joints with no swelling. Muscle tone is normal. White count 5.9, hemoglobin 11.2, hematocrit 33.9, platelets 201. Sodium 133.7, potassium 4.4, BUN 57, creatinine 2.19. EKG shows atrial fibrillation, rate controlled which is a normal finding. ABGs on room air: 02 sat 98, pH 7.452, pc02 38, p02 100, bicarb 22.9, total c02 24. Chest x-ray was normal. ASSESSMENT: 1. CELLULITIS OF THE RIGHT FOOT 2. CHRONIC LEG EDEMA 3. ACUTE ON CHRONIC RENAL FAILURE 4. ATRIAL FIBRILLATION ON PRADAXA 5. CORONARY ARTERY DISEASE 6. HYPERTENSION PLAN: 1. We will admit. 2. Bilateral venous scan for tomorrow. 3. Start on Rocephin 1 gm IV daily. 4. Keep legs elevated. 5. IV fluids at 75 cc/hr NS. 6. Low sodium diet. 7. Continue all other home medications. 8. CBC, CMP daily. 9. Will follow closely. TIME SPENT: More than 70 minutes. [facility]
[2018-05-17] MEDS: HUMULIN R SUBCUT PRN ×3 (11:26→20:23)
--- NOTE | 2018-05-17 14:53 | PN ---
DATE OF SERVICE: 05/15/18 SUBJECTIVE: The patient was seen and examined in in the emergency room. The patient was brought to the emergency room from the half-way because of leg swelling and having right foot redness. The patient has swelling of both lower extremity which is usually chronic but it is more than usual. She denies of any chest pain. The patient's daughter is in the room. REVIEW OF SYSTEMS: CONSTITUTIONAL: No night sweats. No fatigue, malaise, lethargy. No fever or chills. HEENT: Eyes: No visual changes. No eye pain. No eye discharge. ENT: No runny nose. No epistaxis. No sinus pain. No sore throat. No odynophagia. No congestion. RESPIRATORY: No cough, no congestion. No hemoptysis. No shortness of breath. CARDIOVASCULAR: No angina symptoms. No CHF symptoms. No atypical chest pain for CAD. No palpitations. No orthopnea. GASTROINTESTINAL: No abdominal pain. No nausea or vomiting. No diarrhea or constipation. No hematemesis. No hematochezia. GENITOURINARY: No urgency. No frequency. No dysuria. No hematuria. No obstructive symptoms. No discharge. No pain. No significant abnormal bleeding. MUSCULOSKELETAL: No musculoskeletal pain; no joint swelling. NEUROLOGICAL: No headache. No neck pain. No syncope. No seizures. No dizziness. PSYCHIATRIC: Not anxious. No depression. No suicidal thoughts. No homicidal thoughts. SKIN: No rash. No lesions. No wounds. ENDOCRINE: No unexplained weight loss. No weight gain. HEMATOLOGIC/LYMPHATIC: No anemia. No purpura. No petechiae. No prolonged or excessive bleeding. No palpable lymph nodes. PHYSICAL EXAMINATION: HEENT: Head normocephalic, atraumatic. Eyes: Extraocular muscles are intact. Pupils are equal, round and reactive to light and accommodation. Ears: No lesions. Nose appeared normal. Throat: No exudate or erythema. NECK: Supple. No JVD, no carotid bruit. No lymphadenopathy or thyromegaly. LUNGS: Decreased breath sounds but clear to auscultation. Percussion note normal. Chest symmetrical. HEART: S1, S2, no S3. No murmurs. No cyanosis or clubbing. No ascites. Pulses: Dorsalis pedis and posterior tibial pulses +1 to +2 both sides. ABDOMEN: Soft. Nontender. Bowel sounds active. No CVA tenderness. No mass felt. EXTREMITIES: No edema. Full range of motion of all extremities, equal. NEUROLOGIC: No focal deficit. Cranial nerves II through XII are grossly intact. No headache, no double vision or headache. SKIN: Not dry. Intact. Turgor - normal. LYMPHATIC: No palpable lymph nodes/no lymphedema. MUSCULOSKELETAL: Normal joints with no swelling. Muscle tone is normal. LABS: Blood gasses showed pO2 100, pCO2 32, pH 7.45 with 98% saturation. CARDIOVASCULAR STATUS: Stable. PLAN: 1. The patient is going to be in the hospital with IV antibiotics 2. Venous scan will be done in the morning CONDITION: Stable. TIME SPENT: More than 30 minutes. Plan and coordination of the patient's care discussed in the presence of nurse. WILLIAM
[2018-05-17] MEDS: ARICEPT PO SCH (20:22)
[2018-05-17] MEDS: TYLENOL PO PRN (20:22)
[2018-05-17] MEDS: SODIUM CHLORIDE 1,000 ML IV SCH (20:22)
[2018-05-17] MEDS: TRIGLIDE PO SCH (20:22)
[2018-05-17] MEDS: LANTUS SUBCUT SCH (20:23)
[2018-05-18 05:10] VITALS: BP 143/86; TEMP 97.8
[2018-05-18] MEDS: SODIUM CHLORIDE 1,000 ML IV SCH (05:13)
[2018-05-18] MEDS: PROTONIX PO SCH (06:09)
[2018-05-18] MEDS: LASIX TAB PO SCH (06:09)
[2018-05-18] MEDS: HUMULIN R SUBCUT PRN ×2 (06:10→11:53)
[2018-05-18] MEDS ORDERED: LASIX IVP STA (08:33)
[2018-05-18] MEDS ORDERED: LASIX TAB PO STA (08:45)
[2018-05-18] MEDS: DIFLUCAN PO SCH (09:08)
[2018-05-18] MEDS: LEXAPRO PO SCH (09:09)
[2018-05-18] MEDS: PRADAXA PO SCH (09:09)
[2018-05-18] MEDS: ZYLOPRIM PO SCH (09:11)
[2018-05-18] MEDS: FERROUS SULFATE PO SCH (09:11)
[2018-05-18] MEDS: COZAAR PO SCH (09:11)
[2018-05-18] MEDS: XANAX PO SCH (09:12)
[2018-05-18] MEDS: K-DUR PO SCH (09:12)
[2018-05-18] MEDS: NYSTATIN CREAM TP SCH (09:14)
[2018-05-18] MEDS: KENALOG 0.1% TP SCH (09:15)
[2018-05-18] MEDS: ROCEPHIN 1 GM in SODIUM CHLORIDE 50 ML IV SCH (09:24)
--- NOTE | 2018-05-18 10:30 | PCM.PROG ---
Attending Provider: ATTENDING PROVIDER: Dr. RANI WORTHY This patient is seen with Jovanna Pleitez, Nurse Practitioner. DATE OF SERVICE: 05/18/18 SUBJECTIVE: This 87 year old WHITE/ F was hospitalized 05/15/18. The patient is resting comfortably. Foot redness and swelling has significantly improved. The itching has improved. Labs are stable and eating has been improving. We will discharge the patient back to [place] today. REVIEW OF SYSTEMS: CONSTITUTIONAL: No night sweats. No fatigue, malaise, lethargy. No fever or chills. HEENT: Eyes: No visual changes. No eye pain. No eye discharge. ENT: No runny nose. No epistaxis. No sinus pain. No odynophagia. No congestion. RESPIRATORY: No cough, no congestion. No hemoptysis. No shortness of breath. CARDIOVASCULAR: No angina symptoms. No CHF symptoms. No atypical chest pain for CAD. No palpitations. No orthopnea.. GASTROINTESTINAL: No abdominal pain. No nausea or vomiting. No diarrhea or constipation. No hematemesis. No hematochezia. GENITOURINARY: No urgency. No frequency. No dysuria. No hematuria. No obstructive symptoms. No discharge. No pain. No significant abnormal bleeding. MUSCULOSKELETAL: No musculoskeletal pain; no joint swelling. NEUROLOGICAL: Awake, alert, oriented to time, place and person. No headache. No neck pain. No syncope. No seizures. No dizziness. PSYCHIATRIC: Not anxious. No depression. No suicidal thoughts. No homicidal thoughts. SKIN: No rash. No lesions. No wounds. Chronic leg edema. Right foot redness. ENDOCRINE: No unexplained weight loss. No weight gain. HEMATOLOGIC/LYMPHATIC: No anemia. No purpura. No petechiae. No prolonged or excessive bleeding. No palpable lymph nodes. PHYSICAL EXAMINATION: GENERAL: The patient is awake, alert and oriented, lying/sitting in bed in no distress. VITAL SIGNS: Temperature 97.8 F, Pulse 72, Respiratory Rate 18, BP 143/86, Pulse Ox 97% HEENT: Head normocephalic, atraumatic. Eyes: Extraocular muscles are intact. Pupils are equal, round and reactive to light and accommodation. Ears: No lesions. Nose appeared normal. Throat: No exudate or erythema. NECK: Supple. No JVD, no carotid bruit. No lymphadenopathy or thyromegaly. LUNGS: Diminished breath sounds. Clear to auscultation. Percussion note normal. Chest symmetrical. HEART: Irregular heart rate. S1, S2, no S3. No murmurs. No cyanosis or clubbing. No ascites. Pulses: Dorsalis pedis and posterior tibial pulses +1 to +2 both sides. ABDOMEN: Soft. Non-tender. Bowel sounds active. No CVA tenderness. No mass felt. EXTREMITIES: Trace bilateral edema. Full range of motion of all extremities, equal. NEUROLOGIC: No focal deficit. Cranial nerves II through XII are grossly intact. No headache, no double vision or headache. SKIN: Not dry. Intact. Turgor-normal. LYMPHATIC: No palpable lymph nodes/no lymphedema. MUSCULOSKELETAL: Normal joints with no swelling. Muscle tone is normal. LAB REVIEW: 05/18/18 05:00 05/18/18 05:00 05/18/18 05:00: Sodium 135.3, Potassium 4.30, Chloride 102.2, Carbon Dioxide 25.2, Anion Gap 12.20, BUN 46.8 H, Creatinine 1.69 H, Estimated GFR (MDRD) 29.00 , BUN/Creatinine Ratio 27.69, Glucose 224.9 H, Calcium 9.10, Total Bilirubin 0.48, AST 25.9, ALT 17.5, Alkaline Phosphatase 76.1, Total Protein 7.06, Albumin 3.89, Globulin 3.17, Albumin/Globulin Ratio 1.22 05/18/18 05:00: WBC 6.05, RBC 3.43 L, Hgb 10.7 L, Hct 32.7 L, MCV 95.3, MCH 31.2 H, MCHC 32.7, RDW Coeff of Zeeshan 13.6, Plt Count 190, Immature Gran % (Auto) 0.7, Neut % (Auto) 78.2, Lymph % (Auto) 11.6, [place] % (Auto) 9.1, Eos % (Auto) 0.2, Baso % (Auto) 0.2, Immature Gran # (Auto) 0.0, Neut # (Auto) 4.7, Lymph # ( Auto) 0.7, [place] # (Auto) 0.6, Eos # (Auto) 0.0, Baso # (Auto) 0.0 ASSESSMENT: Please see below. 1. Right foot Cellulitis and argenis infection 2. Chronic leg edema 3. Acute on chronic renal failure 4. Atrial fibrillation on Pradaxa 5. Atopic dermatitis PLAN: 1. Discharge to [place] 2. Diflucan 150mg daily for 3 day 3. Repeat CBC and CMP in one week 4. Lasix extra 20mg today Plan and coordination of the patient's care discussed in the presence of Pull Worker and nurse. SCRIBED BY: Radha POSADA scribed while in presence of service performed by Dr. Worthy/Jovanna Pleitez APRN on 05/18/18 ([id number])
--- NOTE | 2018-05-18 12:39 | US ---
EXAM: ULTRASOUND CAROTID DUPLEX, BILATERAL HISTORY: Hypertension, atrial fibrillation FINDINGS: Anderson-scale ultrasound, color Doppler and spectral analysis was performed. Velocities are in meters per second. By anderson scale and color Doppler imaging, there were regions of heterogeneous plaque formation identi fied within the carotid bulbs and internal carotid arteries. These regions of plaque appeared to rem ain less than 50% vessel diameter. RIGHT: External carotid artery peak systolic velocity: 2.2 Common carotid artery peak systolic velocity/end diastolic velocity: 0.4/0.1 Internal carotid artery peak systolic velocity: 1.4 ICA/CCA peak systolic velocity ratio: 3.4 ICA end diastolic velocity: 0.4 LEFT: External carotid artery peak systolic velocity: 1.0 Common carotid artery peak systolic velocity/end diastolic velocity: 0.4/0.0 Internal carotid artery peak systolic velocity: 1.4 ICA/CCA peak systolic velocity ratio: 3.5 ICA end diastolic velocity: 0.1 The right and left vertebral arteries were not seen. Exam was described as technically difficult sec ondary to the patient's inability to cooperate. IMPRESSION: 1. By anderson scale and color Doppler imaging, there were regions of heterogeneous plaque formation id entified within the carotid bulbs and internal carotid arteries. These regions of plaque appeared to remain less than 50% vessel diameter. 2. Both right and left internal carotid artery peak systolic velocities are equal at 1.4 meters per second. This velocity indicates moderate stenosis. Moderate indicates 50 - 69% vessel diameter. Th e bilateral ICA/CCA peak systolic velocity ratios correlate with this. 3. Vertebral arteries were not seen. 4. Correlation with CTA can be considered if indicated clinically.
--- NOTE | 2018-05-18 13:14 | CM.DICTOOL ---
ADMISSION: 05/15/18 12:46 DISCHARGE: MAY 18, 2018 DATE OF SERVICE: 05/18/18 FINAL DIAGNOSIS CELLULITIS, RIGHT FOOT OZIEL INFECTION, RIGHT FOOT CHRONIC LEG EDEMA ACUTE ON CHRONIC RENAL FAILURE ATRIAL FIBRILLATION (ON PRADAXA) CAD HYPERTENSION COPD OVERACTIVE BLADDER DIABETES MELLITUS, TYPE 2 OBESITY HYPERLIPIDEMIA PERIPHERAL VASCULAR DISEASE GERD GOUT LAST VITALS Temp Pulse Resp BP Pulse Ox 97.8 F 72 18 143/86 H 97 05/18/18 05:10 05/18/18 05:10 05/18/18 05:10 05/18/18 05:10 05/18/18 05:10 TAKE THESE MEDICATIONS AT HOME Acetaminophen (Tylenol) 650 mg PO Q6H PRN PRN Reason: Fever >101 Last Admin: 05/17/18 20:22 Dose: 650 mg Allopurinol (Zyloprim) 100 mg PO DAILY [facility] Last Admin: 05/18/18 09:11 Dose: 100 mg Alprazolam (Xanax) 0.25 mg PO DAILY [facility] Last Admin: 05/18/18 09:12 Dose: 0.25 mg Dabigatran (Pradaxa) 75 mg PO Q12HR [facility] Last Admin: 05/18/18 09:09 Dose: 75 mg Donepezil HCl (Aricept) 10 mg PO BEDTIME [facility] Last Admin: 05/17/18 20:22 Dose: 10 mg Escitalopram Oxalate (Lexapro) 15 mg PO DAILY [facility] Last Admin: 05/18/18 09:09 Dose: 15 mg Fenofibrate (Triglide) 160 mg PO BEDTIME [facility] Last Admin: 05/17/18 20:22 Dose: 160 mg Ferrous Sulfate (Ferrous Sulfate) 324 mg PO BID [facility] Last Admin: 05/18/18 09:11 Dose: 324 mg Fluconazole (Diflucan) 150 mg PO DAILY [facility] Last Admin: 05/18/18 09:08 Dose: 150 mg Furosemide (Lasix Tab) 20 mg PO QDAC [facility] Last Admin: 05/18/18 06:09 Dose: 20 mg Insulin Glargine (Lantus) 15 unit SUBCUT BEDTIME [facility] Last Admin: 05/17/18 20:23 Dose: 15 unit Insulin Human Regular (Humulin R) 0 unit SUBCUT PRN PRN; Protocol PRN Reason: hyperglycemia Last Admin: 05/18/18 11:53 Dose: 4 unit Losartan Potassium (Cozaar) 50 mg PO DAILY [facility] Last Admin: 05/18/18 09:11 Dose: 50 mg Magnesium Hydroxide (Milk Of Magnesia) 30 ml PO Q24H PRN PRN Reason: Constipation Nystatin (Nystatin Cream) 1 applic TP TID [facility] Last Admin: 05/18/18 09:14 Dose: 1 applic TO RIGHT FOOT Nystatin (Nystop Powder) 1 applic TP TID PRN PRN Reason: excoriation Pantoprazole Sodium (Protonix) 40 mg PO QDAC [facility] Last Admin: 05/18/18 06:09 Dose: 40 mg Potassium Chloride (K-Dur) 10 meq PO DAILYWM [facility] Last Admin: 05/18/18 09:12 Dose: 10 meq Triamcinolone Acetonide (Kenalog 0.1%) 1 applic TP BID [facility] Last Admin: 05/18/18 09:15 Dose: 1 applic TO RASH AREAS LEFT THIGH, LEFT AXILLA Loperamide 2mg PO Q 6H prn Diarrhea Last Admin: Calcium 600+ Vitamin D 400 1 each daily Last Admin: ALLERGIES Penicillins Adverse Reaction (Unknown, Verified 05/15/18 11:41) Rash adhesive tape Adverse Reaction (Verified 05/15/18 11:41) iodine Adverse Reaction (Verified 05/15/18 11:41) Iodine and Iodide Containing Produc Adverse Reaction (Verified 05/15/18 11:41) DISCONTINUED MEDICATIONS NEW PRESCRIPTIONS: DIFLUCAN 150 MG PO DAILY FOR 3 DAYS TRIAMCINOLONE ACETONIDE 0.1% APPLY BID TO RED AREAS TO LEFT OUTER THIGH, LEFT CHEEK AND LEFT AXILLA NYSTATIN CREAM TO RIGHT FOOT TID SMOKING: NOT APPLICABLE DISEASE SPECIFIC EDUCATION: ELEVATE LEGS MUCH POSSIBLE LAB REVIEW: 05/18/18 05:00 05/18/18 05:00 05/18/18 05:00: Sodium 135.3, Potassium 4.30, Chloride 102.2, Carbon Dioxide 25.2, Anion Gap 12.20, BUN 46.8 H, Creatinine 1.69 H, Estimated GFR (MDRD) 29.00 , BUN/Creatinine Ratio 27.69, Glucose 224.9 H, Calcium 9.10, Total Bilirubin 0.48, AST 25.9, ALT 17.5, Alkaline Phosphatase 76.1, Total Protein 7.06, Albumin 3.89, Globulin 3.17, Albumin/Globulin Ratio 1.22 05/18/18 05:00: WBC 6.05, RBC 3.43 L, Hgb 10.7 L, Hct 32.7 L, MCV 95.3, MCH 31.2 H, MCHC 32.7, RDW Coeff of Zeeshan 13.6, Plt Count 190, Immature Gran % (Auto) 0.7, Neut % (Auto) 78.2, Lymph % (Auto) 11.6, Travis % (Auto) 9.1, Eos % (Auto) 0.2, Baso % (Auto) 0.2, Immature Gran # (Auto) 0.0, Neut # (Auto) 4.7, Lymph # ( Auto) 0.7, [place] # (Auto) 0.6, Eos # (Auto) 0.0, Baso # (Auto) 0.0 PLAN: DISCHARGE TO [facility] DIET: CONSISTENT CARBOHYDRATES ACTIVITY: UP TO CHAIR TOLERATED ELEVATE LOWER EXTREMITIES WHEN IN BED AND PRN INCONTINENT CARE PRN DECUBITUS PRECAUTIONS PRN VITAL SIGNS DAILY AND PRN ACCU-CHECKS AC AND HS CBC, CMP IN ONE WEEK AND THEN EVERY 3 MONTHS A1C EVERY 3 MONTHS TSH, LIPIDS EVERY 6 MONTHS CODE STATUS: DNR MS. HENSLEY IS ALERT TO PERSON AND PLACE. SHE IS COOPERATIVE WITH CARE AND PLEASANT. SHE IS INDEPENDENT WITH FEEDING AND HAS A GOOD APPETITE AT 100%. SHE TRANSFERS TO THE BEDSIDE CHAIR WITH ASSISTANCE OF 2 STAFF MEMBERS. SHE IS NOT AMBULATORY. SHE IS INCONTINENT OF BOWEL AND BLADDER. A BOWEL MOVEMENT WAS NOTED THIS MORNING. SKIN IS WARM/DRY WITH GOOD SKIN TURGOR. A SMALL PATCHY RED AREA IS NOTED TO THE LEFT CHEEK, OUTER LEFT THIGH AND LEFT AXILLA. PATIENT REPORTED ITCHING TO THE AREAS YESTERDAY, BUT REPORTS THE ITCHING IS LESS TODAY. THE RIGHT FOOT REMAINS SLIGHTLY PINK TO THE TOP OF THE FOOT AND OUTER RIGHT ANKLE. THE SKIN IS DRY AND FLAKY. NO DRAINAGE OR OPEN WOUNDS NOTED TO THE RIGHT FOOT. NO REDNESS NOTED TO THE RIGHT SCHUMACHER. RANI WORTHY MD DUONG BURGESS APRN
--- NOTE | 2018-05-21 09:16 | ECHO2D ---
Date of Exam: 05/18/18 Ordering Physician: DR. RANI WORTHY Room #: 109 Reason for Echo: ATRIAL FIBRILLATION, HYPERTENSION M-Mode Normal Adult Results LV Dimensions Normal Adult Results AoV Opening excursions >1.6 >1.6 LVEDD-base- 3.5-5.8 5.4 Ao root dimensions 2.0-3.7 3.4 LVESD-base- 3.1-4.6 L. Atrium dimensions 1.9-3.8 5.9 Post. Wall thickness 0.8-1.1 1.1 IV septum (thickness) 0.7-1.2 1.1 Post. Wall excursion 0.72-1.3 NORMAL Septal motion NORMAL Systolic motion R. Ventricular cavity 1.5-2.0 NORMAL LVEF 60% 46% Paradoxical septal wall motion NORMAL 2-D : ENLARGED LEFT ATRIAL CAVITY, HYPOKINETIC INFERIOR POST WALL, NORMAL VALVES , NORMAL LEFT VENTRICLE CAVITY SIZE, NO EFFUSION, NO THROMBUS M-MODE: MV: NORMAL AV: NORMAL TV: NORMAL PV: CHAMBER SIZE: ENLARGED LEFT ATRIAL CAVITY WALL MOTION: HYPOKINETIC INFERIOR POST WALL PERICARDIUM: NORMAL INTERPRETATION: 1. BORDERLINE LEFT VENTRICULAR HYPERTROPHY 2. MARKEDLY ENLARGED LEFT ATRIAL CAVITY 3. HYPOKINETIC INFERIOR POST WALL 4. NORMAL VALVES MTDD
--- NOTE | 2018-05-21 13:46 | PN ---
DATE OF SERVICE: 05/17/18 SUBJECTIVE: Ms. Dillon is going well. The patient is seen and examined with Nurse Practitioner. The cellulitis seems to be resolving. Edema is much less than before. We will evaluate her LV function by doing an echocardiogram if not done lately. She has atrial fibrillation. CONDITION: Stable. TIME SPENT: More than 30 minutes. Plan and coordination of the patient's care discussed in the presence of nurse. WILLIAM
--- NOTE | 2018-05-23 07:58 | PN ---
DATE OF SERVICE: 05/18/18 SUBJECTIVE: The patient was seen and examined with Nurse Practitioner. The patient's fungal infection of the right foot is a lot better. Both of the legs are warm, feet are warm. She is feeling alot better. Echo showed practically normal LV contractility, maybe mild inferior wall hypokinesia, heavy calcification of mitral valve anulus noted. Left atrial cavity is enlarged. Reason for echo was atrial fibrillation, leg edema and to evaluate LV function which seems to be acceptable. The patient has evidence of poor circulation of the legs with no impending gangrene or any resting ischemic changes of both lower extremities. The daughter is in the room. The patient seems to be oriented to place and person. They both declined to have further evaluation in a way of atrial study of both lower extremities. Port care discussed. The patient's condition is otherwise stable. TIME SPENT: More than 30 minutes. Plan and coordination of the patient's care discussed in the presence of nurse. WILLIAM
--- NOTE | 2018-05-23 08:00 | PN ---
05/15/18: Level 5 05/16/18: Intermediate 05/17/18: Brief 05/18/18: D as in discharge MTDD
--- NOTE | 2018-05-29 11:04 | DS ---
DATE OF SERVICE: 05/18/18 FINAL DIAGNOSIS: 1. Cellulitis, right foot 2. Silvia infection, right foot 3. Chronic leg edema 4. Acute on chronic renal failure 5. Atrial fibrillation (on Pradaxa) 6. CAD 7. Hypertension 8. COPD 9. Overactive bladder 10.Diabetes Mellitus type 2 11.Obesity 12.Hyperlipidemia 13.Peripheral vascular disease 14.GERD 14.GOUT LAST VITALS: Temperature 97.8, pulse 72, respiratory rate 18, blood pressure 143/86 and pulse ox 97%. DISCHARGE INSTRUCTIONS: [facility]charge to [facility]. CBC, CMP in one week and then every 3 months. A1c every 3 months. TSH, Lipids every 6 months. CODE STATUS: DNR. MEDICATIONS AT DISCHARGE: Tylenol 650mg PO Q 6 hours PRN Zyloprim 100mg PO daily Xanax 0.25mg PO daily Pradaxa 75mg Po Q 12 hours Aricept 10mg PO bedtime Lexapro 15mg PO daily Triglide 160mg PO bedtime Ferrous Sulfate 324mg PO twice a day Diflucan 150mg PO daily Lasix 20mg PO QDAC Lantus 15unit SUBCUT bedtime Humulin R 0 unit SUBCUT PRN Cozaar 50mg Po daily Milk of Magnesia 30ml PO Q 24 hours PRN Nystatin one application TP three times a day Nystop Powder 1 application TP three times a day PRN Protonix 40mg PO QDAC K-Dur 10meq PO Daily Kenalog 0.1% one application TP twice a day Loperamide 2mg PO Q 6 hours PRN Calcium 600+Vitamin D 400 one each daily ALLERGIES: Penicillin Adhesive tape Iodine Iodine and Iodide containing product NEW PRESCRIPTIONS: Diflucan 150mg PO daily for 3 days Triamcinolone Acetonide 0.1% apply twice a day to red areas to left outer thigh , left cheek and left axilla Nystatin cream to right foot three times a day DIET INSTRUCTIONS: Consistent Carbohydrates ACTIVITY: Up to chair as tolerated Elevate lower extremities when in bed and PRN Incontinent care PRN Decubitus precautions PRN Vital signs daily and PRN Accu-checks AC and HS SMOKING: N/A DISEASE SPECIFIC EDUCATION: Elevate legs as much as possible HOSPITAL COURSE: 87 year old white female who is a resident of [facility]. She was noted to have increased redness of the dorsal aspect of the right foot. She has chronic leg edema along with chronic kidney disease. She had acute on chronic renal failure with significant elevation and BUN/ creatinine on admission with BUN in the 60's and Creatinine over 2. She was admitted and placed on IV fluids at 75cc an hour by the emergency room, she has a history of atrial fibrillation and decreased these 50cc an hour with slow IV rehydration. Her kidney has improved, BUN is 46 today and creatinine is 1.69 after stopping her fluids yesterday. Venous scan of both legs was negative. On examination after the first day she has clear definition of the erythema on her foot which appeared to be more fungal in nature rather than infectious like cellulitis so she was started on Diflucan 150mg PO daily and Nystatin was applied three times a day to her foot. She was given an extra Lasix initially 20mg IV to help with the leg swelling. Over the course of the next several days the swelling and redness has significantly improved this morning. On assessment it is just a faint pink and it appears that the antifungal is helping so she will be discharged on Diflucan 150mg PO daily for next 3 days and instructed to keep her legs elevated. I will not continue her on any antibiotics as again I do not believe that this is infectious. She has remained in stable condition while she has been her. Her kidney functions have improved. All of her other labs have been stable and vital signs have been stable. She has been afebrile so we will followup with her in the senior care next week. She is instructed to have a CBC and CMP in one week. She will continue to use the Nystatin cream to her foot. We will follow her closely. TIME SPENT: More than 60 minutes. WILLIAM
== END 2018-05-18 14:37 | DRG 603 ==
LOC: ED 11:36 → MEDSURG A 12:46
PROVIDERS: ADMIT Internal Medicine; ATTEND Internal Medicine
DX: L03.115 Cellulitis of right lower limb (principal); N17.9 Acute kidney failure, unspecified; N18.9 Chronic kidney disease, unspecified; B37.2 Candidiasis of skin and nail; I48.91 Unspecified atrial fibrillation; I25.10 Atherosclerotic heart disease of native coronary artery without angina pectoris; I10 Essential (primary) hypertension; I73.9 Peripheral vascular disease, unspecified; J44.9 Chronic obstructive pulmonary disease, unspecified; E11.9 Type 2 diabetes mellitus without complications; E66.9 Obesity, unspecified; E78.5 Hyperlipidemia, unspecified; K21.9 Gastro-esophageal reflux disease without esophagitis; N32.81 Overactive bladder; M10.9 Gout, unspecified; L20.9 Atopic dermatitis, unspecified; R21 Rash and other nonspecific skin eruption; R53.1 Weakness; R60.0 Localized edema; Z79.01 Long term (current) use of anticoagulants
CPT/HCPCS: 36415; 80053; 82550; 82803; 82962; 83605; 84145; 84484; 85025; 85610; 85730; 87040; 87081; 87493; 93005; 93010; 96365; 96375; 99223; 99231; 99232; 99239; 99284

== ENCOUNTER 2018-06-18 11:08 | Emergency (ER) | payer OTHER ==
[2018-06-18 11:15] VITALS: BP 127/77; TEMP 96.9; BMI 47.2
--- NOTE | 2018-06-18 14:03 | US ---
EXAM: Bilateral lower extremity venous Doppler History: Bilateral lower extremity pain and edema. Technique: Multiple sonographic images through the bilateral lower extremities were obtained. Color duplex Doppler was used to interrogate vascular flow. Findings: The bilateral common femoral, greater saphenous, profunda, superficial femoral, popliteal, peroneal, posterior tibial and anterior tibial veins demonstrate spontaneous flow with normal compre ssion and normal augmentation. Bilateral lower extremity subcutaneous edema. Impression: No sonographic evidence for deep venous thrombosis. Bilateral lower extremity subcutane ous edema
--- NOTE | 2018-06-18 14:04 | DI ---
EXAM: Right hand three views HISTORY: Hand pain. FINDINGS: Bones are demineralized. There is diffuse arthropathy likely representing osteoarthritis although rheumatoid nature is not excluded, correlate clinically. This is severe at the first carpal -metacarpal joint, radiocarpal articulations and the distal interphalangeal joints. There is chondro calcinosis along the triangular fibrocartilage. No acute fracture or swati joint dislocation. IMPRESSION: 1. Severe diffuse arthropathy.
--- NOTE | 2018-06-18 15:10 | ED.PDOC ---
General ED Provider: Dr. ZANDRA LENTZ Chief Complaint: Extremity Swelling/Pain Stated Complaint: IN THE ER FOR EVALUATION OF THE RIGHT HAND EDEMA AND LEG EDEMA NO OTHER ISSUES OFFERED Time Seen by Physician: 11:11 Mode of Arrival: Wheelchair Information Source: Patient Exam Limitations: No limitations Primary Care Provider: RANI WORTHY Nursing and Triage Documentation Reviewed and Agree: Yes Does patient meet sepsis criteria?: No System Inflammatory Response Syndrome: Not Applicable Sepsis Protocol: For patient's 13 years and over: Temp is 96.8 and below OR 101 and greater Pulse >90 BPM Resp >20/minute Acutely Altered Mental Status Are patient's symptoms suggestive of a new infection, such as: -Pneumonia -Skin, Soft Tissue -Endocarditis -UTI -Bone, Joint Infection -Implantable Device -Acute Abdominal Infection -Wound Infection -Meningitis -Blood Stream Catheter Infection -Unknown Miscellaneous Complaint Exam - Complex/Multi-System Complaint/Exam Onset/Duration: WEEKS Symptoms Are: Still present Episodes Lasting: Weeks Initial Severity: Mild Current Severity: Mild Associated Signs and Symptoms: Denies: Decreased responsiveness, Confusion, Agitation, Dizziness, Weakness, Syncope, Headache, Short of air, Cough, Wheezing , Hemoptysis, Chest pain, Palpitations, Edema, Nausea, Vomiting, Diarrhea, Abdominal pain, Back pain, Dysuria, Hematemesis, Melena, Decreased oral intake, Fever, Diaphoresis, Immunocompromised, Anticoagulation Therapy, Recent medication changes, Indwelling medical corps officer, Prior MRSA, Prior VRE, Recent trauma, Remote trauma Recent Echo/LV Function: No Respiratory Distress: None JVD Present: No Abdominal Findings: Present: Normal findings Glascow Coma Scale (see protocol): 15 Meningeal Signs Positive: No Focal Weakness: Present: None Focal Sensory Loss: Present: None Gait: Unable Gag Reflex Present: Yes Babinski Sign: Negative Right, Negative Left Skin Findings: Present: Normal findings Joint Swelling Present: No Differential Diagnosis: Metabolic Abnormality, Other (HAND INJURY, DVT) Quality Indicators for Cardiac Chest Pain: EKG in 10min. Quality Indicators for AMI: EKG in 10min. Quality Indicator For Non-Traumatic Chest Pain/Syncope: EKG Performed Review of Systems - Review Of Systems Constitutional: Reports: No symptoms Eyes: Reports: No symptoms Ears, Nose, Mouth, Throat: Reports: No symptoms Respiratory: Reports: No symptoms Cardiac: Reports: No symptoms GI: Reports: No symptoms : Reports: No symptoms Musculoskeletal: Reports: Joint pain (RIGHT HAND EDEMA LEGS ) Skin: Reports: No symptoms Neurological: Reports: No symptoms Endocrine: Reports: No symptoms Hematologic/Lymphatic: Reports: No symptoms All Other Systems: Reviewed and Negative Past Medical History - Past Medical History Previously Healthy: No Endocrine: Reports: Unknown Cardiovascular: Reports: Unknown Respiratory: Reports: Unknown Hematological: Reports: Unknown Gastrointestinal: Reports: Unknown Genitourinary: Reports: Unknown Neuro/Psych: Reports: Unknown Musculoskeletal: Reports: Unknown Cancer: Reports: Unknown Last Menstrual Period: n/a - Surgical History General Surgical History: Reports: Unknown - Family History Family History: Reports: Unknown - Social History Smoking Status: Former smoker Hx Substance Use: No Alcohol Screening: None - Immunizations Influenza Vaccine within 12 Months: Yes Pneumococcal Vaccine up to Date: Yes Physical Exam - Physical Exam Appearance: Well-appearing, No pain distress, Well-nourished Eyes: RICKEY, EOMI, Conjunctiva clear ENT: Ears normal, Nose normal, Oropharynx normal Respiratory: Airway patent, Breath sounds clear, Breath sounds equal, Respirations nonlabored Cardiovascular: RRR, Pulses normal, No rub, No murmur GI/: Soft, Nontender, No masses, Bowel sounds normal, No Organomegaly Musculoskeletal: Normal strength, ROM intact, No edema, No calf tenderness Skin: Warm, Dry, Normal color Neurological: Sensation intact, Motor intact, Reflexes intact, Cranial nerves intact, Alert, Oriented Psychiatric: Affect appropriate, Mood appropriate Critical Care Note - Critical Care Note Total Time (mins): 0 Course - Course Hematology/Chemistry: 06/18/18 13:12 06/18/18 13:12 Orders, Labs, Meds: Lab Review 06/18/18 06/18/18 06/18/18 12:46 13:12 13:12 WBC 5.77 RBC 3.80 L Hgb 12.0 Hct 36.6 L MCV 96.3 MCH 31.6 H MCHC 32.8 RDW Coeff of Zeeshan 14.6 Plt Count 155 Immature Gran % (Auto) 0.2 Neut % (Auto) 60.2 Lymph % (Auto) 26.2 [place] % (Auto) 11.3 H Eos % (Auto) 1.9 Baso % (Auto) 0.2 Immature Gran # (Auto) 0.0 Neut # (Auto) 3.5 Lymph # (Auto) 1.5 [place] # (Auto) 0.7 Eos # (Auto) 0.1 Baso # (Auto) 0.0 Puncture Site L rad O2 Saturation 95.0 ABG pH 7.438 ABG pCO2 33.0 L ABG pO2 74.0 L ABG HCO3 22.4 ABG Total CO2 23 ABG Base Excess -2 Trent Test + O2 Delivery Device Ra FiO2 % 21.0 Sodium 141.5 Potassium 4.71 Chloride 103.7 Carbon Dioxide 28.1 Anion Gap 14.41 BUN 37.8 H Creatinine 1.55 H Estimated GFR (MDRD) 32.00 BUN/Creatinine Ratio 24.38 Glucose 139.8 H Lactic Acid Calcium 9.19 Total Bilirubin 0.31 AST 20.6 ALT 15.6 Alkaline Phosphatase 93.8 Total Creatine Kinase 42.9 Troponin I < 0.012 Total Protein 7.16 Albumin 3.93 Globulin 3.23 Albumin/Globulin Ratio 1.21 Procalcitonin 06/18/18 06/18/18 13:12 13:12 WBC RBC Hgb Hct MCV MCH MCHC RDW Coeff of Zeeshan Plt Count Immature Gran % (Auto) Neut % (Auto) Lymph % (Auto) [place] % (Auto) Eos % (Auto) Baso % (Auto) Immature Gran # (Auto) Neut # (Auto) Lymph # (Auto) [place] # (Auto) Eos # (Auto) Baso # (Auto) Puncture Site O2 Saturation ABG pH ABG pCO2 ABG pO2 ABG HCO3 ABG Total CO2 ABG Base Excess Trent Test O2 Delivery Device FiO2 % Sodium Potassium Chloride Carbon Dioxide Anion Gap BUN Creatinine Estimated GFR (MDRD) BUN/Creatinine Ratio Glucose Lactic Acid 0.99 Calcium Total Bilirubin AST ALT Alkaline Phosphatase Total Creatine Kinase Troponin I Total Protein Albumin Globulin Albumin/Globulin Ratio Procalcitonin < 0.05 Orders Category Date Time Status ABG DRAW REQUEST Stat CARDIO 06/18/18 12:46 Completed EKG-(ED ONLY) Stat CARDIO 06/18/18 12:45 Completed ABG Stat LAB 06/18/18 12:46 Completed BLOOD CULTURE Stat LAB 06/18/18 14:30 Received CBC W/ AUTO DIFF Stat LAB 06/18/18 13:12 Completed COMPREHENSIVE METABOLIC PANEL Stat LAB 06/18/18 13:12 Completed CREATINE KINASE Stat LAB 06/18/18 13:12 Completed LACTIC ACID Stat LAB 06/18/18 13:12 Completed PROCALCITONIN Stat LAB 06/18/18 13:12 Completed TROPONIN I Stat LAB 06/18/18 13:12 Completed HAND, RIGHT 3 VIEWS Stat RADS 06/18/18 12:53 Completed U/S VENOUS SCAN ROSY LEGS Stat RADS 06/18/18 12:53 Completed Vital Signs: Temp Pulse Resp BP Pulse Ox 06/18/18 11:10 96.9 F L 99 H 16 127/77 97 Departure - Departure Time of Disposition: 15:10 Disposition: HOME SELF-CARE Discharge Problem: Leg edema, Edema of lower extremity, Renal insufficiency Instructions: Leg Edema (ED), Chronic Kidney Disease (ED) Condition: Good Pt referred to PMD for follow-up: Yes IPMP verified?: No Additional Instructions: Please call your Family Physician as soon as possible to schedule a follow-up appointment. Allergies/Adverse Reactions: Allergies Penicillins Adverse Reaction (Unknown, Verified 06/18/18 11:10) Rash adhesive tape Adverse Reaction (Verified 06/18/18 11:10) iodine Adverse Reaction (Verified 06/18/18 11:10) Iodine and Iodide Containing Produc Adverse Reaction (Verified 06/18/18 11:10) Home Medications: Ambulatory Orders Furosemide 20 mg PO DAILY 07/22/13 Dabigatran Etexilate Mesylate [Pradaxa] 75 mg PO Q12HR 08/30/15 Losartan Potassium 50 mg PO DAILY 08/30/15 Pantoprazole Sodium 40 mg PO DAILY 08/30/15 Allopurinol 100 mg PO DAILY #30 tablet 11/05/15 Acetaminophen [Tylenol] 2 tab PO Q6H PRN 02/14/17 Alprazolam 0.25 mg PO BEDTIME 02/14/17 Escitalopram Oxalate [Lexapro] 10 mg PO DAILY 02/14/17 Ferrous Sulfate [Iron] 325 mg PO BID 02/14/17 Magnesium Hydroxide [Milk of Magnesia] 30 ml PO Q24H PRN 02/14/17 Escitalopram Oxalate [Lexapro] 5 mg PO DAILY 02/15/17 Calcium Carbonate/Vitamin D3 [Calcium 600 + Vit D 400 Tablet] 1 each PO DAILY Insulin Glargine,Hum.rec.anlog [Lantus] 15 unit SUBCUT BEDTIME 05/15/18 Insulin Regular, Human [Novolin R] See Protocol IJ ACHS 05/15/18 Loperamide HCl [Loperamide] 2 mg PO Q6H PRN 05/15/18 Potassium Chloride [K-Dur] 10 meq PO DAILY 05/15/18
== END 2018-06-18 16:00 | disposition home or self-care (01) ==
LOC: ED 11:08
DX: R60.0 Localized edema (principal); N28.9 Disorder of kidney and ureter, unspecified; M79.641 Pain in right hand; Z79.899 Other long term (current) drug therapy
CPT/HCPCS: 36415; 80053; 82550; 82803; 83605; 84145; 84484; 85025; 87040; 93005; 93010; 99283

== ENCOUNTER 2018-07-10 09:22 | Outpatient (CLI) | END 2018-07-10 09:23 | disposition home or self-care (01) | LOC: NONPT 09:22 | PROVIDERS: ATTEND Internal Medicine | DX: R41.0 Disorientation, unspecified (principal) | CPT/HCPCS: 81001; 87086 ==

== ENCOUNTER 2018-07-12 21:12 | Emergency (ER) ==
[2018-07-12 21:25] VITALS: BP 134/89; TEMP 97.9; BMI 38.5
--- NOTE | 2018-07-12 22:32 | CT ---
EXAM: CT head without contrast. HISTORY: Change in mental status. PROCEDURE: Contiguous axial CT images of the head without contrast with coronal and sagittal reforma ts. FINDINGS: There is diffuse cerebral atrophy. The ventricles and basal cisterns are normal in size an d configuration. No evidence of mass or midline shift. No intracranial hemorrhage or evidence of la rge vessel infarct. No extra-axial fluid collection. There are chronic small vessel ischemic change s in the white matter. There are atherosclerotic calcifications in the intracranial arteries. There is minimal mucosal thickening in the right maxillary sinus. The mastoid air cells are normal in marjorie earance. Impression: No intracranial hemorrhage or evidence of large vessel infarct. Chronic small vessel ischemic changes. Diffuse cerebral atrophy. Atherosclerotic vascular disease. Right maxillary sinusitis.
--- NOTE | 2018-07-12 23:29 | ED.PDOC ---
General ED Provider: Dr. JANAK LYNN-ER Chief Complaint: Altered Mental Status Stated Complaint: sent here for evaluation as she was reported to be combatative with staff Time Seen by Physician: 21:25 Mode of Arrival: Walk-In Information Source: Patient Exam Limitations: No limitations Primary Care Provider: RANI NELSON Nursing and Triage Documentation Reviewed and Agree: Yes Does patient meet sepsis criteria?: No System Inflammatory Response Syndrome: Not Applicable Sepsis Protocol: For patient's 13 years and over: Temp is 96.8 and below OR 101 and greater Pulse >90 BPM Resp >20/minute Acutely Altered Mental Status Are patient's symptoms suggestive of a new infection, such as: -Pneumonia -Skin, Soft Tissue -Endocarditis -UTI -Bone, Joint Infection -Implantable Device -Acute Abdominal Infection -Wound Infection -Meningitis -Blood Stream Catheter Infection -Unknown Psychological Complaint Exam - Psychiatric Complaint/Exam Patient Complains Of: Present: Other Onset/Duration: 2 days Symptoms Are: Still present Timing: Constant Initial Severity: Mild Current Severity: Mild Aggravating: Reports: None Associated Signs And Symptoms: Reports: Hostile Patient In Custody Of Police: No Social Withdrawal Present: No Social Isolation Present: No Prior Suicide Attempt: No Injury From Prior Suicide Attempt: No Related Surgical History: Reports: None Patient Uncooperative For Exam: No Appearance: Present: Clean Memory: Impaired Judgement: Impaired Danger To Others: No Patient Medically Stable For: Psych evaluation Review of Systems - Review Of Systems Constitutional: Reports: No symptoms Eyes: Reports: No symptoms Ears, Nose, Mouth, Throat: Reports: No symptoms Respiratory: Reports: No symptoms Cardiac: Reports: No symptoms GI: Reports: No symptoms : Reports: No symptoms Musculoskeletal: Reports: No symptoms Skin: Reports: No symptoms Neurological: Reports: Cognitive dysfunction Endocrine: Reports: No symptoms Hematologic/Lymphatic: Reports: No symptoms All Other Systems: Reviewed and Negative Past Medical History - Past Medical History Previously Healthy: No Endocrine: Reports: Unknown Cardiovascular: Reports: Unknown Respiratory: Reports: Unknown Hematological: Reports: Unknown Gastrointestinal: Reports: Unknown Genitourinary: Reports: Unknown Neuro/Psych: Reports: Unknown Musculoskeletal: Reports: Unknown Cancer: Reports: Unknown Last Menstrual Period: N/A - Surgical History General Surgical History: Reports: Unknown - Family History Family History: Reports: Unknown - Social History Smoking Status: Former smoker Hx Substance Use: No Alcohol Screening: None - Immunizations Tetanus Shot up to Date: Yes Influenza Vaccine within 12 Months: Yes Pneumococcal Vaccine up to Date: Yes Physical Exam - Physical Exam Appearance: Well-appearing, No pain distress, Well-nourished Eyes: RICKEY, EOMI, Conjunctiva clear ENT: Ears normal, Nose normal, Oropharynx normal Neck: Supple Respiratory: Airway patent, Breath sounds clear, Breath sounds equal, Respirations nonlabored Cardiovascular: RRR, Pulses normal, No rub, No murmur GI/: Soft, Nontender, No masses, Bowel sounds normal, No Organomegaly Musculoskeletal: Normal strength, ROM intact, No edema, No calf tenderness Skin: Warm Neurological: Sensation intact Psychiatric: Affect appropriate, Mood appropriate Interpretation - Radiology Interpretation Radiology Interpretation By: Radiologist Radiology Results: Negative Exam Interpreted: CT Scan - EKG Interpretation Time of EKG #1: 23:30 Rate: Tachy Rhythm: Other Ectopy: None [place]: NL ST Segment: Normal Interpretation: afib Physician Notification - Case Discussed Physician Notified: dr nelson Time of Notification: 23:30 Critical Care Note - Critical Care Note Total Time (mins): 0 Course - Course Hematology/Chemistry: 07/12/18 21:32 07/12/18 21:32 Orders, Labs, Meds: Lab Review 07/12/18 07/12/18 07/12/18 21:13 21:32 21:32 WBC 6.82 RBC 3.96 L Hgb 12.5 Hct 37.6 MCV 94.9 MCH 31.6 H MCHC 33.2 RDW Coeff of Zeeshan 14.3 Plt Count 166 Immature Gran % (Auto) 0.4 Neut % (Auto) 67.6 Lymph % (Auto) 20.4 [place] % (Auto) 8.8 Eos % (Auto) 2.5 Baso % (Auto) 0.3 Immature Gran # (Auto) 0.0 Neut # (Auto) 4.6 Lymph # (Auto) 1.4 [place] # (Auto) 0.6 Eos # (Auto) 0.2 Baso # (Auto) 0.0 Puncture Site [place] O2 Saturation 95.0 ABG pH 7.360 ABG pCO2 39.6 ABG pO2 76.0 L ABG HCO3 22.4 ABG Total CO2 24 ABG Base Excess -3 L Trent Test + FiO2 % 21.0 Sodium 141.3 Potassium 4.14 Chloride 104.4 Carbon Dioxide 25.2 Anion Gap 15.84 BUN 40.3 H Creatinine 1.81 H Estimated GFR (MDRD) 26.00 BUN/Creatinine Ratio 22.26 Glucose 170.0 H Calcium 8.81 Total Bilirubin 0.33 AST 23.8 ALT 17.7 Alkaline Phosphatase 102.1 Total Protein 6.93 Albumin 3.88 Globulin 3.05 Albumin/Globulin Ratio 1.27 Urine Color Urine Clarity Urine pH Ur Specific [place] Urine Protein Urine Glucose (UA) Urine Ketones Urine Blood Urine Nitrite Urine Bilirubin Urine Urobilinogen Ur Leukocyte Esterase Urine Microscopic RBC Urine Microscopic WBC Ur Squamous Epith Cells Urine Bacteria Hyaline Casts Urine Mucus 07/12/18 23:00 WBC RBC Hgb Hct MCV MCH MCHC RDW Coeff of Zeeshan Plt Count Immature Gran % (Auto) Neut % (Auto) Lymph % (Auto) [place] % (Auto) Eos % (Auto) Baso % (Auto) Immature Gran # (Auto) Neut # (Auto) Lymph # (Auto) [place] # (Auto) Eos # (Auto) Baso # (Auto) Puncture Site O2 Saturation ABG pH ABG pCO2 ABG pO2 ABG HCO3 ABG Total CO2 ABG Base Excess Trent Test FiO2 % Sodium Potassium Chloride Carbon Dioxide Anion Gap BUN Creatinine Estimated GFR (MDRD) BUN/Creatinine Ratio Glucose Calcium Total Bilirubin AST ALT Alkaline Phosphatase Total Protein Albumin Globulin Albumin/Globulin Ratio Urine Color Yellow Urine Clarity Clear Urine pH 5.5 Ur Specific [place] 1.015 Urine Protein 1+ Urine Glucose (UA) Negative Urine Ketones Negative Urine Blood Negative Urine Nitrite Negative Urine Bilirubin Negative Urine Urobilinogen 0.2 Ur Leukocyte Esterase Negative Urine Microscopic RBC 0-2 Urine Microscopic WBC 2-5 Ur Squamous Epith Cells 2-5 Urine Bacteria Trace Hyaline Casts 0-2 Urine Mucus Trace Orders Category Date Time Status ABG DRAW REQUEST Stat CARDIO 07/12/18 21:13 Completed EKG-(ED ONLY) Stat CARDIO 07/12/18 21:13 Completed ED PLATE AND FRAME FILTER OPERATOR APPLIED .ONCE EMERGENCY 07/12/18 21:13 Active ABG Stat LAB 07/12/18 21:13 Completed CBC W/ AUTO DIFF Stat LAB 07/12/18 21:32 Completed COMPREHENSIVE METABOLIC PANEL Stat LAB 07/12/18 21:32 Completed URINALYSIS C & S IF INDICATED Stat LAB 07/12/18 23:[address] HEAD W/O CONTRAST Stat RADS 07/12/18 21:13 Completed Vital Signs: Temp Pulse Resp BP Pulse Ox 07/12/18 21:22 97.9 F 97 H 21 134/89 95 Departure - Departure Time of Disposition: 23:30 Disposition: TRANSFER SNF Discharge Problem: Dementia Instructions: Dementia (ED) Condition: Good Pt referred to PMD for follow-up: Yes IPMP verified?: No Additional Instructions: suggest referrral to neuro psych unit if any more violent behaviors Allergies/Adverse Reactions: Allergies Penicillins Adverse Reaction (Unknown, Verified 07/12/18 21:13) Rash adhesive tape Adverse Reaction (Verified 07/12/18 21:13) iodine Adverse Reaction (Verified 07/12/18 21:13) Iodine and Iodide Containing Produc Adverse Reaction (Verified 07/12/18 21:13) Home Medications: Ambulatory Orders Furosemide 20 mg PO DAILY 07/22/13 Dabigatran Etexilate Mesylate [Pradaxa] 75 mg PO Q12HR 08/30/15 Losartan Potassium 50 mg PO DAILY 08/30/15 Pantoprazole Sodium 40 mg PO DAILY 08/30/15 Allopurinol 100 mg PO DAILY #30 tablet 11/05/15 Acetaminophen [Tylenol] 2 tab PO Q6H PRN 02/14/17 Alprazolam 0.25 mg PO BEDTIME 02/14/17 Escitalopram Oxalate [Lexapro] 10 mg PO DAILY 02/14/17 Ferrous Sulfate [Iron] 325 mg PO BID 02/14/17 Magnesium Hydroxide [Milk of Magnesia] 30 ml PO Q24H PRN 02/14/17 Escitalopram Oxalate [Lexapro] 5 mg PO DAILY 02/15/17 Calcium Carbonate/Vitamin D3 [Calcium 600 + Vit D 400 Tablet] 1 each PO DAILY Insulin Glargine,Hum.rec.anlog [Lantus] 15 unit SUBCUT BEDTIME 05/15/18 Insulin Regular, Human [Novolin R] See Protocol IJ ACHS 05/15/18 Loperamide HCl [Loperamide] 2 mg PO Q6H PRN 05/15/18 Disposition Discussed With: Patient, Family Discharge Problem: Dementia Qualifiers: Dementia type: unspecified type Dementia behavioral disturbance: with behavioral disturbance Qualified Code(s): F03.91 - Unspecified dementia with behavioral disturbance
== END 2018-07-13 00:17 ==
LOC: ED 21:12
DX: F03.91 Unspecified dementia, unspecified severity, with behavioral disturbance (principal); Z79.899 Other long term (current) drug therapy
CPT/HCPCS: 36415; 80053; 81001; 82803; 85025; 93005; 93010; 99284

== ENCOUNTER 2018-08-09 14:33 | Inpatient (IN) | payer OTHER ==
[2018-08-09] MEDS ORDERED: SODIUM CHLORIDE 1,000 ML IV STA (14:37)
--- NOTE | 2018-08-09 15:04 | ED.PDOC ---
General ED Provider: Dr. ADILSON GARNICA Chief Complaint: Cough Stated Complaint: Short of air; [facility] Time Seen by Physician: 14:35 Mode of Arrival: Ambulance Information Source: Patient, Senior Living, EMT Exam Limitations: Clinical condition Primary Care Provider: RANI WORTHY Nursing and Triage Documentation Reviewed and Agree: Yes Does patient meet sepsis criteria?: Yes If yes, has appropriate treatment been initiated?: Yes System Inflammatory Response Syndrome: Pulse >90 BPM, Resp >20/Minute Sepsis Protocol: For patient's 13 years and over: Temp is 96.8 and below OR 101 and greater Pulse >90 BPM Resp >20/minute Acutely Altered Mental Status Are patient's symptoms suggestive of a new infection, such as: -Pneumonia -Skin, Soft Tissue -Endocarditis -UTI -Bone, Joint Infection -Implantable Device -Acute Abdominal Infection -Wound Infection -Meningitis -Blood Stream Catheter Infection -Unknown Respiratory Complaint Exam - Shortness of Air Complaint/Exam Onset/Duration: Progressively since family member last saw on Monday - short of air Symptoms Are: Worse (over two day period) Timing: Constant Initial Severity: Mild Current Severity: Moderate Character: Reports: Dyspnea at rest Aggravating: Reports: Movement Alleviating: Reports: EMS treatment, Oxygen Cardiac Risk Factors: Reports: Prior NE, CAD, Diabetes Differential Diagnoses: CHF, Pulmonary Edema, COPD Exacerbation, NE, Pneumonia, Bronchitis, URI Review of Systems - Review Of Systems Constitutional: Reports: Weakness Respiratory: Reports: Short of air, Wheezing Cardiac: Reports: No symptoms GI: Reports: No symptoms Musculoskeletal: Reports: Joint swelling All Other Systems: Reviewed and Negative Past Medical History - Past Medical History Previously Healthy: No Endocrine: Reports: Unknown Cardiovascular: Reports: Unknown Respiratory: Reports: Unknown Hematological: Reports: Unknown Gastrointestinal: Reports: Unknown Genitourinary: Reports: Unknown Neuro/Psych: Reports: Unknown Musculoskeletal: Reports: Unknown Cancer: Reports: Unknown Last Menstrual Period: n/a - Surgical History General Surgical History: Reports: Unknown - Family History Family History: Reports: Unknown - Social History Smoking Status: Former smoker Hx Substance Use: No Alcohol Screening: None - Immunizations Influenza Vaccine within 12 Months: Yes Pneumococcal Vaccine up to Date: Yes Physical Exam - Physical Exam Appearance: Ill-appearing Ill-appearing: Moderate Pain Distress: None Eyes: RICKEY, EOMI Neck: Supple Respiratory: Breath sounds diminished Cardiovascular: RRR (sinus tach at 105) GI/: Soft Musculoskeletal: Edema (mild) Skin: Warm, Dry, Pale Neurological: Sensation intact, Motor intact, Alert, Alert to verbal (Difficult to understand; RN listening understood and confirmed with patient what she was saying) Interpretation - Radiology Interpretation Radiology Interpretation By: Radiologist Radiology Results: Positive (Possible pulmonary vascular congestion; cardiomegaly) Exam Interpreted: Portable CXR - EKG Interpretation Time of EKG #1: 14:46 Rate: Tachy (A fib with regular rapid ventricular rate) Rhythm: Other (afib RVR 102) Ectopy: None [place]: NL ST Segment: Normal Interpretation: A fib; regular ventricular rate of 102 Physician Notification - Case Discussed Physician Notified: Dr. Worthy Time of Notification: 16:35 (Discussed admission, Code status; COPD, Sepsis) Critical Care Note - Critical Care Note Total Time (mins): 45 Comments: Sepsis, EKG/afib; COPD, CHF, lab review, Xray, discussion with family. Course - Course Hematology/Chemistry: 08/10/18 05:00 08/10/18 05:00 Orders, Labs, Meds: Lab Review 08/09/18 08/09/18 08/09/18 14:56 15:05 15:05 WBC 7.21 RBC 3.44 L Hgb 10.5 L Hct 32.8 L MCV 95.3 MCH 30.5 MCHC 32.0 RDW Coeff of Zeeshan 14.2 Plt Count 204 Immature Gran % (Auto) 0.6 Neut % (Auto) 85.3 Lymph % (Auto) 3.5 L [place] % (Auto) 10.4 H Eos % (Auto) 0.1 Baso % (Auto) 0.1 Immature Gran # (Auto) 0.0 Neut # (Auto) 6.2 Lymph # (Auto) 0.3 L [place] # (Auto) 0.8 Eos # (Auto) 0.0 Baso # (Auto) 0.0 Puncture Site Rr O2 Saturation 83.0 L ABG pH 7.435 ABG pCO2 37.1 ABG pO2 46.0 L* ABG HCO3 24.9 ABG Total CO2 26 ABG Base Excess 1 Trent Test + FiO2 % 21.0 Sodium 134.8 Potassium 4.04 Chloride 96.6 L Carbon Dioxide 27.3 Anion Gap 14.94 BUN 42.2 H Creatinine 1.82 H Estimated GFR (MDRD) 26.00 BUN/Creatinine Ratio 23.18 Glucose 145.4 H Lactic Acid Calcium 8.86 Total Bilirubin 0.42 AST 27.0 ALT 24.8 Alkaline Phosphatase 204.6 H Troponin I 0.032 NT-Pro-B Natriuret Pep Total Protein 6.78 Albumin 3.90 Globulin 2.88 Albumin/Globulin Ratio 1.35 Procalcitonin Urine Color Urine Clarity Urine pH Ur Specific [place] Urine Protein Urine Glucose (UA) Urine Ketones Urine Blood Urine Nitrite Urine Bilirubin Urine Urobilinogen Ur Leukocyte Esterase Urine Microscopic RBC Ur Squamous Epith Cells Urine Bacteria 08/09/18 08/09/18 08/09/18 15:05 15:05 15:20 WBC RBC Hgb Hct MCV MCH MCHC RDW Coeff of Zeeshan Plt Count Immature Gran % (Auto) Neut % (Auto) Lymph % (Auto) [place] % (Auto) Eos % (Auto) Baso % (Auto) Immature Gran # (Auto) Neut # (Auto) Lymph # (Auto) [place] # (Auto) Eos # (Auto) Baso # (Auto) Puncture Site O2 Saturation ABG pH ABG pCO2 ABG pO2 ABG HCO3 ABG Total CO2 ABG Base Excess Trent Test FiO2 % Sodium Potassium Chloride Carbon Dioxide Anion Gap BUN Creatinine Estimated GFR (MDRD) BUN/Creatinine Ratio Glucose Lactic Acid 1.71 Calcium Total Bilirubin AST ALT Alkaline Phosphatase Troponin I NT-Pro-B Natriuret Pep 6120.000 H Total Protein Albumin Globulin Albumin/Globulin Ratio Procalcitonin 0.17 Urine Color Urine Clarity Urine pH Ur Specific [place] Urine Protein Urine Glucose (UA) Urine Ketones Urine Blood Urine Nitrite Urine Bilirubin Urine Urobilinogen Ur Leukocyte Esterase Urine Microscopic RBC Ur Squamous Epith Cells Urine Bacteria 08/09/18 15:27 WBC RBC Hgb Hct MCV MCH MCHC RDW Coeff of Zeeshan Plt Count Immature Gran % (Auto) Neut % (Auto) Lymph % (Auto) [place] % (Auto) Eos % (Auto) Baso % (Auto) Immature Gran # (Auto) Neut # (Auto) Lymph # (Auto) [place] # (Auto) Eos # (Auto) Baso # (Auto) Puncture Site O2 Saturation ABG pH ABG pCO2 ABG pO2 ABG HCO3 ABG Total CO2 ABG Base Excess Trent Test FiO2 % Sodium Potassium Chloride Carbon Dioxide Anion Gap BUN Creatinine Estimated GFR (MDRD) BUN/Creatinine Ratio Glucose Lactic Acid Calcium Total Bilirubin AST ALT Alkaline Phosphatase Troponin I NT-Pro-B Natriuret Pep Total Protein Albumin Globulin Albumin/Globulin Ratio Procalcitonin Urine Color Yellow Urine Clarity Clear Urine pH 5.0 Ur Specific [place] 1.015 Urine Protein 2+ Urine Glucose (UA) Negative Urine Ketones Negative Urine Blood Trace-lysed Urine Nitrite Negative Urine Bilirubin Negative Urine Urobilinogen 0.2 Ur Leukocyte Esterase Negative Urine Microscopic RBC 0-2 Ur Squamous Epith Cells 10-20 Urine Bacteria 2+ Orders Category Date Time Status ABG DRAW REQUEST Stat CARDIO 08/09/18 14:56 Completed EKG-(ED ONLY) Stat CARDIO 08/09/18 15:29 Completed ED APPLY O2 .ONCE EMERGENCY 08/09/18 14:37 Active ED RECREATIONAL DIRECTOR APPLIED .ONCE EMERGENCY 08/09/18 14:37 Active ABG Stat LAB 08/09/18 14:56 Completed BLOOD CULTURE Stat LAB 08/09/18 15:05 Received CBC W/ AUTO DIFF Stat LAB 08/09/18 15:05 Completed COMPREHENSIVE METABOLIC PANEL Stat LAB 08/09/18 15:05 Completed LACTIC ACID Stat LAB 08/09/18 15:05 Completed PRO-BNP [NT-PROBNP] Stat LAB 08/09/18 15:20 Completed PROCALCITONIN Stat LAB 08/09/18 15:05 Completed TROPONIN I Stat LAB 08/09/18 15:05 Completed URINALYSIS C & S IF INDICATED Stat LAB 08/09/18 15:27 Completed URINE CULTURE Stat LAB 08/09/18 15:27 Results Sodium Chloride 0.9% [Sodium Chloride] 1,000 ml MEDS 08/09/18 14:37 Discontinued IV 100 mls/hr CHEST, 1V AP ONLY Stat RADS 08/09/18 14:37 Completed Medications Generic Name Dose Route Start Last Admin Trade Name Freq PRN Reason Stop Dose Admin Albuterol/Ipratropium vial 08/09/18 21:00 Duoneb NEB TID ANNALISA Allopurinol 100 mg 08/10/18 09:00 Zyloprim PO DAILY ANNALISA Alprazolam 0.25 mg 08/09/18 21:00 08/09/18 21:41 Xanax PO 0.25 mg BEDTIME ANNALISA Administration Apixaban 5 mg 08/09/18 21:00 08/09/18 20:25 Eliquis PO 5 mg BID ANNALISA Administration Clindamycin HCl 150 mg 08/09/18 21:00 08/09/18 20:24 Cleocin PO 08/12/18 20:59 150 mg TID ANNALISA Administration Diltiazem HCl 30 mg 08/09/18 21:00 08/10/18 05:39 Cardizem PO 30 mg Q8HR ANNALISA Administration Escitalopram Oxalate 10 mg 08/10/18 09:00 Lexapro PO DAILY ANNALISA Furosemide 20 mg 08/10/18 09:00 Lasix Tab PO DAILY ANNALISA Levofloxacin/Dextrose 500 mg/ 100 mls @ 100 mls/hr 08/09/18 19:00 Dextrose IV 08/12/18 18:59 DAILY [facility] Insulin Glargine 15 unit 08/09/18 21:00 08/09/18 20:53 Lantus SUBCUT Not Given BEDTIME [facility] Insulin Human Regular 0 unit 08/09/18 21:00 08/10/18 05:40 Humulin R SUBCUT 3 unit ACHS ANNALISA Administration Protocol Levalbuterol HCl 1 vial 08/10/18 06:00 08/10/18 04:50 Xopenex 1.25 Mg NEB 1 vial RTQ6H ANNALISA Administration Linagliptin 5 mg 08/10/18 09:00 Tradjenta PO DAILY [facility] Losartan Potassium 50 mg 08/10/18 09:00 Cozaar PO DAILY [facility] Non-Formulary Medication 1 each 08/10/18 09:00 Calcium Carbonate/Vitamin D3 [Calcium 600 + Vit D 400 Tablet] PO DAILY [facility] Non-Formulary Medication 5 mg 08/10/18 09:00 Escitalopram Oxalate [Lexapro] PO DAILY [facility] Non-Formulary Medication 325 mg 08/09/18 21:00 08/09/18 21:35 Ferrous Sulfate [Iron] PO 325 mg BID ANNALISA Administration Omeprazole 40 mg 08/10/18 09:00 Prilosec PO DAILY [facility] Discontinued Medications Generic Name Dose Route Start Last Admin Trade Name Freq PRN Reason Stop Dose Admin Furosemide 20 mg 08/09/18 18:37 08/09/18 18:38 Lasix IVP 08/09/18 18:38 Not Given ONCE STA Sodium Chloride 1,000 mls @ 100 mls/hr 08/09/18 14:37 08/09/18 15:51 Sodium Chloride IV 08/10/18 00:36 100 mls/hr .Q10H STA Administration Levofloxacin/Dextrose 500 mg/ 100 mls @ 100 mls/hr 08/09/18 19:06 08/09/18 21 :39 Dextrose IV 08/09/18 20:05 100 mls/hr ONCE STA Administration Vital Signs: Temp Pulse Resp BP Pulse Ox 08/09/18 14:35 100.9 F H 96 H 24 124/91 H 86 L Departure - Departure Time of Disposition: 18:15 Disposition: ADMITTED INPATIENT Discharge Problem: COPD (chronic obstructive pulmonary disease) Qualifiers: COPD type: COPD with acute exacerbation Qualified Code(s): J44.1 - Chronic obstructive pulmonary disease with (acute) exacerbation Condition: Stable Pt referred to PMD for follow-up: Yes (Follow up with primary care after release from Hospital) IPMP verified?: No (N/A) Allergies/Adverse Reactions: Allergies Penicillins Adverse Reaction (Unknown, Verified 08/09/18 14:39) Rash adhesive tape Adverse Reaction (Verified 08/09/18 14:39) iodine Adverse Reaction (Verified 08/09/18 14:39) Iodine and Iodide Containing Produc Adverse Reaction (Verified 08/09/18 14:39) Home Medications: Ambulatory Orders Furosemide 20 mg PO DAILY 07/22/13 Losartan Potassium 50 mg PO DAILY 08/30/15 Allopurinol 100 mg PO DAILY #30 tablet 11/05/15 Alprazolam 0.25 mg PO BEDTIME 02/14/17 Escitalopram Oxalate [Lexapro] 10 mg PO DAILY 02/14/17 Ferrous Sulfate [Iron] 325 mg PO BID 02/14/17 Escitalopram Oxalate [Lexapro] 5 mg PO DAILY 02/15/17 Calcium Carbonate/Vitamin D3 [Calcium 600 + Vit D 400 Tablet] 1 each PO DAILY Insulin Glargine,Hum.rec.anlog [Lantus] 15 unit SUBCUT BEDTIME 05/15/18 Insulin Regular, Human [Novolin R] See Protocol IJ ACHS 05/15/18 Apixaban [Eliquis] 5 mg PO BID 08/09/18 Clindamycin HCl 150 mg PO TID 08/09/18 Diltiazem HCl [Cardizem] 30 mg PO Q8HR 08/09/18 Ipratropium/Albuterol Sulfate [Iprat-Albut 0.5-3(2.5) mg/3 ml] 3 ml INH TID Linagliptin [Tradjenta] 5 mg PO DAILY 08/09/18 Omeprazole 40 mg PO DAILY 08/09/18
--- NOTE | 2018-08-09 15:16 | DI ---
EXAM: Chest one view HISTORY: Short of air COMPARISON: 05/15/2018 TECHNIQUE: Single view of the chest was performed FINDINGS: Possible pulmonary vascular congestion. There is no pleural effusion or pneumothorax. Th e heart is enlarged, unchanged in size. The mediastinal contour is unchanged, noting atherosclerosis . There are no acute abnormalities of the bones. IMPRESSION: Cardiomegaly with possible pulmonary vascular congestion.
[2018-08-09] MEDS ORDERED: LASIX ONE (18:15)
[2018-08-09] MEDS ORDERED: LASIX IVP STA (18:37)
[2018-08-09] MEDS ORDERED: LEVAQUIN 500 MG in PREMIX 100 ML D5W 1 BAG IV SCH (19:00)
[2018-08-09] MEDS ORDERED: LEVAQUIN 500 MG in PREMIX 100 ML D5W 1 BAG IV STA (19:06)
[2018-08-09] MEDS ORDERED: LEVAQUIN 100 ML IV ONE (20:13)
[2018-08-09] MEDS ORDERED: XANAX ONE (20:14)
[2018-08-09] MEDS ORDERED: FERROUS SULFATE ONE (20:14)
[2018-08-09 20:23] VITALS: BMI 39.2
[2018-08-09] MEDS: CLEOCIN PO SCH (20:24)
[2018-08-09] MEDS: CARDIZEM PO SCH (20:24)
[2018-08-09] MEDS: ELIQUIS PO SCH (20:25)
[2018-08-09] MEDS: HUMULIN R SUBCUT SCH (20:45)
[2018-08-09] MEDS: LANTUS SUBCUT SCH (20:53)
[2018-08-09] MEDS ORDERED: NON-FORMULARY MEDICATION (Ferrous Sulfate [Iron] 325 MG) PO SCH (21:00)
[2018-08-09] MEDS ORDERED: DUONEB NEB SCH (21:00)
[2018-08-09] MEDS ORDERED: XANAX PO SCH (21:00)
[2018-08-10] MEDS: CARDIZEM PO SCH ×3 (05:39→20:59)
[2018-08-10] MEDS: HUMULIN R SUBCUT SCH ×4 (05:40→21:38)
[2018-08-10] MEDS ORDERED: XOPENEX 1.25 MG NEB SCH (06:00)
[2018-08-10] MEDS ORDERED: NON-FORMULARY MEDICATION (Escitalopram Oxalate [Lexapro] 5 MG) PO SCH (09:00)
[2018-08-10] MEDS ORDERED: LEXAPRO PO SCH (09:00)
[2018-08-10] MEDS ORDERED: COZAAR PO SCH (09:00)
--- NOTE | 2018-08-10 09:03 | PCM.PROG ---
Attending Provider: ATTENDING PROVIDER: Dr. RANI WORTHY DATE OF SERVICE: 08/10/18 SUBJECTIVE: This 88 year old WHITE/ F was hospitalized 08/09/18 with acute bronchitis and wheezing. There was evidence of possible pulmonary congestion on chest x-ray. REVIEW OF SYSTEMS: CONSTITUTIONAL: No night sweats. No fatigue, malaise, lethargy. No fever or chills. HEENT: Eyes: No visual changes. No eye pain. No eye discharge. ENT: No runny nose. No epistaxis. No sinus pain. No odynophagia. No congestion. RESPIRATORY: Mild cough, no congestion. No hemoptysis. No shortness of breath. Wheezing. CARDIOVASCULAR: No angina symptoms. No CHF symptoms. No atypical chest pain for CAD. No palpitations. No orthopnea.. GASTROINTESTINAL: No abdominal pain. No nausea or vomiting. No diarrhea or constipation. No hematemesis. No hematochezia. GENITOURINARY: No urgency. No frequency. No dysuria. No hematuria. No obstructive symptoms. No discharge. No pain. No significant abnormal bleeding. MUSCULOSKELETAL: No musculoskeletal pain; no joint swelling. NEUROLOGICAL: Awake, alert and confused. No headache. No neck pain. No syncope. No seizures. No dizziness. PSYCHIATRIC: Not anxious. No depression. No suicidal thoughts. No homicidal thoughts. SKIN: No rash. No lesions. No wounds. ENDOCRINE: No unexplained weight loss. No weight gain. HEMATOLOGIC/LYMPHATIC: No anemia. No purpura. No petechiae. No prolonged or excessive bleeding. No palpable lymph nodes. PHYSICAL EXAMINATION: GENERAL: The patient is awake, alert but confused lying flat in bed in no distress. VITAL SIGNS: Temperature 98.3 F, Pulse 85, Respiratory Rate 24, BP 127/64, Pulse Ox 95%. BMI of almost 40. HEENT: Head normocephalic, atraumatic. Eyes: Extraocular muscles are intact. Pupils are equal, round and reactive to light and accommodation. Ears: No lesions. Nose appeared normal. Throat: No exudate or erythema. NECK: Supple. No JVD, no carotid bruit. No lymphadenopathy or thyromegaly. LUNGS: Bilateral expiratory wheezing. Clear to auscultation. Percussion note normal. Chest symmetrical. HEART: S1, S2, no S3. No murmurs. No cyanosis or clubbing. No ascites. Pulses: Dorsalis pedis and posterior tibial pulses +1 to +2 both sides. ABDOMEN: Soft. Non-tender. Bowel sounds active. No CVA tenderness. No mass felt. EXTREMITIES: Trace to +1 pitting edema. Full range of motion of all extremities, equal. NEUROLOGIC: No focal deficit. Cranial nerves II through XII are grossly intact. No headache, no double vision or headache. SKIN: Warm and dry. Intact. Turgor-normal. LYMPHATIC: No palpable lymph nodes/no lymphedema. MUSCULOSKELETAL: Normal joints with no swelling. Muscle tone is normal. LAB REVIEW: 08/10/18 05:00 08/10/18 05:00 08/10/18 05:00: Sodium 134.2 L, Potassium 3.96, Chloride 98.6, Carbon Dioxide 25.4, Anion Gap 14.16, BUN 43.1 H, Creatinine 1.56 H, Estimated GFR (MDRD) 31.00 , BUN/Creatinine Ratio 27.62, Glucose 119.1 H, Calcium 8.44, Total Bilirubin 0.45, AST 28.5, ALT 20.6, Alkaline Phosphatase 172.6 H D, Total Protein 6.00 L, Albumin 3.49 L, Globulin 2.51, Albumin/Globulin Ratio 1.39 08/10/18 05:00: WBC 6.07, RBC 3.19 L, Hgb 9.7 L, Hct 30.2 L, MCV 94.7, MCH 30.4 , MCHC 32.1, RDW Coeff of Zeeshan 14.0, Plt Count 193, Immature Gran % (Auto) 0.5, Neut % (Auto) 70.9, Lymph % (Auto) 14.0, [place] % (Auto) 13.2 H, Eos % (Auto) 1.2 , Baso % (Auto) 0.2, Immature Gran # (Auto) 0.0, Neut # (Auto) 4.3, Lymph # ( Auto) 0.9, [place] # (Auto) 0.8, Eos # (Auto) 0.1, Baso # (Auto) 0.0 08/09/18 15:27: Urine Color Yellow, Urine Clarity Clear, Urine pH 5.0, Ur Specific [place] 1.015, Urine Protein 2+, Urine Glucose (UA) Negative, Urine Ketones Negative, Urine Blood Trace-lysed, Urine Nitrite Negative, Urine Bilirubin Negative, Urine Urobilinogen 0.2, Ur Leukocyte Esterase Negative, Urine Microscopic RBC 0-2, Ur Squamous Epith Cells 10-20, Urine Bacteria 2+ 08/09/18 15:20: NT-Pro-B Natriuret Pep 6120.000 H 08/09/18 15:05: Lactic Acid 1.71 08/09/18 15:05: Procalcitonin 0.17 08/09/18 15:05: Sodium 134.8, Potassium 4.04, Chloride 96.6 L, Carbon Dioxide 27.3, Anion Gap 14.94, BUN 42.2 H, Creatinine 1.82 H, Estimated GFR (MDRD) 26.00 , BUN/Creatinine Ratio 23.18, Glucose 145.4 H, Calcium 8.86, Total Bilirubin 0.42, AST 27.0, ALT 24.8, Alkaline Phosphatase 204.6 H, Troponin I 0.032, Total Protein 6.78, Albumin 3.90, Globulin 2.88, Albumin/Globulin Ratio 1.35 08/09/18 15:05: WBC 7.21, RBC 3.44 L, Hgb 10.5 L, Hct 32.8 L, MCV 95.3, MCH 30.5 , MCHC 32.0, RDW Coeff of [place]ees[place] 14.2, Plt Count 204, Immature Gran % (Auto) 0.6, Neut % (Auto) 85.3, Lymph % (Auto) 3.5 L, [place] % (Auto) 10.4 H, Eos % (Auto) 0.1 , Baso % (Auto) 0.1, Immature Gran # (Auto) 0.0, Neut # (Auto) 6.2, Lymph # ( Auto) 0.3 L, [place] # (Auto) 0.8, Eos # (Auto) 0.0, Baso # (Auto) 0.0 08/09/18 14:56: Puncture Site Rr, O2 Saturation 83.0 L, ABG pH 7.435, ABG pCO2 37.1, ABG pO2 46.0 L*, ABG HCO3 24.9, ABG Total CO2 26, ABG Base Excess 1, Trent Test +, FiO2 % 21.0 ASSESSMENT: Please see below. 1. Acute bronchitis/Pneumonia 2. Possibly CHF 3. Dementia 4. Anemia 5. Chronic kidney disease. PLAN: 1. Given IV antibiotics 2. Steroids to be started 3. Continue DUO NEBS 4. Discontinue Xopenex 5. Patient is DNR, comfort measures. Plan and coordination of the patient's care discussed in the presence of Agile Business Analyst and nurse. SCRIBED BY: Desiree POSADAist scribed while in presence of service performed by Dr. RANI WORTHY on 08/10/18 ([id number])
[2018-08-10] MEDS: CALCIUM 500 + VIT D 200 MG TABLET PO SCH (09:38)
[2018-08-10] MEDS: PRILOSEC PO SCH (09:38)
[2018-08-10] MEDS: LASIX TAB PO SCH (09:45)
[2018-08-10] MEDS: FERROUS SULFATE PO SCH ×2 (09:45→16:28)
[2018-08-10] MEDS: CLEOCIN PO SCH ×3 (09:46→20:58)
[2018-08-10] MEDS: TRADJENTA PO SCH (09:46)
[2018-08-10] MEDS: COZAAR PO SCH (09:46)
[2018-08-10] MEDS: LEXAPRO PO SCH (09:47)
[2018-08-10] MEDS: ZYLOPRIM PO SCH (09:47)
[2018-08-10] MEDS: ELIQUIS PO SCH ×2 (09:52→20:57)
[2018-08-10] MEDS: SOLU-CORTEF 250 MG IVP SCH ×3 (09:53→20:56)
[2018-08-10] MEDS: DUONEB NEB SCH ×3 (11:01→23:45)
[2018-08-10] MEDS: XANAX PO SCH (20:57)
[2018-08-10] MEDS: LANTUS SUBCUT SCH (20:58)
[2018-08-10] MEDS: D5W IV SCH (20:59)
[2018-08-10] MEDS: LEVAQUIN IV SCH (20:59)
[2018-08-11] MEDS: DUONEB NEB SCH ×4 (04:30→23:20)
[2018-08-11] MEDS: SOLU-CORTEF 250 MG IVP SCH ×3 (05:15→21:12)
[2018-08-11] MEDS: CARDIZEM PO SCH ×3 (05:16→21:14)
[2018-08-11] MEDS: HUMULIN R SUBCUT SCH ×4 (05:47→21:13)
[2018-08-11] MEDS: PRILOSEC PO SCH (05:47)
[2018-08-11] MEDS: FERROUS SULFATE PO SCH ×2 (05:47→16:31)
[2018-08-11] MEDS: LASIX TAB PO SCH (05:47)
[2018-08-11] MEDS: TRADJENTA PO SCH (08:31)
[2018-08-11] MEDS: LEXAPRO PO SCH (08:31)
[2018-08-11] MEDS: COZAAR PO SCH (08:31)
[2018-08-11] MEDS: CLEOCIN PO SCH ×3 (08:32→21:14)
[2018-08-11] MEDS: ZYLOPRIM PO SCH (08:32)
[2018-08-11] MEDS: ELIQUIS PO SCH ×2 (08:32→21:14)
[2018-08-11] MEDS: CALCIUM 500 + VIT D 200 MG TABLET PO SCH (08:32)
[2018-08-11] MEDS: LANTUS SUBCUT SCH (21:12)
[2018-08-11] MEDS: XANAX PO SCH (21:13)
[2018-08-11] MEDS: D5W IV SCH (21:14)
[2018-08-11] MEDS: LEVAQUIN IV SCH (21:14)
[2018-08-12] MEDS: DUONEB NEB SCH ×4 (04:30→23:20)
[2018-08-12] MEDS: SOLU-CORTEF 250 MG IVP SCH ×3 (05:04→20:45)
[2018-08-12] MEDS: CARDIZEM PO SCH ×3 (05:05→20:46)
[2018-08-12] MEDS: LASIX TAB PO SCH (05:45)
[2018-08-12] MEDS: PRILOSEC PO SCH (05:45)
[2018-08-12] MEDS: FERROUS SULFATE PO SCH ×2 (05:45→16:46)
[2018-08-12] MEDS: HUMULIN R SUBCUT SCH ×4 (06:17→21:00)
[2018-08-12] MEDS: COZAAR PO SCH (08:34)
[2018-08-12] MEDS: TRADJENTA PO SCH (08:34)
[2018-08-12] MEDS: ZYLOPRIM PO SCH (08:34)
[2018-08-12] MEDS: LEXAPRO PO SCH (08:34)
[2018-08-12] MEDS: CLEOCIN PO SCH ×2 (08:34→14:25)
[2018-08-12] MEDS: CALCIUM 500 + VIT D 200 MG TABLET PO SCH (08:34)
[2018-08-12] MEDS: ELIQUIS PO SCH ×2 (08:35→20:53)
[2018-08-12] MEDS ORDERED: MORPHINE 2 MG/ML SYRINGE IVP STA (09:22)
[2018-08-12] MEDS ORDERED: LASIX IVP STA (09:22)
[2018-08-12] MEDS ORDERED: MORPHINE 2 MG/ML SYRINGE ONE (09:24)
[2018-08-12] MEDS ORDERED: LASIX ONE (09:24)
[2018-08-12] MEDS: XANAX PO SCH (20:45)
[2018-08-12] MEDS: D5W IV SCH (20:46)
[2018-08-12] MEDS: LEVAQUIN IV SCH (20:46)
[2018-08-12] MEDS: LANTUS SUBCUT SCH (20:59)
[2018-08-13] MEDS: DUONEB NEB SCH ×4 (04:20→23:05)
[2018-08-13] MEDS: SOLU-CORTEF 250 MG IVP SCH (05:06)
[2018-08-13] MEDS: CARDIZEM PO SCH ×2 (05:06→21:05)
[2018-08-13] MEDS: HUMULIN R SUBCUT SCH ×4 (05:42→21:06)
[2018-08-13] MEDS: PRILOSEC PO SCH (05:42)
[2018-08-13] MEDS: LASIX TAB PO SCH (05:42)
[2018-08-13] MEDS: FERROUS SULFATE PO SCH ×2 (05:42→17:42)
[2018-08-13] MEDS ORDERED: LANOXIN PO STA (09:11)
[2018-08-13] MEDS ORDERED: LANOXIN IVP ONE (09:24)
--- NOTE | 2018-08-13 09:44 | PCM.PROG ---
Attending Provider: ATTENDING PROVIDER: Dr. RANI WORTHY DATE OF SERVICE: 08/13/18 SUBJECTIVE: This 88-year-old White/ female was hospitalized 08/09/18 with acute bronchitis, COPD and possibility of CHF. The patient had aspirated yesterday in a..m. We are treating clinically. She has improved with good air entry, mild wheeze. Kidney functions are more or less stable giving IV Lasix 40 mg. REVIEW OF SYSTEMS: CONSTITUTIONAL: No night sweats. No fatigue, malaise, lethargy. No fever or chills. HEENT: Eyes: No visual changes. No eye pain. No eye discharge. ENT: No runny nose. No epistaxis. No sinus pain. No odynophagia. No congestion. RESPIRATORY: Decreased breath sounds. No cough, no congestion. No hemoptysis. No shortness of breath. CARDIOVASCULAR: No angina symptoms. No CHF symptoms. No atypical chest pain for CAD. No palpitations. No orthopnea.. GASTROINTESTINAL: No abdominal pain. No nausea or vomiting. No diarrhea or constipation. No hematemesis. No hematochezia. GENITOURINARY: No urgency. No frequency. No dysuria. No hematuria. No obstructive symptoms. No discharge. No pain. No significant abnormal bleeding. MUSCULOSKELETAL: No musculoskeletal pain; no joint swelling. NEUROLOGICAL: Awake, alert, oriented to time, place and person. No headache. No neck pain. No syncope. No seizures. No dizziness. PSYCHIATRIC: Not anxious. No depression. No suicidal thoughts. No homicidal thoughts. SKIN: No rash. No lesions. No wounds. ENDOCRINE: No unexplained weight loss. No weight gain. HEMATOLOGIC/LYMPHATIC: No anemia. No purpura. No petechiae. No prolonged or excessive bleeding. No palpable lymph nodes. PHYSICAL EXAMINATION: GENERAL: The patient is awake, alert and oriented, lying in bed in no distress. VITAL SIGNS: Temperature 97.9 F, Pulse 148, Respiratory Rate 18, BP 138/70, Pulse Ox 97% HEENT: Head normocephalic, atraumatic. Eyes: Extraocular muscles are intact. Pupils are equal, round and reactive to light and accommodation. Ears: No lesions. Nose appeared normal. Throat: No exudate or erythema. NECK: Supple. No JVD, no carotid bruit. No lymphadenopathy or thyromegaly. LUNGS: Mild wheeze with good air entry. Percussion note normal. Chest symmetrical. HEART: Positive for irregular heart rate, approximately 100 to 110/min. She is on oxygen, more than 90 on 2L. S1, S2, no S3. No murmurs. No cyanosis or clubbing. No ascites. Pulses: Dorsalis pedis and posterior tibial pulses +1 to +2 both sides. ABDOMEN: Soft. Non-tender. Bowel sounds active. No CVA tenderness. No mass felt. EXTREMITIES: No edema. Full range of motion of all extremities, equal. NEUROLOGIC: No focal deficit. Cranial nerves II through XII are grossly intact. No headache, no double vision or headache. SKIN: Warm and dry. Intact. Turgor-normal. LYMPHATIC: No palpable lymph nodes/no lymphedema. MUSCULOSKELETAL: Normal joints with no swelling. Muscle tone is normal. LAB REVIEW: 08/13/18 04:20 08/13/18 04:20 08/13/18 04:20: Sodium 135.2, Potassium 3.78, Chloride 97.4 L, Carbon Dioxide 26.4, Anion Gap 15.18, BUN 62.5 H*, Creatinine 1.74 H, Estimated GFR (MDRD) 28.00, BUN/Creatinine Ratio 35.91, Glucose 212.7 H, Calcium 8.93, Total Bilirubin 0.31, AST 28.7, ALT 26.5, Alkaline Phosphatase 173.1 H D, Total Protein 6.53, Albumin 3.77, Globulin 2.76, Albumin/Globulin Ratio 1.36 08/13/18 04:20: WBC 10.15, RBC 3.64 L, Hgb 11.1 L, Hct 33.2 L, MCV 91.2, MCH 30.5, MCHC 33.4, RDW Coeff of [place]eeshan 13.5, Plt Count 219, Immature Gran % (Auto) 0.6, Neut % (Auto) 89.5, Lymph % (Auto) 3.4 L, [place] % (Auto) 6.4, Eos % (Auto) 0.0, Baso % (Auto) 0.1, Immature Gran # (Auto) 0.1, Neut # (Auto) 9.1 H, Lymph # (Auto) 0.4 L, [place] # (Auto) 0.7, Eos # (Auto) 0.0, Baso # (Auto) 0.0 ASSESSMENT: 1. Acute bronchitis/Pneumonia. 2. Aspiration episode yesterday. 3. Morbidly obese - eats alot. 4. History of CHF. 5. History of chronic kidney disease. 6. History of atrial fibrillation. PLAN: 1. Lanoxin 0.25 mg now and 0.25 mg at 10 o'clock (two hours apart) to slow atrial fibrillation rate down. 2. Additional Cardizem 30 mg now for systolic blood pressure more than 130. No clinical evidence of CHF. 3. Continue Levaquin 250 mg IV. 4. Decrease Solu-Cortef 100 mg q.12hr. Plan and coordination of the patient's care discussed in the presence of Senior Research Manager and nurse. CONDITION: Stable SCRIBED BY: Radha ESPINAL scribed while in presence of service performed by Dr. RANI WORTHY on 08/13/18 ([id number])
[2018-08-13] MEDS: LEVAQUIN 250 MG in PREMIX 50 ML D5W 1 BAG IV SCH (09:55)
[2018-08-13] MEDS: ELIQUIS PO SCH ×2 (10:00→21:06)
[2018-08-13] MEDS: SOLU-CORTEF 100 MG IVP SCH ×2 (10:00→21:05)
[2018-08-13] MEDS: COZAAR PO SCH (10:01)
[2018-08-13] MEDS: LEXAPRO PO SCH (10:03)
[2018-08-13] MEDS: ZYLOPRIM PO SCH (10:03)
[2018-08-13] MEDS: TRADJENTA PO SCH (10:05)
[2018-08-13] MEDS: CALCIUM 500 + VIT D 200 MG TABLET PO SCH (10:05)
--- NOTE | 2018-08-13 11:28 | HP ---
DATE OF SERVICE: 08/09/18 REASON FOR HOSPITALIZATION: Shortness of breath, cough and congestion. HISTORY OF PRESENT ILLNESS: 88-year-old white female who is a resident of the custodial was noted to have cough, congestion, shortness of breath for the past couple of days. The patient was brought to the emergency room by EMS. The patient was seen and examined in the emergency room by Dr. Pat. The patient's blood gases had oxygen saturation of 83% on room air with pH of 7.43 with p02 of 46, pc02 of 37 and was in acute respiratory distress with acute bronchitis. The chest x-ray showed possibility of pulmonary congestion. The patient has history of chronic lung disease, chronic bronchitis and CHF. PAST MEDICAL HISTORY: Chronic lung disease Chronic kidney disease Atrial fibrillation Hypertension Reflux disease Recurrent gout Anxiety/depression Dementia Anemia Diabetes mellitus Obesity, morbid PAST SURGICAL HISTORY: None listed REVIEW OF SYSTEMS: CONSTITUTIONAL: Weakness and fatigue. No night sweats. No malaise, lethargy. No fever or chills. HEENT: Eyes: No visual changes. No eye pain. No eye discharge. ENT: No runny nose. No epistaxis. No sinus pain. No sore throat. No odynophagia. No ear pain. No congestion. RESPIRATORY: Cough and congestion. Yellowish sputum production. No hemoptysis. Shortness of breath. CARDIOVASCULAR: No angina symptoms. No CHF symptoms. No atypical chest pain for CAD. No palpitations. No PND. Maybe orthopnea. GASTROINTESTINAL: Appetite is good. No abdominal pain. No nausea or vomiting. No diarrhea or constipation. No hematemesis. No hematochezia. GENITOURINARY: No urgency. No frequency. No dysuria. No hematuria. No obstructive symptoms. No discharge. No pain. No significant abnormal bleeding. MUSCULOSKELETAL: No musculoskeletal pain. No joint swelling. No arthritis. NEUROLOGICAL: The patient is alert. No headache. No neck pain. No syncope. No seizures. No dizziness. PSYCHIATRIC: Not anxious. No depression. No suicidal thoughts. No homicidal thoughts. SKIN: No rash. No lesions. No wounds. ENDOCRINE: No unexplained weight loss. No weight gain. HEMATOLOGIC/LYMPHATIC: No anemia. No purpura. No petechiae. No prolonged or excessive bleeding. No palpable lymph nodes. PERSONAL/FAMILY/SOCIAL HISTORY: The patient is . She is a resident of the custodial. Nonsmoker. No alcohol abuse. The daughter takes care of her. MEDICATIONS: Lasix Pantoprazole Tradjenta Eliquis 5 mg twice a day Losartan Tramadol Allopurinol Lexapro Detrol LA Xanax Lexapro Aricept Clindamycin ALLERGIES: PENICILLINS, ADHESIVE TAPE, IODINE AND IODIDE CONTAINING PRODUCTS PHYSICAL EXAMINATION: VITAL SIGNS: Temperature 98.3, pulse 80, respiratory rate 24, BP 127/64, pulse ox 95%. HEENT: Head normocephalic, atraumatic. Eyes: Extraocular muscles are intact. Pupils are equal, round and reactive to light and accommodation. Ears: No lesions. Nose appeared normal. Throat: No exudate or erythema. NECK: Supple. No JVD, no carotid bruit. No lymphadenopathy or thyromegaly. LUNGS: Clear to auscultation with decreased breath sounds and bilateral wheeze. Percussion note normal. Chest symmetrical. HEART: S1, S2, no S3. Irregularly, irregular. No cyanosis or clubbing. No ascites. Pulses: Dorsalis pedis and posterior tibial pulses +1 to +2 bilaterally. ABDOMEN: Soft. Nontender. Bowel sounds active. No CVA tenderness. No mass felt. EXTREMITIES: Trace to +1 pitting edema. Full range of motion of all extremities , equal. NEUROLOGIC: No focal deficit. Cranial nerves II through XII are grossly intact. No headache, no double vision or headache. SKIN: Not dry. Intact. Turgor - normal. LYMPHATIC: No palpable lymph nodes/no lymphedema. MUSCULOSKELETAL: Normal joints with no swelling. Muscle tone is normal. Chest x-ray bilateral pulmonary vascular congestion. Labs: Creatinine 1.8, BUN 42. Hemoglobin 10.5, hematocrit 32, WBC 7,000, normal differential. AST, ALT normal. Alkaline phosphatase elevated mildly. Troponin normal. Lactic Acid 1.7, calcitonin 0.17. BNP 6,120 which is normal for this patient. ASSESSMENT: 1. ACUTE BRONCHITIS/PNEUMONITIS 2. CONGESTIVE HEART FAILURE 3. ATRIAL FIBRILLATION 4. MORBID OBESITY 5. CHRONIC KIDNEY DISEASE 6. HYPERTENSION 7. DYSLIPIDEMIA 8. DEPRESSION 9. DEMENTIA 10. ANEMIA 11. DIABETES MELLITUS PLAN: 1. IV Lasix to be given 2. Nebs 3. IV Solu-Cortef 4. IV antibiotics. 5. Continue the rest of the medications. 6. Daily CBC, CMP. 7. Telemetry. 8. The patient is DNR. 9. Monitor daily CBC, CMP. CONDITION: Stable. EDUCATION: Education about CHF carried out. TIME SPENT: More than 70 minutes. MTDD
--- NOTE | 2018-08-13 11:57 | DI ---
EXAM: CHEST FRONTAL VIEW HISTORY: Aspiration pneumonia. COMPARISON: 08/09/2018 FINDINGS: Stable prominent heart size and aortic atherosclerosis. There is no vascular congestion. Mild increased density in the lower portion of the right upper lobe could represent early pneumonia and is new. There is no pneumothorax or pleural fluid. IMPRESSION: 1. Cannot exclude early development of pneumonia in the lower aspect of the right upper lobe.
--- NOTE | 2018-08-13 12:58 | RS.BEDDYS ---
Subjective Number of treatment sessions: 1 Date of Evaluation: 08/13/18 Diagnosis: SOB, CHF, aspiration Current Level of Function: This 88 year old female was admitted with multiple conditions including CHF, COPD, and SOB. She has a hx with pneumonia wiht no diet or liquid restrictions. Currently, she has increased SOB and edema, with productive cough. Yesterday this date, aspiration was reported and observed from RN with suction required. She is at risk for aspiration/penetration with PO intake. Current Diet: Regular, downgraded to puree and nectar thick liquids via phone consult to [employer] MAINFRAME SYSTEMS PROGRAMMER. Current Subjective/complaints:: The patient reports difficulty with breath support and swelling in hands. She also stated she eats too fast and gets out of breath with eating. The patient verbalized a good appetite and no concerns for safety with PO intake. The RN reported no difficulty with medication administration. Medical History Comments:: COPD, CHF, pneumonia, edema, mental status change. Patient's Goals: To improve breath support and eat least restrictive diet. General Information - General Denture Type: Full- Upper Oral Expression Ability: Moderate Impairment - Voice Voice Quality: Breathy, Hoarse Oral-Facial Assessment - Face Facial Symmetry: Symmetrical Facial Movement: Controlled - Dental/Labial Mouth Occlusion: Normal Teeth Characteristics: Missing (Molars missing on bottom) Lip Protrusion: Reduced ROM Lip Retraction: Reduced ROM Puff Cheeks: Reduced Strength - Lingual Protrusion: Normal Retraction: Normal Tip Lateralization: Reduced ROM Comments: Lingual surface dry. Pt reported difficulty with tongue movements d/t dryness and dentures. Food Presentation - Solids Food Presented: Mechanical Soft (one bite size trial with finger foods.) Behaviors/Comments: Prolonged mastication and mouth breathing with gulps of air. Pt at risk for aspiration d/t breath support and management with PO intake. Food Presented: Pureed (Spoon-fed and self fed 1 tsp bites.) Behaviors/Comments: Pt demonstrated mild SOB with puree texture. As duration of meal increased, SOB increased. The [employer] MAINFRAME SYSTEMS PROGRAMMER used pacing techniques to allow for breath support to decrease risk for aspiration. - Liquids Liquid Presented: Thin (Via tsp, straw and open cup) Behaviors/Comments: Via tsp and open cup pt had no overt s/s of aspiration. With straw presentation, pt had multiple delayed coughs. Pt at risk for aspiration with thin liquids via straw. Liquid Presented: [place] (open cup) Behaviors/Comments: Pt had no overt s/s of aspiration with open cup. - Recommendations: Dysphagia Evaluation Dietary Recommendations: Dysphagia Pureed, [place]-thick liquids Comments:: Pureed with 1 tsp bite size, use pacing techniques. [place] thick via open cup. Danny free-water protocol between meals with oral care with open cup or ice chips. Dysphagia Swallow Precautions/Strategies: Sitting Upright (90 deg), No Straw, Liquids from Cup Comments:: Safe swallow precautions, Use pacing techniques, increase to intermediate supervision with meal set-up and assistance. Keep head elevated. Keep oxygen on during meal. Watch for SOB with PO intake. Encourage small, short meals. - Summary Dysphagia Evaluation Summary: Pt demonstrates risk for aspiration due to COPD and SOB. She demonstrates air gulping and prolonged mastication when presented solid food textures, increasing risk for food inhalation. The [employer] MAINFRAME SYSTEMS PROGRAMMER recommends puree diet texture with nectar thick liquids. With use of pacing techniques and supervision pt's risk for aspiration decreases. The [employer] MAINFRAME SYSTEMS PROGRAMMER also recommends danny free-water protocol with strict oral care allowing, spoonfuls of water and ice chips. Further Therapy Indicated?: Yes Comments: Re-assess diet texture at next visit. Rehab Potential: Good Functional Reporting G Codes: n/a Severity Impairment Rationale: n/a Short Term Goals Problem: Breath support Goal #1: Pt will pace PO intake to decrease risk for aspiration. Goal to be met by: 08/20/18 Problem: Aspiration Goal #2: Pt will consume mechanical soft diet texture w/o overt s/s of asp. Goal to be met by: 08/20/18 [facility] Goals Problem: Aspiration Goal #1: Pt to consume safest and least restrictive diet texture w/o asp. Plan Duration of Treatment: 1 Week Frequency of Treatment: 2x/week Anticipated Discharge Destination: [facility] Comments: At next visit, [employer] MAINFRAME SYSTEMS PROGRAMMER to re-assess breath support and medical symptoms to determine readiness for diet upgrade. - Treatment Code (1) Dysphagia Code(s): R13.10 - DYSPHAGIA, UNSPECIFIED
--- NOTE | 2018-08-13 13:41 | PN ---
DATE OF SERVICE: 08/09/18 SUBJECTIVE: Ms. Dillon was admitted from the group home. She was brought to the emergency room with acute respiratory failure with oxygen saturation of 83%. The patient has evidence of bilateral wheezing, possibility of pulmonary congestion by chest x-ray and possibility of pneumonia. The patient will be treated with IV Lasix, steroids, antibiotics and nebs treatment. Condition is stable. TIME SPENT: More than 30 minutes. Plan and coordination of the patient's care discussed in the presence of nurse. WILLIAM
--- NOTE | 2018-08-13 13:50 | PN ---
DATE OF SERVICE: 08/11/18 SUBJECTIVE: The patient was seen and examined this morning. The daughter is present. The patient is DNR. Comfort measures. The patient's respiratory status seems to be improved some. She is oriented to place and person. Her appetite is very good. PHYSICAL EXAMINATION: VITAL SIGNS: Stable. HEENT: Head normocephalic, atraumatic. Eyes: Extraocular muscles are intact. Pupils are equal, round and reactive to light and accommodation. Ears: No lesions. Nose appeared normal. Throat: No exudate or erythema. NECK: Supple. No JVD, no carotid bruit. No lymphadenopathy or thyromegaly. LUNGS: Decreased breath sounds but clear to auscultation. Percussion note normal. Chest symmetrical. HEART: S1, S2, no S3. No murmurs. No cyanosis or clubbing. No ascites. Pulses: Dorsalis pedis and posterior tibial pulses +1 to +2 bilaterally. ABDOMEN: Morbidly obese. Soft. Nontender. Bowel sounds active. No CVA tenderness. No mass felt. EXTREMITIES: No edema. Full range of motion of all extremities, equal. NEUROLOGIC: No focal deficit. Cranial nerves II through XII are grossly intact. No headache, no double vision or headache. SKIN: Not dry. Intact. Turgor - normal. LYMPHATIC: No palpable lymph nodes/no lymphedema. MUSCULOSKELETAL: Normal joints with no swelling. Muscle tone is normal. ASSESSMENT: 1. Acute bronchitis/pneumonitis. 2. Mild CHF. PLAN: 1. Continue antibiotics, steroids, nebs. 2. Comfort measures. TIME SPENT: More than 30 minutes. Plan and coordination of the patient's care discussed in the presence of nurse. WILLIAM
--- NOTE | 2018-08-13 14:20 | PN ---
DATE OF SERVICE: 08/12/18 SUBJECTIVE: This morning the patient aspirated on the morning breakfast and got into respiratory distress. The patient had to be suctioned of a lot of food particles and food material came out. She was still wheezing when I checked around 11 a.m. but according to the nursing staff, the patient was much less wheezing than before. The patient's saturation was already 94% on 2L. The patient was talking, sitting up. The patient was given Lasix 40 mg IV and 1 mg of Morphine Sulfate. She will have Tran catheter. PHYSICAL EXAMINATION: VITAL SIGNS: Temperature 97.7, pulse 118, irregular, respiratory rate 20, BP 146/87, pulse ox 97%. HEENT: Head normocephalic, atraumatic. Eyes: Extraocular muscles are intact. Pupils are equal, round and reactive to light and accommodation. Ears: No lesions. Nose appeared normal. Throat: No exudate or erythema. NECK: Supple. No JVD, no carotid bruit. No lymphadenopathy or thyromegaly. LUNGS: Decreased breath sounds with mild wheeze. Percussion note normal. Chest symmetrical. HEART: S1, S2, no S3. No murmurs. No cyanosis or clubbing. No ascites. Pulses: Dorsalis pedis and posterior tibial pulses +1 to +2 bilaterally. ABDOMEN: Soft. Nontender. Bowel sounds active. No CVA tenderness. No mass felt. EXTREMITIES: No edema. Full range of motion of all extremities, equal. NEUROLOGIC: No focal deficit. Cranial nerves II through XII are grossly intact. No headache, no double vision or headache. SKIN: Not dry. Intact. Turgor - normal. LYMPHATIC: No palpable lymph nodes/no lymphedema. MUSCULOSKELETAL: Normal joints with no swelling. Muscle tone is normal. ASSESSMENT: 1. ACUTE ASPIRATION PNEUMONITIS. THE PATIENT IS ALREADY ON ANTIBIOTICS FOR INFLUENZA A WITH BRONCHITIS. THE PATIENT IS ALREADY ON STEROIDS. PLAN: 1. Continue the same with NEBS treatment with respiratory therapist and will be suctioned frequently. TIME SPENT: More than 30 minutes. Plan and coordination of the patient's care discussed in the presence of nurse. WILLIAM
[2018-08-13] MEDS: XANAX PO SCH (21:06)
[2018-08-13] MEDS: LANTUS SUBCUT SCH (21:07)
[2018-08-14] MEDS ORDERED: NYSTOP POWDER TP PRN (00:59)
[2018-08-14] MEDS: DUONEB NEB SCH ×4 (04:20→22:10)
[2018-08-14] MEDS: PRILOSEC PO SCH (05:56)
[2018-08-14] MEDS: LASIX TAB PO SCH (05:57)
[2018-08-14] MEDS: FERROUS SULFATE PO SCH ×2 (05:57→16:10)
[2018-08-14] MEDS: HUMULIN R SUBCUT SCH ×4 (06:04→21:13)
[2018-08-14] MEDS: COZAAR PO SCH (09:16)
[2018-08-14] MEDS: CALCIUM 500 + VIT D 200 MG TABLET PO SCH (09:16)
[2018-08-14] MEDS: LEXAPRO PO SCH (09:16)
[2018-08-14] MEDS: TRADJENTA PO SCH (09:16)
[2018-08-14] MEDS: LEVAQUIN 250 MG in PREMIX 50 ML D5W 1 BAG IV SCH (09:17)
[2018-08-14] MEDS: CARDIZEM PO SCH ×2 (09:17→20:41)
[2018-08-14] MEDS: ELIQUIS PO SCH ×2 (09:17→20:41)
[2018-08-14] MEDS: ZYLOPRIM PO SCH (09:17)
[2018-08-14] MEDS: SOLU-CORTEF 100 MG IVP SCH ×2 (09:17→21:42)
[2018-08-14] MEDS ORDERED: LEXAPRO ONE (09:20)
[2018-08-14] MEDS: XANAX PO SCH (20:41)
[2018-08-14] MEDS: LANTUS SUBCUT SCH (21:16)
[2018-08-15] MEDS: DUONEB NEB SCH ×4 (04:54→23:15)
[2018-08-15] MEDS: FERROUS SULFATE PO SCH ×2 (05:37→16:38)
[2018-08-15] MEDS: PRILOSEC PO SCH (05:37)
[2018-08-15] MEDS: LASIX TAB PO SCH (05:37)
[2018-08-15] MEDS: HUMULIN R SUBCUT SCH ×4 (06:24→20:49)
[2018-08-15] MEDS: SOLU-CORTEF 100 MG IVP SCH ×2 (08:37→20:48)
[2018-08-15] MEDS: LEVAQUIN 250 MG in PREMIX 50 ML D5W 1 BAG IV SCH (08:37)
[2018-08-15] MEDS: LEXAPRO PO SCH (08:38)
[2018-08-15] MEDS: CALCIUM 500 + VIT D 200 MG TABLET PO SCH (08:38)
[2018-08-15] MEDS: TRADJENTA PO SCH (08:38)
[2018-08-15] MEDS: ELIQUIS PO SCH ×2 (08:39→20:49)
[2018-08-15] MEDS: ZYLOPRIM PO SCH (08:39)
[2018-08-15] MEDS: CARDIZEM PO SCH ×2 (08:39→20:49)
[2018-08-15] MEDS: COZAAR PO SCH (08:39)
[2018-08-15] MEDS: K-DUR PO SCH ×3 (09:35→20:49)
--- NOTE | 2018-08-15 09:36 | RS.DYSPHTX ---
Dysphagia Treatment Note Date of Note: 08/15/18 Visit #: 2 Time of Treatment: 08:30 Subjective: Pt asleep when AIR PUMPER arrived. She was easily aroused with verbal and tactile cues. The RN INTERVENTIONAL was present and completed medication administration. No difficulty with swallowing pills with nectar thick liquids. The patient reported right arm pain at the level of the IV, and SOB. The patient also reported feeling tired and closed her eyes intermittently with the AIR PUMPER present. She verbalized and answered simple y/n questions upon request. No audible wheezing was noted. O2 sats maintained at 98-99 during PO intake. Total treatment time: 40 - Short Term Goals Goal #1: Pt will pace PO intake to decrease risk for aspiration. Activity/Accuracy: The AIR PUMPER assisted with feeding to increase awareness with pacing techniques. During the session the AIR PUMPER educated the patient on breathing and pacing. Goal #2: Pt will consume mechanical soft diet texture w/o overt s/s of asp. Activity/Accuracy: Not trialed this date due to pt SOB. - Jail Goals Goal #1: Pt to consume safest and least restrictive diet texture w/o asp. Assessment: The AIR PUMPER assessed the patient with current diet texture, nectar and thin liquids. ten trials of thin lqiuid were presented and pt had overt delayed cough 1x on last trial. The pt recovered immediately and o2 sats maintained at 97. The pt is still at risk for aspiration with thin lqiuids with PO intake. However, the AIR PUMPER recommends Danny free-water protocol post strict oral care between meals. The patient had no overt s/s of aspiration with puree texture. At the end of the meal pt had consuemd 50% and demonstrated overt signs of SOB. - Units Charged Swallowing Therapy: 3 - Plan Comments: Continue assessment with PO intake and breath support.
--- NOTE | 2018-08-15 10:33 | PCM.PROG ---
Attending Provider: ATTENDING PROVIDER: Dr. RANI WORTHY DATE OF SERVICE: 08/15/18 SUBJECTIVE: This 88 year old WHITE/ F was hospitalized 08/09/18 with acute bronchitis/COPD with possibility of CHF. The patient had an episode of aspiration pneumonitis. The patient's cardiovascular and respiratory status seems to have settled down and oxygen saturation more than 90 on 2L. She is in no obvious distress today but sleepy. REVIEW OF SYSTEMS: CONSTITUTIONAL: No night sweats. No fatigue, malaise, lethargy. No fever or chills. HEENT: Eyes: No visual changes. No eye pain. No eye discharge. ENT: No runny nose. No epistaxis. No sinus pain. No odynophagia. No congestion. RESPIRATORY: Mild cough and expiratory wheeze. No hemoptysis. No shortness of breath. CARDIOVASCULAR: No angina symptoms. No CHF symptoms. No atypical chest pain for CAD. No palpitations. No PND, no orthopnea.. GASTROINTESTINAL: No abdominal pain. No nausea or vomiting. No diarrhea or constipation. No hematemesis. No hematochezia. GENITOURINARY: No urgency. No frequency. No dysuria. No hematuria. No obstructive symptoms. No discharge. No pain. No significant abnormal bleeding. MUSCULOSKELETAL: No musculoskeletal pain; no joint swelling. NEUROLOGICAL: Awake, alert, oriented to time, place and person. No headache. No neck pain. No syncope. No seizures. No dizziness. PSYCHIATRIC: Not anxious. No depression. No suicidal thoughts. No homicidal thoughts. SKIN: No rash. No lesions. No wounds. ENDOCRINE: No unexplained weight loss. No weight gain. HEMATOLOGIC/LYMPHATIC: No anemia. No purpura. No petechiae. No prolonged or excessive bleeding. No palpable lymph nodes. PHYSICAL EXAMINATION: GENERAL: The patient is awake, alert and oriented, lying in bed in no obvious distress. VITAL SIGNS: Temperature 97.5 F, Pulse 119, Respiratory Rate 20, BP 143/91, Pulse Ox 96% HEENT: Head normocephalic, atraumatic. Eyes: Extraocular muscles are intact. Pupils are equal, round and reactive to light and accommodation. Ears: No lesions. Nose appeared normal. Throat: No exudate or erythema. NECK: Supple. No JVD, no carotid bruit. No lymphadenopathy or thyromegaly. LUNGS: Mild expiratory wheeze with increased diameter of the chest. Percussion note normal. Chest symmetrical. HEART: Irregular rate. S1, S2, no S3. No murmurs. No cyanosis or clubbing. No ascites. Pulses: Dorsalis pedis and posterior tibial pulses +1 to +2 both sides. ABDOMEN: Soft. Non-tender. Bowel sounds active. No CVA tenderness. No mass felt. EXTREMITIES: Trace edema. Full range of motion of all extremities, equal. NEUROLOGIC: No focal deficit. Cranial nerves II through XII are grossly intact. No headache, no double vision or headache. SKIN: Warm and dry. Intact. Turgor-normal. LYMPHATIC: No palpable lymph nodes/no lymphedema. MUSCULOSKELETAL: Normal joints with no swelling. Muscle tone is normal. LAB REVIEW: 08/15/18 05:00 08/15/18 05:00 08/15/18 05:00: WBC 7.41, RBC 3.64 L, Hgb 10.9 L, Hct 33.1 L, MCV 90.9, MCH 29.9 , MCHC 32.9, RDW Coeff of Zeeshan 13.4, Plt Count 221, Immature Gran % (Auto) 3.1, Neut % (Auto) 81.6, Lymph % (Auto) 7.7 L, [place] % (Auto) 7.2, Eos % (Auto) 0.0, Baso % (Auto) 0.4, Immature Gran # (Auto) 0.2, Neut # (Auto) 6.1, Lymph # (Auto ) 0.6, [place] # (Auto) 0.5, Eos # (Auto) 0.0, Baso # (Auto) 0.0 08/15/18 05:00: Sodium 137.7, Potassium 3.25 L, Chloride 98.7, Carbon Dioxide 31.2 H, Anion Gap 11.05, BUN 50.9 H, Creatinine 1.28, Estimated GFR (MDRD) 39.00 , BUN/Creatinine Ratio 39.76, Glucose 188.4 H, Calcium 8.86, Total Bilirubin 0.28, AST 23.1, ALT 22.6, Alkaline Phosphatase 145.1 H, Total Protein 6.06 L, Albumin 3.41 L, Globulin 2.65, Albumin/Globulin Ratio 1.28 ASSESSMENT: 1. Bronchitis/COPD seems to be under control. 2. CHF, no symptoms. 3. Renal azotemia seems to be resolving. 4. Hypokalemia - will continue potassium supplement. PLAN: 1. K-Tab 20 mEq t.i.d. 2. D/C Tran. 3. Continue Levaquin. Plan and coordination of the patient's care discussed in the presence of Confidential Investigator and nurse. CONDITION: Stable PROGNOSIS: Guarded. SCRIBED BY: LACEY VIVAR Ribbon Cleaner scribed while in presence of service performed by Dr. RANI WORTHY on 08/15/18 ([id number])
[2018-08-15] MEDS: XANAX PO SCH (20:48)
[2018-08-15] MEDS: LANTUS SUBCUT SCH (20:50)
[2018-08-16] MEDS: DUONEB NEB SCH ×2 (04:30→11:10)
[2018-08-16] MEDS: LASIX TAB PO SCH (05:44)
[2018-08-16] MEDS: FERROUS SULFATE PO SCH (05:45)
[2018-08-16] MEDS: PRILOSEC PO SCH (05:45)
[2018-08-16] MEDS: HUMULIN R SUBCUT SCH ×2 (05:48→10:44)
[2018-08-16 06:05] VITALS: BP 117/73; TEMP 97.5
[2018-08-16] MEDS: TRADJENTA PO SCH (08:33)
[2018-08-16] MEDS: ZYLOPRIM PO SCH (08:33)
[2018-08-16] MEDS: LEXAPRO PO SCH (08:33)
[2018-08-16] MEDS: ELIQUIS PO SCH (08:34)
[2018-08-16] MEDS: COZAAR PO SCH (08:34)
[2018-08-16] MEDS: CARDIZEM PO SCH (08:34)
[2018-08-16] MEDS: K-DUR PO SCH (08:34)
[2018-08-16] MEDS: CALCIUM 500 + VIT D 200 MG TABLET PO SCH (08:34)
[2018-08-16] MEDS: SOLU-CORTEF 100 MG IVP SCH (08:35)
[2018-08-16] MEDS ORDERED: LEVAQUIN PO ONE (08:42)
--- NOTE | 2018-08-16 09:36 | PCM.PROG ---
Attending Provider: ATTENDING PROVIDER: Dr. RANI WORTHY DATE OF SERVICE: 08/16/18 SUBJECTIVE: This 88 year old WHITE/ F was hospitalized 08/09/18 with sepsis from COPD/bronchitis. She also had some evidence of CHF. During the stay in the hospital, the patient had aspiration pneumonitis. She is feeling better, voice is normal now. She has no fever, no chills no PND or orthopnea. REVIEW OF SYSTEMS: CONSTITUTIONAL: No night sweats. No fatigue, malaise, lethargy. No fever or chills. HEENT: Eyes: No visual changes. No eye pain. No eye discharge. ENT: No runny nose. No epistaxis. No sinus pain. No odynophagia. No congestion. RESPIRATORY: No cough, no congestion. No hemoptysis. No shortness of breath. CARDIOVASCULAR: No angina symptoms. No CHF symptoms. No atypical chest pain for CAD. No palpitations. No orthopnea.. GASTROINTESTINAL: No abdominal pain. No nausea or vomiting. No diarrhea or constipation. No hematemesis. No hematochezia. GENITOURINARY: No urgency. No frequency. No dysuria. No hematuria. No obstructive symptoms. No discharge. No pain. No significant abnormal bleeding. MUSCULOSKELETAL: No musculoskeletal pain; no joint swelling. NEUROLOGICAL: Awake, alert, oriented to time, place and person. No headache. No neck pain. No syncope. No seizures. No dizziness. PSYCHIATRIC: Not anxious. No depression. No suicidal thoughts. No homicidal thoughts. SKIN: No rash. No lesions. No wounds. ENDOCRINE: No unexplained weight loss. No weight gain. HEMATOLOGIC/LYMPHATIC: No anemia. No purpura. No petechiae. No prolonged or excessive bleeding. No palpable lymph nodes. PHYSICAL EXAMINATION: GENERAL: The patient is awake, alert and oriented, lying/sitting in bed in no distress. VITAL SIGNS: Temperature 97.5 F, Pulse 70, Respiratory Rate 18, BP 117/73, Pulse Ox 94% HEENT: Head normocephalic, atraumatic. Eyes: Extraocular muscles are intact. Pupils are equal, round and reactive to light and accommodation. Ears: No lesions. Nose appeared normal. Throat: No exudate or erythema. NECK: Supple. No JVD, no carotid bruit. No lymphadenopathy or thyromegaly. LUNGS: Clear to auscultation. Percussion note normal. Chest symmetrical. HEART: Rate is 100/minute. S1, S2, no S3. No murmurs. No cyanosis or clubbing. No ascites. Pulses: Dorsalis pedis and posterior tibial pulses +1 to +2 both sides. ABDOMEN: Soft. Non-tender. Bowel sounds active. No CVA tenderness. No mass felt. EXTREMITIES: No edema. Full range of motion of all extremities, equal. NEUROLOGIC: No focal deficit. Cranial nerves II through XII are grossly intact. No headache, no double vision or headache. SKIN: Warm and dry. Intact. Turgor-normal. LYMPHATIC: No palpable lymph nodes/no lymphedema. MUSCULOSKELETAL: Normal joints with no swelling. Muscle tone is normal. LAB REVIEW: 08/16/18 05:00 08/16/18 05:00 08/16/18 05:00: Sodium 136.8, Potassium 4.23, Chloride 99.5, Carbon Dioxide 28.3 , Anion Gap 13.23, BUN 50.0 H, Creatinine 1.09, Estimated GFR (MDRD) 47.00, BUN/ Creatinine Ratio 45.87, Glucose 246.8 H D, Calcium 9.00, Total Bilirubin 0.32, AST 20.8, ALT 20.2, Alkaline Phosphatase 144.2 H, Total Protein 6.09 L, Albumin 3.51, Globulin 2.58, Albumin/Globulin Ratio 1.36 08/16/18 05:00: WBC 6.98, RBC 3.76 L, Hgb 11.2 L, Hct 34.7 L, MCV 92.3, MCH 29.8 , MCHC 32.3, RDW Coeff of Zeeshan 13.5, Plt Count 210, Immature Gran % (Auto) 4.0, Neut % (Auto) 80.0, Lymph % (Auto) 8.9 L, [place] % (Auto) 6.7, Eos % (Auto) 0.0, Baso % (Auto) 0.4, Immature Gran # (Auto) 0.3, Neut # (Auto) 5.6, Lymph # (Auto ) 0.6, [place] # (Auto) 0.5, Eos # (Auto) 0.0, Baso # (Auto) 0.0 ASSESSMENT: 1. Bronchitis seems to have resolved. 2. CHF controlled. 3. Atrial fibrillation with rat varying from 80 to 120/min. PLAN: 1. Discharge back to [place]. 2. She has been on 60 mg of Cardizem twice a day which should help the rate. 3. Will have Levaquin 250 mg daily for three more days p.o. 4. Prednisone 20 mg daily in the morning for 5 days. 5. Resume all medications. 6. CBC, CMP in one week. Plan and coordination of the patient's care discussed in the presence of Pump And Still Operator and nurse. CONDITION: Stable SCRIBED BY: LACEY VIVAR Bore Mill Operator For [employer] scribed while in presence of service performed by Dr. RANI WORTHY on 08/16/18 ([id number])
--- NOTE | 2018-08-16 10:52 | CM.DICTOOL ---
ADMISSION: 08/09/18 17:01 DISCHARGE: AUGUST 16, 2018 DATE OF SERVICE: 08/16/18 FINAL DIAGNOSIS ACUTE BRONCHITIS/PNEUMONIA POSSIBLE CHF HYPERTENSION RENAL AZOTEMIA COPD HYPOKALEMIA, RESOLVED ATRIAL FIB (ELIQUIS) CKD DEMENTIA ANEMIA DIABETES, TYPE 2 PVD GERD GOUT ECHOCARDIOGRAM: (MAY 2018) BORDERLINE LVH WITH LVEF 46% HYPOKINETIC INFERIOR WALL LAST VITALS Temp Pulse Resp BP Pulse Ox 97.5 F L 70 18 117/73 94 L 08/16/18 06:00 08/16/18 06:00 08/16/18 06:00 08/16/18 06:00 08/16/18 06:00 TAKE THESE MEDICATIONS AT HOME Albuterol/Ipratropium (Duoneb) 1 vial NEB RT TID [facility] Last Admin: 08/16/18 04:30 Dose: 1 vial Allopurinol (Zyloprim) 100 mg PO DAILY [facility] Last Admin: 08/16/18 08:33 Dose: 100 mg Alprazolam (Xanax) 0.25 mg PO BEDTIME [facility] Last Admin: 08/15/18 20:48 Dose: 0.25 mg Apixaban (Eliquis) 5 mg PO BID [facility] Last Admin: 08/16/18 08:34 Dose: 5 mg Calcium/Vitamin D (Calcium 500 + Vit D 200 Mg Tablet) 1 each PO DAILY [facility] Last Admin: 08/16/18 08:34 Dose: 1 each Diltiazem HCl (Cardizem) 60 mg PO Q12HR [facility] Last Admin: 08/16/18 08:34 Dose: 60 mg Escitalopram Oxalate (Lexapro) 15 mg PO DAILY [facility] Last Admin: 08/16/18 08:33 Dose: 15 mg Ferrous Sulfate (Ferrous Sulfate) 324 mg PO BIDAC [facility] Last Admin: 08/16/18 05:45 Dose: 324 mg Furosemide (Lasix Tab) 20 mg PO QDAC [facility] Last Admin: 08/16/18 05:44 Dose: 20 mg Insulin Glargine (Lantus) 15 unit SUBCUT BEDTIME [facility] Last Admin: 08/15/18 20:50 Dose: 15 unit Insulin Human Regular (Humulin R) 0 unit SUBCUT ACHS [facility]; Protocol Last Admin: 08/16/18 05:48 Dose: 4 unit Linagliptin (Tradjenta) 5 mg PO DAILY [facility] Last Admin: 08/16/18 08:33 Dose: 5 mg Losartan Potassium (Cozaar) 50 mg PO DAILY [facility] Last Admin: 08/16/18 08:34 Dose: 50 mg Nystatin (Nystop Powder) 1 applic TP TID PRN PRN Reason: skin irritation/breakdown Last Admin: 08/14/18 02:09 Dose: 1 applic Omeprazole (Prilosec) 40 mg PO QDAC [facility] Last Admin: 08/16/18 05:45 Dose: 40 mg Potassium Chloride (K-Dur) 20 meq PO DAILY [facility] Stop: 08/20/18 23:59 Last Admin: 08/16/18 08:34 Dose: 20 meq Levaquin 250 mg PO ANNALISA Daily for 3 days Last Dose is 08-19-2018 Prednisone 20 mg PO ANNALISA Daily with Meals for 5 days Last Dose is 08-21-2018 ALLERGIES Penicillins Adverse Reaction (Unknown, Verified 08/09/18 14:39) Rash adhesive tape Adverse Reaction (Verified 08/09/18 14:39) iodine Adverse Reaction (Verified 08/09/18 14:39) Iodine and Iodide Containing Produc Adverse Reaction (Verified 08/09/18 14:39) DISCONTINUED MEDICATIONS NONE MEDICATION CHANGES CHANGE CARDIZEM TO 60 MG BID NEW PRESCRIPTIONS: CARDIZEM TO 60 MG BID SMOKING: NOT APPLICABLE DISEASE SPECIFIC EDUCATION: PATIENT ALERT TO PERSON, PLACE LAB REVIEW: 08/16/18 05:00 08/16/18 05:00 08/16/18 05:00: Sodium 136.8, Potassium 4.23, Chloride 99.5, Carbon Dioxide 28.3 , Anion Gap 13.23, BUN 50.0 H, Creatinine 1.09, Estimated GFR (MDRD) 47.00, BUN/ Creatinine Ratio 45.87, Glucose 246.8 H D, Calcium 9.00, Total Bilirubin 0.32, AST 20.8, ALT 20.2, Alkaline Phosphatase 144.2 H, Total Protein 6.09 L, Albumin 3.51, Globulin 2.58, Albumin/Globulin Ratio 1.36 08/16/18 05:00: WBC 6.98, RBC 3.76 L, Hgb 11.2 L, Hct 34.7 L, MCV 92.3, MCH 29.8 , MCHC 32.3, RDW Coeff of Zeeshan 13.5, Plt Count 210, Immature Gran % (Auto) 4.0, Neut % (Auto) 80.0, Lymph % (Auto) 8.9 L, [place] % (Auto) 6.7, Eos % (Auto) 0.0, Baso % (Auto) 0.4, Immature Gran # (Auto) 0.3, Neut # (Auto) 5.6, Lymph # (Auto ) 0.6, [place] # (Auto) 0.5, Eos # (Auto) 0.0, Baso # (Auto) 0.0 PLAN: DISCHARGE TO [facility] DIET: PUREED WITH NECTAR THICK LIQUIDS RON FREE-WATER PROTOCOL WITH STRICT ORAL CARE BETWEEN MEALS SPEECH THERAPY TO EVAUATE FOR TRANSITION TO PREVIOUS DIET AND LIQUID CONSISTENCY PHYSICAL THERAPY TO EVALUATE OXYGEN PER NASAL CANNULA AT 2 LITERS CONTINUE NEB TREATMENTS INCONTINENT CARE DECUBITUS PRECAUTIONS, TURN EVERY 2 HOURS MAY BE UP TO CHAIR/DINING ROOM FOR MEALS MAY PARTICIPATE IN ACTIVITY PROGRAM VITAL SIGNS DAILY FOR 1 WEEK, THEN WEEKLY CBC, CMP IN ONE WEEK THEN EVERY 3 MONTHS A1C EVERY 3 MONTHS LIPIDS, TSH AND URIC ACID EVERY 6 MONTHS CODE STATUS: DNR PATIENT TO BE SEEN ON [facility] ROUNDS IN 7-10 DAYS BY DUONG BURGESS APRN MS. HENSLEY IS ALERT TO PERSON, PLACE. SHE IS DEPENDENT ON NURSING STAFF FOR PERSONAL CARE, TURNING AND TRANSFERS. SHE IS NOT AMBULATORY, BUT CAN TRANSFER TO THE CHAIR WITH ASSISTANCE OF 2-3 STAFF MEMBERS. SHE IS INDEPENDENT WITH FEEDING, BUT REQUIRES ASSISTANCE FOR MEAL PREPARATION. SHE IS INCONTINENT OF BOWEL AND BLADDER. MINIMAL LOWER EXTREMITY PRESENT, BILATERAL UPPER EXTREMITY DEPENDENT EDEMA NOTED. NO REDNESS NOTED TO THE LOWER EXTREMITIES. AREAS OF ECCHYMOSIS NOTED TO THE UPPER EXTREMITIES. SKIN IS INTACT EXCEPT FOR A SMALL SCABBED AREA TO THE TOP OF THE RIGHT FOOT, NO EVIDENCE OF CELLULITIS. LEN AREA AND BUTTOCKS ARE PINK DUE TO INCONTINENCE. RANI WORTHY MD
--- NOTE | 2018-08-17 12:42 | DS ---
DATE OF SERVICE: 08/16/18 FINAL DIAGNOSIS: 1. ACUTE BRONCHITIS/PNEUMONIA 2. POSSIBLE CHF 3. HYPERTENSION 4. RENAL AZOTEMIA 5. COPD 6. HYPOKALEMIA, RESOLVED 7. ATRIAL FIB (ELIQUIS) 8. CKD 9. DEMENTIA 10. ANEMIA 11. DIABETES, TYPE 2 12. PVD 13. GERD 14, GOUT ECHOCARDIOGRAM: (MAY 2018) BORDERLINE LVH WITH LVEF 46% HYPOKINETIC INFERIOR WALL LAST VITAL SIGNS: Temperature 97.5, Pulse 70, Respiratory rate 18, BP 117/73, Pulse Ox 94 DISCHARGE INSTRUCTIONS: 1. DISCHARGE TO [facility] 2. PATIENT TO BE SEEN ON LONG TERM ROUNDS IN 7-10 DAYS BY DUONG BURGESS APRN 4. SPEECH THERAPY TO EVAUATE FOR TRANSITION TO PREVIOUS DIET AND LIQUID CONSISTENCY 5. PHYSICAL THERAPY TO EVALUATE 6. OXYGEN PER NASAL CANNULA AT 2 LITERS 7. CONTINUE NEB TREATMENTS 8. INCONTINENT CARE 9. DECUBITUS PRECAUTIONS, TURN EVERY 2 HOURS 10. MAY BE UP TO CHAIR/DINING ROOM FOR MEALS 11. MAY PARTICIPATE IN ACTIVITY PROGRAM 12. VITAL SIGNS DAILY FOR 1 WEEK, THEN WEEKLY 13. CBC, CMP IN ONE WEEK THEN EVERY 3 MONTHS 14. A1C EVERY 3 MONTHS 13. LIPIDS, TSH AND URIC ACID EVERY 6 MONTHS MEDICATIONS AT DISCHARGE: Albuterol/Ipratropium (Duoneb) 1 vial NEB RT TID [facility]CLUDE 234 BEDS AT [facility] Last Admin: 08/16/18 04:30 Dose: 1 vial Allopurinol (Zyloprim) 100 mg PO DAILY [facility]CLUDE 234 BEDS AT THE [facility] Last Admin: 08/16/18 08:33 Dose: 100 mg Alprazolam (Xanax) 0.25 mg PO BEDTIME [facility]CLUDE 234 BEDS AT THE [facility] Last Admin: 08/15/18 20:48 Dose: 0.25 mg Apixaban (Eliquis) 5 mg PO BID [facility] 234 BEDS AT THE [facility] Last Admin: 08/16/18 08:34 Dose: 5 mg Calcium/Vitamin D (Calcium 500 + Vit D 200 Mg Tablet) 1 each PO DAILY [facility] 234 BEDS AT [facility] Last Admin: 08/16/18 08:34 Dose: 1 each Diltiazem HCl (Cardizem) 60 mg PO Q12HR [facility] 234 BEDS AT THE [facility] Last Admin: 08/16/18 08:34 Dose: 60 mg Escitalopram Oxalate (Lexapro) 15 mg PO DAILY [facility] 234 BEDS AT [facility] Last Admin: 08/16/18 08:33 Dose: 15 mg Ferrous Sulfate (Ferrous Sulfate) 324 mg PO BIDAC [facility]CLUDE 234 BEDS AT THE [facility] Last Admin: 08/16/18 05:45 Dose: 324 mg Furosemide (Lasix Tab) 20 mg PO QDAC [facility] 234 BEDS AT [facility] Last Admin: 08/16/18 05:44 Dose: 20 mg Insulin Glargine (Lantus) 15 unit SUBCUT BEDTIME [facility] 234 BEDS AT [facility] Last Admin: 08/15/18 20:50 Dose: 15 unit Insulin Human Regular (Humulin R) 0 unit SUBCUT ACHS [facility]CLUDE 234 BEDS AT THE [facility]; Protocol Last Admin: 08/16/18 05:48 Dose: 4 unit Linagliptin (Tradjenta) 5 mg PO DAILY [facility] 234 BEDS AT [facility] Last Admin: 08/16/18 08:33 Dose: 5 mg Losartan Potassium (Cozaar) 50 mg PO DAILY [facility] 234 BEDS AT [facility] Last Admin: 08/16/18 08:34 Dose: 50 mg Nystatin (Nystop Powder) 1 applic TP TID PRN PRN Reason: skin irritation/breakdown Last Admin: 08/14/18 02:09 Dose: 1 applic Omeprazole (Prilosec) 40 mg PO QDAC [facility] 234 BEDS AT [facility] Last Admin: 08/16/18 05:45 Dose: 40 mg Potassium Chloride (K-Dur) 20 meq PO DAILY [facility] 234 BEDS AT THE [facility] Stop: 08/20/18 23:59 Last Admin: 08/16/18 08:34 Dose: 20 meq Levaquin 250 mg PO [facility]S [facility]CLUDE 234 BEDS AT THE [facility] Daily for 3 days Last Dose is 08-19-2018 Prednisone 20 mg PO ANNALISA Daily with Meals for 5 days Last Dose is 08-21-2018 NEW PRESCRIPTIONS: CARDIZEM TO 60 MG BID K-DUR 20 MEQ DAILY [facility] 250 MG DAILY FOR 3 DAYS PREDNISONE 20 MG DAILY WITH MEALS FOR 5 DAYS MEDICATION CHANGES: CHANGE CARDIZEM TO 60 MG BID DISCONTINUED MEDICATIONS: NONE DIET INSTRUCTIONS: PUREED WITH NECTAR THICK LIQUIDS RON FREE-WATER PROTOCOL WITH STRICT ORAL CARE BETWEEN MEALS ACTIVITY: As patient tolerates. SMOKING: N/A DISEASE SPECIFIC EDUCATION: THE PATIENT IS ALERT TO PERSON AND PLACE. HOSPITAL COURSE: 88-year-old white female hospitalized with acute bronchitis, COPD and possibility of mild CHF. The patient's condition improved with antibiotics, steroids, IV Lasix. During the stay in the hospital she aspirated, became decompensated for a few hours and then she recovered again without much problem at time of discharge. The patient's appetite has improved. She doesn't like to be on pureed diet. Until she has speech therapy evaluation, she will be on pureed diet. She usually doesn't have any problem swallowing. Appetite is really good. At time of discharge, the patient is feeling a lot better with no fever, no chills, no PND, no orthopnea. No symptoms of coronary insufficiency. Her blood pressure was well-controlled. Her heart rate with atrial fibrillation is close to 80 to 100 per minute. Cardizem dose has been increased. Condition at time of discharge is stable. Prognosis guarded to poor. TIME SPENT: More than 60 minutes. MTDD
--- NOTE | 2018-08-17 12:44 | PN ---
BILLING 08/09/18 ADMISSION DAY LEVEL 5 08/10/18 INTERMEDIATE 08/11/18 INTERMEDIATE 08/12/18 INTERMEDIATE 08/13/18 INTERMEDIATE 08/14/18 INTERMEDIATE 08/15/18 INTERMEDIATE 08/16/18 DISCHARGE MTDD
== END 2018-08-16 12:40 | DRG 202 ==
LOC: ED 14:33 → MEDSURG B 17:01
PROVIDERS: ADMIT Internal Medicine; ATTEND Internal Medicine
DX: J20.9 Acute bronchitis, unspecified (principal); J18.9 Pneumonia, unspecified organism; J44.1 Chronic obstructive pulmonary disease with (acute) exacerbation; I50.9 Heart failure, unspecified; I10 Essential (primary) hypertension; I48.91 Unspecified atrial fibrillation; I73.9 Peripheral vascular disease, unspecified; E87.6 Hypokalemia; E11.9 Type 2 diabetes mellitus without complications; E66.01 Morbid (severe) obesity due to excess calories; N18.9 Chronic kidney disease, unspecified; F03.90 Unspecified dementia, unspecified severity, without behavioral disturbance, psychotic disturbance, mood disturbance, and anxiety; D64.9 Anemia, unspecified; K21.9 Gastro-esophageal reflux disease without esophagitis; M25.40 Effusion, unspecified joint; M10.9 Gout, unspecified; R79.89 Other specified abnormal findings of blood chemistry; R06.02 Shortness of breath; R06.00 Dyspnea, unspecified; R53.1 Weakness; R06.2 Wheezing; Z79.01 Long term (current) use of anticoagulants
CPT/HCPCS: 36415; 80053; 81001; 82803; 82962; 83605; 83880; 84145; 84484; 85025; 87040; 87081; 87086; 93005; 93010; 94640; 96374; 99284

== ENCOUNTER 2018-08-22 15:28 | Outpatient (CLI) | END 2018-08-22 15:29 | disposition home or self-care (01) | LOC: NONPT 15:28 | PROVIDERS: ATTEND Internal Medicine | DX: M10.9 Gout, unspecified (principal) | CPT/HCPCS: 84550 ==

== ENCOUNTER 2018-09-04 19:18 | Outpatient (CLI) ==
[2018-09-04 19:36] VITALS: BMI 38.6
== END 2018-09-04 19:24 | disposition critical access hospital (66) ==
LOC: AMBL 19:18
PROVIDERS: ATTEND Family Medicine
DX: M25.511 Pain in right shoulder (principal); W06.XXXA Fall from bed, initial encounter; Y92.122 Bedroom in nursing home as the place of occurrence of the external cause; Z99.81 Dependence on supplemental oxygen

== ENCOUNTER 2018-09-04 19:24 | Emergency (ER) ==
[2018-09-04 19:36] VITALS: BP 164/81; TEMP 97.9; BMI 38.6
--- NOTE | 2018-09-04 20:52 | CT ---
CT cervical spine without contrast HISTORY: Fall TECHNIQUE: CT of the cervical spine with multiplanar reformations. FINDINGS: Vertebral body height is maintained. Degenerative anterior listhesis of C3 measuring 3 mm . Normal alignment otherwise. Multilevel bone on bone disc space narrowing with endplate spondylosi s. Moderate central canal narrowing at C3-4 from posterior disc endplate changes. There is a underl cam large canal. Multilevel foraminal stenosis of varying severity. No fracture seen on the axial or reformatted images. No acute surrounding soft tissue abnormalitites. Right pleural fluid incident ally noted. IMPRESSION: No acute findings in the cervical spine.
--- NOTE | 2018-09-04 20:52 | CT ---
EXAM: CT scan of the chest without contrast HISTORY: Fall TECHNIQUE: Helical imaging of the chest was performed without contrast. 5 mm thin axial images and coronal and sagittal reconstructions were provided for interpretation. FINDINGS: The heart is normal size. There is a small right pleural effusion. No mediastinal abnorm alities are seen. There is atherosclerotic calcification of the thoracic aorta. There is severe art hritis of the right shoulder. The osseous structures appear within normal limits. IMPRESSION: No acute traumatic abnormalities are seen within the thorax. Small right pleural effusion.
--- NOTE | 2018-09-04 20:55 | CT ---
Exam: CT of the right shoulder without contrast History: Trauma and pain Technique: [address] of the right shoulder with multiplanar reformations FINDINGS: Advanced osteoarthritic change of the glenohumeral joint with bone on bone and joint surfa ce expansion with cystic changes. Osteoarthritic enlargement of the acromioclavicular joint is sever e. No fracture lines are seen. No large joint effusion. The scapula is intact. The adjacent chest wall appears intact. Incidental right pleural fluid. Impression: 1. 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 No acute bony or articular abnormalities are seen.
--- NOTE | 2018-09-04 20:56 | CT ---
Exam: CT of the brain without intravenous contrast. Comparison: 07/12/2018. Reason for exam: Fall. FINDINGS: No acute intracranial hemorrhage, mass effect, or territorial infarction. The quadrigemin al and ambient cisterns appear patent. There is no extraaxial fluid collection seen on the exam. Pa renchymal changes seen consistent with chronic microvascular disease and age related atrophy. Irregu larly marginated calcifications are seen adjacent to the C2 vertebral body on the left. Please see C T examination of the cervical spine for further characterization. No depressed calvarial fracture is seen. Impression: 1. No acute intracranial findings. 2. Parenchymal change consistent with chronic microvascular disease and age related atrophy. 3. Calcifications adjacent to the C2 vertebral body. Please see CT cervical spine for further brianda cterization
--- NOTE | 2018-09-04 21:11 | ED.PDOC ---
General ED Provider: Dr. JANAK LYNN-ER Chief Complaint: Fall Stated Complaint: she fell out of chair Time Seen by Physician: 19:30 Mode of Arrival: Ambulance Information Source: Patient, Family, Fdc, EMT Exam Limitations: Dementia Primary Care Provider: RANI WORTHY Nursing and Triage Documentation Reviewed and Agree: Yes Does patient meet sepsis criteria?: No System Inflammatory Response Syndrome: Not Applicable Sepsis Protocol: For patient's 13 years and over: Temp is 96.8 and below OR 101 and greater Pulse >90 BPM Resp >20/minute Acutely Altered Mental Status Are patient's symptoms suggestive of a new infection, such as: -Pneumonia -Skin, Soft Tissue -Endocarditis -UTI -Bone, Joint Infection -Implantable Device -Acute Abdominal Infection -Wound Infection -Meningitis -Blood Stream Catheter Infection -Unknown Trauma/Injury Complaint Exam - Head Injury Complaint/Exam Location of Pain: Reports: Scalp Mechanism of Injury: Reports: Trauma Onset/Duration: one hour Symptoms Are: Still present Initial Severity: Moderate Character: Reports: Dull Aggravating: Reports: None Alleviating: Reports: None Associated Signs and Symptoms: Denies: Confusion, Memory loss, Seizure, Epistaxis, Dental malocclusion, Neck pain, Nausea, Vomiting Loss of Consciousness: None Cervical Spine Injury Risk Factors: Present: None C-Collar in Place: yes Immobilization Removed Post Exam: No Head Injury Findings: Present: Normal findings Focal Weakness: Present: None Focal Sensory Loss: Present: None Gag Reflex Present: Yes Finger to Nose: Normal Rhomberg Test Positive: No Babinski Sign: Negative Right, Negative Left Differential Diagnoses: Cervical Fracture, Trauma Review of Systems - Review Of Systems Constitutional: Reports: No symptoms Eyes: Reports: No symptoms Ears, Nose, Mouth, Throat: Reports: No symptoms Respiratory: Reports: No symptoms Cardiac: Reports: No symptoms GI: Reports: No symptoms : Reports: No symptoms Musculoskeletal: Reports: No symptoms Skin: Reports: No symptoms Neurological: Reports: No symptoms Endocrine: Reports: No symptoms Hematologic/Lymphatic: Reports: No symptoms All Other Systems: Reviewed and Negative Past Medical History - Past Medical History Previously Healthy: No Endocrine: Reports: Unknown Cardiovascular: Reports: Unknown Respiratory: Reports: Unknown Hematological: Reports: Unknown Gastrointestinal: Reports: Unknown Genitourinary: Reports: Unknown Neuro/Psych: Reports: Unknown Musculoskeletal: Reports: Unknown Cancer: Reports: Unknown Last Menstrual Period: none - Surgical History General Surgical History: Reports: Unknown - Family History Family History: Reports: Unknown - Social History Smoking Status: Former smoker Hx Substance Use: No Alcohol Screening: None - Immunizations Influenza Vaccine within 12 Months: Yes Pneumococcal Vaccine up to Date: Yes Physical Exam - Physical Exam Appearance: Well-appearing, No pain distress, Well-nourished Eyes: RICKEY, EOMI, Conjunctiva clear ENT: Ears normal, Nose normal, Oropharynx normal Neck: Supple Respiratory: Airway patent Cardiovascular: RRR, Pulses normal, No rub, No murmur GI/: Soft, Nontender, No masses, Bowel sounds normal, No Organomegaly Musculoskeletal: Normal strength, ROM intact, No edema, No calf tenderness Skin: Warm Neurological: Sensation intact, Motor intact, Reflexes intact, Cranial nerves intact, Alert, Oriented Psychiatric: Affect appropriate, Mood appropriate Interpretation - Radiology Interpretation Radiology Interpretation By: ED Physician Radiology Results: Negative Exam Interpreted: CT Scan Critical Care Note - Critical Care Note Total Time (mins): 0 Course - Course Orders, Labs, Meds: Orders Category Date Time Status CT CERVICAL SPINE W/O CONTRAST Stat RADS 09/04/18 19:[address] CHEST W/O CONTRAST Stat RADS 09/04/18 19:[address] HEAD W/O CONTRAST Stat RADS 09/04/18 19:[address] SHOULDER RIGHT W/O CONTRAST Stat RADS 09/04/18 19:26 Completed Vital Signs: Temp Pulse Resp BP Pulse Ox 09/04/18 19:25 97.9 F 79 20 164/81 H 93 L Departure - Departure Time of Disposition: 21:11 Disposition: HOME SELF-CARE Discharge Problem: Falls Instructions: Fall Prevention for Older Adults (ED), Fall Prevention (ED) Condition: Stable Pt referred to PMD for follow-up: Yes IPMP verified?: No Additional Instructions: fall precautions Allergies/Adverse Reactions: Allergies Penicillins Adverse Reaction (Unknown, Verified 08/09/18 14:39) Rash adhesive tape Adverse Reaction (Verified 08/09/18 14:39) iodine Adverse Reaction (Verified 08/09/18 14:39) Iodine and Iodide Containing Produc Adverse Reaction (Verified 08/09/18 14:39) Home Medications: Ambulatory Orders Furosemide 20 mg PO DAILY 07/22/13 Losartan Potassium 50 mg PO DAILY 08/30/15 Allopurinol 100 mg PO DAILY #30 tablet 11/05/15 Alprazolam 0.25 mg PO BEDTIME 02/14/17 Escitalopram Oxalate [Lexapro] 10 mg PO DAILY 02/14/17 Ferrous Sulfate [Iron] 325 mg PO BID 02/14/17 Escitalopram Oxalate [Lexapro] 5 mg PO DAILY 02/15/17 Calcium Carbonate/Vitamin D3 [Calcium 600 + Vit D 400 Tablet] 1 each PO DAILY Insulin Glargine,Hum.rec.anlog [Lantus] 15 unit SUBCUT BEDTIME 05/15/18 Insulin Regular, Human [Novolin R] See Protocol IJ ACHS 05/15/18 Apixaban [Eliquis] 5 mg PO BID 08/09/18 Ipratropium/Albuterol Sulfate [Iprat-Albut 0.5-3(2.5) mg/3 ml] 3 ml INH TID Linagliptin [Tradjenta] 5 mg PO DAILY 08/09/18 Omeprazole 40 mg PO DAILY 08/09/18 Diltiazem HCl [Cardizem] 60 mg PO Q12HR #60 tablet 08/16/18 Potassium Chloride [K-Dur] 20 meq PO DAILY 30 Days tab 08/16/18 Acetaminophen [Tylenol] 650 mg PO Q4H PRN 09/04/18 Disposition Discussed With: Family
== END 2018-09-04 22:11 | disposition home or self-care (01) ==
LOC: ED 19:24
DX: S09.90XA Unspecified injury of head, initial encounter (principal); R29.6 Repeated falls; W07.XXXA Fall from chair, initial encounter
CPT/HCPCS: 99282; 99283

== ENCOUNTER 2018-10-06 15:30 | Outpatient (CLI) | END 2018-10-06 15:31 | disposition home or self-care (01) | LOC: LAB 15:30 | PROVIDERS: ATTEND Nurse Practitioner Family | DX: R30.0 Dysuria (principal); R41.0 Disorientation, unspecified; R82.90 Unspecified abnormal findings in urine | CPT/HCPCS: 36415; 80053; 81001; 85025; 87086; 87186 ==

== ENCOUNTER 2018-11-19 04:03 | Inpatient (IN) ==
[2018-11-19] MEDS ORDERED: URO-JET MUCOUSMEMB STA (04:16)
--- NOTE | 2018-11-19 04:38 | ED.PDOC ---
General ED Provider: Dr. JANAK LYNN-ER Chief Complaint: Weakness Stated Complaint: sent from ct for weakness, shaking all over and low oxygen sat Time Seen by Physician: 04:10 Mode of Arrival: Ambulance Information Source: EMT Exam Limitations: Dementia Primary Care Provider: RANI WORTHY Nursing and Triage Documentation Reviewed and Agree: Yes Does patient meet sepsis criteria?: No System Inflammatory Response Syndrome: Not Applicable Sepsis Protocol: For patient's 13 years and over: Temp is 96.8 and below OR 101 and greater Pulse >90 BPM Resp >20/minute Acutely Altered Mental Status Are patient's symptoms suggestive of a new infection, such as: -Pneumonia -Skin, Soft Tissue -Endocarditis -UTI -Bone, Joint Infection -Implantable Device -Acute Abdominal Infection -Wound Infection -Meningitis -Blood Stream Catheter Infection -Unknown Respiratory Complaint Exam - Respiratory Complaint/Exam Onset/Duration: several minutes Symptoms Are: Resolved Initial Severity: Mild Current Severity: None Alleviating: Reports: Spontaneous resolution Associated Signs and Symptoms: Denies: Rapid breathing, Dyspnea, Fever, Chills, Chest pain, Pleuritic chest pain, Wheezing, Hemoptysis, Dizziness, Calf pain, Calf swelling, Edema, URI, Nasal congestion, Hoarseness, Sinus discomfort, Vomiting, Sore throat, Weight loss, Decreased oral intake, Increased thirst, Increased appetite, Increased urination Home Oxygen Use: No Recent Stress Test: No Recent Echo/LV Function: No Current Antibiotic Use: No Current Asthma Medication Use: No Respiratory Distress: None Inadequate Respiratory Effort: No Dysphagia Present: No Stridor Present: No Retractions: Not Present Diminished Breath Sounds: No Sinus Tenderness: None Grunting Respirations: No Kussmaul Respirations: No Differential Diagnoses: CHF, Pulmonary Edema, Pneumonia Non-Traumatic Chest Pain Syncope: EKG Performed Review of Systems - Review Of Systems Constitutional: Reports: No symptoms Eyes: Reports: No symptoms Ears, Nose, Mouth, Throat: Reports: No symptoms Respiratory: Reports: No symptoms Cardiac: Reports: No symptoms GI: Reports: No symptoms : Reports: No symptoms Musculoskeletal: Reports: No symptoms Skin: Reports: No symptoms Neurological: Reports: No symptoms Endocrine: Reports: No symptoms Hematologic/Lymphatic: Reports: No symptoms All Other Systems: Reviewed and Negative Past Medical History - Past Medical History Previously Healthy: No Endocrine: Reports: Unknown Cardiovascular: Reports: Unknown Respiratory: Reports: Unknown Hematological: Reports: Unknown Gastrointestinal: Reports: Unknown Genitourinary: Reports: Unknown Neuro/Psych: Reports: Unknown Musculoskeletal: Reports: Unknown Cancer: Reports: Unknown Last Menstrual Period: MENOPAUSAL/HYSTERECTOMY - Surgical History General Surgical History: Reports: Unknown - Family History Family History: Reports: Unknown - Social History Smoking Status: Former smoker Hx Substance Use: No Alcohol Screening: None - Immunizations Tetanus Shot up to Date: (UNKNOWN) Influenza Vaccine within 12 Months: Yes Pneumococcal Vaccine up to Date: Yes Physical Exam - Physical Exam Appearance: Well-appearing, No pain distress, Well-nourished Eyes: RICKEY, EOMI, Conjunctiva clear ENT: Ears normal, Nose normal, Oropharynx normal Neck: Supple Respiratory: Airway patent, Breath sounds clear, Breath sounds equal, Respirations nonlabored Cardiovascular: RRR, Pulses normal, No rub, No murmur GI/: Soft, Nontender, No masses, Bowel sounds normal, No Organomegaly Musculoskeletal: Normal strength, ROM intact, No edema, No calf tenderness Skin: Warm, Dry, Normal color Neurological: Sensation intact, Motor intact, Reflexes intact, Cranial nerves intact, Alert, Oriented Psychiatric: Affect appropriate, Mood appropriate Interpretation - Radiology Interpretation Radiology Interpretation By: Radiologist Radiology Results: Positive Exam Interpreted: CT Scan - EKG Interpretation Time of EKG #1: 04:38 Rate: Tachy Rhythm: Other Ectopy: None [place]: NL ST Segment: Normal Interpretation: afib Re-Evaluation - Re-Evaluation Time of Re-Evaluation: 05:37 Status: Improved Vital Signs Stable: Yes Pain Level: 0 Appearance: NAD Lungs: Clear Skin: Warm and Dry Neuro: Alert and Oriented X3 CV: RRR Critical Care Note - Critical Care Note Total Time (mins): 30 Course - Course Hematology/Chemistry: 11/19/18 04:25 11/19/18 04:25 Orders, Labs, Meds: Lab Review 11/19/18 11/19/18 11/19/18 04:11 04:25 04:25 WBC 8.27 RBC 3.71 L Hgb 11.1 L Hct 34.6 L MCV 93.3 MCH 29.9 MCHC 32.1 RDW Coeff of Zeeshan 14.8 Plt Count 148 Immature Gran % (Auto) 0.2 Neut % (Auto) 89.4 Lymph % (Auto) 4.2 L [place] % (Auto) 5.2 Eos % (Auto) 1.0 Baso % (Auto) 0.0 Immature Gran # (Auto) 0.0 Neut # (Auto) 7.4 H Lymph # (Auto) 0.4 L [place] # (Auto) 0.4 Eos # (Auto) 0.1 Baso # (Auto) 0.0 Puncture Site Rbrach O2 Saturation 84.0 L ABG pH 7.403 ABG pCO2 34.7 L ABG pO2 48.0 L* ABG HCO3 21.7 L ABG Total CO2 23 ABG Base Excess -3 L Trent Test + FiO2 % 21.0 Sodium 143.3 Potassium 4.46 Chloride 105.7 Carbon Dioxide 24.2 Anion Gap 17.86 BUN 28.5 H Creatinine 1.55 H Estimated GFR (MDRD) 31.00 BUN/Creatinine Ratio 18.38 Glucose 92.2 Calcium 8.88 Total Bilirubin 0.45 AST 20.2 ALT 11.7 Alkaline Phosphatase 113.3 NT-Pro-B Natriuret Pep Total Protein 6.63 Albumin 3.77 Globulin 2.86 Albumin/Globulin Ratio 1.31 Urine Color Urine Clarity Urine pH Ur Specific Mio Urine Protein Urine Glucose (UA) Urine Ketones Urine Blood Urine Nitrite Urine Bilirubin Urine Urobilinogen Ur Leukocyte Esterase Urine Microscopic RBC Urine Microscopic WBC Ur Squamous Epith Cells Urine Bacteria Urine Mucus 11/19/18 11/19/18 04:25 05:15 WBC RBC Hgb Hct MCV MCH MCHC RDW Coeff of Zeeshan Plt Count Immature Gran % (Auto) Neut % (Auto) Lymph % (Auto) [place] % (Auto) Eos % (Auto) Baso % (Auto) Immature Gran # (Auto) Neut # (Auto) Lymph # (Auto) [place] # (Auto) Eos # (Auto) Baso # (Auto) Puncture Site O2 Saturation ABG pH ABG pCO2 ABG pO2 ABG HCO3 ABG Total CO2 ABG Base Excess Trent Test FiO2 % Sodium Potassium Chloride Carbon Dioxide Anion Gap BUN Creatinine Estimated GFR (MDRD) BUN/Creatinine Ratio Glucose Calcium Total Bilirubin AST ALT Alkaline Phosphatase NT-Pro-B Natriuret Pep 4360.000 H Total Protein Albumin Globulin Albumin/Globulin Ratio Urine Color Yellow Urine Clarity Clear Urine pH 5.5 Ur Specific Mio 1.010 Urine Protein Trace Urine Glucose (UA) Negative Urine Ketones Negative Urine Blood Trace-intact Urine Nitrite Positive Urine Bilirubin Negative Urine Urobilinogen 0.2 Ur Leukocyte Esterase Trace Urine Microscopic RBC 10-20 Urine Microscopic WBC 5-10 Ur Squamous Epith Cells Not present Urine Bacteria 3+ Urine Mucus 2+ Orders Category Date Time Status ABG DRAW REQUEST Stat CARDIO 11/19/18 04:12 Completed EKG-(ED ONLY) Stat CARDIO 11/19/18 04:12 Completed Catheter [ED CATHETER INSERTION AND CARE] .ONCE EMERGENCY 11/19/18 04:16 Active ED FRENCH BINDER APPLIED .ONCE EMERGENCY 11/19/18 04:12 Active ED IV/MEDIPORT/POWERPORT .ONCE EMERGENCY 11/19/18 04:12 Active ABG Stat LAB 11/19/18 04:11 Completed BLOOD CULTURE (ED ONLY) Stat LAB 11/19/18 04:25 Received CBC W/ AUTO DIFF Stat LAB 11/19/18 04:25 Completed COMPREHENSIVE METABOLIC PANEL Stat LAB 11/19/18 04:25 Completed PRO-BNP [NT-PROBNP] Stat LAB 11/19/18 04:25 Completed URINALYSIS C & S IF INDICATED Stat LAB 11/19/18 05:15 Completed URINE CULTURE Stat LAB 11/19/18 05:15 Received 0.9 % Sodium Chloride [Saline Flush] MEDS 11/19/18 04:11 Ordered 1 syr IVF PRN PRN Bumetanide [Bumex] MEDS 11/19/18 05:15 Discontinued 1 mg IVP ONCE STA Lidocaine HCl [Uro-Jet] MEDS 11/19/18 04:16 Discontinued 10 ml [id number] ONCE STA CT CHEST W/O CONTRAST Stat RADS 11/19/18 04:13 Completed Medications Generic Name Dose Route Start Last Admin Trade Name Freq PRN Reason Stop Dose Admin Sodium Chloride 1 syr 11/19/18 04:11 Saline Flush IVF PRN PRN To flush IV Discontinued Medications Generic Name Dose Route Start Last Admin Trade Name Freq PRN Reason Stop Dose Admin Bumetanide 1 mg 11/19/18 05:15 Bumex IVP 11/19/18 05:16 ONCE STA Lidocaine HCl 10 ml 11/19/18 04:16 Uro-Jet [id number] 11/19/18 04:17 ONCE STA Vital Signs: Temp Pulse Resp BP Pulse Ox 11/19/18 04:04 98 F 101 H 24 122/63 96 Departure - Departure Time of Disposition: 05:38 Disposition: ADMITTED INPATIENT Discharge Problem: Acute respiratory failure Qualifiers: Respiratory failure complication: hypoxia Qualified Code(s): J96.01 - Acute respiratory failure with hypoxia UTI (urinary tract infection) Qualifiers: Urinary tract infection type: site unspecified Hematuria presence: without hematuria Qualified Code(s): N39.0 - Urinary tract infection, site not specified Instructions: Acute Respiratory Failure (ED) Condition: Stable Pt referred to PMD for follow-up: Yes IPMP verified?: No Allergies/Adverse Reactions: Allergies Penicillins Adverse Reaction (Unknown, Verified 11/19/18 04:14) Rash adhesive tape Adverse Reaction (Verified 11/19/18 04:14) iodine Adverse Reaction (Verified 11/19/18 04:14) Iodine and Iodide Containing Produc Adverse Reaction (Verified 11/19/18 04:14) Home Medications: Ambulatory Orders Furosemide 20 mg PO DAILY 07/22/13 Losartan Potassium 50 mg PO DAILY 08/30/15 Allopurinol 100 mg PO DAILY #30 tablet 11/05/15 Escitalopram Oxalate [Lexapro] 10 mg PO DAILY 02/14/17 Ferrous Sulfate [Iron] 325 mg PO BID 02/14/17 Escitalopram Oxalate [Lexapro] 5 mg PO DAILY 02/15/17 Calcium Carbonate/Vitamin D3 [Calcium 600 + Vit D 400 Tablet] 1 each PO DAILY Insulin Glargine,Hum.rec.anlog [Lantus] 15 unit SUBCUT BEDTIME 05/15/18 Insulin Regular, Human [Novolin R] See Protocol IJ ACHS 05/15/18 Apixaban [Eliquis] 5 mg PO BID 08/09/18 Ipratropium/Albuterol Sulfate [Iprat-Albut 0.5-3(2.5) mg/3 ml] 3 ml INH TID Linagliptin [Tradjenta] 5 mg PO DAILY 08/09/18 Omeprazole 40 mg PO DAILY 08/09/18 Diltiazem HCl [Cardizem] 60 mg PO Q12HR #60 tablet 08/16/18 Potassium Chloride [K-Dur] 20 meq PO DAILY 30 Days tab 08/16/18 Acetaminophen [Tylenol] 650 mg PO Q4H PRN 09/04/18 Lorazepam [Ativan] 1 mg PO DAILY PRN 11/19/18 Quetiapine Fumarate [Seroquel] 0.5 mg PO BEDTIME 11/19/18 Disposition Discussed With: Patient, Family
--- NOTE | 2018-11-19 05:11 | CT ---
EXAM: CT chest without contrast. HISTORY: Dyspnea. PROCEDURE: Contiguous axial CT images of the chest without contrast with coronal and sagittal reform ats. FINDINGS: The heart is enlarged. The thoracic aorta is within normal limits in diameter. There are atherosclerotic calcifications in the thoracic aorta. There are coronary artery calcifications. The re are bilateral infiltrates and consolidation, consistent with pneumonia. There are small layering bilateral pleural effusions. There are degenerative changes in the spine. There is a small hiatal h ernia. Impression: Bilateral infiltrates and consolidation, consistent with pneumonia. Small bilateral pleural effusions. Cardiomegaly. Atherosclerotic vascular disease.
[2018-11-19] MEDS ORDERED: BUMEX IVP STA (05:15)
[2018-11-19] MEDS ORDERED: VANCOMYCIN 1 GM in SODIUM CHLORIDE 250 ML IV STA (05:43)
[2018-11-19] MEDS ORDERED: TYLENOL PO PRN (05:45)
[2018-11-19] MEDS ORDERED: ATIVAN PO PRN (05:45)
[2018-11-19] MEDS: PRILOSEC PO SCH (06:53)
[2018-11-19 07:45] VITALS: BMI 14.9
[2018-11-19] MEDS ORDERED: BUMEX IVP SCH (09:00)
[2018-11-19] MEDS ORDERED: COZAAR PO SCH (09:00)
[2018-11-19] MEDS ORDERED: ELIQUIS PO SCH (09:00)
[2018-11-19] MEDS ORDERED: NON-FORMULARY MEDICATION (Ferrous Sulfate [Iron] 325 MG) PO SCH (09:00)
[2018-11-19] MEDS ORDERED: NON-FORMULARY MEDICATION (Escitalopram Oxalate [Lexapro] 5 MG) PO SCH (09:00)
--- NOTE | 2018-11-19 09:05 | PCM.PROG ---
Attending Provider: ATTENDING PROVIDER: Dr. RANI WORTHY This patient is seen with Jovanna Pleitez, Nurse Practitioner. DATE OF SERVICE: 11/19/18 SUBJECTIVE: This 88 year old WHITE/ F was hospitalized 11/19/18. The patient is resting comfortably. She is sating at 96% with O2. She has a low grade temperature this morning. The patient is confused as usual. REVIEW OF SYSTEMS: CONSTITUTIONAL: No night sweats. No fatigue, malaise, lethargy. No fever or chills. HEENT: Eyes: No visual changes. No eye pain. No eye discharge. ENT: No runny nose. No epistaxis. No sinus pain. No odynophagia. No congestion. RESPIRATORY: Cough, no congestion. No hemoptysis. No shortness of breath. CARDIOVASCULAR: No angina symptoms. No CHF symptoms. No atypical chest pain for CAD. No palpitations. No orthopnea.. GASTROINTESTINAL: No abdominal pain. No nausea or vomiting. No diarrhea or constipation. No hematemesis. No hematochezia. GENITOURINARY: No urgency. No frequency. No dysuria. No hematuria. No obstructive symptoms. No discharge. No pain. No significant abnormal bleeding. MUSCULOSKELETAL: No musculoskeletal pain; no joint swelling. Weakness. NEUROLOGICAL: Awake and confused. No headache. No neck pain. No syncope. No seizures. No dizziness. PSYCHIATRIC: Not anxious. No depression. No suicidal thoughts. No homicidal thoughts. SKIN: No rash. No lesions. No wounds. ENDOCRINE: No unexplained weight loss. No weight gain. HEMATOLOGIC/LYMPHATIC: No anemia. No purpura. No petechiae. No prolonged or excessive bleeding. No palpable lymph nodes. PHYSICAL EXAMINATION: GENERAL: The patient is lying in bed in no distress. VITAL SIGNS: Temperature 97.7 F, Pulse 90, Respiratory Rate 24, BP 97/56, Pulse Ox 97% HEENT: Head normocephalic, atraumatic. Eyes: Extraocular muscles are intact. Pupils are equal, round and reactive to light and accommodation. Ears: No lesions. Nose appeared normal. Throat: No exudate or erythema. NECK: Supple. No JVD, no carotid bruit. No lymphadenopathy or thyromegaly. LUNGS: Decreased breath sounds. Clear to auscultation. Percussion note normal. Chest symmetrical. HEART: S1, S2, no S3. No murmurs. No cyanosis or clubbing. No ascites. Pulses: Dorsalis pedis and posterior tibial pulses +1 to +2 both sides. ABDOMEN: Soft. Non-tender. Bowel sounds active. No CVA tenderness. No mass felt. EXTREMITIES: Trace bilateral leg edema. Full range of motion of all extremities, equal. NEUROLOGIC: No focal deficit. Cranial nerves II through XII are grossly intact. No headache, no double vision or headache. SKIN: Not dry. Intact. Turgor-normal. LYMPHATIC: No palpable lymph nodes/no lymphedema. MUSCULOSKELETAL: Normal joints with no swelling. Muscle tone is normal. LAB REVIEW: 11/19/18 04:25 11/19/18 04:25 11/19/18 05:15: Urine Color Yellow, Urine Clarity Clear, Urine pH 5.5, Ur Specific [place] 1.010, Urine Protein Trace, Urine Glucose (UA) Negative, Urine Ketones Negative, Urine Blood Trace-intact, Urine Nitrite Positive, Urine Bilirubin Negative, Urine Urobilinogen 0.2, Ur Leukocyte Esterase Trace, Urine Microscopic RBC 10-20, Urine Microscopic WBC 5-10, Ur Squamous Epith Cells Not present, Urine Bacteria 3+, Urine Mucus 2+ 11/19/18 04:25: NT-Pro-B Natriuret Pep 4360.000 H 11/19/18 04:25: Sodium 143.3, Potassium 4.46, Chloride 105.7, Carbon Dioxide 24.2, Anion Gap 17.86, BUN 28.5 H, Creatinine 1.55 H, Estimated GFR (MDRD) 31.00 , BUN/Creatinine Ratio 18.38, Glucose 92.2, Calcium 8.88, Total Bilirubin 0.45, AST 20.2, ALT 11.7, Alkaline Phosphatase 113.3, Total Protein 6.63, Albumin 3.77 , Globulin 2.86, Albumin/Globulin Ratio 1.31 11/19/18 04:25: WBC 8.27, RBC 3.71 L, Hgb 11.1 L, Hct 34.6 L, MCV 93.3, MCH 29.9 , MCHC 32.1, RDW Coeff of Zeeshan 14.8, Plt Count 148, Immature Gran % (Auto) 0.2, Neut % (Auto) 89.4, Lymph % (Auto) 4.2 L, [place] % (Auto) 5.2, Eos % (Auto) 1.0, Baso % (Auto) 0.0, Immature Gran # (Auto) 0.0, Neut # (Auto) 7.4 H, Lymph # ( Auto) 0.4 L, [place] # (Auto) 0.4, Eos # (Auto) 0.1, Baso # (Auto) 0.0 11/19/18 04:11: Puncture Site Rbrach, O2 Saturation 84.0 L, ABG pH 7.403, ABG pCO2 34.7 L, ABG pO2 48.0 L*, ABG HCO3 21.7 L, ABG Total CO2 23, ABG Base Excess -3 L, Trent Test +, FiO2 % 21.0 ASSESSMENT: Please see below. 1. UTI, culture pending 2. Bilateral pneumonia 3. Shortness of breath 4. Chronic kidney disease 5. Atrial fibrillation 6. Dementia PLAN: 1. Add Rocephin 1 gram IV daily 2. Discontinue Bumex 3. Resume Lasix PO 4. Continue home medications 5. Decreased Eliquis 2.5mg twice a day add triston 1 gram Plan and coordination of the patient's care discussed in the presence of Machine Assistant and nurse. SCRIBED BY: GERARDO ADAN Assistant Sales Manager scribed while in presence of service performed by Dr. Worthy/Jovanna Pleitez APRN on 11/19/18 ([id number])
[2018-11-19] MEDS: AZACTAM 1 GM in SODIUM CHLORIDE 50 ML IV SCH ×2 (09:32→20:23)
[2018-11-19] MEDS: LEXAPRO PO SCH ×2 (09:33)
[2018-11-19] MEDS: COZAAR PO SCH (09:33)
[2018-11-19] MEDS: CALCIUM 500 + VIT D 200 MG TABLET PO SCH (09:34)
[2018-11-19] MEDS: ZYLOPRIM PO SCH (09:34)
[2018-11-19] MEDS: ELIQUIS PO SCH ×2 (09:34→20:25)
[2018-11-19] MEDS: K-DUR PO SCH (09:34)
[2018-11-19] MEDS: TRADJENTA PO SCH (09:34)
[2018-11-19] MEDS: FERROUS SULFATE PO SCH ×2 (09:35→20:31)
[2018-11-19] MEDS: CARDIZEM PO SCH ×2 (09:35→20:24)
[2018-11-19] MEDS: ROCEPHIN 1 GM/50 ML D5W 1 GM in PREMIX 50 ML D5W 1 BAG IV SCH (10:47)
[2018-11-19] MEDS: DUONEB NEB SCH ×2 (14:08→20:00)
[2018-11-19] MEDS: SEROQUEL PO SCH (20:24)
[2018-11-19] MEDS: LANTUS SUBCUT SCH (20:29)
[2018-11-19] MEDS ORDERED: SEROQUEL PO SCH (21:00)
[2018-11-20] MEDS ORDERED: DUONEB NEB STA (00:35)
[2018-11-20] MEDS ORDERED: LASIX IVP STA (02:08)
[2018-11-20] MEDS: DUONEB NEB SCH ×3 (04:55→21:12)
[2018-11-20] MEDS: PRILOSEC PO SCH (05:45)
[2018-11-20] MEDS: LASIX TAB PO SCH (05:46)
[2018-11-20] MEDS: HUMULIN R SUBCUT PRN ×2 (05:46→21:11)
[2018-11-20] MEDS ORDERED: ATIVAN PO PRN (08:34)
[2018-11-20] MEDS: AZACTAM 1 GM in SODIUM CHLORIDE 50 ML IV SCH ×2 (08:43→21:04)
--- NOTE | 2018-11-20 08:44 | PCM.PROG ---
Attending Provider: ATTENDING PROVIDER: Dr. RANI WORTHY This patient is seen with Jovanna Pleitez, Nurse Practitioner. DATE OF SERVICE: 11/20/18 SUBJECTIVE: This 88 year old WHITE/ F was hospitalized 11/19/18. The patient is resting comfortably. She had a spell of agitation yesterday evening which is typical for her. REVIEW OF SYSTEMS: CONSTITUTIONAL: No night sweats. No fatigue, malaise, lethargy. No fever or chills. Weakness. HEENT: Eyes: No visual changes. No eye pain. No eye discharge. ENT: No runny nose. No epistaxis. No sinus pain. No odynophagia. No congestion. RESPIRATORY: Cough, no congestion. No hemoptysis. No shortness of breath. CARDIOVASCULAR: No angina symptoms. No CHF symptoms. No atypical chest pain for CAD. No palpitations. No orthopnea.. GASTROINTESTINAL: No abdominal pain. No nausea or vomiting. No diarrhea or constipation. No hematemesis. No hematochezia. GENITOURINARY: No urgency. No frequency. No dysuria. No hematuria. No obstructive symptoms. No discharge. No pain. No significant abnormal bleeding. MUSCULOSKELETAL: No musculoskeletal pain; no joint swelling. NEUROLOGICAL: The patient has confusion. No headache. No neck pain. No syncope. No seizures. No dizziness. PSYCHIATRIC: Not anxious. No depression. No suicidal thoughts. No homicidal thoughts. SKIN: No rash. No lesions. No wounds. ENDOCRINE: No unexplained weight loss. No weight gain. HEMATOLOGIC/LYMPHATIC: No anemia. No purpura. No petechiae. No prolonged or excessive bleeding. No palpable lymph nodes. PHYSICAL EXAMINATION: GENERAL: The patient is awake, alert and oriented, lying in bed in no distress. VITAL SIGNS: Temperature 100.4 F, Pulse 87, Respiratory Rate 18, BP 109/58, Pulse Ox 99% HEENT: Head normocephalic, atraumatic. Eyes: Extraocular muscles are intact. Pupils are equal, round and reactive to light and accommodation. Ears: No lesions. Nose appeared normal. Throat: No exudate or erythema. NECK: Supple. No JVD, no carotid bruit. No lymphadenopathy or thyromegaly. LUNGS: Diminished breath sounds. Clear to auscultation. Percussion note normal. Chest symmetrical. HEART: S1, S2, no S3. No murmurs. Irregular heart rate. No cyanosis or clubbing. No ascites. Pulses: Dorsalis pedis and posterior tibial pulses +1 to +2 both sides. ABDOMEN: Soft. Non-tender. Bowel sounds active. No CVA tenderness. No mass felt. EXTREMITIES: No edema. Full range of motion of all extremities, equal. NEUROLOGIC: No focal deficit. Cranial nerves II through XII are grossly intact. No headache, no double vision or headache. SKIN: Not dry. Intact. Turgor-normal. LYMPHATIC: No palpable lymph nodes/no lymphedema. MUSCULOSKELETAL: Normal joints with no swelling. Muscle tone is normal. LAB REVIEW: 11/20/18 05:25 11/20/18 05:25 11/20/18 05:25: Sodium 136.3, Potassium 4.43, Chloride 101.7, Carbon Dioxide 22.7, Anion Gap 16.33, BUN 35.2 H, Creatinine 1.79 H, Estimated GFR (MDRD) 27.00 , BUN/Creatinine Ratio 19.66, Glucose 159.9 H, Calcium 8.34 L, Total Bilirubin 0.38, AST 31.6, ALT 20.8, Alkaline Phosphatase 109.8, Total Protein 6.14 L, Albumin 3.41 L, Globulin 2.73, Albumin/Globulin Ratio 1.24 11/20/18 05:25: WBC 9.73, RBC 3.40 L, Hgb 10.3 L, Hct 31.4 L, MCV 92.4, MCH 30.3 , MCHC 32.8, RDW Coeff of Zeeshan 14.7, Plt Count 122 L, Immature Gran % (Auto) 0.3 , Neut % (Auto) 78.2, Lymph % (Auto) 7.2 L, [place] % (Auto) 14.2 H, Eos % (Auto) 0.0, Baso % (Auto) 0.1, Immature Gran # (Auto) 0.0, Neut # (Auto) 7.6 H, Lymph # (Auto) 0.7, [place] # (Auto) 1.4, Eos # (Auto) 0.0, Baso # (Auto) 0.0 11/20/18 00:36: Puncture Site Rbrach, O2 Saturation 89.0 L, ABG pH 7.363, ABG pCO2 32.6 L, ABG pO2 57.0 L*, ABG HCO3 18.5 L, ABG Total CO2 20 L, ABG Base Excess -7 L, Trent Test +, O2 Delivery Device Nc, Oxygen Liter Flow 2.00, FiO2 % 28.0 ASSESSMENT: Please see below. 1. Bilateral pneumonia 2. UTI 3. Atrial fibrillation 4. Chronic kidney disease. PLAN: 1. Continue IV antibiotics Plan and coordination of the patient's care discussed in the presence of Industrial X Ray Operator and nurse. SCRIBED BY: Radha POSADA scribed while in presence of service performed by Dr. Worthy/Jovanna Pleitez APRN on 11/20/18 ([id number])
[2018-11-20] MEDS: FERROUS SULFATE PO SCH ×2 (08:47→21:05)
[2018-11-20] MEDS: CALCIUM 500 + VIT D 200 MG TABLET PO SCH (08:47)
[2018-11-20] MEDS: COZAAR PO SCH (08:47)
[2018-11-20] MEDS: CARDIZEM PO SCH ×2 (08:47→21:05)
[2018-11-20] MEDS: K-DUR PO SCH (08:48)
[2018-11-20] MEDS: LEXAPRO PO SCH ×2 (08:49→08:56)
[2018-11-20] MEDS: ZYLOPRIM PO SCH (08:50)
[2018-11-20] MEDS: TRADJENTA PO SCH (08:50)
[2018-11-20] MEDS: ELIQUIS PO SCH ×2 (08:57→21:06)
[2018-11-20] MEDS: ROCEPHIN 1 GM/50 ML D5W 1 GM in PREMIX 50 ML D5W 1 BAG IV SCH (09:52)
[2018-11-20] MEDS: SEROQUEL PO SCH (21:05)
[2018-11-20] MEDS: LANTUS SUBCUT SCH (21:10)
[2018-11-21] MEDS: DUONEB NEB SCH ×3 (04:38→20:00)
[2018-11-21] MEDS: PRILOSEC PO SCH (06:12)
[2018-11-21] MEDS: LASIX TAB PO SCH (06:12)
[2018-11-21] MEDS: AZACTAM 1 GM in SODIUM CHLORIDE 50 ML IV SCH (09:27)
[2018-11-21] MEDS: CALCIUM 500 + VIT D 200 MG TABLET PO SCH (09:28)
[2018-11-21] MEDS: ZYLOPRIM PO SCH (09:28)
[2018-11-21] MEDS: CARDIZEM PO SCH ×2 (09:28→20:48)
[2018-11-21] MEDS: COZAAR PO SCH (09:28)
[2018-11-21] MEDS: FERROUS SULFATE PO SCH ×2 (09:28→20:48)
[2018-11-21] MEDS: LEXAPRO PO SCH ×2 (09:28→09:30)
[2018-11-21] MEDS: K-DUR PO SCH (09:28)
[2018-11-21] MEDS: TRADJENTA PO SCH (09:29)
[2018-11-21] MEDS: ELIQUIS PO SCH ×2 (09:33→20:49)
--- NOTE | 2018-11-21 10:17 | PCM.PROG ---
Attending Provider: ATTENDING PROVIDER: Dr. RANI WORTHY DATE OF SERVICE: 11/21/18 SUBJECTIVE: This 88 year old WHITE/ F was hospitalized 11/19/18 with UTI and acute respiratory failure. The patient has E. coli in the urine and blood. She is on Rocephin and Azactam. She is looking better, is more alert. Oxygen saturation 100% on 2L. REVIEW OF SYSTEMS: CONSTITUTIONAL: No night sweats. No fatigue, malaise, lethargy. No fever or chills. HEENT: Eyes: No visual changes. No eye pain. No eye discharge. ENT: No runny nose. No epistaxis. No sinus pain. No odynophagia. No congestion. RESPIRATORY: No cough, no congestion. No hemoptysis. No shortness of breath. CARDIOVASCULAR: No angina symptoms. No CHF symptoms. No atypical chest pain for CAD. No palpitations. No orthopnea.. GASTROINTESTINAL: Appetite is good. No abdominal pain. No nausea or vomiting. No diarrhea or constipation. No hematemesis. No hematochezia. GENITOURINARY: No urgency. No frequency. No dysuria. No hematuria. No obstructive symptoms. No discharge. No pain. No significant abnormal bleeding. MUSCULOSKELETAL: No musculoskeletal pain; no joint swelling. NEUROLOGICAL: Awake, alert, oriented to time, place and person. No headache. No neck pain. No syncope. No seizures. No dizziness. PSYCHIATRIC: Not anxious. No depression. No suicidal thoughts. No homicidal thoughts. SKIN: No rash. No lesions. No wounds. ENDOCRINE: No unexplained weight loss. No weight gain. HEMATOLOGIC/LYMPHATIC: No anemia. No purpura. No petechiae. No prolonged or excessive bleeding. No palpable lymph nodes. PHYSICAL EXAMINATION: GENERAL: The patient is awake, alert and oriented, lying/sitting in bed in no distress. VITAL SIGNS: Temperature 97.4 F, Pulse 91, Respiratory Rate 20, BP 122/77, Pulse Ox 100% HEENT: Head normocephalic, atraumatic. Eyes: Extraocular muscles are intact. Pupils are equal, round and reactive to light and accommodation. Ears: No lesions. Nose appeared normal. Throat: No exudate or erythema. NECK: Supple. No JVD, no carotid bruit. No lymphadenopathy or thyromegaly. LUNGS: Clear to auscultation. Percussion note normal. Chest symmetrical. HEART: S1, S2, no S3. No murmurs. No cyanosis or clubbing. No ascites. Pulses: Dorsalis pedis and posterior tibial pulses +1 to +2 both sides. ABDOMEN: Soft. Non-tender. Bowel sounds active. No CVA tenderness. No mass felt. EXTREMITIES: No edema. Full range of motion of all extremities, equal. NEUROLOGIC: No focal deficit. Cranial nerves II through XII are grossly intact. No headache, no double vision or headache. SKIN: Warm and dry. Intact. Turgor-normal. LYMPHATIC: No palpable lymph nodes/no lymphedema. MUSCULOSKELETAL: Normal joints with no swelling. Muscle tone is normal. LAB REVIEW: 11/21/18 05:30 11/21/18 05:30 11/21/18 05:30: Sodium 133.9 L, Potassium 4.42, Chloride 99.5, Carbon Dioxide 21.6 L, Anion Gap 17.22, BUN 43.7 H, Creatinine 1.91 H, Estimated GFR (MDRD) 25.00, BUN/Creatinine Ratio 22.87, Glucose 123.1 H, Calcium 8.32 L, Total Bilirubin 0.30, AST 27.5, ALT 19.9, Alkaline Phosphatase 126.2, Total Protein 6.16 L, Albumin 3.35 L, Globulin 2.81, Albumin/Globulin Ratio 1.19 11/21/18 05:30: WBC 7.02, RBC 3.28 L, Hgb 10.0 L, Hct 30.5 L, MCV 93.0, MCH 30.5 , MCHC 32.8, RDW Coeff of Zeeshan 14.9 H, Plt Count 107 L, Immature Gran % (Auto) 0.3, Neut % (Auto) 57.1, Lymph % (Auto) 22.8, [place] % (Auto) 16.5 H, Eos % (Auto ) 3.0, Baso % (Auto) 0.3, Immature Gran # (Auto) 0.0, Neut # (Auto) 4.0, Lymph # (Auto) 1.6, [place] # (Auto) 1.2, Eos # (Auto) 0.2, Baso # (Auto) 0.0 ASSESSMENT: Please see below. 1. Acute UTI with E. coli and septicemia. 2. Respiratory failure with chronic lung disease. 3. CKD. PLAN: 1. Continue IV antibiotics and prescribed Rocephin and Azactam. Plan and coordination of the patient's care discussed in the presence of Rail Switchman and nurse. CONDITION: Stable SCRIBED BY: LACEY VIVAR Shoe Lining Fitter scribed while in presence of service performed by Dr. RANI WORTHY on 11/21/18 ([id number])
[2018-11-21] MEDS: ROCEPHIN 1 GM/50 ML D5W 1 GM in PREMIX 50 ML D5W 1 BAG IV SCH (10:33)
[2018-11-21] MEDS: NYSTOP POWDER TP PRN (10:37)
[2018-11-21] MEDS: HUMULIN R SUBCUT PRN ×2 (11:20→20:50)
--- NOTE | 2018-11-21 14:33 | HP ---
DATE OF SERVICE: 11/19/18 HISTORY OF PRESENT ILLNESS: 88-year-old white female who is a resident of [facility]. She was brought in by [facility] with shortness of breath and weakness. Her oxygen saturation in the group home was 84%. PAST MEDICAL HISTORY: Atrial fibrillation - she is on Eliquis Chronic kidney disease, Stage 3 to 4 Anemia Coronary artery disease Dementia with behavioral disturbances Chronic leg edema Hypertension Recurrent gout Anxiety/depression Anemia Diabetes mellitus type 2, insulin dependent COPD GERD Recurrent UTIs PAST SURGICAL HISTORY: Hysterectomy REVIEW OF SYSTEMS: CONSTITUTIONAL: No night sweats. No fatigue, malaise, lethargy. No fever or chills. HEENT: Eyes: No visual changes. No eye pain. No eye discharge. ENT: No runny nose. No epistaxis. No sinus pain. No sore throat. No odynophagia. No ear pain. No congestion. RESPIRATORY: Positive for cough, shortness of breath. No hemoptysis. CARDIOVASCULAR: No angina symptoms. No CHF symptoms. No atypical chest pain for CAD. No palpitations. No PND. No orthopnea. GASTROINTESTINAL: No abdominal pain. No nausea or vomiting. No diarrhea or constipation. No hematemesis. No hematochezia. GENITOURINARY: No urgency. No frequency. No dysuria. No hematuria. No obstructive symptoms. No discharge. No pain. No significant abnormal bleeding. MUSCULOSKELETAL: No musculoskeletal pain. No joint swelling. No arthritis. NEUROLOGICAL: Confusion. No headache. No neck pain. No syncope. No seizures. No dizziness. PSYCHIATRIC: Not anxious. No depression. No suicidal thoughts. No homicidal thoughts. SKIN: No rash. No lesions. No wounds. ENDOCRINE: No unexplained weight loss. No weight gain. HEMATOLOGIC/LYMPHATIC: No anemia. No purpura. No petechiae. No prolonged or excessive bleeding. No palpable lymph nodes. PERSONAL/FAMILY/SOCIAL HISTORY: She is a former smoker, quit for the past 20 years. No alcohol or ilicit drug use. She is . She lives at [facility]. MEDICATIONS: (HOME) Furosemide 20 mg p.o. daily Losartan 50 mg p.o. daily Allopurinol 100 mg p.o. daily Ferrous Sulfate 325 mg p.o. b.i.d. Lexapro 10 mg p.o. daily Lexapro 5 mg p.o. daily Calcium Carbonate/Vitamin D3 one each p.o. daily Insulin regular Human See protocol ACHS Insulin Glargine 15 unit subcut bedtime Omeprazole 40 mg p.o. daily Linagliptin 5 mg p.o. daily Ipratropium/Albuterol 3 mL INH t.i.d. Apixaban 5 mg p.o. b.i.d. Diltiazem 60 mg p.o. q.12hr Potassium Chloride (K-Dur) 20 mEq p.o. daily Acetaminophen 650 g p.o. q.4h p.r.n. Quetiapine Fumarate 0.5 mg p.o. bedtime Lorazepam 1 mg p.o. daily p.r.n. ALLERGIES: IODINE AND IODIDE CONTAINING PRODUCTS, PENICILLINS, IODINE, ADHESIVE TAPE PHYSICAL EXAMINATION: VITAL SIGNS: Temperature 98, heart rate 101, respirations 24, blood pressure 122 /63, pulse ox 96%. HEENT: Head normocephalic, atraumatic. Eyes: Extraocular muscles are intact. Pupils are equal, round and reactive to light and accommodation. Ears: No lesions. Nose appeared normal. Throat: No exudate or erythema. NECK: Supple. No JVD, no carotid bruit. No lymphadenopathy or thyromegaly. LUNGS: Diminished breath sounds. Clear to auscultation. Percussion note normal. Chest symmetrical. HEART: Irregular heart rate. S1, S2, no S3. No murmurs. No cyanosis or clubbing. No ascites. Pulses: Dorsalis pedis and posterior tibial pulses +1 to +2 bilaterally. ABDOMEN: Soft. Nontender. Bowel sounds active. No CVA tenderness. No mass felt. EXTREMITIES: Trace bilateral leg edema which is chronic. Full range of motion of all extremities, equal. NEUROLOGIC: Alert, oriented to person only which is typical. No focal deficit. Cranial nerves II through XII are grossly intact. No headache, no double vision or headache. SKIN: Not dry. Intact. Turgor - normal. LYMPHATIC: No palpable lymph nodes/no lymphedema. MUSCULOSKELETAL: Normal joints with no swelling. Muscle tone is normal. LABS/IMAGING/ABGS: CT of the chest shows bilaterally patchy infiltrates consistent with pneumonia. White count 8.27, hemoglobin 11.1, hematocrit 34.6, platelets 148, sodium 143, potassium 4.4, BUN 28, creatinine 1.55. Glucose 92. ABGs on room air 02 sat 84, pH 7.403, pc02 34, p02 48, bicarb 21.7, total c02 23. Base excess of -3. Urine shows trace blood, trace protein, positive nitrites and 3+ bacteria. ASSESSMENT: 1. Acute bilateral pneumonia. 2. Shortness of breath with acute respiratory failure. 3. Urinary tract infection. 4. Acute on chronic kidney injury. 5. Atrial fibrillation on Eliquis. 6. Hypertension. 7. Dementia with behavioral disturbances. 8. COPD. 9. Diabetes mellitus type 2. PLAN: 1. We will admit. 2. Routine telemetry orders. 3. CBC, CMP daily. 4. Start on Rocephin 1 gm IV daily along with Azactam IV daily. 5. Xopenex neb treatments t.i.d. 6. Solu-Medrol 125 mg IV q.8hr ANNALISA. 7. Oxygen at 1 to 2L as needed. 8. Keep legs elevated. 9. Continue home medications. 10. NS at 75 cc/hr IV. 11. Resume all home medications. 12. Will follow closely. TIME SPENT: More than 70 minutes. MTDD
[2018-11-21] MEDS: SEROQUEL PO SCH (20:48)
[2018-11-21] MEDS: LANTUS SUBCUT SCH (20:50)
[2018-11-21] MEDS ORDERED: AZACTAM 0.5 GM in SODIUM CHLORIDE 50 ML IV SCH (21:00)
[2018-11-22] MEDS: DUONEB NEB SCH ×3 (04:20→22:16)
[2018-11-22] MEDS: PRILOSEC PO SCH (05:45)
[2018-11-22] MEDS: LASIX TAB PO SCH (05:46)
--- NOTE | 2018-11-22 08:50 | PCM.PROG ---
Attending Provider: ATTENDING PROVIDER: Dr. RANI WORTHY This patient is seen with Jovanna Pleitez, Nurse Practitioner. DATE OF SERVICE: 11/22/18 SUBJECTIVE: This 88 year old WHITE/ F was hospitalized 11/19/18. The patient is resting comfortably. No fever or respiratory distress. She is still requiring oxygen via nasal cannula. She has been eating well. REVIEW OF SYSTEMS: CONSTITUTIONAL: No night sweats. No fatigue, malaise, lethargy. No fever or chills. Weakness. HEENT: Eyes: No visual changes. No eye pain. No eye discharge. ENT: No runny nose. No epistaxis. No sinus pain. No odynophagia. No congestion. RESPIRATORY: Cough, no congestion. No hemoptysis. No shortness of breath. CARDIOVASCULAR: No angina symptoms. No CHF symptoms. No atypical chest pain for CAD. No palpitations. No orthopnea.. GASTROINTESTINAL: No abdominal pain. No nausea or vomiting. No diarrhea or constipation. No hematemesis. No hematochezia. GENITOURINARY: No urgency. No frequency. No dysuria. No hematuria. No obstructive symptoms. No discharge. No pain. No significant abnormal bleeding. MUSCULOSKELETAL: No musculoskeletal pain; no joint swelling. NEUROLOGICAL: Awake but confused. No headache. No neck pain. No syncope. No seizures. No dizziness. PSYCHIATRIC: Not anxious. No depression. No suicidal thoughts. No homicidal thoughts. SKIN: No rash. No lesions. No wounds. ENDOCRINE: No unexplained weight loss. No weight gain. HEMATOLOGIC/LYMPHATIC: No anemia. No purpura. No petechiae. No prolonged or excessive bleeding. No palpable lymph nodes. PHYSICAL EXAMINATION: GENERAL: The patient is awake, alert and oriented, lying in bed in no distress. VITAL SIGNS: Temperature 98.8 F, Pulse 85, Respiratory Rate 20, BP 114/60, Pulse Ox 93% HEENT: Head normocephalic, atraumatic. Eyes: Extraocular muscles are intact. Pupils are equal, round and reactive to light and accommodation. Ears: No lesions. Nose appeared normal. Throat: No exudate or erythema. NECK: Supple. No JVD, no carotid bruit. No lymphadenopathy or thyromegaly. LUNGS: Diminished breath sounds. Clear to auscultation. Percussion note normal. Chest symmetrical. HEART: S1, S2, no S3. Irregular heart rate. No murmurs. No cyanosis or clubbing. No ascites. Pulses: Dorsalis pedis and posterior tibial pulses +1 to +2 both sides. ABDOMEN: Soft. Non-tender. Bowel sounds active. No CVA tenderness. No mass felt. EXTREMITIES: No edema. Full range of motion of all extremities, equal. NEUROLOGIC: No focal deficit. Cranial nerves II through XII are grossly intact. No headache, no double vision or headache. SKIN: Not dry. Intact. Turgor-normal. LYMPHATIC: No palpable lymph nodes/no lymphedema. MUSCULOSKELETAL: Normal joints with no swelling. Muscle tone is normal. LAB REVIEW: 11/22/18 05:50 11/22/18 05:50 11/22/18 05:50: Sodium 134.3 L, Potassium 4.67, Chloride 101.2, Carbon Dioxide 21.1 L, Anion Gap 16.67, BUN 45.9 H, Creatinine 1.70 H, Estimated GFR (MDRD) 28.00, BUN/Creatinine Ratio 27.00, Glucose 116.3 H, Calcium 8.52, Total Bilirubin 0.29, AST 25.3, ALT 20.3, Alkaline Phosphatase 142.5 H, Total Protein 6.04 L, Albumin 3.28 L, Globulin 2.76, Albumin/Globulin Ratio 1.18 11/22/18 05:50: WBC 5.93, RBC 3.29 L, Hgb 10.1 L, Hct 30.5 L, MCV 92.7, MCH 30.7 , MCHC 33.1, RDW Coeff of Zeeshan 14.7, Plt Count 111 L, Immature Gran % (Auto) 0.2 , Neut % (Auto) 67.8, Lymph % (Auto) 15.5, [place] % (Auto) 12.8 H, Eos % (Auto) 3.5, Baso % (Auto) 0.2, Immature Gran # (Auto) 0.0, Neut # (Auto) 4.0, Lymph # ( Auto) 0.9, [place] # (Auto) 0.8, Eos # (Auto) 0.2, Baso # (Auto) 0.0 ASSESSMENT: Please see below. 1. UTI, e-coli 2. Urosepsis, e-coli 3. Bilateral pneumonia PLAN: 1. Chest x-ray 2. Anticipate discharge tomorrow. Plan and coordination of the patient's care discussed in the presence of Reinforcing Rod Layer and nurse. SCRIBED BY: Radha POSADA scribed while in presence of service performed by Dr. Worthy/Jovanna Pleitez APRN on 11/22/18 ([id number])
[2018-11-22] MEDS: LEXAPRO PO SCH ×2 (09:00→09:03)
[2018-11-22] MEDS: ZYLOPRIM PO SCH (09:02)
[2018-11-22] MEDS: K-DUR PO SCH (09:02)
[2018-11-22] MEDS: FERROUS SULFATE PO SCH ×2 (09:02→20:50)
[2018-11-22] MEDS: COZAAR PO SCH (09:03)
[2018-11-22] MEDS: CALCIUM 500 + VIT D 200 MG TABLET PO SCH (09:03)
[2018-11-22] MEDS: CARDIZEM PO SCH ×2 (09:03→20:50)
[2018-11-22] MEDS: TRADJENTA PO SCH (09:03)
[2018-11-22] MEDS: ELIQUIS PO SCH ×2 (09:04→20:50)
[2018-11-22] MEDS: AZACTAM 0.5 GM in SODIUM CHLORIDE 50 ML IV SCH ×2 (09:42→20:49)
[2018-11-22] MEDS: ROCEPHIN 1 GM/50 ML D5W 1 GM in PREMIX 50 ML D5W 1 BAG IV SCH (10:53)
[2018-11-22] MEDS: HUMULIN R SUBCUT PRN ×2 (10:54→20:50)
--- NOTE | 2018-11-22 14:18 | DI ---
EXAM: CHEST FRONTAL VIEW HISTORY: Pneumonia, acute respiratory failure. COMPARISON: 08/13/2018 FINDINGS: Cardiomegaly is stable. Probable moderate atherosclerotic disease. There is mild central vascular congestion. Mild bilateral central and lower zone interstitial infiltrate is present. The re is a prominent density in the medial right apex not previously seen on the comparison radiograph o r recent CT which may represent focal infiltrate or prominent vascular caliber. There is no pneumoth orax or pleural fluid identified IMPRESSION: 1. Cardiomegaly and mild congestive heart failure or fluid overload. Cannot exclude areas of pneumo sarath. Follow-up is recommended.
[2018-11-22] MEDS ORDERED: LASIX IVP STA (14:47)
[2018-11-22] MEDS: SEROQUEL PO SCH (20:49)
[2018-11-22] MEDS: LANTUS SUBCUT SCH (20:51)
[2018-11-23] MEDS: DUONEB NEB SCH ×3 (04:53→22:40)
[2018-11-23] MEDS: PRILOSEC PO SCH (05:50)
[2018-11-23] MEDS: LASIX TAB PO SCH (05:50)
[2018-11-23] MEDS ORDERED: DECADRON 4 MG/ML SDV IVP STA (07:48)
--- NOTE | 2018-11-23 07:53 | PCM.PROG ---
Attending Provider: ATTENDING PROVIDER: Dr. RANI WORTHY DATE OF SERVICE: 11/23/18 SUBJECTIVE: This 88 year old WHITE/ F was hospitalized 11/19/18 with acute respiratory failure. The patient also has UTI, e-coli with septicemia. The patient was treated with double antibiotics. We will discontinue the Azactam and continue the Rocephin. Other medical problem is CT scan showing signs of CHF which clinically doesn't match as usual. REVIEW OF SYSTEMS: CONSTITUTIONAL: No night sweats. No fatigue, malaise, lethargy. No fever or chills. HEENT: Eyes: No visual changes. No eye pain. No eye discharge. ENT: No runny nose. No epistaxis. No sinus pain. No odynophagia. No congestion. RESPIRATORY: No cough, no congestion. No hemoptysis. No shortness of breath. CARDIOVASCULAR: No angina symptoms. No CHF symptoms. No atypical chest pain for CAD. No palpitations. No orthopnea.. GASTROINTESTINAL: No abdominal pain. No nausea or vomiting. No diarrhea or constipation. No hematemesis. No hematochezia. GENITOURINARY: No urgency. No frequency. No dysuria. No hematuria. No obstructive symptoms. No discharge. No pain. No significant abnormal bleeding. MUSCULOSKELETAL: No musculoskeletal pain; no joint swelling. NEUROLOGICAL: Awake, alert, oriented to time, place and person. No headache. No neck pain. No syncope. No seizures. No dizziness. PSYCHIATRIC: Not anxious. No depression. No suicidal thoughts. No homicidal thoughts. SKIN: No rash. No lesions. No wounds. ENDOCRINE: No unexplained weight loss. No weight gain. HEMATOLOGIC/LYMPHATIC: No anemia. No purpura. No petechiae. No prolonged or excessive bleeding. No palpable lymph nodes. PHYSICAL EXAMINATION: GENERAL: The patient is awake, alert and oriented, lying in bed in no distress. VITAL SIGNS: Temperature 98 F, Pulse 80, Respiratory Rate 16, BP 118/77, Pulse Ox 100% HEENT: Head normocephalic, atraumatic. Eyes: Extraocular muscles are intact. Pupils are equal, round and reactive to light and accommodation. Ears: No lesions. Nose appeared normal. Throat: No exudate or erythema. NECK: Supple. No JVD, no carotid bruit. No lymphadenopathy or thyromegaly. LUNGS: Good air entry. Maybe mild faint expiratory wheezing. Clear to auscultation. Percussion note normal. Chest symmetrical. HEART: S1, S2, no S3. No murmurs. No cyanosis or clubbing. No ascites. Pulses: Dorsalis pedis and posterior tibial pulses +1 to +2 both sides. ABDOMEN: Soft. Non-tender. Bowel sounds active. No CVA tenderness. No mass felt. EXTREMITIES: Trace to 1+ pitting edema. Full range of motion of all extremities , equal. NEUROLOGIC: No focal deficit. Cranial nerves II through XII are grossly intact. No headache, no double vision or headache. SKIN: Warm and dry. Intact. Turgor-normal. LYMPHATIC: No palpable lymph nodes/no lymphedema. MUSCULOSKELETAL: Normal joints with no swelling. Muscle tone is normal. LAB REVIEW: 11/23/18 05:35 11/23/18 05:35 11/23/18 05:35: Sodium 135.0, Potassium 4.45, Chloride 101.4, Carbon Dioxide 22.4, Anion Gap 15.65, BUN 47.8 H, Creatinine 1.65 H, Estimated GFR (MDRD) 29.00 , BUN/Creatinine Ratio 28.96, Glucose 102.6, Calcium 8.63, Total Bilirubin 0.38 , AST 29.1, ALT 22.5, Alkaline Phosphatase 171.5 H D, Total Protein 5.92 L, Albumin 3.11 L, Globulin 2.81, Albumin/Globulin Ratio 1.10 11/23/18 05:35: WBC 5.06, RBC 3.31 L, Hgb 10.0 L, Hct 30.5 L, MCV 92.1, MCH 30.2 , MCHC 32.8, RDW Coeff of Zeeshan 14.6, Plt Count 131 L, Immature Gran % (Auto) 0.2 , Neut % (Auto) 54.4, Lymph % (Auto) 27.3, [place] % (Auto) 13.0 H, Eos % (Auto) 4.9, Baso % (Auto) 0.2, Immature Gran # (Auto) 0.0, Neut # (Auto) 2.8, Lymph # ( Auto) 1.4, [place] # (Auto) 0.7, Eos # (Auto) 0.3, Baso # (Auto) 0.0 ASSESSMENT: Please see below. 1. E-coli septicemia controlled with antibiotics 2. Respiratory failure under control 3. CHF clinically controlled. PLAN: 1. Continue IV Lasix for couple of days 2. 1cc Decadron 3. Continue Antibiotic Rocephin 4. Saturation is 100% on 2 liters Plan and coordination of the patient's care discussed in the presence of Data Communications Analyst and nurse. SCRIBED BY: GERARDO ADAN Records Management Analyst scribed while in presence of service performed by Dr. RANI WORTHY on 11/23/18 ([id number])
[2018-11-23] MEDS: ZYLOPRIM PO SCH (09:04)
[2018-11-23] MEDS: ROCEPHIN 1 GM/50 ML D5W 1 GM in PREMIX 50 ML D5W 1 BAG IV SCH (09:04)
[2018-11-23] MEDS: FERROUS SULFATE PO SCH ×2 (09:04→21:00)
[2018-11-23] MEDS: CARDIZEM PO SCH ×2 (09:04→21:00)
[2018-11-23] MEDS: K-DUR PO SCH (09:04)
[2018-11-23] MEDS: LEXAPRO PO SCH ×2 (09:04→09:05)
[2018-11-23] MEDS: CALCIUM 500 + VIT D 200 MG TABLET PO SCH (09:05)
[2018-11-23] MEDS: COZAAR PO SCH (09:05)
[2018-11-23] MEDS: ELIQUIS PO SCH ×2 (09:05→20:59)
[2018-11-23] MEDS: TRADJENTA PO SCH (09:05)
--- NOTE | 2018-11-23 11:10 | PN ---
DATE OF SERVICE: 11/20/18 SUBJECTIVE: The patient was seen and examined with Nurse Practitioner. The patient's respiratory status had some issues last night but they were not because of CHF. She gets nervous and anxiety. Ativan will be given at night time PRN. Overall cardiovascular status is stable. TIME SPENT: More than 30 minutes. Plan and coordination of the patient's care discussed in the presence of nurse. WILLIAM
--- NOTE | 2018-11-23 13:48 | PN ---
DATE OF SERVICE: 11/22/18 SUBJECTIVE: The patient was seen and examined with the Nurse Practitioner. The patient's condition is improved. She has e-coli septicemia. Cardiovascular status is stable. TIME SPENT: More than 30 minutes. Plan and coordination of the patient's care discussed in the presence of nurse. WILLIAM
[2018-11-23] MEDS: HUMULIN R SUBCUT PRN ×2 (17:08→21:00)
[2018-11-23] MEDS: SEROQUEL PO SCH (21:00)
[2018-11-23] MEDS: LANTUS SUBCUT SCH (21:01)
[2018-11-24] MEDS: DUONEB NEB SCH ×3 (04:28→19:18)
[2018-11-24] MEDS: PRILOSEC PO SCH (05:39)
[2018-11-24] MEDS: HUMULIN R SUBCUT PRN ×4 (05:40→21:09)
[2018-11-24] MEDS: LASIX TAB PO SCH (05:40)
[2018-11-24] MEDS: ROCEPHIN 1 GM/50 ML D5W 1 GM in PREMIX 50 ML D5W 1 BAG IV SCH (09:34)
[2018-11-24] MEDS: TRADJENTA PO SCH (09:35)
[2018-11-24] MEDS: LEXAPRO PO SCH ×2 (09:35→09:36)
[2018-11-24] MEDS: K-DUR PO SCH (09:36)
[2018-11-24] MEDS: CARDIZEM PO SCH ×2 (09:36→21:07)
[2018-11-24] MEDS: FERROUS SULFATE PO SCH ×2 (09:36→21:07)
[2018-11-24] MEDS: ZYLOPRIM PO SCH (09:37)
[2018-11-24] MEDS: ELIQUIS PO SCH ×2 (09:38→21:08)
[2018-11-24] MEDS: COZAAR PO SCH (09:38)
[2018-11-24] MEDS: CALCIUM 500 + VIT D 200 MG TABLET PO SCH (09:38)
[2018-11-24] MEDS: SEROQUEL PO SCH (21:07)
[2018-11-24] MEDS: LANTUS SUBCUT SCH (21:10)
[2018-11-25] MEDS: DUONEB NEB SCH ×3 (04:43→19:04)
[2018-11-25] MEDS: LASIX TAB PO SCH (05:41)
[2018-11-25] MEDS: PRILOSEC PO SCH (05:41)
[2018-11-25] MEDS: HUMULIN R SUBCUT PRN ×2 (05:41→17:17)
[2018-11-25] MEDS: CALCIUM 500 + VIT D 200 MG TABLET PO SCH (08:30)
[2018-11-25] MEDS: ELIQUIS PO SCH ×2 (08:31→21:12)
[2018-11-25] MEDS: ROCEPHIN 1 GM/50 ML D5W 1 GM in PREMIX 50 ML D5W 1 BAG IV SCH (08:31)
[2018-11-25] MEDS: CARDIZEM PO SCH ×2 (08:31→21:12)
[2018-11-25] MEDS: COZAAR PO SCH (08:31)
[2018-11-25] MEDS: K-DUR PO SCH (08:31)
[2018-11-25] MEDS: ZYLOPRIM PO SCH (08:32)
[2018-11-25] MEDS: TRADJENTA PO SCH (08:32)
[2018-11-25] MEDS: LEXAPRO PO SCH ×2 (08:32)
[2018-11-25] MEDS: FERROUS SULFATE PO SCH ×2 (08:32→21:12)
[2018-11-25] MEDS: NYSTOP POWDER TP PRN (08:33)
[2018-11-25] MEDS: SEROQUEL PO SCH (21:12)
[2018-11-25] MEDS: LANTUS SUBCUT SCH (21:19)
[2018-11-26] MEDS: DUONEB NEB SCH (04:24)
[2018-11-26 04:43] VITALS: BP 120/74; TEMP 97.9
[2018-11-26] MEDS: PRILOSEC PO SCH (06:04)
[2018-11-26] MEDS: LASIX TAB PO SCH (06:04)
[2018-11-26] MEDS: ROCEPHIN 1 GM/50 ML D5W 1 GM in PREMIX 50 ML D5W 1 BAG IV SCH (08:41)
[2018-11-26] MEDS: LEXAPRO PO SCH ×2 (08:42)
[2018-11-26] MEDS: K-DUR PO SCH (08:43)
[2018-11-26] MEDS: FERROUS SULFATE PO SCH (08:43)
[2018-11-26] MEDS: COZAAR PO SCH (08:43)
[2018-11-26] MEDS: TRADJENTA PO SCH (08:43)
[2018-11-26] MEDS: CALCIUM 500 + VIT D 200 MG TABLET PO SCH (08:43)
[2018-11-26] MEDS: ZYLOPRIM PO SCH (08:43)
[2018-11-26] MEDS: CARDIZEM PO SCH (08:43)
[2018-11-26] MEDS: ELIQUIS PO SCH (08:44)
--- NOTE | 2018-11-26 09:02 | PCM.PROG ---
Attending Provider: ATTENDING PROVIDER: Dr. RANI OWRTHY This patient is seen with Jovanna Pleitez, Nurse Practitioner. DATE OF SERVICE: 11/26/18 SUBJECTIVE: This 88 year old WHITE/ F was hospitalized 11/19/18. The patient is laying in bed resting comfortably. She has been eating well. Kidney function is stable. The patient is having bouts of confusion which is normal for her. REVIEW OF SYSTEMS: CONSTITUTIONAL: Positive for weakness. No night sweats. No fatigue, malaise, lethargy. No fever or chills. HEENT: Eyes: No visual changes. No eye pain. No eye discharge. ENT: No runny nose. No epistaxis. No sinus pain. No odynophagia. No congestion. RESPIRATORY: Positive for cough. No hemoptysis. No shortness of breath. CARDIOVASCULAR: No angina symptoms. No CHF symptoms. No atypical chest pain for CAD. No palpitations. No orthopnea.. GASTROINTESTINAL: No abdominal pain. No nausea or vomiting. No diarrhea or constipation. No hematemesis. No hematochezia. GENITOURINARY: No urgency. No frequency. No dysuria. No hematuria. No obstructive symptoms. No discharge. No pain. No significant abnormal bleeding. MUSCULOSKELETAL: No musculoskeletal pain; no joint swelling. NEUROLOGICAL: Awake, alert, positive for confusion. No headache. No neck pain. No syncope. No seizures. No dizziness. PSYCHIATRIC: Not anxious. No depression. No suicidal thoughts. No homicidal thoughts. SKIN: No rash. No lesions. No wounds. ENDOCRINE: No unexplained weight loss. No weight gain. HEMATOLOGIC/LYMPHATIC: No anemia. No purpura. No petechiae. No prolonged or excessive bleeding. No palpable lymph nodes. PHYSICAL EXAMINATION: GENERAL: The patient is awake, alert and oriented, lying/sitting in bed in no distress. VITAL SIGNS: Temperature 97.9 F, Pulse 102, Respiratory Rate 20, BP 120/74, Pulse Ox 98% HEENT: Head normocephalic, atraumatic. Eyes: Extraocular muscles are intact. Pupils are equal, round and reactive to light and accommodation. Ears: No lesions. Nose appeared normal. Throat: No exudate or erythema. NECK: Supple. No JVD, no carotid bruit. No lymphadenopathy or thyromegaly. LUNGS: Diminished breath sounds. Clear to auscultation. Percussion note normal. Chest symmetrical. HEART: S1, S2, no S3. No murmurs. No cyanosis or clubbing. No ascites. Pulses: Dorsalis pedis and posterior tibial pulses +1 to +2 both sides. ABDOMEN: Soft. Non-tender. Bowel sounds active. No CVA tenderness. No mass felt. EXTREMITIES: No edema. Full range of motion of all extremities, equal. NEUROLOGIC: No focal deficit. Cranial nerves II through XII are grossly intact. No headache, no double vision or headache. SKIN: Not dry. Intact. Turgor-normal. LYMPHATIC: No palpable lymph nodes/no lymphedema. MUSCULOSKELETAL: Normal joints with no swelling. Muscle tone is normal. LAB REVIEW: 11/26/18 04:45 11/26/18 04:45 11/26/18 04:45: Sodium 137.7, Potassium 4.71, Chloride 100.0, Carbon Dioxide 27.2, Anion Gap 15.21, BUN 50.0 H, Creatinine 1.48 H, Estimated GFR (MDRD) 33.00 , BUN/Creatinine Ratio 33.78, Glucose 112.3 H, Calcium 9.20, Total Bilirubin 0.26, AST 43.7 H, ALT 36.2 H, Alkaline Phosphatase 165.9 H, Total Protein 6.29 L , Albumin 3.42 L, Globulin 2.87, Albumin/Globulin Ratio 1.19 11/26/18 04:45: WBC 6.08, RBC 3.45 L, Hgb 10.2 L, Hct 32.1 L, MCV 93.0, MCH 29.6 , MCHC 31.8, RDW Coeff of Zeeshan 14.4, Plt Count 168, Immature Gran % (Auto) 0.5, Neut % (Auto) 60.7, Lymph % (Auto) 23.0, [place] % (Auto) 10.2 H, Eos % (Auto) 5.4 , Baso % (Auto) 0.2, Immature Gran # (Auto) 0.0, Neut # (Auto) 3.7, Lymph # ( Auto) 1.4, [place] # (Auto) 0.6, Eos # (Auto) 0.3, Baso # (Auto) 0.0 ASSESSMENT: Please see below. 1. UTI, e-coli 2. Urosepsis, E-coli 3. Bilateral pneumonia PLAN: 1. Discharge back to [place]. 2. Repeat CBC and CMP in one week. 3. Omnicef 300 mg daily times 5 days. 4. Continue Duonebs t.i.d. times 10 days. Plan and coordination of the patient's care discussed in the presence of Hides Soaker and nurse. CONDITION: Stable SCRIBED BY: LACEY VIVAR Intelligence Clerk scribed while in presence of service performed by Dr. Worthy/Jovanna Pleitez APRN on 11/26/18 ([id number])
--- NOTE | 2018-11-26 11:50 | CM.DICTOOL ---
ADMISSION: 11/19/18 05:49 DISCHARGE: NOVEMBER 26, 2018 DATE OF SERVICE: 11/26/18 FINAL DIAGNOSIS RESPIRATORY FAILURE UTI, E-COLI ORGANISM UROSEPSIS, E COLI ORGANISM BILATERAL PNEUMONIA COPD CKD, STAGE 3 ATRIAL FIBRILLATION (ELIQUIS) DEMENTIA WITH BEHAVIORAL DISTURBANCE HYPERTENSION GERD CHF CAD WITH HISTORY OF [place] OSTEROARTHRITIS GOUT, RECURRENT OVERACTIVE BLADDER ANEMIA PERIPHERAL VASCULAR DISEASE DM TYPE 2 ECHOCARDIOGRAM: MAY, 2018 BORDERLINE LVH MARKEDLY ENOARGED LEFT ATRIAL CAVITY HYPOKINETIC INFERIOR POST WALL LVEF 46% LAST VITALS Temp Pulse Resp BP Pulse Ox 97.9 F 102 H 16 120/74 98 11/26/18 04:40 11/26/18 04:40 11/26/18 07:30 11/26/18 04:40 11/26/18 04:40 TAKE THESE MEDICATIONS AT HOME Acetaminophen (Tylenol) 650 mg PO Q4H PRN PRN Reason: Mild Pain Albuterol/Ipratropium (Duoneb) 1 vial NEB RTTID [facility] FOR TEN DAYS Last Admin: 11/26/18 04:24 Dose: 1 vial Allopurinol (Zyloprim) 100 mg PO DAILY [facility] Last Admin: 11/26/18 08:43 Dose: 100 mg Apixaban (Eliquis) 2.5 mg PO BID [facility] Last Admin: 11/26/18 08:44 Dose: 2.5 mg Calcium/Vitamin D (Calcium 500 + Vit D 200 Mg Tablet) 1 each PO DAILY [facility] Last Admin: 11/26/18 08:43 Dose: 1 each Diltiazem HCl (Cardizem) 60 mg PO Q12HR [facility] Last Admin: 11/26/18 08:43 Dose: 60 mg Escitalopram Oxalate (Lexapro) 15 mg PO DAILY [facility] Last Admin: 11/26/18 08:42 Dose: 10 mg Ferrous Sulfate (Ferrous Sulfate) 324 mg PO BID [facility] Last Admin: 11/26/18 08:43 Dose: 324 mg Furosemide (Lasix Tab) 20 mg PO QDAC [facility] Last Admin: 11/26/18 06:04 Dose: 20 mg Insulin Glargine (Lantus) 15 unit SUBCUT BEDTIME [facility] Last Admin: 11/25/18 21:19 Dose: 15 unit Insulin Human Regular (Humulin R) 0 unit SUBCUT PRN PRN; Protocol PRN Reason: Hyperglycemia Last Admin: 11/25/18 17:17 Dose: 3 unit Linagliptin (Tradjenta) 5 mg PO DAILY [facility] Last Admin: 11/26/18 08:43 Dose: 5 mg Lorazepam (Ativan) 1 mg PO DAILY PRN PRN Reason: Anxiety Last Admin: 11/24/18 21:38 Dose: 1 mg Losartan Potassium (Cozaar) 50 mg PO DAILY [facility] Last Admin: 11/26/18 08:43 Dose: 50 mg Nystatin (Nystop Powder) 1 applic TP PRN PRN PRN Reason: Rash Last Admin: 11/25/18 08:33 Dose: 1 applic Omeprazole (Prilosec) 40 mg PO QDAC [facility] Last Admin: 11/26/18 06:04 Dose: 40 mg Potassium Chloride (K-Dur) 20 meq PO DAILYWM [facility] Last Admin: 11/26/18 08:43 Dose: 20 meq Quetiapine Fumarate (Seroquel) 12.5 mg PO BEDTIME [facility] Last Admin: 11/25/18 21:12 Dose: 12.5 mg ALLERGIES Penicillins Adverse Reaction (Unknown, Verified 11/19/18 04:14) Rash adhesive tape Adverse Reaction (Verified 11/19/18 04:14) iodine Adverse Reaction (Verified 11/19/18 04:14) Iodine and Iodide Containing Produc Adverse Reaction (Verified 11/19/18 04:14) DISCONTINUED MEDICATIONS NONE MEDICATION CHANGES ELIQUIS DECREASED FROM 5MG PO BID TO 2.5 PO BID NEW PRESCRIPTIONS: OMNICEF 300 MG PO DAILY FOR FIVE DAYS LAST DOSE: AFTER 12/01/18 DUONEB TID FOR 10 DAYS LAST DOSE: AFTER 12/05/2018 NYSTOP POWDER APPLY TWICE A DAY AND NEEDED TO ABDOMINAL FOLDS SMOKING: NON SMOKER DISEASE SPECIFIC EDUCATION: PNEUMONIA UTI: E COLI UROSEPSIS: E COLI OMNICEF NEB TX. LAB REVIEW: 11/26/18 04:45 11/26/18 04:45 11/26/18 04:45: Sodium 137.7, Potassium 4.71, Chloride 100.0, Carbon Dioxide 27.2, Anion Gap 15.21, BUN 50.0 H, Creatinine 1.48 H, Estimated GFR (MDRD) 33.00 , BUN/Creatinine Ratio 33.78, Glucose 112.3 H, Calcium 9.20, Total Bilirubin 0.26, AST 43.7 H, ALT 36.2 H, Alkaline Phosphatase 165.9 H, Total Protein 6.29 L , Albumin 3.42 L, Globulin 2.87, Albumin/Globulin Ratio 1.19 11/26/18 04:45: WBC 6.08, RBC 3.45 L, Hgb 10.2 L, Hct 32.1 L, MCV 93.0, MCH 29.6 , MCHC 31.8, RDW Coeff of Zeeshan 14.4, Plt Count 168, Immature Gran % (Auto) 0.5, Neut % (Auto) 60.7, Lymph % (Auto) 23.0, [place] % (Auto) 10.2 H, Eos % (Auto) 5.4 , Baso % (Auto) 0.2, Immature Gran # (Auto) 0.0, Neut # (Auto) 3.7, Lymph # ( Auto) 1.4, [place] # (Auto) 0.6, Eos # (Auto) 0.3, Baso # (Auto) 0.0 PLAN: DISCHARGE BACK TO [place] TODAY NOVEMBER 26, 2018 DIET: 1800 ADA, PUREED, THIN LIQUIDS ACTIVITY: UP TO DINING ROOM FOR MEALS VITAL SIGNS DAILY FOR ONE WEEK, THEN WEEKLY WEIGHT MONTHLY CBC WITH DIFF AND CMP IN ONE WEEK CBC WITH DIFF, CMP EVERY 3 MONTHS LIPIDS, TSH EVERY 6 MONTHS PT/OT/ST EVALUATION AND TREAT INCONTINENT CARE NEEDED DECUBITUS PRECAUTIONS NEEDED MAY PARTICIPATE IN PENITENTIARY ACTIVITY PROGRAM PATIENT TO BE SEEN ON PENITENTIARY ROUNDS BY DUONG BURGESS APRN IN 7-10 DAYS. CODE STATUS: DNR ALERT, ORIENTED TO SELF ONLY. SPEECH IS CLEAR BUT DELAYED RESPONSE AT TIMES. SHE IS ABLE TO FEED HERSELF BUT REQUIRES ASSISTANCE WITH BATHING AND DRESSING. SHE IS INCONTINENT OF URINE BUT IS NORMALLY CONTINENT OF BOWELS. LAST BM 11/24. SHE DOES REQUIRE MAXIMUM ASSISTANCE OF 2-3 STAFF FOR TRANSFERS. SHE IS ABLE TO ASSIST WITH TURNING/REPOSITIONING IN BED. SHE IS ABLE TO TAKE HER ORAL MEDICATIONS WHOLE, BUT DOES REQUIRE A PUREED DIET WITH THIN LIQUIDS. APPETITE IS GOOD. HYDRATION STATUS IS ADEQUATE. SKIN IS INTACT WITH ERYTHEMA NOTED TO ABDOMINAL FOLDS. [place] M.D. Duong Burgess APRN
--- NOTE | 2018-11-27 07:28 | PN ---
DATE OF SERVICE: 11/26/18 SUBJECTIVE: The patient was seen and examined with Nurse Practitioner. The patient's condition is stable. No evidence of CHF clinically as well as on physical exam. Sepsis has resolved. The patient will be discharged home on antibiotics. CONDITION: Stable. TIME SPENT: More than 30 minutes. Plan and coordination of the patient's care discussed in the presence of nurse. WILLIAM
--- NOTE | 2018-11-27 07:30 | PN ---
07: Level 5 11/20/18: Intermediate 11/21/18: Intermediate 11/22/18: Intermediate 11/23/18: Intermediate 11/24/18: Intermediate 11/25/18: Intermediate 11/26/18: D as in discharge MTDD
--- NOTE | 2018-11-27 09:23 | PN ---
DATE OF SERVICE: 11/23/18 SUBJECTIVE: The patient was seen and examined with the Nurse Practitioner. The patient has e -coli septicemia and urinary tract infection. The patient is being treated with Rocephin. Azactam has been discontinued. Kidney functions 1.6, BUN 46 which is stable. Cardiovascular status is stable. Chest x-ray yesterday showed CHF but clinically she doesn't have CHF. TIME SPENT: More than 30 minutes. Plan and coordination of the patient's care discussed in the presence of nurse. WILLIAM
--- NOTE | 2018-11-27 11:29 | PN ---
DATE OF SERVICE: 11/25/18 SUBJECTIVE: 88 year old white female hospitalized with respiratory failure, e-coli sepsis. The patient's sepsis is under control. She is on antibiotics Rocephin. No symptoms of CHF noted. REVIEW OF SYSTEMS: CONSTITUTIONAL: No night sweats. No fatigue, malaise, lethargy. No fever or chills. HEENT: Eyes: No visual changes. No eye pain. No eye discharge. ENT: No runny nose. No epistaxis. No sinus pain. No sore throat. No odynophagia. No congestion. RESPIRATORY: No cough, no congestion. No hemoptysis. No shortness of breath. CARDIOVASCULAR: No angina symptoms. No CHF symptoms. No atypical chest pain for CAD. No palpitations. No PND. No orthopnea. GASTROINTESTINAL: No abdominal pain. No nausea or vomiting. No diarrhea or constipation. No hematemesis. No hematochezia. GENITOURINARY: No urgency. No frequency. No dysuria. No hematuria. No obstructive symptoms. No discharge. No pain. No significant abnormal bleeding. MUSCULOSKELETAL: No musculoskeletal pain; no joint swelling. NEUROLOGICAL: No headache. No neck pain. No syncope. No seizures. No dizziness. PSYCHIATRIC: Not anxious. No depression. No suicidal thoughts. No homicidal thoughts. SKIN: No rash. No lesions. No wounds. ENDOCRINE: No unexplained weight loss. No weight gain. HEMATOLOGIC/LYMPHATIC: No anemia. No purpura. No petechiae. No prolonged or excessive bleeding. No palpable lymph nodes. PHYSICAL EXAMINATION: VITAL SIGNS: Temperature 97.7, pulse 100, respiratory rate 20, blood pressure 138/68 and pulse ox 96%. HEENT: Head normocephalic, atraumatic. Eyes: Extraocular muscles are intact. Pupils are equal, round and reactive to light and accommodation. Ears: No lesions. Nose appeared normal. Throat: No exudate or erythema. NECK: Supple. No JVD, no carotid bruit. No lymphadenopathy or thyromegaly. LUNGS:Decreased breath sounds but clear to auscultation. Percussion note normal. Chest symmetrical. HEART: S1, S2, no S3. No murmurs. No cyanosis or clubbing. No ascites. Pulses: Dorsalis pedis and posterior tibial pulses +1 to +2 bilaterally. ABDOMEN: Soft. Nontender. Bowel sounds active. No CVA tenderness. No mass felt. EXTREMITIES: No edema. Full range of motion of all extremities, equal. NEUROLOGIC: No focal deficit. Cranial nerves II through XII are grossly intact. No headache, no double vision or headache. SKIN: Not dry. Intact. Turgor - normal. LYMPHATIC: No palpable lymph nodes/no lymphedema. MUSCULOSKELETAL: Normal joints with no swelling. Muscle tone is normal. LABS: The patient's rhythm strips examined. The patient is in atrial fibrillation. Rate varies from 70 to 110 per minute. She is on Apixaban. PLAN: 1. Continue rest of the medications like Losartan, Allopurinol, Lexapro for depression, insulin, Diltazem, Lorazepam. Seroquel for Dementia with behavioral problems. CONDITION: Stable improving with no evidence of CHF TIME SPENT: More than 30 minutes. Plan and coordination of the patient's care discussed in the presence of nurse. WILLIAM
--- NOTE | 2018-11-27 11:33 | PN ---
DATE OF SERVICE: 11/24/18 SUBJECTIVE: 88 year old white female hospitalized with respiratory failure and UTI with e- coli sepsis. The patient's condition is steadily improved. She is laying flat with no distress and resting. REVIEW OF SYSTEMS: CONSTITUTIONAL: No night sweats. No fatigue, malaise, lethargy. No fever or chills. HEENT: Eyes: No visual changes. No eye pain. No eye discharge. ENT: No runny nose. No epistaxis. No sinus pain. No sore throat. No odynophagia. No congestion. RESPIRATORY: No cough, no congestion. No hemoptysis. No shortness of breath. CARDIOVASCULAR: No angina symptoms. No CHF symptoms. No atypical chest pain for CAD. No palpitations. No PND. No orthopnea. GASTROINTESTINAL: No abdominal pain. No nausea or vomiting. No diarrhea or constipation. No hematemesis. No hematochezia. GENITOURINARY: No urgency. No frequency. No dysuria. No hematuria. No obstructive symptoms. No discharge. No pain. No significant abnormal bleeding. MUSCULOSKELETAL: No musculoskeletal pain; no joint swelling. NEUROLOGICAL: No headache. No neck pain. No syncope. No seizures. No dizziness. PSYCHIATRIC: Not anxious. No depression. No suicidal thoughts. No homicidal thoughts. SKIN: No rash. No lesions. No wounds. ENDOCRINE: No unexplained weight loss. No weight gain. HEMATOLOGIC/LYMPHATIC: No anemia. No purpura. No petechiae. No prolonged or excessive bleeding. No palpable lymph nodes. PHYSICAL EXAMINATION: VITAL SIGNS: Temperature 97.5, pulse 92, respiratory rate 20, blood pressure 139/74 and pulse ox 98% on room air. HEENT: Head normocephalic, atraumatic. Eyes: Extraocular muscles are intact. Pupils are equal, round and reactive to light and accommodation. Ears: No lesions. Nose appeared normal. Throat: No exudate or erythema. NECK: Supple. No JVD, no carotid bruit. No lymphadenopathy or thyromegaly. LUNGS: Decreased breath sounds but clear to auscultation. Percussion note normal. Chest symmetrical. HEART: S1, S2, no S3. No murmurs. No cyanosis or clubbing. No ascites. Pulses: Dorsalis pedis and posterior tibial pulses +1 to +2 bilaterally. ABDOMEN: Soft. Nontender. Bowel sounds active. No CVA tenderness. No mass felt. EXTREMITIES: No edema. Full range of motion of all extremities, equal. NEUROLOGIC: No focal deficit. Cranial nerves II through XII are grossly intact. No headache, no double vision or headache. SKIN: Not dry. Intact. Turgor - normal. LYMPHATIC: No palpable lymph nodes/no lymphedema. MUSCULOSKELETAL: Normal joints with no swelling. Muscle tone is normal. LABS: Hgb 10.3, hct 31, WBC 3,900 normal differential, creatinine 1.5, BUN 50, potassium 4.8. Chest x-ray was over ready indicating interstitial edema. The patient has no symptoms of sign of CHF. ASSESSMENT: 1. Respiratory failure, has resolved 2. E-coli sepsis seems to be under control 3. CHF under control TIME SPENT: More than 30 minutes. Plan and coordination of the patient's care discussed in the presence of nurse. WILLIAM
--- NOTE | 2018-12-10 10:04 | DS ---
DATE OF SERVICE: 11/26/18 FINAL DIAGNOSIS: 1. RESPIRATORY FAILURE 2. UTI, E-COLI ORGANISM 3. UROSEPSIS, E COLI ORGANISM 4. BILATERAL PNEUMONIA 5. COPD 6. CKD, STAGE 3 7. ATRIAL FIBRILLATION (ELIQUIS) 8. DEMENTIA WITH BEHAVIORAL DISTURBANCE 9. HYPERTENSION 10. GERD 11. CHF 12. CAD WITH HISTORY OF [place] 13. OSTEROARTHRITIS 14. GOUT, RECURRENT 15. OVERACTIVE BLADDER 16. ANEMIA 17. PERIPHERAL VASCULAR DISEASE 18. DM TYPE 2 LAST VITALS Temp Pulse Resp BP Pulse Ox 97.9 F 102 H 16 120/74 98 11/26/18 04:40 11/26/18 04:40 11/26/18 07:30 11/26/18 04:40 04:40 DISCHARGE INSTRUCTIONS: 1. DISCHARGE BACK TO [place] TODAY NOVEMBER 26, 2018 2. VITAL SIGNS DAILY FOR ONE WEEK, THEN WEEKLY 3. WEIGHT MONTHLY 4. CBC WITH DIFF AND CMP IN ONE WEEK 5. BC WITH DIFF, CMP EVERY 3 MONTHS 6. LIPIDS, TSH EVERY 6 MONTHS 7. PT/OT/ST EVALUATION AND TREAT 8. INCONTINENT CARE NEEDED 9. DECUBITUS PRECAUTIONS NEEDED 10. MAY PARTICIPATE IN [facility] ACTIVITY PROGRAM 11. THE PATIENT TO BE SEEN ON [facility] ROUNDS BY DUONG BURGESS APRN IN 7- 10 DAYS. MEDICATIONS AT DISCHARGE: Acetaminophen (Tylenol) 650 mg PO Q4H PRN PRN Reason: Mild Pain Albuterol/Ipratropium (Duoneb) 1 vial NEB RTTID [facility] FOR TEN DAYS Last Admin: 11/26/18 04:24 Dose: 1 vial Allopurinol (Zyloprim) 100 mg PO DAILY [facility] Last Admin: 11/26/18 08:43 Dose: 100 mg Apixaban (Eliquis) 2.5 mg PO BID [facility] Last Admin: 11/26/18 08:44 Dose: 2.5 mg Calcium/Vitamin D (Calcium 500 + Vit D 200 Mg Tablet) 1 each PO DAILY [facility] Last Admin: 11/26/18 08:43 Dose: 1 each Diltiazem HCl (Cardizem) 60 mg PO Q12HR [facility] Last Admin: 11/26/18 08:43 Dose: 60 mg Escitalopram Oxalate (Lexapro) 15 mg PO DAILY [facility] Last Admin: 11/26/18 08:42 Dose: 10 mg Ferrous Sulfate (Ferrous Sulfate) 324 mg PO BID [facility] Last Admin: 11/26/18 08:43 Dose: 324 mg Furosemide (Lasix Tab) 20 mg PO QDAC [facility] Last Admin: 11/26/18 06:04 Dose: 20 mg Insulin Glargine (Lantus) 15 unit SUBCUT BEDTIME [facility] Last Admin: 11/25/18 21:19 Dose: 15 unit Insulin Human Regular (Humulin R) 0 unit SUBCUT PRN PRN; Protocol PRN Reason: Hyperglycemia Last Admin: 11/25/18 17:17 Dose: 3 unit Linagliptin (Tradjenta) 5 mg PO DAILY [facility] Last Admin: 11/26/18 08:43 Dose: 5 mg Lorazepam (Ativan) 1 mg PO DAILY PRN PRN Reason: Anxiety Last Admin: 11/24/18 21:38 Dose: 1 mg Losartan Potassium (Cozaar) 50 mg PO DAILY [facility] Last Admin: 11/26/18 08:43 Dose: 50 mg Nystatin (Nystop Powder) 1 applic TP PRN PRN PRN Reason: Rash Last Admin: 11/25/18 08:33 Dose: 1 applic Omeprazole (Prilosec) 40 mg PO QDAC [facility] Last Admin: 11/26/18 06:04 Dose: 40 mg Potassium Chloride (K-Dur) 20 meq PO DAILYWM [facility] Last Admin: 11/26/18 08:43 Dose: 20 meq Quetiapine Fumarate (Seroquel) 12.5 mg PO BEDTIME [facility] Last Admin: 11/25/18 21:12 Dose: 12.5 mg NEW PRESCRIPTIONS: OMNICEF 300 MG PO DAILY FOR FIVE DAYS LAST DOSE: AFTER 12/01/18 DUONEB TID FOR 10 DAYS LAST DOSE: AFTER 12/05/2018 NYSTOP POWDER APPLY TWICE A DAY AND NEEDED TO ABDOMINAL FOLDS DISCONTINUED MEDICATIONS: NONE MEDICATION CHANGES: ELIQUIS DECREASED FROM 5MG PO BID TO 2.5 PO BID DIET INSTRUCTIONS: 1800 ADA, PUREED, THIN LIQUIDS ACTIVITY: UP TO DINING ROOM FOR MEALS SMOKING: NON SMOKER DISEASE SPECIFIC EDUCATION: PNEUMONIA UTI: E COLI UROSEPSIS: E COLI OMNICEF [place]. HOSPITAL COURSE: This is an 88-year-old white female who is a resident of [facility]. She was brought in for acute respiratory failure, oxygen saturation at the skilled nursing was 84% on room air. They put her on 2L via NC initially when brought to the emergency room. 02 sat on ABGs was about 84%. CT of the chest revealed bilateral pneumonia. Urine showed 3+ bacteria. Culture was positive for E. coli. Blood cultures ended up being positive for E. coli. She is admitted, placed on Rocephin IV as well as Azactam. She remained on Azactam for the course of her hospital stay. Cultures were sensitive to both Azactam and Rocephin. She was febrile initially. She has atrial fibrillation, has been on Eliquis due to elevated kidney function and we decreased the Eliquis to 2.5 mg p.o. b.i.d. She will be discharged on Omnicef 300 mg p.o. daily for the next five days. She has had approximately 7 days of IV antibiotics. For the past several days she has been eating well. She does have dementia with behavioral disturbances, usually about 3 or 4 o'clock in the afternoon she starts becoming agitated. She does get Ativan for this as well as Seroquel at bedtime. Chest x- ray on of last week revealed she had some vascular congestion which was not seen on admission. We did give her Lasix IV. She was not showing any signs of CHF. She has chronic leg edema which had improved after having her legs elevated in the bed during hospital stay anyway. We will discharge her back to the skilled nursing in stable condition with CBC, CMP in one week. She is to continue the Omnicef. Will follow her closely. She is to continue with nebs t.i.d. for the next 10 days. I will followup with her at [place]. TIME SPENT: More than 60 minutes. WILLIAM
== END 2018-11-26 12:40 | DRG 189 ==
LOC: ED 04:03 → MEDSURG B 05:49
PROVIDERS: ADMIT Internal Medicine; ATTEND Internal Medicine
DX: I10 Essential (primary) hypertension; N18.3 Chronic kidney disease, stage 3 (moderate); M19.90 Unspecified osteoarthritis, unspecified site; Z79.01 Long term (current) use of anticoagulants; J18.9 Pneumonia, unspecified organism; K21.9 Gastro-esophageal reflux disease without esophagitis; I48.91 Unspecified atrial fibrillation; I25.2 Old myocardial infarction; J96.01 Acute respiratory failure with hypoxia; Z87.891 Personal history of nicotine dependence; R06.02 Shortness of breath; A49.8 Other bacterial infections of unspecified site; I50.9 Heart failure, unspecified; N39.0 Urinary tract infection, site not specified; N32.81 Overactive bladder; R60.0 Localized edema; J44.9 Chronic obstructive pulmonary disease, unspecified; I73.9 Peripheral vascular disease, unspecified; F03.91 Unspecified dementia, unspecified severity, with behavioral disturbance; I25.10 Atherosclerotic heart disease of native coronary artery without angina pectoris; E11.9 Type 2 diabetes mellitus without complications; D64.9 Anemia, unspecified